=== PATIENT | male | born 1940 | race Caucasian/White ===

== ENCOUNTER 2016-09-07 23:21 | Emergency (ER) | payer BC ==
[~2016-09-07] VITALS: Ht 182.9 cm; Wt 90.9 kg
[~2016-09-07 23:21] MED LIST: AMAN100T2 PO; ASCO10003 PO; AZL/5 PO; CALC600T9 PO; CARB25TA7 PO; CLBCRM30 EXT; COEN1CAP40 PO; DOCU-94 PO; DUTA0.5C PO; FEXO1TAB46 PO; KETO2SHA5 TOP; LPT/40 PO; RIBO100T9 PO; SILO8CAP PO; TPRSR/50 PO; VARD20TA PO; VITA400C15 PO; ZOLP10TA PO; [UNRECOGNIZED DRUG - CODE] TOP
[2016-09-07 23:27] VITALS: TEMP 36.9; Ht 182.9 cm; Wt 90.9 kg
[2016-09-07 23:37] VITALS: O2SAT 99
--- NOTE | 2016-09-07 23:53 | EMERGENCY ROOM VISIT NOTE ---
History Report prepared by Brissa: Silvio Fuller Under the Supervision of: Dr. Perlita Wynn D.O. First contact with patient: 23:32 Chief Complaint: SHORTNESS OF BREATH Stated Complaint: SHAKING,SEVERE TREMBLING, SOB History of Present Illness The patient is a 75 year old male with a history of Parkinson's Disease who presents to the Emergency Room with complaints of worsening generalized tremors since approximately 2100 tonight. The patient is usually able to control his tremors but has been unable to tonight. The patient takes Ativan 2 mg every night. He had a dose at 2115 tonight, which did not relieve the tremors. The patient also complains of some shortness of breath tonight and urinary frequency. He notes that his tremors often make him feel anxious. The patient denies abdominal pain, problems with his bowel, leg cramping or swelling. He has not had any recent cough or cold symptoms. The patient had 5-8 small candies earlier tonight. He does not have a history of diabetes. The patient has been eating less than baseline for two months. His eyes are puffy at baseline as per his . The patient formerly took Metoprolol for hypertension. Source of History: patient, spouse/significant other Onset: 2100 tonight Position: other (generalized) Quality: other (tremors) Timing: worsening Associated Symptoms: + SOB, + urinary symptoms (frquency), No abdominal pain , No cough Review of Systems See HPI for pertinent positives & negatives. A total of 10 systems reviewed and were otherwise negative. Past Medical & Surgical Medical Problems: (1) Parkinson disease Surgical Problems: (1) S/P appendectomy (2) S/P tonsillectomy Family History Cancer FH: tuberculosis Heart disease Social History Smoking Status: Never Smoker Marital Status: Housing Status: lives with family Current/Historical Medications Scheduled Ascorbic Acid (Vitamin C), 1,000 MG PO DAILY Aspirin (Aspirin Ec), 81 MG PO DAILY Atorvastatin (Lipitor), 40 MG PO HS Calcium Carbonate-Vitamin D (Calcium + D), 1 TAB PO DAILY Carbidopa-Levodopa (Rytary 23.75-95 mg), 1 CAP PO QID Clobetasol Propionate (Clobetasol Propionate Cream 0.05%), 1 APPLN EXT UD Coenzyme Q10 (Ubidecarenone) (Co Q-10), 400 MG PO TID Donepezil Hydrochloride (Aricept), 5 MG PO DAILY Dutasteride (Avodart), 0.5 MG PO DAILY Ketoconazole (Topical) (Nizoral), 1 DOSE TOP 3XWK Lorazepam (Ativan), 1 MG PO DAILY Metoprolol Succinate (Metoprolol Succinate ER), 150 MG PO DAILY Polyethylene Glycol 3350 (Miralax), 17 GM PO Q2D Rasagiline (Azilect), 1 MG PO DAILY Riboflavin (Vitamin B-2), 100 MG PO TIDM Solifenacin (Vesicare), 10 MG PO HS Tocopheryl Acet,Dl-Alpha (Vitamin E), 400 INTER.UNIT PO TIDM Scheduled PRN Cetirizine (Zyrtec), 10 MG PO DAILY PRN for ALLERGIC REACTION Docusate Sodium (Colace), 1 TAB PO TID PRN for Constipation Naproxen Sodium (Naproxen Sodium), 220 MG PO BID PRN for Pain Allergies Coded Allergies: Iodine (Verified Allergy, Severe, ITCHING AND DISCOMFORT, 03/09/14) C/B INTERNAL USE OF IODINE PRODUCTS Physical Exam Vital Signs Date Time Temp Pulse Resp B/P Pulse Ox O2 Delivery O2 Flow Rate FiO2 09/08/16 03:20 71 18 161/93 99 09/08/16 02:08 77 18 167/84 98 Room Air 09/08/16 01:09 75 18 147/78 98 Room Air 09/07/16 23:40 73 09/07/16 23:37 99 Room Air 09/07/16 23:37 98 Room Air 09/07/16 23:27 36.9 81 18 123/82 90 Room Air Physical Exam General: Mild tremors. HEENT: Head - normocephalic and atraumatic. Pupils are equal, round, and reactive to light. Extraocular eye muscles are intact and sclera are anicteric. Ears - bilaterally patent canals with noninjected tympanic membranes and no evidence of hemotympanum. Nose - moist nasal mucosa without discharge. Mouth - moist buccal mucosa. Oropharynx is nonerythematous and there is no tonsillar exudate or edema noted. Neck: Supple; no JVD, nuchal rigidity, cervical lymphadenopathy. Heart: Regular rate and rhythm. There is a normal S1 and S2 with no murmurs, clicks, or gallops appreciated. Lungs: Clear to auscultation bilaterally with no wheezes, rales, or rhonchi. Abdomen: Soft, completely nontender, nondistended, with good bowel sounds. There are no palpable pulsatile masses or hepatosplenomegaly. There is no guarding, rigidity, or rebound noted. Extremities: No evidence of cyanosis, clubbing, or edema. There are easily palpable peripheral pulses. Neuro:The patient is awake and alert, oriented to day, time, and place. Muscle strength is 5/5 in all 4 extremities. The patient has equal minute clerk for basic traffic strength and equal pedal push and pull. There are no cerebellar signs. Medical Decision & Procedures ER Provider Diagnostic Interpretation: X-ray results as stated below per interpretation by me. TWO VIEW CHEST: No cardiomegaly, no pulmonary infiltrates. Laboratory Results 09/08/16 00:00 Red Blood Count 4.94, Mean Corpuscular Volume 90.1, Mean Corpuscular Hemoglobin 32.2, Mean Corpuscular Hemoglobin Concent 35.7, Mean Platelet Volume 9.7, Neutrophils (%) (Auto) 76.0, Lymphocytes (%) (Auto) 13.7, Monocytes (%) (Auto) 7.6, Eosinophils (%) (Auto) 2.0, Basophils (%) (Auto) 0.5, Neutrophils # (Auto) 6.59, Lymphocytes # (Auto) 1.19, Monocytes # (Auto) 0.66, Eosinophils # (Auto) 0.17, Basophils # (Auto) 0.04 09/08/16 00:00 Test 09/08/16 00:00 09/08/16 00:25 White Blood Count 8.67 K/uL (4.8-10.8) Red Blood Count 4.94 M/uL (4.7-6.1) Hemoglobin 15.9 g/dL (14.0-18.0) Hematocrit 44.5 % (42-52) Mean Corpuscular Volume 90.1 fL (80-100) Mean Corpuscular Hemoglobin 32.2 pg (25-34) Mean Corpuscular Hemoglobin Concent 35.7 g/dl (32-36) Platelet Count 174 K/uL (130-400) Mean Platelet Volume 9.7 fL (7.4-10.4) Neutrophils (%) (Auto) 76.0 % Lymphocytes (%) (Auto) 13.7 % Monocytes (%) (Auto) 7.6 % Eosinophils (%) (Auto) 2.0 % Basophils (%) (Auto) 0.5 % Neutrophils # (Auto) 6.59 K/uL (1.4-6.5) Lymphocytes # (Auto) 1.19 K/uL (1.2-3.4) Monocytes # (Auto) 0.66 K/uL (0.11-0.59) Eosinophils # (Auto) 0.17 K/uL (0-0.5) Basophils # (Auto) 0.04 K/uL (0-0.2) RDW Standard Deviation 45.6 fL (36.4-46.3) RDW Coefficient of Variation 13.9 % (11.5-14.5) Immature Granulocyte % (Auto) 0.2 % Immature Granulocyte # (Auto) 0.02 K/uL (0.00-0.02) Anion Gap 11.0 mmol/L (3-11) Est Creatinine Clear Calc Drug Dose 80.3 ml/min Estimated GFR () 97.9 Estimated GFR (Non- 84.4 BUN/Creatinine Ratio 30.2 (10-20) Calcium Level 9.5 mg/dl (8.5-10.1) Total Bilirubin 0.6 mg/dl (0.2-1) Aspartate Amino Transf (AST/SGOT) 17 U/L (15-37) Alanine Aminotransferase (ALT/SGPT) 14 U/L (12-78) Alkaline Phosphatase 87 U/L (45-117) Total Protein 6.9 gm/dl (6.4-8.2) Albumin 3.7 gm/dl (3.4-5.0) Globulin 3.2 gm/dl (2.5-4.0) Albumin/Globulin Ratio 1.2 (0.9-2) Urine Color DK YELLOW Urine Appearance CLEAR (CLEAR) Urine pH 5.0 (4.5-7.5) Urine Specific [place] 1.019 (1.000-1.030) Urine Protein NEG (NEG) Urine Glucose (UA) NEG (NEG) Urine Ketones NEG (NEG) Urine Occult Blood NEG (NEG) Urine Nitrite NEG (NEG) Urine Bilirubin NEG (NEG) Urine Urobilinogen NEG (NEG) Urine Leukocyte Esterase NEG (NEG) Laboratory results per my review. Medications Administered Medications (Trade) Dose Ordered Sig/Mira Route Start Time Stop Time Status Last Admin Dose Admin Sodium Chloride 1,000 ml @ 999 mls/hr Q1H1M STAT IV 09/08/16 00:43 09/08/16 01:43 DC 09/08/16 01:09 999 MLS/HR Sodium Chloride (Nss 1000ml) 1,000 ml @ 250 mls/hr Q4H STAT IV 09/08/16 00:43 09/08/16 04:42 DC 09/08/16 02:08 250 MLS/HR Lorazepam (Ativan Inj) 1 mg NOW STAT IV 09/08/16 01:21 09/08/16 01:22 DC 09/08/16 01:29 1 MG Diphenhydramine HCl (Benadryl Inj) 50 mg NOW STAT IV 09/08/16 02:32 09/08/16 02:34 DC 09/08/16 02:37 50 MG Procedure Medications administered include NSS, Ativan IV, Benadryl IV. ED Course 2335: Past medical records reviewed. The patient was evaluated in room B4b. A complete history and physical exam was performed. IV lock was established. 0040: The patient is very dehydrated. He will receive fluids. 0043: NSS 1000 ml @ 250 mls/hr, NSS 1000 ml @ 999 mls/hr. 0058: The patient is still having increased tremors. He is getting IV fluids now and will also receive 1 mg Ativan IV 0121: Ativan 1 mg IV. 0218: Ativan hasn't helped the patient. I will contact the traffic control officer Neurologist, Dr. Chin, for his recommended treatment plan. 0228: Discussed the case with Dr. Chin, Neurologist. He suggested Benadryl or Clonazepam. 0232: Benadryl 50 mg IV. 0233: Updated the patient. He will be discharged after he receives his Benadryl. 0240: The patient's asked for a [place] catheter for him for nighttime urination. 0316: The patient is feeling much better after Benadryl. He is experiencing minimal tremors. I explained everything to him and his . They verbalized understanding of the plan. He will be discharged. Medical Decision The patient is a 75 year old male who presents to the ED with worsening tremors. Differential diagnosis includes UTI, hyperglycemia, anxiety, medication side effects, worsening Parkinson's. Laboratory interpretation: No leukocytosis, stable H&H, BUN 27, creatinine 0.9, glucose 98, LFTs normal, urinalysis normal. The patient presents to the emergency department with worsening anxiety and tremors secondary to Parkinson's disease. He has been using Ativan at nighttime for sleep but felt that his dose of Ativan tonight did not help his tremors. Labs revealed moderate dehydration. He received IV fluids and was able to drink liquids. He did get significant relief of his symptoms with IV Benadryl. I did talk to him and his about his underlying anxiety. They will need to discuss this with the PCP and he may need to start taking preventative medications for this. Also, Ativan has a short half-life and may not be the best med to use for sleep. They may want to switch to clonazepam. I have also encouraged him to follow up with her neurologist at [place]. Consults Time Called: [phone] Consulting Physician: Dr. Chin, Neurologist Returned Call: [phone]: Discussed the case with Dr. Chin, Neurologist. He suggested Benadryl or Clonazepam. Impression Primary Impression: Parkinson disease Additional Impressions: Tremor, Anxiety Scribe Attestation The scribe's documentation has been prepared under my direction and personally reviewed by me in its entirety. I confirm that the note above accurately reflects all work, treatment, procedures, and medical decision making performed by me. Departure Information Dispostion Home / Self-Care Referrals Ney Rodriguez M.D. (PCP) Forms HOME CARE DOCUMENTATION FORM, IMPORTANT VISIT INFORMATION Patient Instructions A Signature Page, Anxiety Body Response, My [facility] Additional Instructions Rest Take care when going home as you may be sleepy. You may continue to use ativan or benadryl as a sleep aid. Talk to Dr. Rodriguez about switching to clonazepam and also about the increased anxiety as you may benefit from a preventative med. Take plenty of clear liquids to avoid dehydration.
[2016-09-08 00:13] LABS: BASO % 0.5 %; BASO ABS # 0.04 K/uL (0-0.2); COMPLETE YES; HEMATOCRIT 44.5 % (42-52); IG% 0.2 %; LYMPH % 13.7 %; LYMPH ABS # 1.19 K/uL (1.2-3.4); MEAN CELL VOLUME 90.1 fL (80-100); MEAN CORPUSCULAR HEMOGLOBIN 32.2 pg (25-34); MEAN CORPUSCULAR HGB CONC 35.7 g/dl (32-36); MEAN PLATELET VOLUME 9.7 fL (7.4-10.4); MONO % 7.6 %; PLATELET COUNT 174 K/uL (130-400); RED BLOOD COUNT 4.94 M/uL (4.7-6.1); WHITE BLOOD COUNT 8.67 K/uL (4.8-10.8)
[2016-09-08] MEDS ORDERED: CETI10TA84 PO (00:15)
[2016-09-08] MEDS ORDERED: SOLI10TA2 PO (00:16)
[2016-09-08] MEDS ORDERED: DONE5TAB14 PO (00:17)
[2016-09-08] MEDS ORDERED: ASPI81TA28 PO (00:18)
[2016-09-08] MEDS ORDERED: ATV/1 PO (00:19)
[2016-09-08] MEDS ORDERED: NAPR1CAP7 PO (00:21)
[2016-09-08] MEDS ORDERED: POLY335019 PO (00:22)
[2016-09-08 00:35] LABS: BUN/CREATININE RATIO 30.2 (10-20); CALCIUM 9.5 mg/dl (8.5-10.1); CREATININE 0.9 mg/dl (0.60-1.40); POTASSIUM 4.7 mmol/L (3.5-5.1)
[2016-09-08 00:38] LABS: ALB/GLOB RATIO 1.2 (0.9-2)
[2016-09-08 00:41] LABS: URINE APPEARANCE CLEAR (CLEAR); URINE BILIRUBIN NEG (NEG); URINE COLOR DK YELLOW; URINE NITRITE NEG (NEG); URINE SPECIFIC GRAVITY 1.019 (1.000-1.030); UROBILINOGEN NEG (NEG)
[2016-09-08] MEDS ORDERED: SODIUM CHLORIDE 0.9% 1000ML 1,000 ML IV STA ×2 (00:43)
[2016-09-08 00:48] LABS: MANUAL MICROSCOPIC REQUIRED? NO; REVIEW REQ? NO
[2016-09-08] MEDS ORDERED: CARB1CAP19 PO (01:09)
[2016-09-08] MEDS ORDERED: LORAZEPAM 2 MG/ML 1 ML VIAL IV STA (01:21)
[2016-09-08] MEDS ORDERED: DiphenhydrAMINE HCL 50 MG/ML VIAL IV STA (02:32)
[2016-09-08 03:20] VITALS: BP 161/93; PULSE 71; O2SAT 99
--- NOTE | 2016-09-08 07:54 | DIAGNOSTIC IMAGING REPORT ---
CHEST 2 VIEWS ROUTINE CLINICAL HISTORY: Shortness of breath. COMPARISON STUDY: Chest radiograph February 16, 2014. FINDINGS: Lung volumes are normal. No pneumothorax or pleural effusion is present. There is no evidence of pulmonary edema. No consolidation is identified. Cardiomediastinal silhouette is unremarkable. There is slight elevation/eventration of the right hemidiaphragm. IMPRESSION: No acute cardiopulmonary findings. Electronically signed by: Bartolo Lopez M.D. 09/08/2016 7:52 AM Dictated Date/Time: 09/08/2016 7:51 AM
== END 2016-09-08 03:40 | disposition home or self-care (01) ==
LOC: C.EDB 23:23
DX: G20 Parkinson's disease (principal); R25.1 Tremor, unspecified; F41.9 Anxiety disorder, unspecified; Z98.890 Other specified postprocedural states; Z79.82 Long term (current) use of aspirin; Z79.899 Other long term (current) drug therapy; Z91.09 Other allergy status, other than to drugs and biological substances; Z80.9 Family history of malignant neoplasm, unspecified; Z82.49 Family history of ischemic heart disease and other diseases of the circulatory system

== ENCOUNTER → 2017-02-19 | Outpatient (CLI) | payer BC ==
[~2017-02-19] MED LIST changes: -AMAN100T2 PO; +ASPI81TA28 PO; +ATV/1 PO; +CARB1CAP19 PO; -CARB25TA7 PO; +CETI10TA84 PO; +DONE5TAB14 PO; -FEXO1TAB46 PO; +NAPR1CAP7 PO; +POLY335019 PO; -SILO8CAP PO; +SOLI10TA2 PO; -VARD20TA PO; -ZOLP10TA PO; -[UNRECOGNIZED DRUG - CODE] TOP
[2017-02-19 12:44] LABS: CHOLESTEROL/HDL RATIO 3.8
== END | disposition home or self-care (01) ==
LOC: C.LAB1850 09:50
PROVIDERS: ATTEND Internal Medicine Cardiovascular Disease
DX: E78.00 Pure hypercholesterolemia, unspecified (principal)

== ENCOUNTER → 2017-08-22 | Outpatient (CLI) | payer BC ==
[~2017-08-22] MED LIST changes: +CEPH500C2 PO; +MELO7.5T5 PO; +TOLT2TAB9 PO; +VITACAP37 PO
== END | disposition home or self-care (01) ==
LOC: C.LAB1850 11:12
PROVIDERS: ATTEND Internal Medicine Cardiovascular Disease
DX: E78.00 Pure hypercholesterolemia, unspecified (principal)

== ENCOUNTER 2018-04-10 23:56 | Emergency (ER) | payer BC ==
[~2018-04-10] VITALS: Ht 182.9 cm; Wt 98.6 kg
[~2018-04-10 23:56] MED LIST changes: -CEPH500C2 PO; -MELO7.5T5 PO; -TOLT2TAB9 PO; -VITACAP37 PO
[2018-04-11 00:03] VITALS: TEMP 36.3; O2SAT 93; Ht 182.9 cm; Wt 98.6 kg
[2018-04-11] MEDS ORDERED: ASPIRIN 81 MG CHEW ONE (00:08)
[2018-04-11] MEDS ORDERED: NITROGLYCERIN 0.4 MG SL PER TAB CHARGE SL STA (00:08)
[2018-04-11] MEDS ORDERED: ASPIRIN 81 MG CHEW PO STA (00:08)
[2018-04-11] MEDS ORDERED: NITROGLYCERIN 0.4 MG SL PER TAB CHARGE ONE (00:08)
[2018-04-11 00:27] LABS: BASO % 0.5 %; BASO ABS # 0.05 K/uL (0-0.2); EOS % 2.7 %; EOS ABS # 0.28 K/uL (0-0.5); HEMATOCRIT 51.2 % (42-52); HEMOGLOBIN 17.7 g/dL (14.0-18.0); IG# 0.01 K/uL (0.00-0.02); LYMPH % 19.2 %; LYMPH ABS # 1.98 K/uL (1.2-3.4); MEAN CELL VOLUME 91.3 fL (80-100); MEAN CORPUSCULAR HEMOGLOBIN 31.6 pg (25-34); MEAN CORPUSCULAR HGB CONC 34.6 g/dl (32-36); MEAN PLATELET VOLUME 9.8 fL (7.4-10.4); MONO % 6.8 %; NEUT % 70.7 %; NEUT ABS # 7.31 K/uL (1.4-6.5); PLATELET COUNT 172 K/uL (130-400); RED CELL DISTRIBUTION WIDTH CV 14.4 % (11.5-14.5); RED CELL DISTRIBUTION WIDTH SD 48.4 fL (36.4-46.3); WHITE BLOOD COUNT 10.33 K/uL (4.8-10.8)
[2018-04-11] MEDS ORDERED: LORAZEPAM 1 MG TAB SL STA (00:53)
[2018-04-11 00:55] LABS: ALBUMIN 3.7 gm/dl (3.4-5.0); BLOOD UREA NITROGEN 24 mg/dl (7-18); CALCIUM 9.4 mg/dl (8.5-10.1); CARBON DIOXIDE 27 mmol/L (21-32); CREATININE 1.24 mg/dl (0.60-1.40); GLUCOSE 83 mg/dl (70-99); SODIUM 140 mmol/L (136-145); TOTAL PROTEIN 7.9 gm/dl (6.4-8.2)
[2018-04-11 00:56] LABS: ALKALINE PHOSPHATASE 85 U/L (45-117); ALT/SGPT 13 U/L (12-78); LIPASE 189 U/L (73-393)
[2018-04-11 01:33] LABS: AST/SGOT 21 U/L (15-37); POTASSIUM 3.9 mmol/L (3.5-5.1)
[2018-04-11] MEDS ORDERED: MELO7.5T5 PO (01:40)
[2018-04-11] MEDS ORDERED: TOLT2TAB9 PO (01:43)
--- NOTE | 2018-04-11 02:57 | EMERGENCY ROOM VISIT NOTE ---
ED Visit Note First contact with patient: 23:59 Patient seen and evaluated after discussion with the physician assistant analyst. Concerned given history and risk factors for ACS. Initial labs negative, however case discussed with hospitalist for additional evaluation and treatment. Patient with persistent pain here, repeat EKG does not show any dynamic changes. Patient does have some reproducible chest discomfort, he also has several risk factors for ACS.
--- NOTE | 2018-04-11 04:07 | Medical Consult ---
Consultation Date of Consultation: Apr 11, 2018. Attending Physician: Reason for Consultation: Chest pain History of Present Illness Kaleb is a 77 year old male with anxiety, Parkinsons, controlled hld, and well controlled htn that presented to [facility] with chest pain. His chest pain started at 1130 pm while he was sitting at home. The pain is located at the left side of his chest just inferior to his nipple. The pain is a dull pain that is made worse by taking in a deep breath. He also notes that the pain is worse with movement. He had associated diaphoresis and tingling in his left arm. He therefore came to the emergency department. He has never had similar pain in the past. He did have angina 20 years ago, which he has not had since. The patient notes that he had a very intensive workout on Saturday with physical therapy. In the ED his vitals were stable. He had a negative troponin at 1215. His EKG did not show any ST changes or T wave inversions. He was given 243mg of aspirin in the emergency department. He was offered nitroglycerin but declined as his chest pain had subsided substantially in the ED. Past Medical/Surgical History Medical Problems: (1) Anxiety Status: Acute (2) Tremor Status: Acute Family History Cancer FH: tuberculosis Heart disease Mom had IA at 67 Social History Smoking Status: Never Smoker Alcohol Use: occasionally Marital Status: Housing Status: lives with family Occupation Status: disabled Allergies Coded Allergies: Iodine (Verified Allergy, Severe, ITCHING AND DISCOMFORT, 03/09/14) C/B INTERNAL USE OF IODINE PRODUCTS Home Medications Statin, aspirin, zyrtec, aricept, avodart, ativan, mobic, rasagiline Current Inpatient Medications In the ED he received 243mg of aspirin Review of Systems Constitutional: + sweats, No fever, No chills Eyes: No worsening of vision Respiratory: No cough, No sputum, No shortness of breath Cardiovascular: No edema, No palpitations Abdomen: No pain, No nausea, No vomiting, No diarrhea, No constipation Musculoskeletal: No joint pain, No muscle pain, No swelling, No calf pain Genitourinary - Male: No hematuria, No dysuria Integumentary: No rash, No itch, No new/changing skin lesions Physical Exam Date Time Temp Pulse Resp B/P (MAP) Pulse Ox O2 Delivery O2 Flow Rate FiO2 04/11/18 03:01 82 23 146/93 96 04/11/18 02:31 87 17 149/92 98 04/11/18 02:10 81 23 160/106 93 04/11/18 02:01 86 21 151/110 92 04/11/18 01:31 89 24 151/110 97 04/11/18 01:00 92 26 156/90 93 04/11/18 00:33 88 04/11/18 00:31 86 24 126/69 96 04/11/18 00:29 Room Air 04/11/18 00:03 36.3 123 23 161/101 93 Room Air 04/11/18 00:03 93 Room Air General Appearance: WD/WN, no apparent distress ENT: hearing grossly normal, pharynx normal Neck: no adenopathy, no JVD, no carotid bruits, trachea midline Respiratory/Chest: chest non-tender, lungs clear, no respiratory distress, no accessory muscle use Cardiovascular: regular rate, rhythm, no murmur, normal peripheral pulses Abdomen/GI: normal bowel sounds, non tender, soft Back: normal inspection, no muscle spasm Extremities/Musculoskelatal: normal inspection, no calf tenderness, no pedal edema, non-tender Neurologic/Psych: no motor/sensory deficits, alert, normal mood/affect, oriented x 3, + pertinent finding (patient with a resting tremor) Skin: normal color, warm/dry, no rash Laboratory Results Last 24 Hours Test 04/11/18 00:17 04/11/18 00:25 04/11/18 01:01 04/11/18 03:17 White Blood Count 10.33 K/uL Red Blood Count 5.61 M/uL Hemoglobin 17.7 g/dL Hematocrit 51.2 % Mean Corpuscular Volume 91.3 fL Mean Corpuscular Hemoglobin 31.6 pg Mean Corpuscular Hemoglobin Concent 34.6 g/dl Platelet Count 172 K/uL Mean Platelet Volume 9.8 fL Neutrophils (%) (Auto) 70.7 % Lymphocytes (%) (Auto) 19.2 % Monocytes (%) (Auto) 6.8 % Eosinophils (%) (Auto) 2.7 % Basophils (%) (Auto) 0.5 % Neutrophils # (Auto) 7.31 K/uL Lymphocytes # (Auto) 1.98 K/uL Monocytes # (Auto) 0.70 K/uL Eosinophils # (Auto) 0.28 K/uL Basophils # (Auto) 0.05 K/uL RDW Standard Deviation 48.4 fL RDW Coefficient of Variation 14.4 % Immature Granulocyte % (Auto) 0.1 % Immature Granulocyte # (Auto) 0.01 K/uL Sodium Level 140 mmol/L Potassium Level mmol/L 3.9 mmol/L Chloride Level 105 mmol/L Carbon Dioxide Level 27 mmol/L Anion Gap 8.0 mmol/L Blood Urea Nitrogen 24 mg/dl Creatinine 1.24 mg/dl Est Creatinine Clear Calc Drug Dose 62.6 ml/min Estimated GFR () 65.5 Estimated GFR (Non- 56.5 BUN/Creatinine Ratio 19.2 Random Glucose 83 mg/dl Calcium Level 9.4 mg/dl Total Bilirubin 0.6 mg/dl Direct Bilirubin mg/dl < 0.1 mg/dl Aspartate Amino Transf (AST/SGOT) U/L 21 U/L Alanine Aminotransferase (ALT/SGPT) 13 U/L Alkaline Phosphatase 85 U/L Troponin I < 0.015 ng/ml Total Protein 7.9 gm/dl Albumin 3.7 gm/dl Lipase 189 U/L Bedside Troponin I 0.040 ng/ml Test 04/11/18 03:21 Assessment & Plan Kaleb is a 77 year old male with anxiety, Parkinsons, controlled hld, and well controlled htn that presented to [facility] with chest pain. Patient vitals remained unremarkable in the ED. He had 2 troponins drawn in the ED which were both negative. He had 3 EKG's in the ED which remained stable and unchanged without any evidence for acute IA. His pain was worse with deep inspiration, it was made worse by palpation between the ribs and it was made worse with movement. Patient has a heart score of 4. While resting in the ED the patient did not have any worsening chest pain and he noted it was only made worse when taking a deep breath in or when he moved, otherwise he did not have any pain. The patient and his state that they would rather be sent home then go under observation in the hospital. Therefore we obtained a 2nd troponin and an EKG after the first which were both negative. It is likely the patient is experiencing MSK pain vs intercostal muscle spasms secondary to his intensive workout on Saturday. Patient was advised to seek follow up with his b2b managed service sales exec for cardiac risk stratification which would likely include a dobutamine stress test. Patient was given instructions to return if his chest pain worsened, or if he started experiencing shortness of breath. Patient was advised to take tylenol for his chest pain.
[2018-04-11] MEDS ORDERED: LORAZEPAM 2 MG/ML 1 ML VIAL IV STA (05:00)
--- NOTE | 2018-04-11 05:46 | EMERGENCY ROOM VISIT NOTE ---
History First contact with patient: 23:59 Chief Complaint: CHEST PAIN Stated Complaint: CHEST PAIN,RACING PULSE,ARM TINGLE Nursing Triage Summary: Pt reports tonight around 2345 pt started having chest pain and anxiety attack. Pt took baby aspirin and ativan that helped his pain. Pt reports SOB. Pt follow Dr Lin and was told he dose have heart blockages. Pt hx parkinsons. History of Present Illness The patient is a 77 year old male who presents to the Emergency Room with complaints of left-sided chest pain that radiated down his arm for the past 45 minutes just prior to arrival with diaphoresis. Patient has a history of coronary artery disease for the past [address] Lin. He sees him twice a year. He saw him last month and everything is well. No recent catheter stress test or echo. Patient suffers from anxiety but states this feels different. He took a baby aspirin and then came here. He states his symptoms are not exertional. Nothing makes it better or worse. Patient states the pain has now subsided. Patient denies dyspnea, abdominal pain, back pain, jaw pain, neck pain, leg pain or swelling, nausea, vomiting. No injury to the area. Review of Systems An 10 system review of systems was completed with positives and pertinent negatives listed in the HPI. Past Medical/Surgical History Medical Problems: (1) Parkinson disease Surgical Problems: (1) S/P appendectomy (2) S/P tonsillectomy Hyperlipidemia Family History Cancer FH: tuberculosis Heart disease Social History Smoking Status: Never Smoker Drug Use: none Marital Status: Housing Status: lives with family Current/Historical Medications Scheduled Ascorbic Acid (Vitamin C), 1,000 MG PO DAILY Aspirin (Aspirin Ec), 81 MG PO DAILY Atorvastatin (Lipitor), 40 MG PO HS/Q2D Calcium Carbonate-Vitamin D (Calcium + D), 1 TAB PO DAILY Clobetasol Propionate (Clobetasol Propionate Cream 0.05%), 1 APPLN EXT UD Coenzyme Q10 (Ubidecarenone) (Co Q-10), 400 MG PO TID Donepezil Hydrochloride (Aricept), 5 MG PO DAILY Dutasteride (Avodart), 0.5 MG PO DAILY Ketoconazole (Topical) (Nizoral), 1 DOSE TOP 3XWK Meloxicam (Mobic), 7.5 MG PO DAILY Polyethylene Glycol 3350 (Miralax), 17 GM PO QAM Rasagiline (Azilect), 1 MG PO DAILY Riboflavin (Vitamin B-2), 100 MG PO TIDM Tocopheryl Acet,Dl-Alpha (Vitamin E), 400 INTER.UNIT PO TIDM Tolterodine Tartrate (Tolterodine Tartrate), 2 MG PO BID Scheduled PRN Cetirizine (Zyrtec), 10 MG PO DAILY PRN for ALLERGIC REACTION Lorazepam (Ativan), 2 MG PO TID PRN for Anxiety Physical Exam Vital Signs Date Time Temp Pulse Resp B/P (MAP) Pulse Ox O2 Delivery O2 Flow Rate FiO2 04/11/18 04:40 86 04/11/18 04:12 81 18 127/75 96 Room Air 04/11/18 03:01 82 23 146/93 96 04/11/18 02:31 87 17 149/92 98 04/11/18 02:10 81 23 160/106 93 04/11/18 02:01 86 21 151/110 92 04/11/18 01:31 89 24 151/110 97 04/11/18 01:00 92 26 156/90 93 04/11/18 00:33 88 04/11/18 00:31 86 24 126/69 96 04/11/18 00:29 Room Air 04/11/18 00:03 36.3 123 23 161/101 93 Room Air 04/11/18 00:03 93 Room Air Physical Exam VITALS: Vitals are noted on the nurse's note and reviewed by myself. Vital signs hypertensive. GENERAL: Pleasant male, in no acute distress, nondiaphoretic, well-developed well-nourished. SKIN: The skin was without rashes, erythema, edema, or bruising. There is no tenting of the skin. Capillary reflex less than 2 seconds. HEAD: Normocephalic atraumatic. EARS: External auditory canals clear, tympanic membranes pearly duncan without erythema or effusion bilaterally. EYES: Pupils equal round and reactive to light and accommodation. Conjunctivae without injection, sclerae without icterus. Extraocular movements intact. NOSE: Patent, turbinates without inflammation or discharge. MOUTH: Mucous membranes moist. Pharynx without erythema or exudate. Uvula midline. Airway patent. Tongue does not deviate. NECK: Supple without nuchal rigidity. No lymphadenopathy. No thyromegaly. Cervical spine is nontender. No JVD. HEART: Regular rate and rhythm LUNGS: Clear to auscultation bilaterally without wheezes, rales or rhonchi. No retractions or accessory muscle use. ABDOMEN: Positive bowel sounds x 4. Normal tympanic percussion. Soft, nontender, without masses or organomegaly. Doran sign negative. No guarding or rebound tenderness. No CVA tenderness MUSCULOSKELETAL: No muscle atrophy, erythema, or edema noted. NEURO: Patient was alert and oriented to person place and time. Normal sensation to light and sharp touch. No focal neurological deficits. Medical Decision & Procedures Laboratory Results 04/11/18 00:17 Red Blood Count 5.61, Mean Corpuscular Volume 91.3, Mean Corpuscular Hemoglobin 31.6, Mean Corpuscular Hemoglobin Concent 34.6, Mean Platelet Volume 9.8, Neutrophils (%) (Auto) 70.7, Lymphocytes (%) (Auto) 19.2, Monocytes (%) (Auto) 6.8, Eosinophils (%) (Auto) 2.7, Basophils (%) (Auto) 0.5, Neutrophils # (Auto) 7.31, Lymphocytes # (Auto) 1.98, Monocytes # (Auto) 0.70, Eosinophils # (Auto) 0.28, Basophils # (Auto) 0.05 04/11/18 00:17 04/11/18 01:01 Test 04/11/18 00:17 04/11/18 01:01 04/11/18 03:17 04/11/18 05:23 White Blood Count 10.33 K/uL (4.8-10.8) Red Blood Count 5.61 M/uL (4.7-6.1) Hemoglobin 17.7 g/dL (14.0-18.0) Hematocrit 51.2 % (42-52) Mean Corpuscular Volume 91.3 fL (80-100) Mean Corpuscular Hemoglobin 31.6 pg (25-34) Mean Corpuscular Hemoglobin Concent 34.6 g/dl (32-36) Platelet Count 172 K/uL (130-400) Mean Platelet Volume 9.8 fL (7.4-10.4) Neutrophils (%) (Auto) 70.7 % Lymphocytes (%) (Auto) 19.2 % Monocytes (%) (Auto) 6.8 % Eosinophils (%) (Auto) 2.7 % Basophils (%) (Auto) 0.5 % Neutrophils # (Auto) 7.31 K/uL (1.4-6.5) Lymphocytes # (Auto) 1.98 K/uL (1.2-3.4) Monocytes # (Auto) 0.70 K/uL (0.11-0.59) Eosinophils # (Auto) 0.28 K/uL (0-0.5) Basophils # (Auto) 0.05 K/uL (0-0.2) RDW Standard Deviation 48.4 fL (36.4-46.3) RDW Coefficient of Variation 14.4 % (11.5-14.5) Immature Granulocyte % (Auto) 0.1 % Immature Granulocyte # (Auto) 0.01 K/uL (0.00-0.02) Anion Gap 8.0 mmol/L (3-11) Est Creatinine Clear Calc Drug Dose 62.6 ml/min Estimated GFR () 65.5 Estimated GFR (Non- 56.5 BUN/Creatinine Ratio 19.2 (10-20) Calcium Level 9.4 mg/dl (8.5-10.1) Total Bilirubin 0.6 mg/dl (0.2-1) Alanine Aminotransferase (ALT/SGPT) 13 U/L (12-78) Alkaline Phosphatase 85 U/L (45-117) Total Protein 7.9 gm/dl (6.4-8.2) Albumin 3.7 gm/dl (3.4-5.0) Lipase 189 U/L (73-393) Direct Bilirubin < 0.1 mg/dl (0-0.2) Aspartate Amino Transf (AST/SGOT) 21 U/L (15-37) Troponin I < 0.015 ng/ml (0-0.045) Bedside Troponin I 0.040 ng/ml (0-0.045) Medications Administered Medications (Trade) Dose Ordered Sig/Mira Route Start Time Stop Time Status Last Admin Dose Admin Aspirin (Aspirin Chew) 243 mg STK-MED ONCE .ROUTE 04/11/18 00:08 04/11/18 00:09 DC 04/11/18 00:27 243 MG Lorazepam (Ativan Tab) 2 mg NOW STAT SL 04/11/18 00:53 04/11/18 00:55 DC 04/11/18 00:57 2 MG Lorazepam (Ativan Inj) 1 mg NOW STAT IV 04/11/18 05:00 04/11/18 05:01 DC 04/11/18 05:08 1 MG ED Course Prior records/ancillary studies reviewed. Triage Nursing notes reviewed. Additional history obtained from family. The patient's history was concerning for chest pain. Differential diagnosis: Etiologies such as cardiac ischemia, aortic dissection, pulmonary embolism, pneumonia, pneumothorax, musculoskeletal, infections, pericarditis, myocarditis , esophageal rupture, gastrointestinal, as well as others were entertained. Physical examination: As above. ER treatment provided: Aspirin, Ativan On reassessment the patient felt better. Diagnostic interpretation by me: The electrocardiogram was normal sinus, no acute ST-T wave changes, right bundle branch block, left axis deviation, rate of 90. Impression right bundle branch block interpreted by myself. Prior EKG shows a right bundle branch block per my interpretation. Repeat EKG is unchanged. The labs revealed negative troponin. Stable H&H Imaging studies: Chest x-ray with no acute consolidation, pneumothorax or free air per my interpretation Consultation: A consultation was placed with the hospitalist, Dr. Sena and resident. The case was discussed and diagnostics were reviewed. The patient was evaluated in the ER for further treatment. HEART SCORE: Hx: high/mod/low suspicion: 1 ECG: ST depression/nonspecific changes/normal: 0 Age: Greater than 65/45-64/less than 45: 2 Risk factors: (Hypertension, hyperlipidemia, diabetes, coronary disease, tobacco use, cocaine use): 2 Troponin: Greater than 2 times normal limits/1-2 times normal limits/normal: 0 Total: 5 Exam and history seem consistent with chest pain with concerns for possible cardiac in etiology. Heart score is 5. Patient has prior heart disease. He has dyslipidemia and is geriatric. Repeat EKG is unchanged. He will be evaluated by medicine. First troponin is negative but was only 1 hour after the onset of pain. Medicine states the patient is safe to be discharged home. They will make arrangements for outpatient follow-up today for further testing. Patient did have a repeat 6 hour troponin done by myself before letting the patient be discharged home and this was negative. Patient had 3 EKGs are unchanged. Patient and family felt comfortable going home and seeing the family doctor or the pocket machine operator later today. Case management will help facilitate follow-up. Family was advised to return to the ER meaty for chest pain, difficulty breathing, diaphoresis, worsening signs or symptoms or as needed. So using the shared decision-making process and consultation with the hospitalist the patient feels comfortable seeing the family doctor or pocket machine operator later today and not staying as a patient in the hospital. By the evaluation outlined above emergent etiologies such as aortic dissection, pulmonary embolism, pneumonia, pneumothorax, infections, pericarditis, myocarditis, gastrointestinal, as well as others were deemed relatively unlikely. The pt informed about the findings as listed above. All questions were answered and pleased with the treatment. Return instructions were outlined and the patient was discharged in stable condition. Referral: The patient was referred back to primary care physician/pocket machine operator for follow -up today for a recheck of the current condition. Case reviewed with my attending The chart was completed utilizing [employer] Speech voice recognition software. Grammatical errors, random word insertions, pronoun errors, and incomplete sentences are an occassional consequence of this system due to software limitations, ambient noise, and hardware issues. Any formal questions or concerns about the content, text, or information contained within the body of this dictation should be directly addressed to the physician teacher's assistant for clarification. Medical Decision As above Medication Reconcilliation Current Medication List: was personally reviewed by me Blood Pressure Screening Patient's blood pressure: Elevated blood pressure Blood pressure disposition: Referred to PCP Impression Primary Impression: Substernal precordial chest pain Departure Information Dispostion Home / Self-Care Condition GOOD Referrals Ney Rodriguez M.D. (PCP) Patient Instructions My [facility] Additional Instructions Ibuprofen(Motrin, Advil) may be used for fever or pain. Use 600mg every six hours as needed. Take with food. Avoid using more than 2400mg in a 24 hour period. Do not use 2400mg per day for more than three consecutive days without physician direction. Prolonged inappropriate use can lead to stomach upset or ulcers. (AND/OR) Acetaminophen(Tylenol) may be used for fever or pain. Use 1000mg every six hours as needed. Avoid using more than 3000mg in a 24 hour period. Rest and drink plenty of fluids as tolerated. Continue current medications. Avoid strenuous activities until cleared by the pocket machine operator.. Return to the ER immediately for worsening or persistent chest pain, abdominal pain, vomiting, fevers, chest pains, difficulty breathing, worsening of your condition, or as needed. Follow up with your primary physician or pocket machine operator today for a recheck of your current condition. Case management will help facilitate this follow-up appointment. If you do not hear by them by noon today then call back to the ER and ask to speak to case management.
[2018-04-11 05:51] VITALS: BP 160/91; PULSE 88; O2SAT 95
--- NOTE | 2018-04-11 07:07 | DIAGNOSTIC IMAGING REPORT ---
CHEST ONE VIEW PORTABLE CLINICAL HISTORY: CHEST PAIN dyspnea COMPARISON STUDY: 09/08/2016 FINDINGS: The bones soft tissues and hemidiaphragms are normal. The cardiomediastinal silhouette is normal. The lungs are clear. The pulmonary vasculature is normal. IMPRESSION: Negative chest. Minimal atelectasis left base The above report was generated using voice recognition software. It may contain grammatical, syntax or spelling errors. Electronically signed by: Jayesh Caballero M.D. 04/11/2018 7:05 AM Dictated Date/Time: 04/11/2018 7:05 AM
[2018-04-12] MEDS ORDERED: VITACAP37 PO (11:08)
[2018-04-12] MEDS ORDERED: CARB1CAP19 PO (13:11)
[2018-04-12] MEDS ORDERED: DUTA0.5C PO (21:14)
[2018-04-14] MEDS ORDERED: DONE5TAB14 PO (13:49)
[2018-04-14] MEDS ORDERED: CEPH500C2 PO (13:49)
[2018-04-14] MEDS ORDERED: MELO7.5T5 PO (13:49)
== END 2018-04-11 06:22 | disposition home or self-care (01) ==
LOC: C.EDB 23:57
DX: R07.2 Precordial pain (principal); I25.10 Atherosclerotic heart disease of native coronary artery without angina pectoris; F41.9 Anxiety disorder, unspecified; G20 Parkinson's disease; E78.5 Hyperlipidemia, unspecified; Z80.9 Family history of malignant neoplasm, unspecified; Z79.899 Other long term (current) drug therapy; Z79.82 Long term (current) use of aspirin; Z82.49 Family history of ischemic heart disease and other diseases of the circulatory system; Z88.8 Allergy status to other drugs, medicaments and biological substances

== ENCOUNTER 2018-04-12 08:50 | Inpatient (IN) | payer BC, OTHER ==
[~2018-04-12] VITALS: Ht 182.9 cm; Wt 97.0 kg
[~2018-04-12 08:50] MED LIST changes: -CARB1CAP19 PO; -DOCU-94 PO; +MELO7.5T5 PO; -NAPR1CAP7 PO; -SOLI10TA2 PO; +TOLT2TAB9 PO; -TPRSR/50 PO
[2018-04-12] MEDS ORDERED: FENTANYL CITRATE INJ 50 MCG/1 ML 2 ML VIAL IV STA (09:19)
--- NOTE | 2018-04-12 09:22 | EMERGENCY ROOM VISIT NOTE ---
History Report prepared by Brissa: Eliezer Oneil Under the Supervision of: Dr. Jammie Biggs M.D. First contact with patient: 08:56 Chief Complaint: BACK PAIN Stated Complaint: back pain History of Present Illness The patient is a 77 year old male who presents to the Emergency Room with complaints of worsening back pain beginning a few days ago. He currently rates his discomfort a 5/10 in severity. The patient states his discomfort started Saturday night while he was watching TV. He reports he was sweaty and had pain in the left arm. The patient notes he took his blood pressure, and it was elevated. He states he had pain down his entire back as well. The patient reports he came to the ED, had a six hour troponin obtained, and he was discharged home. He notes this morning he slipped off the toilet and was put softly onto the floor with the help of his . The patient states he came to the ED because his back pain was worsening, and he developed neck pain. He reports his discomfort was too severe making it difficult to sleep. The patient notes he also developed a headache around 11PM last night. He states he is typically able to lower himself to the toilet on his own with the bars around his toilet, but today he could not. He denies hitting his head, SOB, trouble urinating, abdominal pain, and a history of UTIs. Source of History: patient Onset: a few days ago Position: back Symptom Intensity: 5/10 Timing: worsening Associated Symptoms: + neck pain, No SOB, No abdominal pain, No urinary symptoms Note: Associated symptoms: sweaty, pain in the left arm Denies: hitting his head Review of Systems See HPI for pertinent positives & negatives. A total of 10 systems reviewed and were otherwise negative. Past Medical & Surgical Medical Problems: (1) Parkinson disease (2) UTI (urinary tract infection) Surgical Problems: (1) S/P appendectomy (2) S/P tonsillectomy Family History Cancer FH: tuberculosis Heart disease Social History Smoking Status: Never Smoker Drug Use: none Marital Status: Housing Status: lives with family Occupation Status: disabled Current/Historical Medications Scheduled Ascorbic Acid (Vitamin C), 1,000 MG PO DAILY Aspirin (Aspirin Ec), 81 MG PO DAILY Atorvastatin (Lipitor), 40 MG PO HS/Q2D Calcium Carbonate-Vitamin D (Calcium + D), 1 TAB PO DAILY Carbidopa-Levodopa (Rytary 23.75-95 mg), Unknown Dose PO QID Clobetasol Propionate (Clobetasol Propionate Cream 0.05%), 1 APPLN EXT UD Coenzyme Q10 (Ubidecarenone) (Co Q-10), 400 MG PO TID Donepezil Hydrochloride (Aricept), 5 MG PO DAILY Dutasteride (Avodart), 0.5 MG PO DAILY Ketoconazole (Topical) (Nizoral), 1 DOSE TOP 3XWK Meloxicam (Mobic), 7.5 MG PO DAILY Polyethylene Glycol 3350 (Miralax), 17 GM PO QAM Rasagiline (Azilect), 1 MG PO DAILY Riboflavin (Vitamin B-2), 100 MG PO TIDM Tolterodine Tartrate (Tolterodine Tartrate), 2 MG PO BID Vitamin E (E-400), 400 MG PO TID Scheduled PRN Cetirizine (Zyrtec), 10 MG PO DAILY PRN for ALLERGIC REACTION Lorazepam (Ativan), 2 MG PO TID PRN for Anxiety Allergies Coded Allergies: Iodine (Verified Allergy, Severe, ITCHING AND DISCOMFORT, 04/12/18) C/B INTERNAL USE OF IODINE PRODUCTS Physical Exam Vital Signs Date Time Temp Pulse Resp B/P (MAP) Pulse Ox O2 Delivery O2 Flow Rate FiO2 04/12/18 13:57 86 19 126/76 97 Room Air 04/12/18 13:34 97 Room Air 04/12/18 13:24 84 18 138/85 97 Room Air 04/12/18 13:13 86 04/12/18 12:49 86 18 100 Room Air 04/12/18 11:38 80 18 105/66 97 Room Air 04/12/18 11:08 77 16 111/64 94 Room Air 04/12/18 10:54 74 16 102/63 95 Room Air 04/12/18 09:58 85 16 117/68 92 Room Air 04/12/18 09:02 84 04/12/18 09:00 36.5 103 16 111/70 90 Room Air Physical Exam Vital signs reviewed. General: Chronically ill-appearing 77 year old male, in no significant distress. Limited mobility. Parkinsonian tremor. HEENT: No scleral icterus, PERRLA, neck supple. Atraumatic. Cardiovascular: Regular rate and rhythm, no extra sounds. Pulmonary: Clear to auscultation bilaterally, normal work of breathing. Abdomen: Soft, nontender, nondistended, positive bowel sounds. Musculoskeletal: Atraumatic, no peripheral edema. No tenderness to the thoracic and lumbar spine. Some tenderness over the cervical spine. Some paraspinous tenderness to the low lumbar spine. Neurologic: Patient awake alert and oriented x 3, flattened facial features, persistent distal tremor Skin: Warm, dry, no rash Medical Decision & Procedures ER Provider Diagnostic Interpretation: Radiology results as stated below per my review and radiologist interpretation: THORACIC SPINE 3 VIEWS CLINICAL HISTORY: Fall. Thoracic back pain. FINDINGS: AP, swimmer's, and lateral views of the thoracic spine are compared to study dated 08/02/2015. The skeletal structures are osteopenic. There is no radiographic evidence of acute fracture or malalignment involving the thoracic spine. Vertebral body height and alignment are maintained. Anterior osteophytes are seen throughout. The transverse processes and pedicles are grossly intact as seen on the frontal view. There is a mild degenerative disc space narrowing in the midthoracic region. The lung parenchyma is clear as imaged. The mitral annulus is densely calcified. IMPRESSION: No acute bony abnormality is seen involving the thoracic spine. Electronically signed by: Parviz Jaimes M.D. 04/12/2018 12:29 PM Dictated Date/Time: 04/12/2018 11:37 AM LUMBAR SPINE 5 VIEWS CLINICAL HISTORY: Fall. Low back pain. FINDINGS: 5 views of the lumbar spine are correlated with abdominal CT dated 03/08/2009. The skeletal structures are osteopenic. There is no radiographic evidence of fracture or malalignment. Vertebral body height and alignment are maintained throughout the lumbar spine. Anterior osteophytes are seen throughout. The transverse and spinous processes appear intact. There is no evidence of spondylolysis. Facet arthropathy is seen in the mid to lower lumbar region. The disc spaces are preserved. The bony pelvis is intact as visualized. Sclerotic change is noted in the sacroiliac joints. Atherosclerotic calcification is noted in the abdominal aorta. No bowel obstruction is seen. Surgical mesh projects over the pelvis bilaterally. IMPRESSION: 1. No acute bony abnormality is seen involving the lumbar spine. 2. Osteopenia and spondylotic change as above. Electronically signed by: Parviz Jaimes M.D. 04/12/2018 12:29 PM Dictated Date/Time: 04/12/2018 11:[address] SCAN OF THE BRAIN WITHOUT IV CONTRAST CLINICAL HISTORY: Fall. Headache. Weakness. COMPARISON STUDY: No priors. TECHNIQUE: Unenhanced axial CT scan of the brain is performed from the vertex to the skull base. A dose lowering technique was utilized adhering to the principles of ALARA. The skull base was scanned twice. The examination is mildly degraded by suboptimal patient positioning within the CT gantry. FINDINGS: Brain parenchyma: There are age-related involutional changes noting mild subcortical and periventricular microangiopathic change. There is no hemorrhage, mass effect, or evidence of acute territorial ischemia by CT criteria. Lockhart-white matter is preserved. No extra-axial fluid collection is seen. Ventricles, sulci, cisterns: Prominent secondary to involutional change. Intracranial vasculature: There is atherosclerotic calcification of the cavernous carotid arteries. Calvarium: The skeletal structures are osteopenic. No depressed calvarial fracture is identified. Sinuses and mastoids: The visualized paranasal sinuses are clear. The mastoid air cells are well pneumatized. Orbits: The bony orbits are grossly intact. IMPRESSION: There is no hemorrhage, mass effect, or evidence of acute territorial ischemia by CT criteria. Electronically signed by: Parviz Jaimes M.D. 04/12/2018 10:37 AM Dictated Date/Time: 04/12/2018 10:[address] SCAN OF THE CERVICAL SPINE CLINICAL HISTORY: Headache. Fall. Weakness. Back pain. COMPARISON STUDY: Radiographs of the cervical spine dated 08/02/2015. TECHNIQUE: CT scan of the cervical spine is performed from the skull base to the upper thoracic spine. Images are reviewed in the axial, sagittal, and coronal planes. IV contrast was not administered for this examination. A dose lowering technique was utilized adhering to the principles of ALARA. CT DOSE: 1538.41 mGy.cm FINDINGS: Skeletal structures: There is hyperflexion of the cervical spine, unchanged from the 2015 radiographs. The skeletal structures are osteopenic. There is no evidence of fracture or subluxation involving the cervical spine. Vertebral body height and alignment are maintained. Large anterior osteophytes are seen in the mid to lower cervical region. The odontoid process and lateral masses are intact. The atlantoaxial articulation is preserved noting productive degenerative change. The spinous processes appear intact. There is moderate multilevel cervical spondylosis. Uncovertebral and facet arthropathy contribute to neural foraminal stenosis at several levels. Intervertebral discs: Mild to moderate disc space narrowing is seen from C5-C6 through C7-T1. Central canal: A large posterior discussed by complex at C3-C4 may contribute to mild acquired compromise of the central canal. Soft tissues: The prevertebral and paraspinous soft tissues are within normal limits. Calvarium: The visualized calvarium at the skull base appears intact. Brain parenchyma: Partially visualized brain parenchyma the skull base is within normal limits. Sinuses and mastoids: The visualized paranasal sinuses are clear. The mastoid air cells are well pneumatized. Lung apices: Clear as visualized. IMPRESSION: 1. There is no evidence of fracture or subluxation involving the cervical spine. 2. Osteopenia and spondylotic change as above. 3. There is hyperflexion of the cervical spine, similar in appearance to the 2015 radiographic examination. Electronically signed by: Parviz Jaimes M.D. 04/12/2018 10:42 AM Dictated Date/Time: 04/12/2018 10:38 AM Laboratory Results 04/12/18 09:40 Test 04/12/18 09:40 04/12/18 12:07 04/12/18 12:28 Prothrombin Time 10.7 SECONDS (9.0-12.0) Prothromb Time International Ratio 1.0 (0.9-1.1) Activated Partial Thromboplast Time 34.3 SECONDS (21.0-31.0) Partial Thromboplastin Ratio 1.3 D-Dimer 440 ug/L FEU (0-500) Anion Gap 7.0 mmol/L (3-11) Est Creatinine Clear Calc Drug Dose 60.3 ml/min Estimated GFR () 63.0 Estimated GFR (Non- 54.4 BUN/Creatinine Ratio 15.7 (10-20) Calcium Level 9.4 mg/dl (8.5-10.1) Magnesium Level 2.2 mg/dl (1.8-2.4) Total Bilirubin 1.0 mg/dl (0.2-1) Direct Bilirubin 0.2 mg/dl (0-0.2) Aspartate Amino Transf (AST/SGOT) 15 U/L (15-37) Alanine Aminotransferase (ALT/SGPT) 11 U/L (12-78) Alkaline Phosphatase 81 U/L (45-117) Total Protein 7.3 gm/dl (6.4-8.2) Albumin 3.3 gm/dl (3.4-5.0) Troponin I 0.018 ng/ml (0-0.045) Urine Color DK YELLOW Urine Appearance CLEAR (CLEAR) Urine pH 5.0 (4.5-7.5) Urine Specific [place] 1.007 (1.000-1.030) Urine Protein NEG (NEG) Urine Glucose (UA) NEG (NEG) Urine Ketones NEG (NEG) Urine Occult Blood NEG (NEG) Urine Nitrite POS (NEG) Urine Bilirubin NEG (NEG) Urine Urobilinogen NEG (NEG) Urine Leukocyte Esterase LARGE (NEG) Urine WBC (Auto) >30 /hpf (0-5) Urine RBC (Auto) 0-4 /hpf (0-4) Urine Hyaline Casts (Auto) 1-5 /lpf (0-5) Urine Epithelial Cells (Auto) 0-5 /lpf (0-5) Urine Bacteria (Auto) 4+ (NEG) Laboratory results per my review. Medications Administered Medications (Trade) Dose Ordered Sig/Mira Route Start Time Stop Time Status Last Admin Dose Admin Fentanyl Citrate (Fentanyl Inj) 50 mcg NOW STAT IV 04/12/18 09:19 04/12/18 09:24 DC 04/12/18 09:54 50 MCG Bisacodyl (Dulcolax Supp) 10 mg NOW STAT VA 04/12/18 12:15 04/12/18 12:17 DC 04/12/18 12:41 10 MG Polyethylene (Miralax Powder Packet) 17 gm NOW STAT PO 04/12/18 12:15 04/12/18 12:17 DC 04/12/18 12:49 17 GM Sodium Chloride 250 ml @ 999 mls/hr Q16M STAT IV 04/12/18 12:16 04/12/18 12:31 DC 04/12/18 12:16 999 MLS/HR Sodium Chloride 1,000 ml @ 150 mls/hr Q6H40M STAT IV 04/12/18 12:16 04/12/18 16:26 DC 04/12/18 12:16 150 MLS/HR Ceftriaxone Sodium (Rocephin Inj) 1 gm NOW STAT IV 04/12/18 12:59 04/12/18 13:00 DC 04/12/18 13:13 1 GM Cetirizine HCl (zyrTEC TAB) 10 mg DAILY PRN PO 04/12/18 14:15 05/12/18 14:14 04/12/18 23:16 10 MG Lorazepam (Ativan Tab) 2 mg TID PRN PO 04/12/18 14:15 05/12/18 14:14 04/12/18 21:36 2 MG ECG Per My Interpretation Indication: back/shoulder pain Rate (beats per minute): 81 Rhythm: sinus rhythm Findings: nonspecific-ST abn (Anterolateral), PAC, RBBB, left axis deviation Comparison ECG Date: 04/11/18 Change: no significant change Change: Repeat EKG at 1106: Normal sinus at 77. RBBB pattern. Nonspecific ST abnormality in the anterolateral without significant change from earlier. QTc is 501. No ectopy. ED Course 0913: Past medical records reviewed. The patient was evaluated in room B04B. A complete history and physical examination was performed. 1215: Upon reevaluation, the patient is resting comfortably. I discussed laboratory and radiographic results with him and his . They verbalized agreement of the treatment plan. The patient has not had a BM in three days. The patient will be evaluated for further management and care. 1304: I discussed the patient's case with Dr. Angel, [facility] Hospitalist. The patient will be evaluated for further management and care. 1349: The patient is refusing a hospitalist evaluation. 1351: After further discussion, the patient agrees to a hospitalist evaluation. Medical Decision Differential diagnosis: Etiologies such as musculoskeletal, disc herniation, fracture, aortic disease, metastatic disease, cord compression, discitis, infection, renal colic, gastrointestinal, acute exacerbation of chronic back pain, sciatica, cauda equina, as well as others were entertained. This patient was evaluated and appeared to be an some discomfort. IV access was obtained and laboratory work was drawn. Patient was given 50 mcg of IV fentanyl and hydrated with normal saline solution. Patient's seems very anxious and is concerned about his lack of bowel movement over the last several days. He was given a Dulcolax suppository and MiraLAX. Patient's laboratory work is fairly unrevealing. X-rays of the thoracic and lumbar spine are negative for acute fracture or malalignment. Chronic changes are noted. CT scan of the head and cervical spine reveal no evidence of acute fracture, no evidence of acute traumatic finding. After several hours in the emergency department, the patient produced a urine sample that is indicative of infection. He was then given ceftriaxone 1 g IV. The patient remained weak. He has been on a steady decline however has rapidly worsened over the last several days. I suspect the UTI is responsible. I do not feel the patient is safe at home with his currently. He will require hospitalization for treatment of the infection and physical therapy evaluation. Patient and are aware of this plan and agree. Medication Reconcilliation Current Medication List: was personally reviewed by me Blood Pressure Screening Patient's blood pressure: Normal blood pressure Blood pressure disposition: Did not require urgent referral Consults Time Called: 1301 Consulting Physician: Dr. Angel, [facility] Hospitalist Returned Call: 1304 I discussed the patient's case with Dr. Angel, [facility] Hospitalist. The patient will be evaluated for further management and care. Impression Primary Impression: UTI (urinary tract infection) Additional Impressions: Generalized weakness Parkinson disease Fall Scribe Attestation The scribe's documentation has been prepared under my direction and personally reviewed by me in its entirety. I confirm that the note above accurately reflects all work, treatment, procedures, and medical decision making performed by me. Departure Information Dispostion Being Evaluated By Hospitalist Referrals Ney Rodriguez M.D. (PCP) Patient Instructions [facility] Problem Qualifiers Primary Impression: UTI (urinary tract infection) Additional Impressions: Fall Encounter type: initial encounter Qualified Codes: W19.XXXA - Unspecified fall, initial encounter
[2018-04-12 09:49] LABS: BASO % 0.2 %; BASO ABS # 0.03 K/uL (0-0.2); EOS % 0.7 %; EOS ABS # 0.09 K/uL (0-0.5); HEMATOCRIT 47.4 % (42-52); HEMOGLOBIN 16.9 g/dL (14.0-18.0); IG# 0.04 K/uL (0.00-0.02); LYMPH % 6.2 %; LYMPH ABS # 0.78 K/uL (1.2-3.4); MEAN CELL VOLUME 90.3 fL (80-100); MEAN CORPUSCULAR HEMOGLOBIN 32.2 pg (25-34); MEAN CORPUSCULAR HGB CONC 35.7 g/dl (32-36); MONO % 10.2 %; MONO ABS # 1.27 K/uL (0.11-0.59); NEUT % 82.4 %; NEUT ABS # 10.28 K/uL (1.4-6.5); PLATELET COUNT 148 K/uL (130-400); RED CELL DISTRIBUTION WIDTH CV 14.1 % (11.5-14.5); RED CELL DISTRIBUTION WIDTH SD 46.7 fL (36.4-46.3); WHITE BLOOD COUNT 12.49 K/uL (4.8-10.8)
[2018-04-12 10:11] LABS: ALBUMIN 3.3 gm/dl (3.4-5.0); CALCIUM 9.4 mg/dl (8.5-10.1); CREATININE 1.28 mg/dl (0.60-1.40); TOTAL PROTEIN 7.3 gm/dl (6.4-8.2)
--- NOTE | 2018-04-12 10:38 | DIAGNOSTIC IMAGING REPORT ---
CT SCAN OF THE BRAIN WITHOUT IV CONTRAST CLINICAL HISTORY: Fall. Headache. Weakness. COMPARISON STUDY: No priors. TECHNIQUE: Unenhanced axial CT scan of the brain is performed from the vertex to the skull base. A dose lowering technique was utilized adhering to the principles of ALARA. The skull base was scanned twice. The examination is mildly degraded by suboptimal patient positioning within the CT gantry. FINDINGS: Brain parenchyma: There are age-related involutional changes noting mild subcortical and periventricular microangiopathic change. There is no hemorrhage, mass effect, or evidence of acute territorial ischemia by CT criteria. Lockhart-white matter is preserved. No extra-axial fluid collection is seen. Ventricles, sulci, cisterns: Prominent secondary to involutional change. Intracranial vasculature: There is atherosclerotic calcification of the cavernous carotid arteries. Calvarium: The skeletal structures are osteopenic. No depressed calvarial fracture is identified. Sinuses and mastoids: The visualized paranasal sinuses are clear. The mastoid air cells are well pneumatized. Orbits: The bony orbits are grossly intact. IMPRESSION: There is no hemorrhage, mass effect, or evidence of acute territorial ischemia by CT criteria. Electronically signed by: Parviz Jaimes M.D. 04/12/2018 10:37 AM Dictated Date/Time: 04/12/2018 10:34 AM
--- NOTE | 2018-04-12 10:44 | DIAGNOSTIC IMAGING REPORT ---
CT SCAN OF THE CERVICAL SPINE CLINICAL HISTORY: Headache. Fall. Weakness. Back pain. COMPARISON STUDY: Radiographs of the cervical spine dated 08/02/2015. TECHNIQUE: CT scan of the cervical spine is performed from the skull base to the upper thoracic spine. Images are reviewed in the axial, sagittal, and coronal planes. IV contrast was not administered for this examination. A dose lowering technique was utilized adhering to the principles of ALARA. CT DOSE: 1538.41 mGy.cm FINDINGS: Skeletal structures: There is hyperflexion of the cervical spine, unchanged from the 2015 radiographs. The skeletal structures are osteopenic. There is no evidence of fracture or subluxation involving the cervical spine. Vertebral body height and alignment are maintained. Large anterior osteophytes are seen in the mid to lower cervical region. The odontoid process and lateral masses are intact. The atlantoaxial articulation is preserved noting productive degenerative change. The spinous processes appear intact. There is moderate multilevel cervical spondylosis. Uncovertebral and facet arthropathy contribute to neural foraminal stenosis at several levels. Intervertebral discs: Mild to moderate disc space narrowing is seen from C5-C6 through C7-T1. Central canal: A large posterior discussed by complex at C3-C4 may contribute to mild acquired compromise of the central canal. Soft tissues: The prevertebral and paraspinous soft tissues are within normal limits. Calvarium: The visualized calvarium at the skull base appears intact. Brain parenchyma: Partially visualized brain parenchyma the skull base is within normal limits. Sinuses and mastoids: The visualized paranasal sinuses are clear. The mastoid air cells are well pneumatized. Lung apices: Clear as visualized. IMPRESSION: 1. There is no evidence of fracture or subluxation involving the cervical spine. 2. Osteopenia and spondylotic change as above. 3. There is hyperflexion of the cervical spine, similar in appearance to the 2015 radiographic examination. Electronically signed by: Parviz Jaimes M.D. 04/12/2018 10:42 AM Dictated Date/Time: 04/12/2018 10:38 AM
[2018-04-12] MEDS ORDERED: VITACAP37 PO (11:08)
[2018-04-12] MEDS ORDERED: POLYETHYLENE (MIRALAX) 17 GM PACK PO STA (12:15)
[2018-04-12] MEDS ORDERED: BISACODYL 10 MG SUPP PR STA (12:15)
[2018-04-12] MEDS ORDERED: SODIUM CHLORIDE 0.9% 250ML 250 ML IV STA (12:16)
[2018-04-12] MEDS ORDERED: SODIUM CHLORIDE 0.9% 1000ML 1,000 ML IV STA (12:16)
--- NOTE | 2018-04-12 12:30 | DIAGNOSTIC IMAGING REPORT ---
THORACIC SPINE 3 VIEWS CLINICAL HISTORY: Fall. Thoracic back pain. FINDINGS: AP, swimmer's, and lateral views of the thoracic spine are compared to study dated 08/02/2015. The skeletal structures are osteopenic. There is no radiographic evidence of acute fracture or malalignment involving the thoracic spine. Vertebral body height and alignment are maintained. Anterior osteophytes are seen throughout. The transverse processes and pedicles are grossly intact as seen on the frontal view. There is a mild degenerative disc space narrowing in the midthoracic region. The lung parenchyma is clear as imaged. The mitral annulus is densely calcified. IMPRESSION: No acute bony abnormality is seen involving the thoracic spine. Electronically signed by: Parviz Jaimes M.D. 04/12/2018 12:29 PM Dictated Date/Time: 04/12/2018 11:37 AM
--- NOTE | 2018-04-12 12:31 | DIAGNOSTIC IMAGING REPORT ---
LUMBAR SPINE 5 VIEWS CLINICAL HISTORY: Fall. Low back pain. FINDINGS: 5 views of the lumbar spine are correlated with abdominal CT dated 03/08/2009. The skeletal structures are osteopenic. There is no radiographic evidence of fracture or malalignment. Vertebral body height and alignment are maintained throughout the lumbar spine. Anterior osteophytes are seen throughout. The transverse and spinous processes appear intact. There is no evidence of spondylolysis. Facet arthropathy is seen in the mid to lower lumbar region. The disc spaces are preserved. The bony pelvis is intact as visualized. Sclerotic change is noted in the sacroiliac joints. Atherosclerotic calcification is noted in the abdominal aorta. No bowel obstruction is seen. Surgical mesh projects over the pelvis bilaterally. IMPRESSION: 1. No acute bony abnormality is seen involving the lumbar spine. 2. Osteopenia and spondylotic change as above. Electronically signed by: Parviz Jaimes M.D. 04/12/2018 12:29 PM Dictated Date/Time: 04/12/2018 11:35 AM
[2018-04-12] MEDS ORDERED: CEFTRIAXONE SOD INJ 1 GM ADDVIAL IV STA (12:59)
[2018-04-12] MEDS ORDERED: CARB1CAP19 PO (13:11)
[2018-04-12 13:34] VITALS: O2SAT 97; Ht 182.9 cm; Wt 97.0 kg
[2018-04-12] MEDS ORDERED: ONDANSETRON INJ 2 MG/ML 2 ML VIAL IV PRN (14:15)
[2018-04-12] MEDS ORDERED: ACETAMINOPHEN 325 MG TAB PO PRN (14:15)
[2018-04-12] MEDS ORDERED: MAGNESIUM HYDROXIDE SUSP 30 ML UDC PO PRN (14:15)
[2018-04-12] MEDS ORDERED: LORAZEPAM 1 MG TAB PO PRN (14:15)
[2018-04-12] MEDS ORDERED: CETIRIZINE HCL 10 MG TAB PO PRN (14:15)
--- NOTE | 2018-04-12 14:27 | History and Physical ---
History & Physical Date & Time of Service: Apr 12, 2018 at 14:19 Chief Complaint: back pain Primary Care Physician: Ney Rodriguez M.D. History of Present Illness Source: patient, spouse, hospital records 77 y/o M who was brought to the ED due to increasing weakness. Pt has Parkinson 's and is wheelchair bound at baseline, however he can generally assist in transfers using his upper body strength. Over the last few days, this UE strength has been gradually declining and today he could not help his with his transfer at all. He was slowly lowered to the floor during an attempt to transfer from his wheelchair to the toilet. He did not fall or hit his head. Pt states he did not sleep well last night due to back pains. He does not have this presently. He denies any other issue at present. Pt denies fever, SOB, chest pain, abd pain, n/v/c/d, LE pain or swelling. He has been eating without issue. Pt was seen in the ED on 04/11 for chest pain and was dx with intercostal muscle strain with reproducible pain. He has not had further chest pain. Past Medical/Surgical History Medical Problems: (1) Anxiety (2) Parkinson disease (3) Substernal precordial chest pain (4) Tremor (5) UTI (urinary tract infection) Surgical Problems: (1) S/P appendectomy (2) S/P tonsillectomy Hyperlipidemia Family History Family history was reviewed; no changes noted. Mother and 2 of her brothers with hx of [place] Social History Smoking Status: Never Smoker Alcohol Use: occasionally (once a month or so) Drug Use: none Marital Status: Occupational Status: disabled Allergies Coded Allergies: Iodine (Verified Allergy, Severe, ITCHING AND DISCOMFORT, 04/12/18) C/B INTERNAL USE OF IODINE PRODUCTS Home Medications Scheduled Ascorbic Acid (Vitamin C), 1,000 MG PO DAILY Aspirin (Aspirin Ec), 81 MG PO DAILY Atorvastatin (Lipitor), 40 MG PO HS/Q2D Calcium Carbonate-Vitamin D (Calcium + D), 1 TAB PO DAILY Carbidopa-Levodopa (Rytary 23.75-95 mg), Unknown Dose PO QID Clobetasol Propionate (Clobetasol Propionate Cream 0.05%), 1 APPLN EXT UD Coenzyme Q10 (Ubidecarenone) (Co Q-10), 400 MG PO TID Donepezil Hydrochloride (Aricept), 5 MG PO DAILY Dutasteride (Avodart), 0.5 MG PO DAILY Ketoconazole (Topical) (Nizoral), 1 DOSE TOP 3XWK Meloxicam (Mobic), 7.5 MG PO DAILY Polyethylene Glycol 3350 (Miralax), 17 GM PO QAM Rasagiline (Azilect), 1 MG PO DAILY Riboflavin (Vitamin B-2), 100 MG PO TIDM Tolterodine Tartrate (Tolterodine Tartrate), 2 MG PO BID Vitamin E (E-400), 400 MG PO TID Scheduled PRN Cetirizine (Zyrtec), 10 MG PO DAILY PRN for ALLERGIC REACTION Lorazepam (Ativan), 2 MG PO TID PRN for Anxiety Review of Systems Pertinent positives and negatives reviewed in HPI--all others negative Physical Exam Vital Signs Date Time Temp Pulse Resp B/P (MAP) Pulse Ox O2 Delivery O2 Flow Rate FiO2 04/12/18 13:57 86 19 126/76 97 Room Air 04/12/18 13:34 97 Room Air 04/12/18 13:24 84 18 138/85 97 Room Air 04/12/18 13:13 86 04/12/18 12:49 86 18 100 Room Air 04/12/18 11:38 80 18 105/66 97 Room Air 04/12/18 11:08 77 16 111/64 94 Room Air 04/12/18 10:54 74 16 102/63 95 Room Air 04/12/18 09:58 85 16 117/68 92 Room Air 04/12/18 09:02 84 04/12/18 09:00 36.5 103 16 111/70 90 Room Air General Appearance: WD/WN, no apparent distress Head: normocephalic, atraumatic Eyes: normal inspection, sclerae normal Respiratory/Chest: normal breath sounds, no respiratory distress Cardiovascular: regular rate, rhythm, no edema Abdomen/GI: non tender, soft, + distended Extremities/Musculoskelatal: no calf tenderness, no pedal edema Neurologic/Psych: alert, oriented x 3, + pertinent finding (flat affect, speech is clear, answers questions appropriately) Skin: normal color, warm/dry Diagnostics Laboratory Results Results Past 24 Hours Test 8/11/18 09:40 04/12/18 12:07 04/12/18 12:28 Range/Units White Blood Count 12.49 4.8-10.8 K/uL Red Blood Count 5.25 4.7-6.1 M/uL Hemoglobin 16.9 14.0-18.0 g/dL Hematocrit 47.4 42-52 % Mean Corpuscular Volume 90.3 80-100 fL Mean Corpuscular Hemoglobin 32.2 25-34 pg Mean Corpuscular Hemoglobin Concent 35.7 32-36 g/dl Platelet Count 148 130-400 K/uL Mean Platelet Volume 10.0 7.4-10.4 fL Neutrophils (%) (Auto) 82.4 % Lymphocytes (%) (Auto) 6.2 % Monocytes (%) (Auto) 10.2 % Eosinophils (%) (Auto) 0.7 % Basophils (%) (Auto) 0.2 % Neutrophils # (Auto) 10.28 1.4-6.5 K/uL Lymphocytes # (Auto) 0.78 1.2-3.4 K/uL Monocytes # (Auto) 1.27 0.11-0.59 K/uL Eosinophils # (Auto) 0.09 0-0.5 K/uL Basophils # (Auto) 0.03 0-0.2 K/uL RDW Standard Deviation 46.7 36.4-46.3 fL RDW Coefficient of Variation 14.1 11.5-14.5 % Immature Granulocyte % (Auto) 0.3 % Immature Granulocyte # (Auto) 0.04 0.00-0.02 K/uL D-Dimer 440 0-500 ug/L FEU Sodium Level 136 136-145 mmol/L Potassium Level 4.0 3.5-5.1 mmol/L Chloride Level 103 98-107 mmol/L Carbon Dioxide Level 27 21-32 mmol/L Anion Gap 7.0 3-11 mmol/L Blood Urea Nitrogen 20 7-18 mg/dl Creatinine 1.28 0.60-1.40 mg/dl Est Creatinine Clear Calc Drug Dose 60.3 ml/min Estimated GFR () 63.0 Estimated GFR (Non- 54.4 BUN/Creatinine Ratio 15.7 10-20 Random Glucose 138 70-99 mg/dl Calcium Level 9.4 8.5-10.1 mg/dl Magnesium Level 2.2 1.8-2.4 mg/dl Total Bilirubin 1.0 0.2-1 mg/dl Direct Bilirubin 0.2 0-0.2 mg/dl Aspartate Amino Transf (AST/SGOT) 15 15-37 U/L Alanine Aminotransferase (ALT/SGPT) 11 12-78 U/L Alkaline Phosphatase 81 45-117 U/L Troponin I 0.022 0.018 0-0.045 ng/ml Total Protein 7.3 6.4-8.2 gm/dl Albumin 3.3 3.4-5.0 gm/dl Urine Color DK YELLOW Urine Appearance CLEAR CLEAR Urine pH 5.0 4.5-7.5 Urine Specific [place] 1.007 1.000-1.030 Urine Protein NEG NEG Urine Glucose (UA) NEG NEG Urine Ketones NEG NEG Urine Occult Blood NEG NEG Urine Nitrite POS NEG Urine Bilirubin NEG NEG Urine Urobilinogen NEG NEG Urine Leukocyte Esterase LARGE NEG Urine WBC (Auto) >30 0-5 /hpf Urine RBC (Auto) 0-4 0-4 /hpf Urine Hyaline Casts (Auto) 1-5 0-5 /lpf Urine Epithelial Cells (Auto) 0-5 0-5 /lpf Urine Bacteria (Auto) 4+ NEG Microbiology Results 04/12/18 Urine Culture, Received Pending Diagnostic Radiology CT head: neg for acute CT cspine: neg for acute CXR: neg for acute Tspine/Lspine XR: neg for acute EKG RBBB No change from prior EKG Impression Assessment and Plan 77 y/o M who was admitted on 04/12 with UTI and weakness UTI: likely the cause of progressed weakness in the setting of Parkinson's with generalized weakness at baseline Ceftriaxone WBC elevated, afebrile PRP WNL UA noted, cx pending Weakness: PT/OT B12 pending Abn EKG: seen prior Trops neg x2 in ED on 04/11 and x2 again today Monitor on tele, but will not pursue further work-up unless new findings Parkinson's: continue home meds and supplements Hyperlipidemia: QOD statin CAD prevention: cont 81mg aspirin Other: Full code Reg diet Heparin for DVT proph CM c/s for possible need for placement if weakness does not improve enough for to continue with ongoing home care. Advanced Directives Existing Living Will: Yes Existing Power of Outbound Sales Professional: Yes Resuscitation Status VTE Prophylaxis Will order VTE Prophylaxis: Yes Additional Copies To Ney Rodriguez M.D.
[2018-04-12 16:10] LABS: PTT PATIENT 34.3 SECONDS (21.0-31.0)
[2018-04-12 16:40] VITALS: BP 144/85; PULSE 84; TEMP 36.3; O2SAT 96
[2018-04-12 16:44] VITALS: BP 145/79; PULSE 85; TEMP 36.5; O2SAT 98
[2018-04-12] MEDS ORDERED: NURSING VERBAL MED ORDER ONE ×4 (16:45→22:45)
[2018-04-12 17:00] VITALS: O2SAT 67
[2018-04-12] MEDS ORDERED: NON-FORMULARY MEDICATION (Riboflavin (Vitamin B-2) 100 MG) PO SCH (17:00)
[2018-04-12] MEDS ORDERED: KETOCONAZOLE 2% EXT PRN (18:45)
[2018-04-12 19:52] VITALS: BP 133/80; PULSE 91; TEMP 36.5; O2SAT 94
[2018-04-12] MEDS ORDERED: COENZYME Q10 400 MG PO SCH (21:00)
[2018-04-12] MEDS ORDERED: DUTA0.5C PO (21:14)
[2018-04-12] MEDS: CARBIDOPA LEVODOPA PO SCH (21:26)
[2018-04-12] MEDS: TOLTERODINE TARTRATE 2 MG TAB PO SCH (21:29)
[2018-04-12] MEDS: TOCOPHERYL, DL-ALPHA 400 INTER.UNIT CAP PO SCH (21:29)
[2018-04-12] MEDS: ASPIRIN 81 MG ECTAB PO SCH (21:30)
[2018-04-12] MEDS: HEPARIN SOD 5000 UNIT/0.5 ML CARP SQ SCH (21:33)
[2018-04-12] MEDS: DUTASTERIDE 0.5MG PO SCH (23:17)
[2018-04-12 23:36] VITALS: BP 148/93; PULSE 110; TEMP 36.2; O2SAT 97
[2018-04-13 04:52] VITALS: BP 114/70; PULSE 95; TEMP 36.6; O2SAT 95
[2018-04-13] MEDS: HEPARIN SOD 5000 UNIT/0.5 ML CARP SQ SCH ×3 (06:33→20:54)
[2018-04-13 07:10] VITALS: BP 98/62; PULSE 77; TEMP 37.6; O2SAT 96
[2018-04-13] MEDS ORDERED: NURSING VERBAL MED ORDER ONE ×2 (08:15→17:15)
[2018-04-13 08:20] LABS: BASO % 0.2 %; BASO ABS # 0.03 K/uL (0-0.2); EOS % 1.5 %; EOS ABS # 0.23 K/uL (0-0.5); HEMOGLOBIN 14.5 g/dL (14.0-18.0); IG# 0.05 K/uL (0.00-0.02); LYMPH % 10.3 %; LYMPH ABS # 1.58 K/uL (1.2-3.4); MEAN CELL VOLUME 90.7 fL (80-100); MEAN CORPUSCULAR HEMOGLOBIN 31.3 pg (25-34); MEAN CORPUSCULAR HGB CONC 34.5 g/dl (32-36); MEAN PLATELET VOLUME 9.7 fL (7.4-10.4); MONO % 9.1 %; NEUT % 78.6 %; NEUT ABS # 12.12 K/uL (1.4-6.5); PLATELET COUNT 149 K/uL (130-400); RED CELL DISTRIBUTION WIDTH CV 14.4 % (11.5-14.5); RED CELL DISTRIBUTION WIDTH SD 47.4 fL (36.4-46.3); WHITE BLOOD COUNT 15.41 K/uL (4.8-10.8)
[2018-04-13] MEDS ORDERED: DONEPEZIL HCL 5 MG TAB PO SCH (09:00)
[2018-04-13] MEDS ORDERED: ASPIRIN 81 MG ECTAB PO SCH (09:00)
[2018-04-13] MEDS ORDERED: MELOXICAM 7.5 MG TAB PO SCH (09:00)
[2018-04-13 09:13] VITALS: TEMP 37.4
[2018-04-13] MEDS: CEFTRIAXONE SOD INJ 1 GM in DEXTROSE 5% ADD-VANTAGE 50ML 50 ML IV SCH (09:34)
[2018-04-13] MEDS: DONEPEZIL HCL 10 MG TAB PO SCH (09:43)
[2018-04-13] MEDS: MELOXICAM 7.5 MG TAB PO SCH (09:43)
[2018-04-13] MEDS: TOCOPHERYL, DL-ALPHA 400 INTER.UNIT CAP PO SCH ×3 (09:44→20:51)
[2018-04-13] MEDS: POLYETHYLENE (MIRALAX) 17 GM PACK PO SCH (09:44)
[2018-04-13] MEDS: CALCIUM 600MG + VIT D 400 IU TAB PO SCH (09:46)
[2018-04-13] MEDS: ASCORBIC ACID 500 MG TAB PO SCH (09:46)
[2018-04-13] MEDS: CARBIDOPA LEVODOPA PO SCH ×4 (09:47→20:51)
[2018-04-13] MEDS: RASAGILINE MESYLATE 1 MG TAB PO SCH (09:48)
[2018-04-13] MEDS: TOLTERODINE TARTRATE 2 MG TAB PO SCH ×2 (09:50→20:50)
[2018-04-13 11:23] VITALS: BP 106/70; PULSE 84; TEMP 36.9; O2SAT 94
[2018-04-13] MEDS: COENZYME Q10 PO SCH ×2 (13:01→17:30)
[2018-04-13] MEDS: RIBOFLAVIN 100 MG TAB PO SCH ×2 (13:03→17:32)
--- NOTE | 2018-04-13 14:15 | Progress Note ---
Subjective Date of Service: Apr 13, 2018. Subjective Pt evaluation today including: conversation w/ patient, conversation w/ family (), physical exam, lab review, review of inpatient medication list Pain: no pain PO Intake: adequate Voiding: no voiding problems patient sleeping this morning, per , he sleeps all morning at home, sleep wake schedule different with Parkinson's reviewed culture, growing E coli 100k colonies WBC up slightly at 15k from 12k, no fevers at the bedside, explained that UTI can occur in males, especially when less active, certainly condom catheter could set him up for infection Problem List Medical Problems: (1) Anxiety Status: Acute (2) Fall Status: Acute (3) Generalized weakness Status: Acute (4) Parkinson disease Status: Chronic (5) Substernal precordial chest pain Status: Acute (6) Tremor Status: Acute Review of Systems Constitutional: + weakness, + fatigue Neurologic: + weakness All Other Systems: Reviewed and Negative Medications Current Inpatient Medications Medications (Trade) Dose Ordered Sig/Mira Route Start Time Stop Time Status Last Admin Dose Admin Heparin Sodium (Porcine) (Heparin Sq 5000 Unit/0.5ml) 5,000 unit Q8 SQ 04/12/18 22:00 05/12/18 21:59 04/13/18 13:05 5,000 UNIT Acetaminophen (Tylenol Tab) 650 mg Q4H PRN PO 04/12/18 14:15 05/12/18 14:14 Magnesium Hydroxide (Milk Of Magnesia Susp) 30 ml Q12H PRN PO 04/12/18 14:15 05/12/18 14:14 Ondansetron HCl (Zofran Inj) 4 mg Q6H PRN IV 04/12/18 14:15 05/12/18 14:14 Atorvastatin Calcium (Lipitor Tab) 40 mg Q2D@2100 PO 04/13/18 21:00 05/13/18 20:59 Cetirizine HCl (zyrTEC TAB) 10 mg DAILY PRN PO 04/12/18 14:15 05/12/18 14:14 04/12/18 23:16 10 MG Lorazepam (Ativan Tab) 2 mg TID PRN PO 04/12/18 14:15 05/12/18 14:14 04/12/18 21:36 2 MG Tolterodine Tartrate (Detrol Tab) 2 mg BID PO 04/12/18 21:00 05/12/18 20:59 04/13/18 09:50 2 MG px-Ssirb-Uryyfamgax Acetate (Vitamin E Cap) 400 interunit TID PO 04/12/18 21:00 05/12/18 20:59 04/13/18 13:04 400 INTERUNIT Ascorbic Acid (Vitamin C Tab) 1,000 mg DAILY PO 04/13/18 09:00 05/13/18 08:59 04/13/18 09:46 1,000 MG Calcium/Vitamin D (Caltrate Plus Tab) 1 tab DAILY PO 04/13/18 09:00 05/13/18 08:59 04/13/18 09:46 1 TAB Polyethylene (Miralax Powder Packet) 17 gm QAM PO 04/13/18 09:00 05/13/18 08:59 04/13/18 09:44 17 GM Ceftriaxone Sodium 1 gm/ Dextrose 50 ml @ 100 mls/hr Q24H IV 04/13/18 08:00 04/23/18 07:59 04/13/18 09:34 100 MLS/HR Carbidopa/Levodopa (Rytary 23.75/95 Mg) 2 cap QID PO 04/12/18 21:00 05/12/18 20:59 04/13/18 13:01 2 CAP Ketoconazole (Nizoral 2 % Shampoo) 1 appln MoWeFr PRN EXT 04/12/18 18:45 05/12/18 18:44 Aspirin (Ecotrin Tab) 81 mg HS PO 04/12/18 21:00 05/12/18 20:59 04/12/18 21:30 81 MG Dutasteride (Avodart) 0.5 mg HS PO 04/13/18 09:00 05/13/18 08:59 Future hold 04/12/18 23:17 0.5 MG Donepezil HCl (Aricept Tab) 10 mg DAILY PO 04/13/18 09:00 05/13/18 08:59 04/13/18 09:43 10 MG Meloxicam (Mobic Tab) 15 mg DAILY PO 04/13/18 09:00 05/13/18 08:59 04/13/18 09:43 15 MG Riboflavin (Vitamin B-2) 100 mg TID PO 04/13/18 14:00 05/13/18 13:59 04/13/18 13:03 100 MG Non-Formulary Medication (Non-Formulary Patient'S Own Med) 1 ea TID PO 04/13/18 14:00 05/13/18 13:59 04/13/18 13:01 1 EA Objective Vital Signs Date Time Temp Pulse Resp B/P (MAP) Pulse Ox O2 Delivery O2 Flow Rate FiO2 04/13/18 11:23 36.9 84 20 106/70 (82) 94 Room Air 04/13/18 09:30 Room Air 04/13/18 09:13 37.4 04/13/18 07:10 37.6 77 20 98/62 (74) 96 Room Air 04/13/18 04:52 36.6 95 20 114/70 (85) 95 Room Air 04/13/18 04:00 Room Air 04/13/18 00:00 Room Air 04/12/18 23:36 36.2 110 20 148/93 (111) 97 Room Air 04/12/18 20:00 Room Air 04/12/18 19:52 36.5 91 19 133/80 (97) 94 Room Air 04/12/18 17:00 67 Room Air 04/12/18 16:40 36.3 84 20 144/85 (104) 96 Room Air 04/12/18 15:53 83 18 118/74 97 Room Air Physical Exam General Appearance: no apparent distress, + obese Eyes: normal inspection, EOMI, sclerae normal ENT: normal ENT inspection, hearing grossly normal, pharynx normal Neck: supple, no adenopathy, no JVD, trachea midline Respiratory/Chest: chest non-tender, lungs clear, normal breath sounds, no respiratory distress, no accessory muscle use Cardiovascular: regular rate, rhythm, no edema, no gallop, no JVD, no murmur Abdomen: normal bowel sounds, non tender, soft, no organomegaly Extremities: non-tender, normal inspection, no pedal edema, no calf tenderness , pelvis stable Neurologic/Psychiatric: wet 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, + abnormal gait (non- ambulatory due to Parkinson's), + motor weakness Skin: normal color, warm/dry, no rash Laboratory Results Last 24 Hours Test 04/13/18 08:12 White Blood Count 15.41 K/uL Red Blood Count 4.63 M/uL Hemoglobin 14.5 g/dL Hematocrit 42.0 % Mean Corpuscular Volume 90.7 fL Mean Corpuscular Hemoglobin 31.3 pg Mean Corpuscular Hemoglobin Concent 34.5 g/dl Platelet Count 149 K/uL Mean Platelet Volume 9.7 fL Neutrophils (%) (Auto) 78.6 % Lymphocytes (%) (Auto) 10.3 % Monocytes (%) (Auto) 9.1 % Eosinophils (%) (Auto) 1.5 % Basophils (%) (Auto) 0.2 % Neutrophils # (Auto) 12.12 K/uL Lymphocytes # (Auto) 1.58 K/uL Monocytes # (Auto) 1.40 K/uL Eosinophils # (Auto) 0.23 K/uL Basophils # (Auto) 0.03 K/uL RDW Standard Deviation 47.4 fL RDW Coefficient of Variation 14.4 % Immature Granulocyte % (Auto) 0.3 % Immature Granulocyte # (Auto) 0.05 K/uL Vitamin B12 Level 461 pg/mL Assessment and Plan 77 y/o M who was admitted on 04/12 with UTI and weakness UTI: culture growing E coli 100k, await sensitivities continue Ceftriaxone, WBC up slightly to 15k, no fever Weakness: PT/OT B12 normal will see if strength improves with treatment of UTI Abn EKG: seen prior Troponin negative x 3 sets can transfer off tele Parkinson's: continue home meds and supplements Hyperlipidemia: QOD statin CAD prevention: cont 81mg aspirin Other: Full code Reg diet Heparin for DVT proph CM c/s for possible need for placement if weakness does not improve enough for to continue with ongoing home care.
[2018-04-13 15:05] VITALS: BP 116/77; PULSE 80; TEMP 36.5; O2SAT 92
[2018-04-13] MEDS: ASPIRIN 81 MG ECTAB PO SCH (20:49)
[2018-04-13] MEDS: DUTASTERIDE 0.5MG PO SCH (20:51)
[2018-04-13] MEDS ORDERED: ATORVASTATIN 40 MG TAB PO SCH (21:00)
[2018-04-13 22:29] VITALS: BP 115/77; PULSE 86; TEMP 36.9; O2SAT 93
[2018-04-14] MEDS: HEPARIN SOD 5000 UNIT/0.5 ML CARP SQ SCH ×2 (06:13→13:38)
[2018-04-14 07:17] VITALS: BP 113/78; PULSE 88; TEMP 37; O2SAT 96
[2018-04-14] MEDS: CEFTRIAXONE SOD INJ 1 GM in DEXTROSE 5% ADD-VANTAGE 50ML 50 ML IV SCH (07:53)
[2018-04-14] MEDS: TOCOPHERYL, DL-ALPHA 400 INTER.UNIT CAP PO SCH ×2 (07:53→13:34)
[2018-04-14] MEDS: CALCIUM 600MG + VIT D 400 IU TAB PO SCH (07:53)
[2018-04-14] MEDS: DONEPEZIL HCL 10 MG TAB PO SCH (07:53)
[2018-04-14] MEDS: ASCORBIC ACID 500 MG TAB PO SCH (07:54)
[2018-04-14] MEDS: MELOXICAM 7.5 MG TAB PO SCH (07:54)
[2018-04-14] MEDS: POLYETHYLENE (MIRALAX) 17 GM PACK PO SCH (07:55)
[2018-04-14] MEDS: TOLTERODINE TARTRATE 2 MG TAB PO SCH (07:55)
[2018-04-14] MEDS: CARBIDOPA LEVODOPA PO SCH ×2 (07:56→13:32)
[2018-04-14] MEDS: RIBOFLAVIN 100 MG TAB PO SCH ×2 (07:57→13:34)
[2018-04-14] MEDS: RASAGILINE MESYLATE 1 MG TAB PO SCH (07:57)
[2018-04-14] MEDS: COENZYME Q10 PO SCH ×2 (07:58→13:32)
[2018-04-14 13:15] LABS: BASO % 0.7 %; BASO ABS # 0.06 K/uL (0-0.2); EOS % 4.7 %; EOS ABS # 0.42 K/uL (0-0.5); HEMOGLOBIN 16.3 g/dL (14.0-18.0); IG# 0.02 K/uL (0.00-0.02); LYMPH % 12.9 %; LYMPH ABS # 1.15 K/uL (1.2-3.4); MEAN CELL VOLUME 91.3 fL (80-100); MEAN CORPUSCULAR HEMOGLOBIN 31.7 pg (25-34); MEAN CORPUSCULAR HGB CONC 34.7 g/dl (32-36); MEAN PLATELET VOLUME 9.8 fL (7.4-10.4); MONO % 9.7 %; MONO ABS # 0.87 K/uL (0.11-0.59); NEUT % 71.8 %; NEUT ABS # 6.41 K/uL (1.4-6.5); PLATELET COUNT 179 K/uL (130-400); RED CELL DISTRIBUTION WIDTH CV 14.3 % (11.5-14.5); RED CELL DISTRIBUTION WIDTH SD 48.3 fL (36.4-46.3); WHITE BLOOD COUNT 8.93 K/uL (4.8-10.8)
[2018-04-14 13:46] LABS: CALCIUM 9.8 mg/dl (8.5-10.1); CREATININE 1.43 mg/dl (0.60-1.40); POTASSIUM 4.1 mmol/L (3.5-5.1)
[2018-04-14] MEDS ORDERED: MELO7.5T5 PO (13:49)
[2018-04-14] MEDS ORDERED: DONE5TAB14 PO (13:49)
[2018-04-14] MEDS ORDERED: CEPH500C2 PO (13:49)
--- NOTE | 2018-04-14 13:54 | Discharge Instructions ---
Discharge Instructions Date of Service Apr 14, 2018. Admission Reason for Admission: UTI Discharge Discharge Diagnosis / Problem: E coli UTI, weakness due to infection Discharge Goals Goal(s): Improve function, Improve disease control Activity Recommendations Activity Limitations: resume your previous activity . Instructions / Follow-Up Instructions / Follow-Up Medications: - KEFLEX: 500mg twice a day for 10 more days, next dose is due tomorrow morning Aricept and Mobic listed as changed prescriptions only because they were originally in med rec incorrectly E coli UTI: uncomplicated, sensitive to penicillins and cephalosporins treated with Rocephin while inpatient, will change to Keflex on discharge no fever, more alert, WBC down to 9k which is normal level continue to only use condom catheter at night, continue to practice thorough cleaning of penis and catheter Advanced Parkinson's disease continue current regimen patient needs to have bedside commode, walk in handicap shower would benefit from electronic wheelchair with reclined neck support [facility] in process of making adjustments to home FOLLOW UP - primary care physician in 7-10 days Current Hospital Diet Patient's current hospital diet: Regular Diet Discharge Diet Recommended Diet: Regular Diet Pending Studies Studies pending at discharge: no Laboratory Results Lipid Panel Test 02/18/18 08:08 Range/Units Triglycerides Level 213 H 0-150 mg/dl Cholesterol Level 186 0-200 mg/dl HDL Cholesterol 40 mg/dl Cholesterol/HDL Ratio 4.7 LDL Cholesterol, Calculated 103 mg/dl Medical Emergencies . Who to Call and When: Medical Emergencies: If at any time you feel your situation is an emergency, please call 911 immediately. . Non-Emergent Contact Non-Emergency issues call your: Primary Care Provider Call Non-Emergent contact if: you have any medication questions . . "Provider Documentation" section prepared by Mohsen Reynoso. . [place] Drug Monitoring Program Search Results: no issues identified
[2018-04-14 14:13] VITALS: BP 113/78; PULSE 88; TEMP 37; O2SAT 96
--- NOTE | 2018-04-14 23:03 | Discharge Summary ---
Discharge Summary Date of Service Apr 14, 2018. Discharge Summary Admission Date: Apr 12, 2018 at 14:16 Discharge Date: Apr 14, 2018 Discharge Disposition: Home with services Principal Diagnosis: UTI, E coli Problems/Secondary Diagnoses: Increased weakness due to UTI Parkinson's disease, wheelchair bound Urinary incontinence Procedures: none Consultations: none Medication Reconciliation New Medications: Cephalexin Monohydrate (Keflex) 500 Mg Cap 500 MG PO BID for 10 Days, #20 CAP Changed Medications: Donepezil Hydrochloride (Aricept) 5 Mg Tab 10 MG PO DAILY for 30 Days, #60 TAB (Changed from: 5 MG) Meloxicam (Mobic) 7.5 Mg Tab 15 MG PO DAILY for 30 Days, #60 TAB (Changed from: 7.5 MG) Continued Medications: Ascorbic Acid (Vitamin C) 1,000 Mg Tab 1000 MG PO DAILY Aspirin (Aspirin Ec) 81 Mg Tab 81 MG PO DAILY Atorvastatin (Lipitor) 40 Mg Tab 40 MG PO HS/Q2D, TAB Calcium Carbonate-Vitamin D (Calcium + D) 1 Tab Tab 1 TAB PO DAILY Carbidopa-Levodopa (Rytary 23.75-95 mg) 1 Cap Cap Unknown Dose PO QID Cetirizine (Zyrtec) 10 Mg Tab 10 MG PO DAILY PRN for ALLERGIC REACTION, TAB Clobetasol Propionate (Clobetasol Propionate Cream 0.05%) 90 Appln/30 Gm Cr 1 APPLN EXT UD, TUBE Coenzyme Q10 (Ubidecarenone) (Co Q-10) 400 Mg Cap 400 MG PO TID Dutasteride (Avodart) 0.5 Mg Cap 0.5 MG PO DAILY, CAP Ketoconazole (Topical) (Nizoral) 2 % Sha 1 DOSE TOP 3XWK Lorazepam (Ativan) 1 Mg Tab 2 MG PO TID PRN for Anxiety, TAB Polyethylene Glycol 3350 (Miralax) 1 Pow Pow 17 GM PO QAM, GM Rasagiline (Azilect) 0.5 Mg Tab 1 MG PO DAILY, TAB Riboflavin (Vitamin B-2) 100 Mg Tab 100 MG PO TIDM Tolterodine Tartrate (Tolterodine Tartrate) 2 Mg Tab 2 MG PO BID Vitamin E (E-400) 400 Unit Cap 400 MG PO TID Discharge Exam Patient more alert today, feeling closer to baseline in terms of strength. Evaluated by PT/OT, felt he could return home with home support, home therapy. Patient and his working on having their [facility] to accommodate his needs. However, in the meantime he would greatly benefit from a bedside commode, electronic wheelchair with inclined neck rest, and handicapped accessible shower stall. Patient and his updated at the bedside. Urine culture grew E coli that was only resistant to quinolones. Will d/c on Keflex. Review of Systems: Constitutional: + weakness, No fever, No chills, No sweats, No weight loss, No fatigue, No problem reported Eyes: No worsening of vision, No eye pain, No redness, No discharge, No diplopia, No problem reported ENT: No hearing loss, No unusual epistaxis, No nasal symptoms, No sore throat, No tinnitus, No dental problems, No trouble swallowing, No problem reported Respiratory: No cough, No sputum, No wheezing, No shortness of breath, No dyspnea on exertion, No dyspnea at rest, No hemoptysis, No problem reported Cardiovascular: No chest pain, No orthopnea, No PND, No edema, No claudication, No palpitations, No problem reported Abdomen: No pain, No nausea, No vomiting, No diarrhea, No constipation, No GI bleeding, No problem reported Musculoskeletal: No joint pain, No muscle pain, No swelling, No calf pain, No problem reported Genitourinary - Male: + urinary incontinence, No hematuria, No dysuria, No urinary frequency, No urinary urgency, No urinary hesitancy, No urinary retention Neurologic: + weakness (profound in the legs, non-ambulatory), + balance problems, No memory loss, No paralysis, No numbness/tingling, No vertigo, No problem reported Psychiatric: No depression symptoms, No anhedonism, No anxiety, No insomnia , No substance abuse, No problem reported Endocrine: No fatigue, No excessive thirst, No excessive urination, No problem reported Hematologic / Lymphatic: No abnormal bleeding/bruising, No clotting problems , No swollen lymph nodes, No night sweats, No problem reported Integumentary: No rash, No itch, No new/changing skin lesions, No color change, No bleeding, No problem reported Physical Exam: General Appearance: no apparent distress, + obese Eyes: normal inspection, EOMI, sclerae normal ENT: normal ENT inspection, hearing grossly normal, pharynx normal Neck: supple, no adenopathy, no JVD, trachea midline Respiratory/Chest: chest non-tender, lungs clear, normal breath sounds, no respiratory distress, no accessory muscle use Cardiovascular: regular rate, rhythm, no edema, no gallop, no JVD, no murmur , normal peripheral pulses Abdomen / GI: normal bowel sounds, non tender, soft, no organomegaly Extremities: normal inspection, no calf tenderness, normal capillary refill , no pedal edema, normal range of motion, pelvis stable Neurologic/Psychiatric: 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, alert, normal mood/affect , oriented x 3, + motor weakness (bilateral leg weakness, cannot stand or ambulate, upper extremities weak but can function, mild resting tremor) Skin: normal color, warm/dry, no rash Hospital Course 77 y/o M who was admitted on 04/12 with UTI and weakness UTI: culture growing E coli 100k, sensitive to Rocephin and all cephalosporins, resistant to quinolones d/c on Keflex 500mg BID x 10 days, first dose tomorrow WBC down to 8k from 15k, afebrile, more alert, stronger today d/c to home discussed use of condom catheter, have been using for two years, this is first UTI patient's cleans catheter and patient's penis in the morning and at night prior to use he only uses the catheter at night, otherwise he is up every 30 minutes if he continues to have UTI's then he should follow up with urology for alternative options Weakness: PT/OT B12 normal strength improved with treatment of UTI can go home with support services and [facility] Abn EKG: seen prior Troponin negative x 3 sets can transfer off tele Parkinson's: continue home meds and supplements Hyperlipidemia: QOD statin CAD prevention: cont 81mg aspirin Other: Full code Reg diet Heparin for DVT proph d/c to home PATIENT WOULD BENEFIT FROM BEDSIDE COMMODE, ELECTRONIC WHEELCHAIR WITH INCLINED NECK REST, HANDICAPPED ACCESSIBLE SHOWER STALL Total Time Spent: Greater than 30 minutes This includes examination of the patient, discharge planning, medication reconciliation, and communication with other providers. Discharge Instructions Please refer to the electronic Patient Visit Report (Discharge Instructions) for additional information. Follow-Up Dr. Cason in one week Additional Copies To Ney Rodriguez M.D.
--- NOTE | 2018-04-18 09:49 | EDITING REQUIRED CODING QUERY ---
CODING QUERY To promote full compliance with coding requirements relating to patient care, provider participation is requested in all cases of casing cleaner uncertainty. Please assist us with the question(s) below: In the record, it states that the patient has an UTI. Please clarify below the cause of the UTI if applicable. Thank you. ( ) The condom catheter was the cause of the UTI. ( x ) UTI, unspecified cause. ( ) Self-catheterization was the cause of the UTI. ( ) Other (Specify): Principal Diagnosis: "_that condition established after study, to be chiefly responsible for occasioning the admission of the patient to the hospital for care." Co-Existing Principal Diagnosis: "_when two or more diagnoses equally meet the criteria for principal diagnosis as determined by the circumstances of admission, diagnostic work up, and/or therapy provided, and the Alphabetic Index, Tabular List, or another coding guideline does not provide sequencing direction, any one of the diagnoses may be sequenced first." "When the physician has documented what appears to be a current diagnosis in the body of the record, but has not included the diagnosis in the final diagnostic statement, the physician should be asked whether the diagnosis should be added." (Source [facility]oding [facility] 2 QTR90. p3-4)
== END 2018-04-14 15:16 | disposition home health service (06) | DRG 690 ==
LOC: EDBD 08:50 → C.EDB 08:51 → C.MED 14:16 → EDBEDREQ 14:42 → ENRESERV 14:49
PROVIDERS: ADMIT Family Medicine; ATTEND Internal Medicine
DX: N39.0 Urinary tract infection, site not specified (principal); B96.20 Unspecified Escherichia coli [E. coli] as the cause of diseases classified elsewhere; Z16.23 Resistance to quinolones and fluoroquinolones; G20 Parkinson's disease; E78.5 Hyperlipidemia, unspecified; F41.9 Anxiety disorder, unspecified; Z79.899 Other long term (current) drug therapy; Z79.82 Long term (current) use of aspirin; Z79.1 Long term (current) use of non-steroidal anti-inflammatories (NSAID); Z91.81 History of falling; Z99.3 Dependence on wheelchair; Z87.440 Personal history of urinary (tract) infections; Z88.8 Allergy status to other drugs, medicaments and biological substances; Z83.1 Family history of other infectious and parasitic diseases; Z82.49 Family history of ischemic heart disease and other diseases of the circulatory system

== ENCOUNTER 2020-07-01 12:19 | Inpatient (IN) ==
--- NOTE | 2020-07-01 13:11 | Emergency Department Note ---
History of Present Illness General Chief complaint: Leg Weakness, Bilateral Time Seen by Provider: 07/01/20 12:24 Source: patient Mode of arrival: EMS Limitations: no limitations History of Present Illness Provider complaint: Lower extremity weakness Onset (ago): hour(s) Location: lower extremity Radiation: non-radiation Severity: similar to prior episodes Current Pain Intensity: 0 Quality: + constant Relieved By: + none Exacerbated By: + movement Associated symptoms: + weakness; no nausea/vomiting Treatments prior to arrival: none This is a 79-year-old male with a history of Parkinson's disease who presents via EMS due to concern for increased lower extremity weakness. Patient states he has had Parkinson's disease for 10 years, and knows that he will intermittently have weakness, and this typically resolves spontaneously. Patient states he had a milder episode on Saturday which resolved spontaneously. Patient states this morning the weakness was bilateral which is the usual pattern however seemed more profound. Patient denied any upper extremity weakness, dizziness, or headaches. Patient denied any new neck or back pain. Patient denied any change in bowel or bladder function recently. Patient denied fevers or chills, cough or cold symptoms. Patient denied any known sick contacts. Patient states he does have blood clots in his legs for which he takes a blood thinner. Upon arrival of the patient's , she states that this morning she had noticed he woke up in a sweat which is unusual. She states he did check his temperature and he was afebrile at home, another vital signs of they checked every morning were within his normal parameters. She states he complained of not feeling well. She states his voice sounded slightly weaker compared normal, and he seemed to be weak everywhere. She states that he was able to hold up his arms, and was able to raise his left leg about 2 inches off the bed, but she states he had no movement of the right lower extremity. She states she has not noticed any increased swelling compared to normal, states he frequently will have some mild swelling of his feet and ankles, which worsens when they are hanging down. She states he has been taking all of his medications as prescribed and has not missed any doses. She states they have not noticed any change in his urine, and he did have a normal bowel movement this morning. She denies noticing any change in his breathing or any increased cough. She states he was not confused this morning did not complain of a headache or dizziness, and seemed to be mentating normally. Pt seen during a time of high acuity and national emergency pandemic while wearing PPE. Home Medications Home Medications Medication Instructions Recorded Confirmed Type ascorbic acid (vitamin C) 1 g PO DAILY@1700 05/26/18 07/01/20 History calcium carb and citrate-vitD3 1 tab PO DAILY@1000 05/26/18 07/01/20 History coenzyme Q10 See Rx Instructions .ROUTE .COMPLEX 05/26/18 07/01/20 History lorazepam [Ativan] 2 mg PO TID 05/26/18 07/01/20 History rasagiline 1 mg PO DAILY@1000 05/26/18 07/01/20 History riboflavin (vitamin B2) 100 mg PO DAILY 05/26/18 07/01/20 History Lactobacillus acidophilus 10 mg PO DAILY@202907/03/19 07/01/20 History cranberry 500 mg capsule 500 mg PO DAILY@1330 cap 07/03/19 07/01/20 History solifenacin 10 mg tablet 10 mg PO DAILY@2300 tab 07/03/19 07/01/20 History vitamin E 400 unit capsule 400 unit PO TID cap 07/03/19 07/01/20 History atorvastatin 40 mg tablet 20 mg PO DAILY@2200 tab 04/04/20 07/01/20 History apixaban [Eliquis] See Rx Instructions .ROUTE 05/04/20 07/01/20 Rx .COMPLEX #74 tab carbidopa-levodopa [Rytary] 1 cap PO DAILY@202905/04/20 07/01/20 History carbidopa-levodopa [Rytary] See Rx Instructions .ROUTE .COMPLEX 05/04/20 07/01/20 History donepezil 10 mg PO BID 05/04/20 07/01/20 History memantine 5 mg PO BID 05/04/20 07/01/20 History dutasteride 0.5 mg PO DAILY@2300 07/01/20 07/01/20 History multivitamin 1 tab PO DAILY@1000 07/01/20 07/01/20 History nitrofurantoin macrocrystal 0 mg PO DAILY@202907/01/20 07/01/20 History Allergies Allergy/AdvReac Type Severity Reaction Status Date / Time iodine Allergy Severe ITCHING Verified 07/01/20 14:02 AND DISCOMFORT Past Med/Surg History Medical History (Updated 07/02/20 @ 19:17 by Aura Go DO) Parkinson disease UTI (urinary tract infection) Surgical History S/P appendectomy S/P tonsillectomy Family History Other No significant family history Social History Smoking Status: Never smoker Hx Alcohol Use: No Hx Substance Use: No Preferred Language: Slovenian Communication Ability: Effective Ict Sales Assistant Required: No Beliefs That Will Affect Care: None Current Living Situation: Spouse Other Information That Helps Us Care for You: No Feels Safe at Home: Yes Safety Concerns: Feels Safe At This Time Assistive Devices: Glasses and Wheelchair Review of Systems See HPI for pertinent positives & negatives. and A total of 10 systems reviewed and were otherwise negative Physical Exam Vital Signs Vital Signs - 24 hr 07/01/20 12:33 07/01/20 13:34 07/01/20 14:30 Temperature 36.6 C Temperature Source Oral Pulse Rate 73 71 Pulse Rate [Left] 71 Pulse Rate from SpO2 Sensor Respiratory Rate 18 18 22 Respiratory Effort / Characteristics Non-Labored Spontaneous Non-Labored Spontaneous Respiratory Depth Normal Normal Blood Pressure 122/70 Blood Pressure [Right Arm] 115/74 Blood Pressure Mean 87 Blood Pressure Mean [Right Arm] 87 Blood Pressure Position Lying Blood Pressure Position [Right Arm] Lying Pulse Oximetry 98 99 Oxygen Delivery Method Room Air Room Air Sepsis Recent Fever Within 48 Hours No Sepsis New/Unexplained Change in Mental Status No Sepsis Action Taken by Nursing No Action Required 07/01/20 15:12 07/01/20 15:30 07/01/20 16:00 Temperature Temperature Source Pulse Rate 73 69 72 Pulse Rate [Left] Pulse Rate from SpO2 Sensor 79 69 72 Respiratory Rate 20 20 19 Respiratory Effort / Characteristics Respiratory Depth Blood Pressure 129/81 127/80 Blood Pressure [Right Arm] Blood Pressure Mean 94 92 Blood Pressure Mean [Right Arm] Blood Pressure Position Blood Pressure Position [Right Arm] Pulse Oximetry 99 99 98 Oxygen Delivery Method Room Air Room Air Sepsis Recent Fever Within 48 Hours Sepsis New/Unexplained Change in Mental Status Sepsis Action Taken by Nursing GENERAL: alert, chronically ill appearing, well nourished, no distress, non- toxic EYE EXAM: normal conjunctiva, PERRL and EOM's grossly intact OROPHARYNX: no exudate, no erythema, lips, buccal mucosa, and tongue normal and mucous membranes are moist NECK: supple, no nuchal rigidity, no adenopathy, non-tender LUNGS: Clear to auscultation. Normal chest wall mechanics, no w/r/r HEART: no murmurs, S1 normal and S2 normal ABDOMEN: abdomen soft, non-tender, normo-active bowel sounds, no masses, no rebound or guarding. BACK: Back is symmetrical on inspection and there is no deformity, no midline tenderness, no CVA tenderness. SKIN: no rashes and no bruising UPPER EXTREMITIES: upper extremities are grossly normal. FROM, nml pulses b/l. LOWER EXTREMITIES: 1+ pitting edema. Decreased ROM, some effort against gravity, worse on right, nml pulses b/l. NEURO EXAM: Normal sensorium, cranial nerves II-XII grossly intact, normal speech, no gross weakness of arms, no gross weakness of legs. Gross sensation intact. Course Course 1602: Discussed with Dr. Pimentel. Would consider this a failure of Eliquis and recommends initiation of Lovenox therapy in its place. Patient could be converted to Coumadin. 1632: Updated patient and on results as well as my discussion with Dr. Pimentel. 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 While is comfortable with the idea of an injectable medication as she is a diabetic, she is concerned due to his weakness and the urinary tract infection. I am concerned given the limitations of treatment options for his UTI given the prior cultures and sensitivities. The only oral medication available would be Levaquin given the patient already has a prolonged QT I feel this would be unsafe. This was discussed with the patient and at bedside. Will discuss with the hospitalist for additional inpatient management. Administered Medications Ascorbic Acid (Ascorbic Acid 500 Mg Tab) 1,000 mg PO DAILY@1700 ISELA Stop: 08/01/20 16:59 Last Admin: 07/02/20 17:38 Dose: 1,000 mg Documented by: [id number] Atorvastatin Calcium (Atorvastatin 20 Mg Tab) 20 mg PO DAILY@2200 ISELA Stop: 07/31/20 21:59 Last Admin: 07/01/20 23:04 Dose: 20 mg Documented by: [id number] Carbidopa/Levodopa (Carbidopa/Levodopa 50/200mg Ext Rel Tab) 1 tab PO 0900,1230,1600,1930 ISELA Stop: 08/01/20 08:59 Last Admin: 07/02/20 19:15 Dose: 1 tab Documented by: [id number] Admin: 07/02/20 15:52 Dose: 1 tab Documented by: [id number] Admin: 07/02/20 13:53 Dose: 1 tab Documented by: [id number] Admin: 07/02/20 10:14 Dose: 1 tab Documented by: [id number] Donepezil HCl (Donepezil Hcl 10 Mg Tab) 10 mg PO BID ISELA Stop: 07/31/20 21:29 Last Admin: 07/02/20 10:15 Dose: 10 mg Documented by: [id number] Admin: 07/01/20 23:04 Dose: 10 mg Documented by: [id number] Enoxaparin Sodium (Enoxaparin 100 Mg/1ml Syr) 100 mg SQ Q12 ISELA Stop: 08/01/20 09:59 Last Admin: 07/02/20 10:47 Dose: 100 mg Documented by: [id number] Finasteride (Finasteride 5 Mg Tab) 5 mg PO QAM ISELA Stop: 08/01/20 10:59 Last Admin: 07/02/20 13:53 Dose: 5 mg Documented by: [id number] Cefepime HCl 2,000 mg/ Syringe 20 mls @ 5 mls/min IV Q12H ISELA; Protocol Stop: 07/12/20 03:59 Last Admin: 07/02/20 15:52 Dose: 5 mls/min Documented by: [id number] Admin: 07/02/20 04:30 Dose: 5 mls/min Documented by: [id number] Lorazepam (Lorazepam 1 Mg Tab) 2 mg PO TID ISELA Stop: 07/31/20 20:59 Last Admin: 07/02/20 14:03 Dose: 2 mg Documented by: [id number] Admin: 07/02/20 10:23 Dose: 2 mg Documented by: [id number] Admin: 07/01/20 23:15 Dose: 2 mg Documented by: [id number] Memantine (Memantine Hcl 5 Mg Tab) 5 mg PO BID ISELA Stop: 07/31/20 21:29 Last Admin: 07/02/20 10:15 Dose: 5 mg Documented by: [id number] Admin: 07/01/20 23:04 Dose: 5 mg Documented by: [id number] Multivitamins (Multivitamin Tab) 1 tab PO DAILY@1000 ON LICENSE OF [facility] Stop: 08/01/20 09:59 Last Admin: 07/02/20 10:14 Dose: 1 tab Documented by: [id number] Multivitamins/Minerals (Calcium 600mg + Vit D 400 Iu Tab) 1 tab PO DAILY@1000 ON LICENSE OF [facility] Stop: 08/01/20 09:59 Last Admin: 07/02/20 10:14 Dose: 1 tab Documented by: [id number] Vitamin E (Tocopheryl, Dl-Alpha 400 Units Cap) 400 units PO TID ON LICENSE OF [facility] Stop: 07/31/20 21:29 Last Admin: 07/02/20 15:52 Dose: 400 units Documented by: [id number] Admin: 07/02/20 10:14 Dose: 400 units Documented by: [id number] Admin: 07/01/20 23:05 Dose: 400 units Documented by: [id number] Discontinued Medications Bisacodyl (Bisacodyl 10 Mg Supp) 10 mg FL NOW STA Stop: 07/02/20 10:35 Last Admin: 07/02/20 13:54 Dose: 10 mg Documented by: [id number] Carbidopa/Levodopa (Carbidopa/Levodopa 50/200mg Ext Rel Tab) 1 tab PO QID ON LICENSE OF [facility] Stop: 07/31/20 20:59 Last Admin: 07/01/20 23:01 Dose: Not Given Documented by: [id number] Enoxaparin Sodium (Enoxaparin 100 Mg/1ml Syr) 100 mg SQ ONE ONE Stop: 07/01/20 22:16 Last Admin: 07/01/20 23:43 Dose: 100 mg Documented by: [id number] Cefepime HCl (Maxipime) 2,000 mg in 20 mls @ 5 mls/min IV NOW STA Stop: 07/01/20 16:44 Last Admin: 07/01/20 17:08 Dose: 5 mls/min Documented by: [id number] Miscellaneous (Avodart~Order Awaiting Action) 1 ea N/A QS ON LICENSE OF [facility] Stop: 08/01/20 00:00 Last Admin: 07/02/20 10:23 Dose: Not Given Documented by: [id number] Admin: 07/02/20 00:11 Dose: Not Given Documented by: [id number] Miscellaneous (Rasagiline~Order Awaiting Action) 1 ea N/A QS ISELA Stop: 08/01/20 00:00 Last Admin: 07/02/20 10:23 Dose: Not Given Documented by: [id number] Admin: 07/02/20 00:11 Dose: Not Given Documented by: [id number] Miscellaneous (Vesicare~Order Awaiting Action) 1 ea N/A QS ISELA Stop: 08/01/20 00:00 Last Admin: 07/02/20 10:23 Dose: Not Given Documented by: [id number] Admin: 07/02/20 00:11 Dose: Not Given Documented by: [id number] Medical Decision Making Differential Diagnosis Differential Diagnosis includes but is not limited to dehydration, stroke, anemia, hypoglycemia, hyponatremia, hypernatremia, urinary tract infection, pneumonia, bronchitis, sepsis, gastroenteritis, additional abdominal pathology, metabolic abnormalities and infections. Medical Records Attestation: I reviewed the patient's medical records. Home Medications Current Medication List: was personally reviewed by me Laboratory Data Attestation: I reviewed the patient's lab results. Result diagrams: 07/02/20 09:22 07/02/20 09:22 Lab Results 07/01/20 07/01/20 07/01/20 Range/Units 14:00 14:00 15:20 WBC 7.46 (4.8-10.8) K/uL RBC 5.45 (4.7-6.1) M/uL Hgb 17.3 (14.0-18.0) g/dL Hct 50.8 (42-52) % MCV 93.2 (80-100) fL MCH 31.7 (25-34) pg MCHC 34.1 (32-36) g/dL RDW Std Deviation 48.6 H (36.4-46.3) fL RDW Coeff of Patience 14.4 (11.5-14.5) % Plt Count 169 (130-400) K/uL MPV 10.6 H (7.4-10.4) fL Immature Gran % (Auto) 0.3 % Neut % (Auto) 69.1 % Lymph % (Auto) 18.0 % Calvert % (Auto) 8.7 % Eos % (Auto) 3.5 % Baso % (Auto) 0.4 % Neut # (Auto) 5.16 (1.4-6.5) K/uL Lymph # (Auto) 1.34 (1.2-3.4) K/uL Calvert # (Auto) 0.65 H (0.11-0.59) K/uL Eos # (Auto) 0.26 (0-0.5) K/uL Baso # (Auto) 0.03 (0-0.2) K/uL Immature Gran # (Auto) 0.02 (0.00-0.02) K/uL Sodium 142 (136-145) mmol/L Potassium 3.9 (3.5-5.1) mmol/L Chloride 108 H (98-107) mmol/L Carbon Dioxide 30 (21-32) mmol/L Anion Gap 4.0 (3-11) BUN 16 (7-18) mg/dl Creatinine 1.23 (0.6-1.4) mg/dl Est Cr Clr Drug Dosing 62.1 ml/min Est GFR ( Amer) 65.2 Est GFR (Non-Af Amer) 56.3 BUN/Creatinine Ratio 13.2 (10-20) Glucose 113 H (70-99) mg/dl Calcium 9.9 (8.5-10.1) mg/dl Magnesium 2.5 H (1.8-2.4) mg/dl Total Bilirubin 0.7 (0.2-1) mg/dl AST 51 H (15-37) U/L ALT 39 (12-78) U/L Alkaline Phosphatase 112 (45-117) U/L Troponin I < 0.015 (0-0.045) ng/ml NT-Pro-B Natriuret Pep 376 (0-1800) pg/ml Total Protein 7.7 (6.4-8.2) gm/dl Albumin 3.5 (3.4-5.0) gm/dl Globulin 4.2 H (2.5-4.0) gm/dl Albumin/Globulin Ratio 0.8 L (0.9-2) Lipase 267 (73-393) U/L TSH 1.490 (0.300-4.500) uIu/ml Urine Color Dark Yellow Urine Appearance Clear (Clear) Urine pH 5.0 (4.5-7.5) Ur Specific Zullinger 1.023 (1.000-1.030) Urine Protein Negative (Negative) Urine Glucose (UA) Negative (Negative) Urine Ketones Trace H (Negative) Urine Blood Negative (Negative) Urine Nitrite Positive A (Negative) Urine Bilirubin Negative (Negative) Urine Urobilinogen Negative (Negative) Ur Leukocyte Esterase 1+ H (Negative) Urine WBC (Auto) >30 H (0-5) /hpf Urine RBC (Auto) 0-4 (0-4) /hpf U Hyaline Cast (Auto) 10-30 H (0-5) /lpf U Epithel Cells (Auto) 5-10 H (0-5) /lpf Urine Bacteria (Auto) 2+ H (Negative) Imaging Data Radiologist's Impression: XR chest 1V portable CLINICAL HISTORY: weakness COMPARISON STUDY: May 04, 2020 FINDINGS: The cardiac and mediastinal contours are normal. There is no evidence of focal pulmonary consolidation. There is no evidence of failure. No pleural effusions are visualized.[There is minor left basilar atelectasis IMPRESSION: Minor left basilar atelectasis. Otherwise negative chest. ACT 112: Negative or not required by law. Electronically signed by: Kana Luna M.D. 07/01/2020 1:26 PM [place], [place] [phone] Ultrasound Report Patient: YANELY BESS Date: 07/01/20 MR#: [id number]: [address] [place] [address] Acct ID:[id number]: [facility] Zip[facility] [place] [address] Age: 79Location: ED Sex: MRoom/Bed: Att Phy:Diagnosis: BILATERAL LEG WEAKNESS Riya Phy: Ney Rodriguez MDService Date: 07/01/20 [facility] Phy:Interpreting Phy: Tim Romero Admit Phy: Ordering Phy: Aura Go DO cc: ~ BILATERAL LOWER EXTREMITY VENOUS DOPPLER HISTORY: Acute pain and swelling of the bilateral lower extremities. Follow-up study in a patient with recent superficial femoral and popliteal vein thrombi hx b/l dvt, increased weakness COMPARISON STUDY: Duplex venous Doppler 05/04/2020 FINDINGS: Right lower extremity: Common femoral and profunda femoris veins are patent. Partially occlusive thrombi within the superficial femoral and popliteal veins redemonstrated. Thrombus is also noted involving one of the duplicated peroneal veins which was not appreciated on comparison. Left lower extremity: The common femoral and profunda femoris veins are patent. Partially occlusive thrombus of the superficial femoral vein is again noted extending proximal to distal. Partially occlusive thrombus is also noted within the popliteal vein which is also present on comparison. Occlusive thrombus within the posterior tibial and peroneal veins is new from comparison. IMPRESSION: 1. Likely acute deep venous thrombosis in the bilateral peroneal and left posterior tibial veins. 2. 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 ACT 112: Negative or not required by law. Electronically signed by: Maikel Romero M.D. 07/01/2020 3:23 PM ECG Data Attestation: I personally reviewed and interpreted this ECG as follows: Indication: + weakness Rate (beats per minute): 70 Rhythm: + normal sinus ECG Intervals/blocks: + Left anterior fascicular block and + Right Bundle branch block ECG Cary: + Left axis deviation ECG ST segments: + Normal ST segments Blood Pressure Blood Pressure Findings: Elevated blood pressure MDM Narrative Ill-appearing elderly male who presents the emergency department with his due to increased weakness today. While patient does have a history of intermittent weakness that they have thought is due to his Parkinson's disease, patient was evaluated here. Labs are drawn and sent and were reassuring, repeat ultrasound lower extremities performed after additional discussion with the due to a recent finding of DVT 2 months ago. Unfortunately the repeat ultrasound revealed acute DVT in addition to the chronic. After discussion with Dr. Pimentel, this would be considered a failure of his current Eliquis. We discussed options for treatment, and patient and verbalized understanding. Patient also found to have a urinary tract infection that based on prior cultures and sensitivities would only be amenable safely to IV antibiotics. In light of this, we did discuss additional inpatient evaluation and management. Patient remained hemodynamically stable throughout, and I do not suspect bacteremia/sepsis, pyelonephritis, or obstructive uropathy. I do not suspect other more proximal thromboembolic disease. Patient with no complaints of chest pain or trouble breathing. No new dysrhythmia noted on telemetry. Patient with no increasing pain to the lower extremities or increased edema. An order was placed for continuous cardiac monitoring. The monitor shows a rate of _78_ with _normal sinus_ rhythm. Impression & Plan UTI (urinary tract infection), Leg weakness, bilateral, Parkinson disease, Acute DVT (deep venous thrombosis), Hypertension Discharge Plan Visit Data Chief Complaint: Leg Weakness, Bilateral ED Provider: Aura Go Discharge Problem: UTI (urinary tract infection), Leg weakness, bilateral, Parkinson disease, Acute DVT (deep venous thrombosis), Hypertension Patient Disposition: Admitted As Inpatient Discharge Instructions Interventions: ED Discharge Assessment Last Done: 07/01/20 21:02 Discharge Problem: UTI (urinary tract infection) Qualifiers: Urinary tract infection type: acute cystitis Hematuria presence: without hematuria Qualified Code(s): N30.00 - Acute cystitis without hematuria Acute DVT (deep venous thrombosis) Qualifiers: DVT location: lower extremity Affected thrombotic vein of extremity: unspecified vein of extremity Laterality: bilateral Qualified Code(s): I82.403 - Acute embolism and thrombosis of unspecified deep veins of lower extremity, bilateral Hypertension Qualifiers: Hypertension type: essential hypertension Qualified Code(s): I10 - Essential (primary) hypertension
--- NOTE | 2020-07-01 13:27 | XRay Report ---
XR chest 1V portable CLINICAL HISTORY: weakness COMPARISON STUDY: May 04, 2020 FINDINGS: The cardiac and mediastinal contours are normal. There is no evidence of focal pulmonary co nsolidation. There is no evidence of failure. No pleural effusions are visualized.[There is minor lef t basilar atelectasis IMPRESSION: Minor left basilar atelectasis. Otherwise negative chest. ACT 112: Negative or not required by law. Electronically signed by: Kana Luna M.D. 07/01/2020 1:26 PM
[2020-07-01 14:39] LABS: Basophils # (auto) 0.03 K/uL (0-0.2); Basophils % (auto) 0.4 %; Eosinophils # (auto) 0.26 K/uL (0-0.5); Eosinophils % (auto) 3.5 %; Hematocrit (blood only) 50.8 % (42-52); Hemoglobin 17.3 g/dL (14.0-18.0); Immature Granulocytes # (auto) 0.02 K/uL (0.00-0.02); Immature Granulocytes % (auto) 0.3 %; Lymphocytes # (auto) 1.34 K/uL (1.2-3.4); Mean Corpuscular Hemoglobin 31.7 pg (25-34); Mean Corpuscular Hgb Conc 34.1 g/dL (32-36); Mean Corpuscular Volume 93.2 fL (80-100); Mean Platelet Volume 10.6 fL (7.4-10.4); Monocytes # (auto) 0.65 K/uL (0.11-0.59); Monocytes % (auto) 8.7 %; Neutrophils # (auto) 5.16 K/uL (1.4-6.5); Neutrophils % (auto) 69.1 %; Platelet Count 169 K/uL (130-400); RDW Coefficient of Variation 14.4 % (11.5-14.5); RDW Standard Deviation 48.6 fL (36.4-46.3); Red Blood Count 5.45 M/uL (4.7-6.1); White Blood Count 7.46 K/uL (4.8-10.8)
[2020-07-01 14:52] LABS: Alanine Aminotransferase 39 U/L (12-78); Albumin Level 3.5 gm/dl (3.4-5.0); Aspartate Aminotransferase 51 U/L (15-37); BUN Creatinine Ratio 13.2 (10-20); Blood Urea Nitrogen 16 mg/dl (7-18); Calcium 9.9 mg/dl (8.5-10.1); Carbon Dioxide 30 mmol/L (21-32); Chloride 108 mmol/L (98-107); Creatinine Clr Calc Pharmacy 62.1 ml/min; Est GFR (African American) 65.2; Est GFR (Non-African American) 56.3; Glucose 113 mg/dl (70-99); Lipase 267 U/L (73-393); Magnesium 2.5 mg/dl (1.8-2.4); Potassium 3.9 mmol/L (3.5-5.1); Sodium 142 mmol/L (136-145)
[2020-07-01 15:03] LABS: Albumin Globulin Ratio 0.8 (0.9-2); Alkaline Phosphatase 112 U/L (45-117); Bilirubin,Total 0.7 mg/dl (0.2-1); Globulin 4.2 gm/dl (2.5-4.0); NT Pro B Type Natriuretic Pept 376 pg/ml (0-1800); Total Protein 7.7 gm/dl (6.4-8.2); Troponin I < 0.015 ng/ml (0-0.045)
--- NOTE | 2020-07-01 15:24 | Ultrasound Report ---
BILATERAL LOWER EXTREMITY VENOUS DOPPLER HISTORY: Acute pain and swelling of the bilateral lower extremities. Follow-up study in a patient wit h recent superficial femoral and popliteal vein thrombi hx b/l dvt, increased weakness COMPARISON STUDY: Duplex venous Doppler 05/04/2020 FINDINGS: Right lower extremity: Common femoral and profunda femoris veins are patent. Partially occlusive thrombi within the superfic ial femoral and popliteal veins redemonstrated. Thrombus is also noted involving one of the duplicate d peroneal veins which was not appreciated on comparison. Left lower extremity: The common femoral and profunda femoris veins are patent. Partially occlusive thrombus of the superfi cial femoral vein is again noted extending proximal to distal. Partially occlusive thrombus is also n oted within the popliteal vein which is also present on comparison. Occlusive thrombus within the pos terior tibial and peroneal veins is new from comparison. IMPRESSION: 1. Likely acute deep venous thrombosis in the bilateral peroneal and left posterior tibial veins. 2. 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 ACT 112: Negative or not required by law. Electronically signed by: Maikel Romero M.D. 07/01/2020 3:23 PM
[2020-07-01 15:39] LABS: Appearance Urine Clear (Clear); Bacteria Urine Automated 2+ (Negative); Bilirubin Urine Negative (Negative); Blood Urine Negative (Negative); Color Urine Dark Yellow; Glucose Urine UA Negative (Negative); Ketones Urine Trace (Negative); Leukocyte Esterase Urine 1+ (Negative); Nitrite Urine Positive (Negative); Protein Urine Negative (Negative); RBC Urine Automated 0-4 /hpf (0-4); Specific Gravity Urine 1.023 (1.000-1.030); Urobilinogen Urine Negative (Negative); WBC Urine Automated >30 /hpf (0-5)
[2020-07-01] MEDS ORDERED: CEFEPIME 2,000 MG/20 ML VIAL IV STA (16:41)
[2020-07-01] MEDS ORDERED: ENOXAPARIN 1 MG/KG SQ SCH (19:15)
[2020-07-01] MEDS ORDERED: CARBIDOPA/LEVODOPA 50/200MG EXT REL TAB PO SCH (21:00)
[2020-07-01] MEDS ORDERED: ENOXAPARIN 100 MG/1ML SYR SQ ONE (22:15)
--- NOTE | 2020-07-01 22:43 | History & Physical Report ---
Date of Service July 01, 2020 Assessment & Plan (1) Parkinson disease: Patient was diagnosed with Parkinson's disease 10 years ago. Patient currently has an acute falir with lower extremity weakness likely due to UTI. Will treat with cefepime as this covered the previous bacterias that were colonized in the urine. will monitor (2) Acute DVT (deep venous thrombosis): Patient was on eliquis. However, it appears he failed this as he has a new DVT. Will treat with lovenox. (3) Hypercholesterolemia: resume home meds (4) Hypertension: BP is stable. will resume home meds (5) CAD (coronary artery disease): no current complaints as of now. (6) UTI (urinary tract infection): Will treat cefepime. (7) Leg weakness, bilateral: 79 yo male admitted with bilateral leg weakness Will resume home meds. will continue on UTI treatment Admission and Anticipated Discharge Date Admission Date: July 01, 2020 History of Present Illness Chief Complaint: weakness Primary Care Provider: Ney Rodriguez MD This is a pleasant 79 yo male who has history of Parkinson Disease. Patient states he has had Parkinson's disease for 10 years, and this typically resolves spontaneously. Patient states he had a milder episode on Saturday which resolved spontaneously. He denies any upper extremity weakness, dizziness, or headaches. Patient denies any new neck or back pain, any change in bowel or bladder function recently, fevers or chills, cough or cold symptoms. Patient denied any known sick contacts. His provides more history, saying that he woke up in a sweat which was new, however he was afebrile. She states his voice sounded slightly weaker compared normal, and he seemed to be weak everywhere. She states that he was able to hold up his arms, and was able to raise his left leg about 2 inches off the bed, but she states he had no movement of the right lower extremity. His is at bedside and helps provide history. He reports this morning having bilateral weakness in his lower extremities. He states he gets acute exacerbation of weakness but these are short lived. Today though it was severe. He arrived to the ER and was found to have a urinary tract infection and incidental finding of a DVT in his leg which is new. ER discussed with Dr. Pimentel and it appears this is considered a failure of his Eliquis and would need a new anticoagulant. Allergies Allergy/AdvReac Type Severity Reaction Status Date / Time iodine Allergy Severe ITCHING Verified 07/01/20 14:02 AND DISCOMFORT Home Medications Home Medications Medication Instructions Recorded Confirmed Type ascorbic acid (vitamin C) 1 g PO DAILY@1700 05/26/18 07/01/20 History calcium carb and citrate-vitD3 1 tab PO DAILY@1000 05/26/18 07/01/20 History coenzyme Q10 See Rx Instructions .ROUTE .COMPLEX 05/26/18 07/01/20 History lorazepam [Ativan] 2 mg PO TID 05/26/18 07/01/20 History rasagiline 1 mg PO DAILY@1000 05/26/18 07/01/20 History riboflavin (vitamin B2) 100 mg PO DAILY 05/26/18 07/01/20 History Lactobacillus acidophilus 10 mg PO DAILY@202907/03/19 07/01/20 History cranberry 500 mg capsule 500 mg PO DAILY@1330 cap 07/03/19 07/01/20 History solifenacin 10 mg tablet 10 mg PO DAILY@2300 tab 07/03/19 07/01/20 History vitamin E 400 unit capsule 400 unit PO TID cap 07/03/19 07/01/20 History atorvastatin 40 mg tablet 20 mg PO DAILY@2200 tab 04/04/20 07/01/20 History apixaban [Eliquis] See Rx Instructions .ROUTE 05/04/20 07/01/20 Rx .COMPLEX #74 tab carbidopa-levodopa [Rytary] 1 cap PO DAILY@202905/04/20 07/01/20 History carbidopa-levodopa [Rytary] See Rx Instructions .ROUTE .COMPLEX 05/04/20 07/01/20 History donepezil 10 mg PO BID 05/04/20 07/01/20 History memantine 5 mg PO BID 05/04/20 07/01/20 History dutasteride 0.5 mg PO DAILY@2300 07/01/20 07/01/20 History multivitamin 1 tab PO DAILY@99907/01/20 07/01/20 History nitrofurantoin macrocrystal 0 mg PO DAILY@202907/01/20 07/01/20 History Past Med/Surg History Medical History Parkinson disease UTI (urinary tract infection) Surgical History S/P appendectomy S/P tonsillectomy Family History Other No significant family history Social History Smoking Status: Never smoker Hx Alcohol Use: No Hx Substance Use: No Preferred Language: Telugu Communication Ability: Effective [employer] Required: No Beliefs That Will Affect Care: None Current Living Situation: Spouse Other Information That Helps Us Care for You: No Feels Safe at Home: Yes Safety Concerns: Feels Safe At This Time Assistive Devices: Wheelchair Review of Systems Review of Systems: All systems reviewed & are unremarkable except as noted in HPI & below Physical Exam Constitutional: WD/WN, vitals as above well developed and well nourished Eyes: PERRL, conjunctivae normal, anicteric sclerae ENMT: external ear and nose normal, oropharynx normal Neck: normal visual inspection Respiratory: normal respiratory effort, lungs clear to auscultation Cardiovascular: RRR, no murmur, no edema Gastrointestinal (Abdomen): normal bowel sounds, soft, nontender, no hepatosplenomegaly Musculoskeletal: weakness in lower extremity: unable to lift bilateral leg off bed. Psychiatric: A+Ox3, euthymic affect (knew place, perosn, knew year and month, but not date.) Lymphatic: no cervical or axillary lymphadenopathy Results & Data Results & Data ([facility]) Vital Signs (Past 12 Hours) Vital Signs Temp Pulse Pulse Resp BP BP Pulse Ox 07/01/20 21:00 82 20 167/117 H 99 07/01/20 20:30 20 163/104 H 98 07/01/20 20:00 76 22 165/104 H 97 07/01/20 19:30 79 24 150/89 H 98 07/01/20 19:00 70 20 143/94 H 98 07/01/20 18:30 78 16 136/86 99 07/01/20 18:01 72 19 99 07/01/20 18:00 67 16 136/85 95 07/01/20 17:30 71 19 131/86 99 07/01/20 17:01 69 20 100 07/01/20 17:00 72 21 148/89 H 98 07/01/20 16:30 77 21 121/80 98 07/01/20 16:00 72 19 127/80 98 07/01/20 15:30 69 20 129/81 99 07/01/20 15:12 73 20 99 07/01/20 14:30 71 22 07/01/20 13:34 71 18 115/74 99 07/01/20 12:33 36.6 C 73 18 122/70 98 Code Status & VTE Plan VTE Prophylaxis Plan VTE Prophylaxis will be ordered: Yes PG Care Time/CCT Total # of Minutes Spent Total Time Spent with Patient: Total time spent is greater than 50% in coordination of care (as documented) at patient's floor/unit and/or counseling patient: Coding Level of Care Code 86114 Initial Inpt Care Lvl 3 Diagnoses Parkinson disease G20 Acute DVT (deep venous thrombosis) I82.409 Hypercholesterolemia E78.00 Hypertension I10 CAD (coronary artery disease) I25.10 UTI (urinary tract infection) N30.00 Hematuria presence: without hematuria Urinary tract infection type: acute cystitis Leg weakness, bilateral R29.898 Time Spent (min) 60 (1) UTI (urinary tract infection) Hematuria presence: without hematuria Urinary tract infection type: acute cystitis Qualified Code(s): N30.00 - Acute cystitis without hematuria
--- NOTE | 2020-07-01 22:45 | Electrocardiogram Report ---
Test Reason : Blood Pressure : / mmHG Vent. Rate : 070 BPM Atrial Rate : 070 BPM P-R Int : 184 ms QRS Dur : 148 ms QT Int : 450 ms P-R-T Axes : 082 -54 012 degrees QTc Int : 486 ms Normal sinus rhythm Right bundle branch block Left anterior fascicular block Bifascicular block Abnormal ECG When compared with ECG of 04-MAY-2020 18:06, Premature ventricular complexes are no longer Present Confirmed by John Neumann ([id number]) on 07/01/2020 10:45:00 PM Referred By: REFERRED SELF Confirmed By:John Neumann
[2020-07-01] MEDS: ATORVASTATIN 20 MG TAB PO SCH (23:04)
[2020-07-01] MEDS: DONEPEZIL HCL 10 MG TAB PO SCH (23:04)
[2020-07-01] MEDS: MEMANTINE HCL 5 MG TAB PO SCH (23:04)
[2020-07-01] MEDS: TOCOPHERYL, DL-ALPHA 400 UNITS CAP PO SCH (23:05)
[2020-07-01] MEDS: LORazepam 1 MG TAB PO SCH (23:15)
[2020-07-02] MEDS: AVODART~ORDER AWAITING ACTION SCH ×2 (00:11→10:23)
[2020-07-02] MEDS: VESICARE~ORDER AWAITING ACTION SCH ×2 (00:11→10:23)
[2020-07-02] MEDS: CEFEPIME 2,000 MG in SYRINGE 0 ML IV SCH ×2 (04:30→15:52)
[2020-07-02] MEDS ORDERED: NON-FORMULARY MEDICATION (Riboflavin (Vitamin B2) 100 mg Tablet) PO SCH (09:00)
[2020-07-02 09:54] LABS: INR 1.1 (0.9-1.1); Prothrombin Time 11.7 Seconds (9.0-12.0)
[2020-07-02] MEDS: TOCOPHERYL, DL-ALPHA 400 UNITS CAP PO SCH ×3 (10:14→21:33)
[2020-07-02] MEDS: MULTIVITAMIN TAB PO SCH (10:14)
[2020-07-02] MEDS: CARBIDOPA/LEVODOPA 50/200MG EXT REL TAB PO SCH ×4 (10:14→19:15)
[2020-07-02] MEDS: CALCIUM 600MG + VIT D 400 IU TAB PO SCH (10:14)
[2020-07-02] MEDS: DONEPEZIL HCL 10 MG TAB PO SCH ×2 (10:15→21:33)
[2020-07-02] MEDS: MEMANTINE HCL 5 MG TAB PO SCH ×2 (10:15→21:33)
[2020-07-02] MEDS: LORazepam 1 MG TAB PO SCH ×3 (10:23→21:32)
[2020-07-02] MEDS ORDERED: bisacodyL 10 MG SUPP PR STA (10:34)
[2020-07-02 10:41] LABS: Basophils # (auto) 0.04 K/uL (0-0.2); Basophils % (auto) 0.4 %; Eosinophils # (auto) 0.31 K/uL (0-0.5); Eosinophils % (auto) 3.3 %; Hematocrit (blood only) 48.3 % (42-52); Hemoglobin 16.7 g/dL (14.0-18.0); Immature Granulocytes # (auto) 0.02 K/uL (0.00-0.02); Immature Granulocytes % (auto) 0.2 %; Lymphocytes # (auto) 1.63 K/uL (1.2-3.4); Lymphocytes % (auto) 17.5 %; Mean Corpuscular Hemoglobin 31.7 pg (25-34); Mean Corpuscular Hgb Conc 34.6 g/dL (32-36); Mean Corpuscular Volume 91.7 fL (80-100); Mean Platelet Volume 10.2 fL (7.4-10.4); Monocytes # (auto) 0.85 K/uL (0.11-0.59); Monocytes % (auto) 9.1 %; Neutrophils # (auto) 6.47 K/uL (1.4-6.5); Neutrophils % (auto) 69.5 %; Platelet Count 153 K/uL (130-400); RDW Coefficient of Variation 14.2 % (11.5-14.5); RDW Standard Deviation 47.8 fL (36.4-46.3); Red Blood Count 5.27 M/uL (4.7-6.1); White Blood Count 9.32 K/uL (4.8-10.8)
[2020-07-02] MEDS: ENOXAPARIN 100 MG/1ML SYR SQ SCH ×2 (10:47→21:34)
[2020-07-02 11:28] LABS: BUN Creatinine Ratio 13.9 (10-20); Calcium 9.5 mg/dl (8.5-10.1); Creatinine Clr Calc Pharmacy 68.5 ml/min; Est GFR (African American) 73.8; Est GFR (Non-African American) 63.7
[2020-07-02] MEDS: FINASTERIDE 5 MG TAB PO SCH (13:53)
[2020-07-02] MEDS ORDERED: ASCORBIC ACID 500 MG TAB PO SCH (17:00)
[2020-07-02] MEDS ORDERED: ADVANCED PROBIOTIC 1250 MG CAPSULE PO SCH (20:30)
[2020-07-02] MEDS: ATORVASTATIN 20 MG TAB PO SCH (21:33)
--- NOTE | 2020-07-02 22:27 | Hospitalist Progress Note ---
Date of Service July 02, 2020 Assessment & Plan (1) Parkinson disease: Patient was diagnosed with Parkinson's disease 10 years ago. Patient currently has an acute falir with lower extremity weakness likely due to UTI. Will treat with cefepime as this covered the previous bacterias that were colonized in the urine. Appears to be improving today in regards of his strength. will monitor (2) Acute DVT (deep venous thrombosis): Patient was on eliquis. However, it appears he failed this as he has a new DVT. Will treat with lovenox. will continue BID dosing. (3) Hypercholesterolemia: resume home meds (4) Hypertension: BP is stable. will resume home meds (5) CAD (coronary artery disease): no current complaints as of now. (6) UTI (urinary tract infection): Will treat cefepime. (7) Leg weakness, bilateral: 79 yo male admitted with bilateral leg weakness Will resume home meds. will continue on UTI treatment Admission and Anticipated Discharge Date Admission Date: July 01, 2020 Subjective Patient reports feeling better. He is able to lift both legs off the bed. Updated who was at bedside. Review of Systems Review of Systems: All systems reviewed & are unremarkable except as noted in HPI & below Physical Exam Constitutional: WD/WN, vitals as above well developed ENMT: external ears and nose normal inspection Neck: normal visual inspection Musculoskeletal: able to lift both lower extremities against gravity. Skin: no rashes, warm and dry Psychiatric: Orientation: alert, oriented to person, oriented to place and cooperative Results & Data Results & Data ([facility]) Vital Signs (Past 12 Hours) Vital Signs Temp Pulse Resp BP Pulse Ox 07/02/20 15:36 36.5 C 74 16 143/90 H 98 PG Care Time/CCT Total # of Minutes Spent Total Time Spent with Patient: Total time spent is greater than 50% in coordination of care (as documented) at patient's floor/unit and/or counseling patient: Coding Level of Care Code 82366 Subseq Hosp Care Lvl 2 Diagnoses Parkinson disease G20 Acute DVT (deep venous thrombosis) I82.403 Affected thrombotic vein of extremity: unspecified vein of extremity DVT location: lower extremity Laterality: bilateral Hypercholesterolemia E78.00 Hypertension I10 Hypertension type: essential hypertension CAD (coronary artery disease) I25.10 UTI (urinary tract infection) N30.00 Hematuria presence: without hematuria Urinary tract infection type: acute cystitis Leg weakness, bilateral R29.898 Time Spent (min) 25 (1) Acute DVT (deep venous thrombosis) Affected thrombotic vein of extremity: unspecified vein of extremity DVT location: lower extremity Laterality: bilateral Qualified Code(s): I82.403 - Acute embolism and thrombosis of unspecified deep veins of lower extremity, bilateral (2) Hypertension Hypertension type: essential hypertension Qualified Code(s): I10 - Essential (primary) hypertension (3) UTI (urinary tract infection) Hematuria presence: without hematuria Urinary tract infection type: acute cystitis Qualified Code(s): N30.00 - Acute cystitis without hematuria
[2020-07-03] MEDS: CEFEPIME 2,000 MG in SYRINGE 0 ML IV SCH (03:50)
[2020-07-03] MEDS: LORazepam 1 MG TAB PO SCH ×2 (08:11→12:52)
[2020-07-03] MEDS: FINASTERIDE 5 MG TAB PO SCH (08:12)
[2020-07-03] MEDS: MEMANTINE HCL 5 MG TAB PO SCH (08:12)
[2020-07-03] MEDS: TOCOPHERYL, DL-ALPHA 400 UNITS CAP PO SCH ×2 (08:12→12:50)
[2020-07-03] MEDS: MULTIVITAMIN TAB PO SCH (08:12)
[2020-07-03] MEDS: DONEPEZIL HCL 10 MG TAB PO SCH (08:12)
[2020-07-03] MEDS: CARBIDOPA/LEVODOPA 50/200MG EXT REL TAB PO SCH ×2 (08:13→12:50)
[2020-07-03] MEDS: CALCIUM 600MG + VIT D 400 IU TAB PO SCH (08:13)
[2020-07-03] MEDS: ENOXAPARIN 100 MG/1ML SYR SQ SCH (08:13)
[2020-07-03] MEDS ORDERED: PT'S OWN MED: DUTASTERIDE 0.5MG PO SCH (09:00)
[2020-07-03] MEDS ORDERED: SOLIFENACIN SUCCINATE 10 MG PO SCH (09:00)
[2020-07-03] MEDS ORDERED: RASAGILINE 1 MG PO SCH (10:00)
[2020-07-03] MEDS ORDERED: CEFDINIR 300 MG CAP PO STA (12:47)
[2020-07-03] MEDS ORDERED: LOVENOX TEACHING KIT ONE (12:49)
--- NOTE | 2020-07-11 09:17 | Discharge Summary ---
Date of Service July 03, 2020 Admission HPI Per Admitting Provider This is a pleasant 79 yo male who has history of Parkinson Disease. Patient states he has had Parkinson's disease for 10 years, and this typically resolves spontaneously. Patient states he had a milder episode on Saturday which resolved spontaneously. He denies any upper extremity weakness, dizziness, or headaches. Patient denies any new neck or back pain, any change in bowel or bladder function recently, fevers or chills, cough or cold symptoms. Patient denied any known sick contacts. His provides more history, saying that he woke up in a sweat which was new, however he was afebrile. She states his voice sounded slightly weaker compared normal, and he seemed to be weak everywhere. She states that he was able to hold up his arms, and was able to raise his left leg about 2 inches off the bed, but she states he had no movement of the right lower extremity. His is at bedside and helps provide history. He reports this morning having bilateral weakness in his lower extremities. He states he gets acute exacerbation of weakness but these are short lived. Today though it was severe. He arrived to the ER and was found to have a urinary tract infection and incidental finding of a DVT in his leg which is new. ER discussed with Dr. Pimentel and it appears this is considered a failure of his Eliquis and would need a new anticoagulant. Principal Diagnosis Parkinson's Disease/ UTI Discharge Exam Constitutional: WD/WN, vitals as above well developed ENMT: external ears and nose normal inspection Neck: normal visual inspection Musculoskeletal: able to lift both lower extremities against gravity. Psychiatric: Orientation: alert, oriented to person, oriented to place and cooperative Discharge Data Allergies Allergy/AdvReac Type Severity Reaction Status Date / Time iodine Allergy Severe ITCHING Verified 07/01/20 14:02 AND DISCOMFORT Consultations 07/01/20 17:27 ED Decision to Admit Stat Ordered Studies 07/01/20 13:04 US venous doppler LE Stat Hospital Course (1) Parkinson disease: Patient was diagnosed with Parkinson's disease 10 years ago. Patient currently has an acute flair with lower extremity weakness likely due to UTI. Urine culture showed Klebsiella sensitive to cephalosporins. Ok to discharge on oral antibiotics. Recommend followup with neurologist as outpatient. (2) Acute DVT (deep venous thrombosis): Patient was on eliquis. However, it appears he failed this as he has a new DVT. Will treat with lovenox. will continue BID dosing. will defer to PCP. (3) Hypercholesterolemia: resume home meds (4) Hypertension: BP is stable. will resume home meds (5) CAD (coronary artery disease): no current complaints as of now. (6) UTI (urinary tract infection): Will treat as above. (7) Leg weakness, bilateral: 79 yo male admitted with bilateral leg weakness Will resume home meds. will continue on UTI treatment Total Time Total Time Spent Total Time Spent (In Minutes): 32 Discharge Plan Discharge Items Patient Disposition: Home - Home Health Services Reason For Visit: UTI / DVT Discharge Diagnosis: UTI/ DVT Activity: Resume your previous activity Non-emergency contact: Primary Care Provider Call non-emergency contact if: you have any medication questions Follow-up/Referrals: Ney Rodriguez MD [Primary Care Provider] - 07/08/20 1:50 pm Diet: Regular Addtl Attending Provider Instructions: You have been hospitalized for an acute medical problem. During your stay at [facility], we have made an effort to correct the problem that brought you to the hospital while keeping you as comfortable as possible. Medications were used to bring your condition under control and your discharge instructions will include directions for any medications you should take after leaving the hospital. Please make sure you see your Primary Care Provider as part of your follow up plan. WILL CONTINUE ANTIBIOTICS FOR UTI FOR 10 MORE DAYS. Will continue lovenox 150 mg once a day indefinitely. Pending Studies at Discharge: No Stand-Alone Forms: My [facility], Smoking Cessation Medications and DC Order Prescriptions: New cefdinir 300 mg capsule 300 mg PO BID 10 Days Qty: 20 RF: 0 enoxaparin [Lovenox] 150 mg/mL syringe 150 mg subcut DAILY Qty: 30 RF: 0 Continued solifenacin 10 mg tablet 10 mg PO DAILY@2300 RF: 0 cranberry 500 mg capsule 500 mg PO DAILY@1330 RF: 0 Lactobacillus acidophilus [Acidophilus] capsule 10 mg PO DAILY@2030 RF: 0 ascorbic acid (vitamin C) 1,000 mg Tablet 1 g PO DAILY@1700 RF: 0 riboflavin (vitamin B2) 100 mg Tablet 100 mg PO DAILY RF: 0 lorazepam [Ativan] 2 mg Tablet 2 mg PO TID RF: 0 rasagiline 1 mg Tablet 1 mg PO DAILY@1000 RF: 0 coenzyme Q10 400 mg Capsule See Rx Instructions .ROUTE .COMPLEX RF: 0 calcium carb and citrate-vitD3 600 mg calcium- 500 unit Tablet Extended Release 1 tab PO DAILY@1000 RF: 0 vitamin E 400 unit capsule 400 unit PO TID RF: 0 atorvastatin 40 mg tablet 20 mg PO DAILY@2200 RF: 0 memantine 5 mg tablet 5 mg PO BID RF: 0 Rytary 23.75-95 mg capsule, extended release 1 cap PO DAILY@2030 RF: 0 Rytary 23.75-95 mg capsule, extended release See Rx Instructions .ROUTE .COMPLEX RF: 0 donepezil 10 mg tablet 10 mg PO BID RF: 0 dutasteride 0.5 mg capsule 0.5 mg PO DAILY@2300 RF: 0 multivitamin Tablet 1 tab PO DAILY@1000 RF: 0 Discontinued Eliquis 5 mg tablet See Rx Instructions .ROUTE .COMPLEX Qty: 74 RF: 0 nitrofurantoin macrocrystal 100 mg Capsule 0 mg PO DAILY@2029 RF: 0 Discharge Orders: Discharge Order (Routine); Ordered 07/03/20 Ordered By: Ashwin Murillo Admission Data Admit Date/Time: 07/01/20 18:53 Attending Provider: Ashwin Murillo Admit Provider: Ashwin Murillo Primary Care Provider: Ney Rodriguez Other Providers: Dudley Thomas ; [facility],Home [facility] Other Interventions: Discharge Summary Assessment (RN) Last Done: 07/03/20 07:00 Coding Level of Care Code D/C Day Management >30 mins Diagnoses Parkinson disease G20 Acute DVT (deep venous thrombosis) I82.403 Affected thrombotic vein of extremity: unspecified vein of extremity DVT location: lower extremity Laterality: bilateral Hypercholesterolemia E78.00 Hypertension I10 Hypertension type: essential hypertension CAD (coronary artery disease) I25.10 UTI (urinary tract infection) N30.00 Hematuria presence: without hematuria Urinary tract infection type: acute cystitis Leg weakness, bilateral R29.898 Time Spent (min) 32
== END 2020-07-03 16:47 | disposition home health service (06) | DRG 57 ==
LOC: ED 12:19 → 3W 18:53

== ENCOUNTER 2021-07-22 09:12 | Inpatient (IN) ==
[2021-07-22 10:34] LABS: Mean Corpuscular Hgb Conc 34.3 g/dL (32-36); Mean Platelet Volume 9.9 fL (7.4-10.4); Platelet Count 191 K/uL (130-400)
[2021-07-22 10:50] LABS: Albumin Level 3.1 gm/dl (3.4-5.0); BUN Creatinine Ratio 13.6 (10-20); Calcium 9.7 mg/dl (8.5-10.1); Creatinine Clr Calc Pharmacy 54.3 ml/min; Est GFR (African American) 64.8 ml/min; Est GFR (Non-African American) 55.9 ml/min
[2021-07-22 10:52] LABS: INR 2.4 (0.9-1.1); Partial Thromboplastin Ratio 1.7; Partial Thromboplastin Time 43.9 Seconds (21.0-31.0); Prothrombin Time 22.3 Seconds (9.0-12.0)
[2021-07-22 10:53] LABS: Albumin Globulin Ratio 0.7 (0.9-2); Bilirubin,Total 2.3 mg/dl (0.2-1); Globulin 4.2 gm/dl (2.5-4.0); Total Protein 7.3 gm/dl (6.4-8.2)
[2021-07-22 11:01] LABS: Basophils % (auto) 0.3 %; Hemoglobin 16.8 g/dL (14.0-18.0); Immature Granulocytes % (auto) 0.2 %; Lymphocytes % (auto) 6.2 %; Mean Corpuscular Hemoglobin 31.1 pg (25-34); Mean Corpuscular Volume 90.6 fL (80-100); Monocytes % (auto) 6.8 %; Neutrophils # (auto) 9.63 K/uL (1.4-6.5); Neutrophils % (auto) 85.5 %; RDW Coefficient of Variation 14.9 % (11.5-14.5); RDW Standard Deviation 49.9 fL (36.4-46.3); Red Blood Count 5.41 M/uL (4.7-6.1); White Blood Count 11.25 K/uL (4.8-10.8)
[2021-07-22 11:02] LABS: Basophils # (auto) 0.03 K/uL (0-0.2); Eosinophils # (auto) 0.11 K/uL (0-0.5); Immature Granulocytes # (auto) 0.02 K/uL (0.00-0.02); Monocytes # (auto) 0.76 K/uL (0.11-0.59)
--- NOTE | 2021-07-22 12:00 | Ultrasound Report ---
US gallbladder CLINICAL HISTORY: abd pain, elevated LFT TECHNIQUE: Multiple real-time sonographic images of the right upper quadrant were obtained. Comparison: Comparison is made to gallbladder ultrasound 03/14/2009 FINDINGS: The liver is diffusely homogenous with normal contour and echogenicity. The left lobe was not well-s een due to overlying bowel gas. No intrahepatic ductal dilatation is seen. Gallbladder is distended with wall thickening, measuring up to 7 mm in diameter. A large stone is seen in the fundus measurin g 5.8 cm. Additional smaller stones are seen throughout and there is likely sludge as well. Patient i s tender throughout the exam. The common duct measures 0.4 cm in diameter at the level of the hepatic artery. The distal pancreas is not visualized due to overlying bowel gas. The visualized portions of the pancreas are unremarkable. The right kidney shows normal echogenicity, cortical thickness and renal contour. The right kidney sh ows no evidence of hydronephrosis or mass. Incidental note is made of a right pleural effusion. No ascites or free fluid is seen in Mirza's pouch. IMPRESSION: Findings are compatible with acute cholecystitis. ACT 112: Negative or not required by law. Electronically signed by: Mohsen Hutchins M.D. 07/22/2021 11:58 AM
[2021-07-22] MEDS ORDERED: cefOXitin 2,000 MG/60 ML BAG IV STA (12:03)
--- NOTE | 2021-07-22 12:22 | History & Physical Report ---
Date of Service July 22, 2021 Assessment & Plan (1) Acute cholecystitis: Plan: Patient with acute cholecystitis thickening of gallbladder wall large stone patient be on Zosyn therapy he will be kept n.p.o. except for ice chips and sips he is anticoagulated with warfarin and unless he is going to be taken emergently to the operating room we will let his INR trend downward and treat his cystitis with antibiotics with surgical consultation for possible cholecystectomy in the upcoming week (2) Current use of long term care social worker anticoagulation: Plan: Poorly on warfarin for previous history of VTE we will stop warfarin Surgery plans on possibly going to surgery this weekend will have intravenous vitamin K administered on the and follow INR. 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 (3) CAD (coronary artery disease): Plan: Typically on aspirin this will be held in lieu of his surgery (4) Hypertension: (5) Parkinson disease: Plan: Continue Sinemet in the perioperative period to avoid decrease in functional mobility continue rasagiline rivastigmine patch, will ask pharmacy to review his medications as he is on some long-acting Sinemet in case we will have informing the patient may take his other medicines (6) Dementia: Plan: Continue to Namenda (7) DVT prophylaxis: Plan: SCDs for DVT prevention along with teds as were holding his Coumadin History of Present Illness Primary Care Provider: Ney Rodriguez MD Called by emergency room physician to medically admit 72-year-old male with acute cholecystitis who is chronically anticoagulated with warfarin therapy for history of VTE. His other problems include Parkinson's disease dementia. General surgery been consulted Patient had a 4-week history of intermittent loose bowel movements. Has had about 2-week history of right-sided lower thoracic back pain and a 2-day history of colicky right upper quadrant abdominal pain. Has had no vomiting has had no chalky colored stools fact he did have a normal bowel movement. The patient's at the bedside she is very concerned about his Parkinson meds will have pharmacy check those and he can continue his home medications as needed I did personally speak with Dr. Antunez surgical on-call he plans on possibly going to the operating room on the therefore we will reverse his anticoagulation with vitamin K repeat an INR in the morning Allergies Allergy/AdvReac Type Severity Reaction Status Date / Time iodine Allergy Severe ITCHING Verified 07/22/21 11:20 AND DISCOMFORT Intravascular Contrast Media Allergy Intermediate Rash Uncoded 07/22/21 11:20 Home Medications Medication Instructions Recorded Confirmed Type ascorbic acid (vitamin C) 1,000 mg 1 g PO QDL 05/26/18 07/22/21 History tablet coenzyme Q10 400 mg capsule 400 mg PO TID 05/26/18 07/22/21 History lorazepam 2 mg tablet (Ativan) 2 mg PO TID PRN 05/26/18 07/22/21 History rasagiline 1 mg tablet 1 mg PO DAILY 05/26/18 07/22/21 History vitamin E 400 unit capsule 400 unit PO TID cap 07/03/19 07/22/21 History memantine 5 mg tablet 5 mg PO BID 05/04/20 07/22/21 History aspirin 81 mg tablet,delayed 81 mg PO PM 02/25/21 07/22/21 History release cetirizine 10 mg tablet (Zyrtec) 10 mg PO DAILY PRN 02/25/21 07/22/21 History clobetasol 0.05 % topical cream 1 applic TOPICAL DAILY PRN 02/25/21 07/22/21 History hydrocortisone 0.5 % topical 1 applic TOPICAL BID PRN 02/25/21 07/22/21 History ointment ketoconazole 2 % shampoo 1 ea TOPICAL 3XWK 02/25/21 07/22/21 History lidocaine 5 % topical ointment 1 applic TOPICAL BID PRN 02/25/21 07/22/21 History meloxicam 15 mg tablet 15 mg PO DAILY PRN 02/25/21 07/22/21 History multivitamin with minerals 1 tab PO QAM 02/25/21 07/22/21 History mupirocin 2 % topical ointment 1 applic TOPICAL BID PRN 02/25/21 07/22/21 History omeprazole 20 mg capsule,delayed 20 mg PO DAILY PRN 02/25/21 07/22/21 History release peg [id number] 1 2 drp OPHTHALMIC (EYE) BID PRN 02/25/21 07/22/21 History %-0.2 %-0.2 % eye drops (Dry Eye Relief) riboflavin (vitamin B2) 100 mg 100 mg PO TID 02/25/21 07/22/21 History tablet sodium phosphates 19 gram-7 118 ml OR PM 02/25/21 07/22/21 History gram/118 mL enema white petrolatum 43 % topical 1 applic TOPICAL BID 02/25/21 07/22/21 History ointment (Aloe [place] Protectant Ointment) rivastigmine 1 patch TRANSDERMAL DAILY@1200 05/01/21 07/22/21 History calcium carbonate 600 mg (1,500 1 cap PO QDL 05/10/21 07/22/21 History mg)-vitamin D3 500 unit capsule (Calcium 600 with Vitamin D3) carbidopa ER 23.75 mg-levodopa 95 1 - 2 cap PO DIRECTED 05/10/21 07/22/21 History mg capsule,extended release (Rytary) Bifidobacterium infantis 4 mg 4 mg PO Q2D cap 05/23/21 07/22/21 History capsule (Align) polyethylene glycol 3350 17 17 g PO Q2D g 05/23/21 07/22/21 History gram/dose oral powder (Miralax) warfarin 5 mg tablet 2.5 - 5 mg PO DAILY@1630 tab 06/28/21 07/22/21 History acetaminophen 500 mg tablet 1,000 mg PO Q6H PRN 07/22/21 07/22/21 History (Tylenol Extra Strength) dutasteride 0.5 mg capsule 0.5 mg PO PM 07/22/21 07/22/21 History (Avodart) Past Med/Surg History Medical History Acute DVT (deep venous thrombosis) CAD (coronary artery disease) Hypercholesterolemia Hypertension Leg weakness, bilateral Parkinson disease Urinary symptom or sign UTI (urinary tract infection) Surgical History S/P appendectomy S/P tonsillectomy Family History Other No significant family history Social History Smoking Status: Never smoker Hx Alcohol Use: No Hx Substance Use: No Preferred Language: Malaysian Communication Ability: Effective Celery Packer Required: No Beliefs That Will Affect Care: None marital status: Current Living Situation: Spouse Feels Safe at Home: Yes Assistive Devices: Wheelchair Review of Systems Review of Systems: moderate distress and fatigue no headache, no visual changes no speech or swallowing issues no chest pain, pressure or palpitations no shortness of breath, cough or wheezes ruq abdominal pain, no nausea or vomiting,resolved diarrhea no dysuria, hematuria or frequency, chronically wears a condom cath no focal joint pain or swelling no back pain, CVA tenderness or radicular pain no bruising, bleeding or rashes no focal signs of weakness or numbness or altered sensation Does exhibit bradykinesia and mask like expressionless facies consistent with his diagnosis of Parkinson's disease no complaints of anxiety or depression.. Physical Exam Physical Exam: The patient appeared well nourished and normally developed. Vital signs as documented. Head exam is normocephalic atraumatic Neck is without JVD, thyromegaly, or carotid bruits. Lungs are clear to auscultation, no focal loss of breath sounds Cardiac exam, Rhythm is regular.. No murmurs, rubs or gallops. Abdominal exam reveals normal bowel sounds, soft reducible tenderness in the right upper quadrant without rebound or guarding Extremities are trace bilateral edematous and both pedal pulses are present Neurologic exam is alert and oriented, no focal loss of strength or sensation however does have slow movement and lacks significant facial expressions Skin is without bruises or rashes Psychologically is without concerns for anxiety or depression.. Results & Data Results & Data ([facility]) Vital Signs (Past 12 Hours) Vital Signs Temp Pulse Resp BP Pulse Ox 07/22/21 09:15 98.8 F 92 H 20 160/95 H 99 Diagnostic Findings Ultrasound gallbladder performed 07/22/2021 shows acute cholecystitis. Gallbladder is distended. Wall thickening up to 7 mm. Large stone in the fundus measuring 5.8 cm. Common bile duct is not enlarged at 0.4 cm PG Care Time/CCT Total # of Minutes Spent Total Time Spent with Patient: Total time spent is greater than 50% in coordination of care (as documented) at patient's floor/unit and/or counseling patient: Coding Level of Care Code 16448 Initial Inpt Care Lvl 3 Diagnoses Current use of usp anticoagulation Z79.01 CAD (coronary artery disease) I25.10 Hypertension I10 Hypertension type: essential hypertension Acute cholecystitis K81.0 Parkinson disease G20 Dementia F03.90 DVT prophylaxis Z29.9 (1) Hypertension Hypertension type: essential hypertension Qualified Code(s): I10 - Essential (primary) hypertension
[2021-07-22] MEDS ORDERED: PHYTONADIONE 5 MG in SODIUM CHLORIDE 0.9% 50 ML IV ONE (12:55)
--- NOTE | 2021-07-22 13:59 | Surgery Consultation ---
Date of Consultation July 22, 2021 Assessment & Plan (1) Acute cholecystitis: Elderly patient with acute cholecystitis My concern would be to progress to necrotizing cholecystitis I believe it is best to remove his gallbladder laparoscopically if possible We will try to avoid open operation-he may require drain placement He may require endoscopy postoperatively Continue on IV antibiotics for now and hold his anticoagulation Plan will be to try to proceed with surgery tomorrow History of Present Illness History of Present Illness Patient seen in the emergency room with his at the bedside 80-year-old male presenting with abdominal pain and work-up consistent with acute cholecystitis With a very large gallstone of 5 cm plus in the gallbladder with gallbladder wall thickening His bilirubin is mildly elevated but his transaminases are normal White blood cell count is 11.2 His INR is elevated as he is on Coumadin for history of DVT Also history of Parkinson's disease and apparent mild dementia hypertension and DVT Allergies Allergy/AdvReac Type Severity Reaction Status Date / Time iodine Allergy Severe ITCHING Verified 07/22/21 11:20 AND DISCOMFORT Intravascular Contrast Media Allergy Intermediate Rash Uncoded 07/22/21 11:20 Home Medications Medication Instructions Recorded Confirmed Type ascorbic acid (vitamin C) 1,000 mg 1 g PO QDL 05/26/18 07/22/21 History tablet coenzyme Q10 400 mg capsule 400 mg PO TID 05/26/18 07/22/21 History lorazepam 2 mg tablet (Ativan) 2 mg PO TID PRN 05/26/18 07/22/21 History rasagiline 1 mg tablet 1 mg PO DAILY 05/26/18 07/22/21 History vitamin E 400 unit capsule 400 unit PO TID cap 07/03/19 07/22/21 History memantine 5 mg tablet 5 mg PO BID 05/04/20 07/22/21 History aspirin 81 mg tablet,delayed 81 mg PO PM 02/25/21 07/22/21 History release cetirizine 10 mg tablet (Zyrtec) 10 mg PO DAILY PRN 02/25/21 07/22/21 History clobetasol 0.05 % topical cream 1 applic TOPICAL DAILY PRN 02/25/21 07/22/21 History hydrocortisone 0.5 % topical 1 applic TOPICAL BID PRN 02/25/21 07/22/21 History ointment ketoconazole 2 % shampoo 1 ea TOPICAL 3XWK 02/25/21 07/22/21 History lidocaine 5 % topical ointment 1 applic TOPICAL BID PRN 02/25/21 07/22/21 History meloxicam 15 mg tablet 15 mg PO DAILY PRN 02/25/21 07/22/21 History multivitamin with minerals 1 tab PO QAM 02/25/21 07/22/21 History mupirocin 2 % topical ointment 1 applic TOPICAL BID PRN 02/25/21 07/22/21 Histo ry omeprazole 20 mg capsule,delayed 20 mg PO DAILY PRN 02/25/21 07/22/21 History release peg [id number] 1 2 drp OPHTHALMIC (EYE) BID PRN 02/25/21 07/22/21 History %-0.2 %-0.2 % eye drops (Dry Eye Relief) riboflavin (vitamin B2) 100 mg 100 mg PO TID 02/25/21 07/22/21 History tablet sodium phosphates 19 gram-7 118 ml SC PM 02/25/21 07/22/21 History gram/118 mL enema white petrolatum 43 % topical 1 applic TOPICAL BID 02/25/21 07/22/21 History ointment (Aloe [place] Switch Protectant Ointment) rivastigmine 1 patch TRANSDERMAL DAILY@1200 05/01/21 07/22/21 History calcium carbonate 600 mg (1,500 1 cap PO QDL 05/10/21 07/22/21 History mg)-vitamin D3 500 unit capsule (Calcium 600 with Vitamin D3) carbidopa ER 23.75 mg-levodopa 95 1 - 2 cap PO DIRECTED 05/10/21 07/22/21 History mg capsule,extended release (Rytary) Bifidobacterium infantis 4 mg 4 mg PO Q2D cap 05/23/21 07/22/21 History capsule (Align) polyethylene glycol 3350 17 17 g PO Q2D g 05/23/21 07/22/21 History gram/dose oral powder (Miralax) warfarin 5 mg tablet 2.5 - 5 mg PO DAILY@1630 tab 06/28/21 07/22/21 History acetaminophen 500 mg tablet 1,000 mg PO Q6H PRN 07/22/21 07/22/21 History (Tylenol Extra Strength) dutasteride 0.5 mg capsule 0.5 mg PO PM 07/22/21 07/22/21 History (Avodart) Patient History Medical History Acute DVT (deep venous thrombosis) CAD (coronary artery disease) Hypercholesterolemia Hypertension Leg weakness, bilateral Parkinson disease Urinary symptom or sign UTI (urinary tract infection) Surgical History S/P appendectomy S/P tonsillectomy Family History Other No significant family history Social History Smoking Status: Never smoker Hx Alcohol Use: No Hx Substance Use: No Preferred Language: Macedonian Communication Ability: Effective Rv Service Technician Required: No Beliefs That Will Affect Care: None marital status: Current Living Situation: Spouse Feels Safe at Home: Yes Assistive Devices: Wheelchair Review of Systems Review of Systems: All systems reviewed & are unremarkable except as noted in HPI & below Physical Exam Physical Exam: Patient is awake in his hospital bed I do believe he is mildly confused his answers most questions He is in no distress Constitutional: well nourished; no acute distress Eyes: + anicteric sclerae Respiratory: normal respiratory effort; no respiratory distress Cardiovascular: Rate/Rhythm: regular rate Gastrointestinal (Abdomen): Inspection/Auscultation: abdomen not distended Percussion/Palpation: abdomen soft Some right upper quadrant pain Musculoskeletal: Head/Neck/Chest: head atraumatic Skin: no rashes, warm and dry Neurologic: awake and + confused Psychiatric: Orientation: cooperative Results & Data ([facility]) Vital Signs (Past 12 Hours) Vital Signs Temp Pulse Resp BP Pulse Ox 07/22/21 09:15 37.1 C 92 H 20 160/95 H 99 Diagnostic Findings I did review his ultrasound PG Care Time/CCT Total # of Minutes Spent Total Time Spent with Patient: Total time spent is greater than 50% in coordination of care (as documented) at patient's floor/unit and/or counseling patient: Coding Level of Care Code 74869 Initial Inpt Care Lvl 3 Diagnoses Acute cholecystitis K81.0
[2021-07-22 14:48] LABS: Appearance Urine Cloudy (Clear); Bacteria Urine Automated 4+ (Negative); Bilirubin Urine Negative (Negative); Blood Urine Negative (Negative); Color Urine Dark Yellow; Glucose Urine UA Negative (Negative); Ketones Urine Trace (Negative); Leukocyte Esterase Urine 1+ (Negative); Nitrite Urine Positive (Negative); Protein Urine Trace (Negative); RBC Urine Automated 0-4 /hpf (0-4); Specific Gravity Urine 1.018 (1.000-1.030); Urobilinogen Urine Negative (Negative); pH Urine 6.5 (4.5-7.5)
--- NOTE | 2021-07-22 16:06 | Emergency Department Note ---
Impression & Plan Acute cholecystitis, Current use of prison anticoagulation, Parkinson disease ED Provider Note CHIEF COMPLAINT: Abdominal pain HISTORY OF PRESENT ILLNESS: This 80-year-old male patient presents to the emergency department with complaints of mid abdominal pain and cramping. Patient had some nausea. Patient has a history of Parkinson's disease and wears a condom catheter. states the urine has been foul-smelling and dark. She has not noticed any vomiting, blood in the urine or diarrhea. There has been no blood in the stools. Patient is on Coumadin long-term for history of DVTs. states the patient is status post appendectomy. REVIEW OF SYSTEMS: A review of systems was performed with positives and pertinent negatives listed in the history of present illness. 10 systems were reviewed and are otherwise negative. ALLERGIES: see below MEDICATIONS: see below PMH: see below SOCIAL HISTORY: see below DDx: diverticulitis, UTI, obstruction, mesenteric ischemia, aortic pathology, inflammatory bowel disease, renal colic, PUD, pancreatitis, biliary pathology, hernia, volvulus, constipation, as well as other pathologies. PHYSICAL EXAM: Vital signs reviewed. General: Chronically ill-appearing 80-year-old male, in no significant distress. HEENT: No scleral icterus, PERRLA, neck supple. Atraumatic. Cardiovascular: Regular rate and rhythm, no extra sounds. Pulmonary: Clear to auscultation bilaterally, normal work of breathing. Abdomen: Soft, mild diffuse tenderness to the periumbilical region and right mid to upper abdomen, no rebound, no guarding, nondistended, positive bowel sounds. Musculoskeletal: Atraumatic, no peripheral edema. Neurologic: Patient awake alert and answers most questions appropriately. Somewhat confused to recent events per . Speech is mildly slurred. Flat affect. Skin: Warm, dry, no rash EMERGENCY DEPARTMENT COURSE/MDM: This patient was evaluated and appeared to be in no significant distress. IV access was obtained and laboratory work was drawn. Patient was placed on a court recording monitor noted to be in a normal sinus rhythm. Patient was hydrated with normal saline solution. Laboratory work reveals elevated LFTs and WBC. Ultrasound the right upper quadrant reveals evidence of an acute cholecystitis with gallstone. Patient was given 2 g of IV Mefoxin, general surgery Dr. Antunez was contacted. Given the patient's multiple m edical problems including Parkinson's disease and chronic anticoagulation, patient will be evaluated by the medicine service for admission with general surgery consultation for cholecystectomy. Patient and were made aware of plan and agreed. MONITORING: An order for cardiac monitoring was placed and the patient is noted to be in a NSR at 96 beats per minute. RADIOLOGY: See below DISPOSITION:Admit Past Med/Surg History Medical History Acute DVT (deep venous thrombosis) CAD (coronary artery disease) Hypercholesterolemia Hypertension Leg weakness, bilateral Parkinson disease Urinary symptom or sign UTI (urinary tract infection) Surgical History S/P appendectomy S/P tonsillectomy Family History Other No significant family history Social History Smoking Status: Never smoker Hx Alcohol Use: Yes Hx Substance Use: No Preferred Language: Yi Communication Ability: Effective Life Claims Examiner Required: No Beliefs That Will Affect Care: None marital status: Current Living Situation: Spouse Feels Safe at Home: Yes Assistive Devices: Glasses Allergies Allergies Allergy/AdvReac Type Severity Reaction Status Date / Time iodine Allergy Severe ITCHING Verified 07/22/21 11:20 AND DISCOMFORT Intravascular Contrast Media Allergy Intermediate Rash Uncoded 07/22/21 11:20 Home Meds Home Medications Medication Instructions Recorded Confirmed ascorbic acid (vitamin C) 1,000 mg 1 g PO QDL 05/26/18 07/22/21 tablet coenzyme Q10 400 mg capsule 400 mg PO TID 05/26/18 07/22/21 lorazepam 2 mg tablet (Ativan) 2 mg PO TID PRN 05/26/18 07/22/21 rasagiline 1 mg tablet 1 mg PO DAILY 05/26/18 07/22/21 vitamin E 400 unit capsule 400 unit PO TID cap 07/03/19 07/22/21 memantine 5 mg tablet 5 mg PO BID 05/04/20 07/22/21 aspirin 81 mg tablet,delayed 81 mg PO PM 02/25/21 07/22/21 release cetirizine 10 mg tablet (Zyrtec) 10 mg PO DAILY PRN 02/25/21 07/22/21 clobetasol 0.05 % topical cream 1 applic TOPICAL DAILY PRN 02/25/21 07/22/21 hydrocortisone 0.5 % topical 1 applic TOPICAL BID PRN 02/25/21 07/22/21 ointment ketoconazole 2 % shampoo 1 ea TOPICAL [id number] 02/25/21 07/22/21 lidocaine 5 % topical ointment 1 applic TOPICAL BID PRN 02/25/21 07/22/21 meloxicam 15 mg tablet 15 mg PO DAILY PRN 02/25/21 07/22/21 multivitamin with minerals 1 tab PO QAM 02/25/21 07/22/21 mupirocin 2 % topical ointment 1 applic TOPICAL BID PRN 02/25/21 07/22/21 omeprazole 20 mg capsule,delayed 20 mg PO DAILY PRN 02/25/21 07/22/21 release peg [id number] 1 2 drp OPHTHALMIC (EYE) BID PRN 02/25/21 07/22/21 %-0.2 %-0.2 % eye drops (Dry Eye Relief) riboflavin (vitamin B2) 100 mg 100 mg PO TID 02/25/21 07/22/21 tablet sodium phosphates 19 gram-7 118 ml [place] PM 02/25/21 07/22/21 gram/118 mL enema white petrolatum 43 % topical 1 applic TOPICAL BID 02/25/21 07/22/21 ointment (Aloe [place] Protectant Ointment) rivastigmine 1 patch TRANSDERMAL DAILY@1200 05/01/21 07/22/21 calcium carbonate 600 mg (1,500 1 cap PO QDL 05/10/21 07/22/21 mg)-vitamin D3 500 unit capsule (Calcium 600 with Vitamin D3) carbidopa ER 23.75 mg-levodopa 95 1 - 2 cap PO DIRECTED 05/10/21 07/22/21 mg capsule,extended release (Rytary) Bifidobacterium infantis 4 mg 4 mg PO Q2D cap 05/23/21 07/22/21 capsule (Align) polyethylene glycol 3350 17 17 g PO Q2D g 05/23/21 07/22/21 gram/dose oral powder (Miralax) warfarin 5 mg tablet 2.5 - 5 mg PO DAILY@1630 tab 06/28/21 07/22/21 acetaminophen 500 mg tablet 1,000 mg PO Q6H PRN 07/22/21 07/22/21 (Tylenol Extra Strength) dutasteride 0.5 mg capsule 0.5 mg PO PM 07/22/21 07/22/21 (Avodart) Results & Data (ED) Vital Signs Vital Signs - 24 hr 07/22/21 09:15 07/22/21 10:10 07/22/21 10:20 Temperature 37.1 C Temperature Source Oral Pulse Rate 92 H 72 96 H Pulse Rate from SpO2 Sensor 85 Respiratory Rate 20 20 26 H Blood Pressure 160/95 H Blood Pressure Mean 116 Pulse Oximetry 99 96 Oxygen Delivery Method Room Air Sepsis Recent Fever Within 48 Hours No Sepsis New/Unexplained Change in Mental Status N/A Sepsis Action Taken by Nursing No Action Required 07/22/21 10:40 07/22/21 11:00 07/22/21 11:20 Temperature Temperature Source Pulse Rate 83 93 H 93 H Pulse Rate from SpO2 Sensor Respiratory Rate 22 24 23 Blood Pressure Blood Pressure Mean Pulse Oximetry Oxygen Delivery Method Sepsis Recent Fever Within 48 Hours Sepsis New/Unexplained Change in Mental Status Sepsis Action Taken by Shelter Medications Current Medication List: was personally reviewed by me Laboratory Data Attestation: I reviewed the patient's lab results. Result diagrams: 07/22/21 10:27 07/22/21 10:27 Lab Results 07/22/21 07/22/21 07/22/21 Range/Units 10:27 10:27 10:27 WBC 11.25 H (4.8-10.8) K/uL RBC 5.41 (4.7-6.1) M/uL Hgb 16.8 (14.0-18.0) g/dL Hct 49.0 (42-52) % MCV 90.6 (80-100) fL MCH 31.1 (25-34) pg MCHC 34.3 (32-36) g/dL RDW Std Deviation 49.9 H (36.4-46.3) fL RDW Coeff of Patience 14.9 H (11.5-14.5) % Plt Count 191 (130-400) K/uL MPV 9.9 (7.4-10.4) fL Immature Gran % (Auto) 0.2 % Neut % (Auto) 85.5 % Lymph % (Auto) 6.2 % [place] % (Auto) 6.8 % Eos % (Auto) 1.0 % Baso % (Auto) 0.3 % Neut # (Auto) 9.63 H (1.4-6.5) K/uL Lymph # (Auto) 0.70 L (1.2-3.4) K/uL [place] # (Auto) 0.76 H (0.11-0.59) K/uL Eos # (Auto) 0.11 (0-0.5) K/uL Baso # (Auto) 0.03 (0-0.2) K/uL Immature Gran # (Auto) 0.02 (0.00-0.02) K/uL PT 22.3 H (9.0-12.0) Seconds INR 2.4 H (0.9-1.1) APTT 43.9 H (21.0-31.0) Seconds PTT Ratio 1.7 Sodium 140 (136-145) mmol/L Potassium 4.0 (3.5-5.1) mmol/L Chloride 109 H (98-107) mmol/L Carbon Dioxide 26 (21-32) mmol/L Anion Gap 5.0 (3-11) BUN 17 (7-18) mg/dl Creatinine 1.23 (0.6-1.4) mg/dl Est Cr Clr Drug Dosing 54.3 ml/min Est GFR ( Amer) 64.8 ml/min Est GFR (Non-Af Amer) 55.9 ml/min BUN/Creatinine Ratio 13.6 (10-20) Glucose 133 H (70-99) mg/dl Calcium 9.7 (8.5-10.1) mg/dl Total Bilirubin 2.3 H (0.2-1) mg/dl AST 239 H (15-37) U/L ALT 97 H (12-78) U/L Alkaline Phosphatase 181 H (45-117) U/L Total Protein 7.3 (6.4-8.2) gm/dl Albumin 3.1 L (3.4-5.0) gm/dl Globulin 4.2 H (2.5-4.0) gm/dl Albumin/Globulin Ratio 0.7 L (0.9-2) Lipase 161 (73-393) U/L Administered Medications Acetaminophen (Acetaminophen 500 Mg Tab) 1,000 mg PO TID ISELA Stop: 08/21/21 17:59 Last Admin: 07/22/21 21:01 Dose: 1,000 mg Documented by: [id number] Admin: 07/22/21 20:32 Dose: Not Given Documented by: [id number] Lactated Ringer's (Lr) 1,000 mls @ 100 mls/hr IV .Q10H ISELA Stop: 08/21/21 17:52 Last Admin: 07/23/21 05:11 Dose: 100 mls/hr Documented by: [id number] Infusion: 07/23/21 04:29 Dose: 100 mls/hr Documented by: [id number] Infusion: 07/22/21 18:30 Dose: 100 mls/hr Documented by: [id number] Infusion: 07/22/21 18:00 Dose: 0 mls/hr Documented by: [id number] Admin: 07/22/21 17:58 Dose: 100 mls/hr Documented by: [id number] Memantine (Memantine Hcl 5 Mg Tab) 5 mg PO BID [facility] Stop: 08/21/21 20:59 Last Admin: 07/22/21 21:01 Dose: 5 mg Documented by: [id number] Miscellaneous (Avodart- Order Awaiting Action) 1 ea N/A QS [facility] Stop: 08/22/21 00:00 Last Admin: 07/23/21 07:56 Dose: Not Given Documented by: [id number] Admin: 07/23/21 00:00 Dose: Not Given Documented by: [id number] Rytary Er*Non- Formulary Patient's Own Med 1 ea PO DAILY@1999 [facility] Stop: 08/21/21 19:59 Last Admin: 07/22/21 21:00 Dose: 1 cap Documented by: [id number] Discontinued Medications Phytonadione 5 mg/ Sodium (Chloride) 50.5 mls @ 101 mls/hr IV ONE ONE Stop: 07/22/21 13:24 Last Infusion: 07/22/21 17:00 Dose: 0 mls/hr Documented by: [id number] Admin: 07/22/21 14:33 Dose: 101 mls/hr Documented by: [id number] Cefoxitin Sodium 2,000 mg/ (Dextrose) 60 mls @ 120 mls/hr IV NOW STA Stop: 07/22/21 16:50 Last Infusion: 07/22/21 18:30 Dose: 0 mls/hr Documented by: [id number] Admin: 07/22/21 18:00 Dose: 120 mls/hr Documented by: [id number] Imaging Data Radiologist's Impression: Gallbladder Ultrasound 07/22/21 11:01 US gallbladder CLINICAL HISTORY: abd pain, elevated LFT TECHNIQUE: Multiple real-time sonographic images of the right upper quadrant were obtained. Comparison: Comparison is made to gallbladder ultrasound 03/14/2009 FINDINGS: The liver is diffusely homogenous with normal contour and echogenicity. The left lobe was not well-seen due to overlying bowel gas. No intrahepatic ductal dilatation is seen. Gallbladder is distended with wall thickening, measuring up to 7 mm in diameter. A large stone is seen in the fundus measuring 5.8 cm. Additional smaller stones are seen throughout and there is likely sludge as well. Patient is tender throughout the exam. The common duct measures 0.4 cm in diameter at the level of the hepatic artery. The distal pancreas is not visualized due to overlying bowel gas. The visualized portions of the pancreas are unremarkable. The right kidney shows normal echogenicity, cortical thickness and renal contour. The right kidney shows no evidence of hydronephrosis or mass. Incidental note is made of a right pleural effusion. No ascites or free fluid is seen in Mirza's pouch. IMPRESSION: Findings are compatible with acute cholecystitis. ACT 112: Negative or not required by law. Electronically signed by: Mohsen Hutchins M.D. 07/22/2021 11:58 AM Blood Pressure Blood Pressure Findings: Elevated blood pressure Blood Pressure Disposition: further management by hospitalist Discharge Plan Visit Data Chief Complaint: Abdominal Pain ED Provider: Jammie Biggs Discharge Problem: Acute cholecystitis, Current use of termite treater helper anticoagulation, Parkinson disease Patient Disposition: Admitted As Inpatient Discharge Instructions Interventions: ED Discharge Assessment Last Done: 07/22/21 17:06
[2021-07-22] MEDS ORDERED: cefOXitin 2,000 MG in DEXTROSE 5% 50 ML IV STA (16:21)
[2021-07-22] MEDS ORDERED: MoRPHine SULFATE 4 MG/ML 1 ML CARP\\VIAL IV PRN (17:53)
[2021-07-22] MEDS ORDERED: ONDANSETRON INJ 2 MG/ML 2 ML VIAL IV PRN (17:53)
[2021-07-22] MEDS ORDERED: MoRPHine SULFATE 2 MG/ML CARP IV PRN (17:53)
--- NOTE | 2021-07-22 17:57 | Anesthesiology Consultation ---
Date of Service July 22, 2021 Assessment & Plan (1) Encounter for pre-operative examination: Chart Review Chart Review: Acceptable Risk for Surgery and Patient NOT seen in Pre Admission Testing Consults Requested none History Surgery Operation Date: 07/23/21 11:00 Proposed Procedures p Laparoscopic Cholecystectomy - Dhaval Antunez MD, FACS Height/Weight Height: 6 ft Weight: 92 kg Allergies Allergy/AdvReac Type Severity Reaction Status Date / Time iodine Allergy Severe ITCHING Verified 07/22/21 11:20 AND DISCOMFORT Intravascular Contrast Media Allergy Intermediate Rash Uncoded 07/22/21 11:20 Medications Home Medications Medication Instructions Recorded Confirmed Last Taken ascorbic acid (vitamin C) 1,000 mg 1 g PO QDL 05/26/18 07/22/21 07/21/21 tablet coenzyme Q10 400 mg capsule 400 mg PO TID 05/26/18 07/22/21 07/22/21 lorazepam 2 mg tablet (Ativan) 2 mg PO TID PRN 05/26/18 07/22/21 07/22/21 rasagiline 1 mg tablet 1 mg PO DAILY 05/26/18 07/22/21 07/21/21 vitamin E 400 unit capsule 400 unit PO TID cap 07/03/19 07/22/21 07/22/21 memantine 5 mg tablet 5 mg PO BID 05/04/20 07/22/21 07/21/21 aspirin 81 mg tablet,delayed 81 mg PO PM 02/25/21 07/22/21 07/21/21 release cetirizine 10 mg tablet (Zyrtec) 10 mg PO DAILY PRN 02/25/21 07/22/21 05/09/21 clobetasol 0.05 % topical cream 1 applic TOPICAL DAILY PRN 02/25/21 07/22/21 05/09/21 hydrocortisone 0.5 % topical 1 applic TOPICAL BID PRN 02/25/21 07/22/21 05/09/21 ointment ketoconazole 2 % shampoo 1 ea TOPICAL [id number] 02/25/21 07/22/21 07/21/21 lidocaine 5 % topical ointment 1 applic TOPICAL BID PRN 02/25/21 07/22/2107/21 meloxicam 15 mg tablet 15 mg PO DAILY PRN 02/25/21 07/22/21 07/20/21 multivitamin with minerals 1 tab PO QAM 02/25/21 07/22/21 07/22/21 mupirocin 2 % topical ointment 1 applic TOPICAL BID PRN 02/25/21 07/22/21 07/22/21 omeprazole 20 mg capsule,delayed 20 mg PO DAILY PRN 02/25/21 07/22/21 07/20/21 release peg [id number] 1 2 drp OPHTHALMIC (EYE) BID PRN 02/25/21 07/22/21 05/09/21 %-0.2 %-0.2 % eye drops (Dry Eye Relief) riboflavin (vitamin B2) 100 mg 100 mg PO TID 02/25/21 07/22/21 07/22/21 tablet sodium phosphates 19 gram-7 118 ml [place] PM 02/25/21 07/22/21 07/22/21 gram/118 mL enema white petrolatum 43 % topical 1 applic TOPICAL BID 02/25/21 07/22/21 07/22/21 ointment (Aloe [place] Protectant Ointment) rivastigmine 1 patch TRANSDERMAL DAILY@1200 05/01/21 07/22/21 07/21/21 calcium carbonate 600 mg (1,500 1 cap PO QDL 05/10/21 07/22/21 07/21/21 mg)-vitamin D3 500 unit capsule (Calcium 600 with Vitamin D3) carbidopa ER 23.75 mg-levodopa 95 1 - 2 cap PO DIRECTED 05/10/21 07/22/21 07/22/21 mg capsule,extended release (Rytary) Bifidobacterium infantis 4 mg 4 mg PO Q2D cap 05/23/21 07/22/21 07/21/21 capsule (Align) polyethylene glycol 3350 17 17 g PO Q2D g 05/23/21 07/22/21 Unknown gram/dose oral powder (Miralax) warfarin 5 mg tablet 2.5 - 5 mg PO DAILY@1630 tab 06/28/21 07/22/21 07/21/21 acetaminophen 500 mg tablet 1,000 mg PO Q6H PRN 07/22/21 07/22/21 07/21/21 (Tylenol Extra Strength) 1000 mg dutasteride 0.5 mg capsule 0.5 mg PO PM 07/22/21 07/22/2121 (Avodart) Past Medical History Medical History Acute DVT (deep venous thrombosis) CAD (coronary artery disease) Hypercholesterolemia Hypertension Leg weakness, bilateral Parkinson disease Urinary symptom or sign UTI (urinary tract infection) Past Family History Family History Other No significant family history Past Surgical History Surgical History S/P appendectomy S/P tonsillectomy Social History Smoking Status: Never smoker Hx Alcohol Use: No Hx Substance Use: No Physical Exam Vital Signs Last Vital Signs Temp 98.8 F 07/22/21 09:15 Pulse 96 H 07/22/21 16:00 Resp 20 07/22/21 16:00 BP 147/49 H 07/22/21 16:00 Pulse Ox 97 07/22/21 14:36 Testing Laboratory Results 07/22/21 10:27 07/22/21 10:27 PT 22.3 Seconds (9.0-12.0) H 07/22/21 10:27 INR 2.4 (0.9-1.1) H 07/22/21 10:27 APTT 43.9 Seconds (21.0-31.0) H 07/22/21 10:27 Urine Color Dark Yellow 07/22/21 14:37 Urine Appearance Cloudy (Clear) A 07/22/21 14:37 Urine pH 6.5 (4.5-7.5) 07/22/21 14:37 Ur Specific [place] 1.018 (1.000-1.030) 07/22/21 14:37 Urine Protein Trace (Negative) H 07/22/21 14:37 Urine Glucose (UA) Negative (Negative) 07/22/21 14:37 Urine Ketones Trace (Negative) H 07/22/21 14:37 Urine Nitrite Positive (Negative) A 07/22/21 14:37 Ur Leukocyte Esterase 1+ (Negative) H 07/22/21 14:37 Urine WBC (Auto) 10-30 /hpf (0-5) H 07/22/21 14:37 Urine RBC (Auto) 0-4 /hpf (0-4) 07/22/21 14:37 U Hyaline Cast (Auto) 1-5 /lpf (0-5) 07/22/21 14:37 U Epithel Cells (Auto) 5-10 /lpf (0-5) H 07/22/21 14:37 Urine Bacteria (Auto) 4+ (Negative) H 07/22/21 14:37 Electrocardiogram Date: 05/09/21 Findings: + RBBB +Left anterior fascicular block
[2021-07-22] MEDS: LACTATED RINGER'S 1,000 ML IV SCH (17:58)
--- NOTE | 2021-07-22 18:37 | XRay Report ---
XR chest 1V portable CLINICAL HISTORY: pre op acute cholecystitis. TECHNIQUE: Single frontal radiograph of the chest was obtained. Comparison: None available at the time of this dictation. FINDINGS: No lines and tubes are seen. Calcified aortic knob is seen. Lungs are underinflated. There are mild b ilateral airspace opacities. No evidence of pleural effusion or pneumothorax. IMPRESSION: Mild bilateral airspace opacities are favored to represent atelectasis, although superimposed aspirat ion/pneumonia cannot be entirely excluded. If there is clinical concern, AP and lateral radiograph wi th improved inspiratory effort is recommended. ACT 112: Negative or not required by law. Electronically signed by: Mohsen Hutchins M.D. 07/22/2021 6:36 PM
[2021-07-22] MEDS: ACETAMINOPHEN 500 MG TAB PO SCH ×2 (20:32→21:01)
[2021-07-22] MEDS: RYTARY PO SCH (21:00)
[2021-07-22] MEDS: MEMANTINE HCL 5 MG TAB PO SCH (21:01)
--- NOTE | 2021-07-23 04:51 | Surgery Progress Note ---
Date of Service July 23, 2021 Assessment & Plan (1) Acute cholecystitis: Plan: Patient has been admitted by the hospital service. We recommend proceeding as follows: Continue analgesics Continue antiemetics Maintain n.p.o. status for the present time Patient takes Coumadin as an outpatient which has been held. He did receive vitamin K, 5 mg yesterday. INR this morning is pending. Patient is tentatively scheduled for cholecystectomy by Dr. Antunez this morning. Additional recommendations will be forthcoming based on operative findings and his postoperative recovery as it unfolds. Admission and Anticipated Discharge Date Admission Date: July 22, 2021 Subjective Patient is resting comfortably in bed. Patient notes that abdominal pain that was present at time of mission has improved. Overnight he did not have any nausea vomiting. Physical Exam Gastrointestinal (Abdomen): Abdomen is soft and nondistended. There is some slight pain noted with palpation in the right upper quadrant. Results & Data ([facility]) Vital Signs (Past 12 Hours) Vital Signs Temp Pulse Resp BP BP Pulse Ox 07/22/21 23:37 36.4 C L 94 H 20 147/97 H 97 07/22/21 17:00 37.2 C 93 H 14 129/82 97 PG Care Time/CCT Total # of Minutes Spent Total Time Spent with Patient: Total time spent is greater than 50% in coordination of care (as documented) at patient's floor/unit and/or counseling patient: Coding Level of Care Code None Diagnoses Acute cholecystitis K81.0
[2021-07-23] MEDS: LACTATED RINGER'S 1,000 ML IV SCH ×2 (05:11→14:31)
[2021-07-23 09:24] LABS: Albumin Level 2.7 gm/dl (3.4-5.0); BUN Creatinine Ratio 12.8 (10-20); Bilirubin,Total 6.4 mg/dl (0.2-1); Calcium 9.2 mg/dl (8.5-10.1); Creatinine Clr Calc Pharmacy 75.1 ml/min; Est GFR (African American) 94.9 ml/min; Est GFR (Non-African American) 81.9 ml/min; Total Protein 6.5 gm/dl (6.4-8.2)
[2021-07-23 10:14] LABS: INR 1.3 (0.9-1.1); Prothrombin Time 13.2 Seconds (9.0-12.0)
[2021-07-23] MEDS: ACETAMINOPHEN 500 MG TAB PO SCH ×3 (10:16→20:24)
[2021-07-23] MEDS: MEMANTINE HCL 5 MG TAB PO SCH ×2 (10:17→20:25)
[2021-07-23] MEDS: RASAGILINE PO SCH (10:17)
[2021-07-23] MEDS: RYTARY PO SCH ×4 (10:19→20:25)
[2021-07-23] MEDS: RIVASTIGMINE PATCH TD SCH (10:21)
--- NOTE | 2021-07-23 10:34 | Electrocardiogram Report ---
Test Reason : Blood Pressure : / mmHG Vent. Rate : 089 BPM Atrial Rate : 089 BPM P-R Int : 156 ms QRS Dur : 138 ms QT Int : 404 ms P-R-T Axes : 067 -53 031 degrees QTc Int : 491 ms Normal sinus rhythm Right bundle branch block Left anterior fascicular block Bifascicular block Abnormal ECG When compared with ECG of 09-MAY-2021 22:18, No significant change was found Confirmed by Ifeanyi Garcia ([id number]) on 07/23/2021 10:34:23 AM Referred By: REFERRED SELF Confirmed By:Ifeanyi Garcia
--- NOTE | 2021-07-23 10:50 | Gastrointestinal Consultation ---
Date of Consultation July 23, 2021 Assessment & Plan (1) Choledocholithiasis with acute cholecystitis: concern for CBD stone given the bilirubin>4 in the setting of cholecystitis Recs: NPO abx IV fluids, supportive care ERCP tomorrow with Dr. 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 GI consulted for possible CBD stone. initially normal CBD on US 07/22 with tbili 2.3, then eliel to 6.4 this morning. CCY was cancelled today as a result. He has been having right upper quadrant abdominal pains. afebrile currently, mild leukocytosis is noted. labs reviewed. Allergies Allergy/AdvReac Type Severity Reaction Status Date / Time iodine Allergy Severe ITCHING Verified 07/22/21 11:20 AND DISCOMFORT Intravascular Contrast Media Allergy Intermediate Rash Uncoded 07/22/21 11:20 Home Medications Medication Instructions Recorded Confirmed Type ascorbic acid (vitamin C) 1,000 mg 1 g PO QDL 05/26/18 07/22/21 History tablet coenzyme Q10 400 mg capsule 400 mg PO TID 05/26/18 07/22/21 History lorazepam 2 mg tablet (Ativan) 2 mg PO TID PRN 05/26/18 07/22/21 History rasagiline 1 mg tablet 1 mg PO DAILY 05/26/18 07/22/21 History vitamin E 400 unit capsule 400 unit PO TID cap 07/03/19 07/22/21 History memantine 5 mg tablet 5 mg PO BID 05/04/20 07/22/21 History aspirin 81 mg tablet,delayed 81 mg PO PM 02/25/21 07/22/21 History release cetirizine 10 mg tablet (Zyrtec) 10 mg PO DAILY PRN 02/25/21 07/22/21 History clobetasol 0.05 % topical cream 1 applic TOPICAL DAILY PRN 02/25/21 07/22/21 History hydrocortisone 0.5 % topical 1 applic TOPICAL BID PRN 02/25/21 07/22/21 History ointment ketoconazole 2 % shampoo 1 ea TOPICAL 3XWK 02/25/21 07/22/21 History lidocaine 5 % topical ointment 1 applic TOPICAL BID PRN 02/25/21 07/22/21 Histor y meloxicam 15 mg tablet 15 mg PO DAILY PRN 02/25/21 07/22/21 History multivitamin with minerals 1 tab PO QAM 02/25/21 07/22/21 History mupirocin 2 % topical ointment 1 applic TOPICAL BID PRN 02/25/21 07/22/21 History omeprazole 20 mg capsule,delayed 20 mg PO DAILY PRN 02/25/21 07/22/21 History release peg [id number] 1 2 drp OPHTHALMIC (EYE) BID PRN 02/25/21 07/22/21 History %-0.2 %-0.2 % eye drops (Dry Eye Relief) riboflavin (vitamin B2) 100 mg 100 mg PO TID 02/25/21 07/22/21 History tablet sodium phosphates 19 gram-7 118 ml ME PM 02/25/21 07/22/21 History gram/118 mL enema white petrolatum 43 % topical 1 applic TOPICAL BID 02/25/21 07/22/21 History ointment (Aloe [place] Protectant Ointment) rivastigmine 1 patch TRANSDERMAL DAILY@1200 05/01/21 07/22/21 History calcium carbonate 600 mg (1,500 1 cap PO QDL 05/10/21 07/22/21 History mg)-vitamin D3 500 unit capsule (Calcium 600 with Vitamin D3) carbidopa ER 23.75 mg-levodopa 95 1 - 2 cap PO DIRECTED 05/10/21 07/22/21 History mg capsule,extended release (Rytary) Bifidobacterium infantis 4 mg 4 mg PO Q2D cap 05/23/21 07/22/21 History capsule (Align) polyethylene glycol 3350 17 17 g PO Q2D g 05/23/21 07/22/21 History gram/dose oral powder (Miralax) warfarin 5 mg tablet 2.5 - 5 mg PO DAILY@1630 tab 06/28/21 07/22/21 History acetaminophen 500 mg tablet 1,000 mg PO Q6H PRN 07/22/21 07/22/21 History (Tylenol Extra Strength) dutasteride 0.5 mg capsule 0.5 mg PO PM 07/22/21 07/22/21 History (Avodart) Patient History Medical History Acute DVT (deep venous thrombosis) CAD (coronary artery disease) Hypercholesterolemia Hypertension Leg weakness, bilateral Parkinson disease Urinary symptom or sign UTI (urinary tract infection) Surgical History S/P appendectomy S/P tonsillectomy Family History Other No significant family history Social History Smoking Status: Never smoker Hx Alcohol Use: Yes Hx Substance Use: No Preferred Language: Tamazight Communication Ability: Effective Oxyhydrogen Welder Required: No Beliefs That Will Affect Care: None marital status: Current Living Situation: Spouse Feels Safe at Home: Yes Assistive Devices: Glasses Review of Systems Constitutional: no fever, no chills and no weight loss Eyes: as per Subjective / HPI Ear, Nose, Mouth, Throat: as per Subjective / HPI Respiratory: no dyspnea and no dyspnea on exertion Cardiovascular: no chest pain and no palpitations Gastrointestinal: as per Subjective / HPI Musculoskeletal: no joint pain and no swelling Integumentary: no rash and no lesions Neurologic: no numbness and no paresthesia Psychiatric: no depression and no anxiety Endocrine: no fatigue Hematologic / Lymphatic: no easy bleeding and no easy bruising Physical Exam Constitutional: WD/WN, vitals as above Eyes: EOM intact bilaterally Neck: normal visual inspection Respiratory: normal respiratory effort, lungs clear to auscultation Cardiovascular: RRR, no murmur, no edema Gastrointestinal (Abdomen): Inspection/Auscultation: abdomen normal to inspection; abdomen not distended Percussion/Palpation: abdomen soft; abdomen nontender and no hepatosplenomegaly Musculoskeletal: Extremities: no cyanosis Gait: normal gait Skin: no rashes, warm and dry Neurologic: moves all extremities Psychiatric: A+Ox3, euthymic affect Results & Data ([facility]) Vital Signs (Past 12 Hours) Vital Signs Temp Pulse Resp BP BP Pulse Ox 07/23/21 07:24 36.5 C 83 16 146/75 H 100 07/22/21 23:37 36.4 C L 94 H 20 147/97 H 97 PG Care Time/CCT Total # of Minutes Spent Total Time Spent with Patient: Total time spent is greater than 50% in coordination of care (as documented) at patient's floor/unit and/or counseling patient: Coding Level of Care Code 08446 Initial Inpt Care Lvl 3 Diagnoses Choledocholithiasis with acute cholecystitis K80.42
[2021-07-23] MEDS: LORazepam 0.5 MG/1 ML VIAL IV PRN ×2 (16:13→22:05)
--- NOTE | 2021-07-23 21:38 | Hospitalist Progress Note ---
Date of Service July 23, 2021 Assessment & Plan (1) Acute cholecystitis: Plan: Patient with acute cholecystitis thickening of gallbladder wall large stone patient be on Zosyn therapy he will be kept n.p.o. except for ice chips and sips he is anticoagulated with warfarin and unless he is going to be taken emergently to the operating room we will let his INR trend downward and treat his cystitis with antibiotics with surgical consultation for possible cholecystectomy in the upcoming week. Patient will be NPO after midnight. Patient will have an ERCP for Tuesday 07/24. Consulted GI and Gen surgery. Gen surgery will then do a cholescytectomy. (2) Current use of terminal computer operator anticoagulation: Plan: Poorly on warfarin for previous history of VTE we will stop warfarin Surgery plans on possibly going to surgery this weekend will have intravenous vitamin K administered on the and follow INR. 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 (3) CAD (coronary artery disease): Plan: Typically on aspirin this will be held in lieu of his surgery (4) Hypertension: (5) Parkinson disease: Plan: Continue Sinemet in the perioperative period to avoid decrease in functional mobility continue rasagiline rivastigmine patch, will ask pharmacy to review his medications as he is on some long-acting Sinemet in case we will have informing the patient may take his other medicines (6) Dementia: Plan: Continue to Namenda (7) DVT prophylaxis: Plan: SCDs for DVT prevention along with teds as were holding his Coumadin Admission and Anticipated Discharge Date Admission Date: July 22, 2021 Subjective No new complaints. Review of Systems Review of Systems: All systems reviewed & are unremarkable except as noted in HPI & below Physical Exam Physical Exam: The patient appeared well nourished and normally developed. Vital signs as documented. Head exam is normocephalic atraumatic Neck is without JVD, thyromegaly, or carotid bruits. Lungs are clear to auscultation, no focal loss of breath sounds Cardiac exam, Rhythm is regular.. No murmurs, rubs or gallops. Abdominal exam reveals normal bowel sounds, soft reducible tenderness in the ri ght upper quadrant without rebound or guarding Extremities are trace bilateral edematous and both pedal pulses are present Neurologic exam is alert and oriented, no focal loss of strength or sensation however does have slow movement and lacks significant facial expressions Skin is without bruises or rashes Psychologically is without concerns for anxiety or depression. Results & Data Results & Data ([facility]) Vital Signs (Past 12 Hours) Vital Signs Temp Pulse Resp BP Pulse Ox 07/23/21 14:43 36.7 C 87 18 130/85 95 PG Care Time/CCT Total # of Minutes Spent Total Time Spent with Patient: Total time spent is greater than 50% in coordination of care (as documented) at patient's floor/unit and/or counseling patient: Coding Level of Care Code 48064 Subseq Hosp Care Lvl 2 Diagnoses Acute cholecystitis K81.0 Current use of terminal computer operator anticoagulation Z79.01 CAD (coronary artery disease) I25.10 Hypertension I10 Hypertension type: essential hypertension Parkinson disease G20 Dementia F03.90 DVT prophylaxis Z29.9 (1) Hypertension Hypertension type: essential hypertension Qualified Code(s): I10 - Essential (primary) hypertension
[2021-07-24] MEDS: LACTATED RINGER'S 1,000 ML IV SCH ×2 (00:13→10:20)
[2021-07-24 05:59] LABS: Hematocrit (blood only) 45.1 % (42-52); Hemoglobin 15.8 g/dL (14.0-18.0); Mean Corpuscular Hemoglobin 31.6 pg (25-34); Mean Corpuscular Volume 90.2 fL (80-100); Platelet Count 202 K/uL (130-400); RDW Coefficient of Variation 14.9 % (11.5-14.5); RDW Standard Deviation 49.1 fL (36.4-46.3); White Blood Count 7.09 K/uL (4.8-10.8)
[2021-07-24 06:10] LABS: INR 1.1 (0.9-1.1); Prothrombin Time 11.5 Seconds (9.0-12.0)
[2021-07-24 06:31] LABS: Albumin Level 2.7 gm/dl (3.4-5.0); Bilirubin Direct 2.2 mg/dl (0-0.2); Bilirubin,Total 3.4 mg/dl (0.2-1); Calcium 9.2 mg/dl (8.5-10.1); Creatinine Clr Calc Pharmacy 82.5 ml/min; Est GFR (African American) 98.7 ml/min; Est GFR (Non-African American) 85.1 ml/min; Potassium 3.7 mmol/L (3.5-5.1); Total Protein 6.6 gm/dl (6.4-8.2)
[2021-07-24] MEDS ORDERED: INDOMETHACIN 50 MG SUPP PR ONE ×3 (08:51→14:29)
[2021-07-24] MEDS: ACETAMINOPHEN 500 MG TAB PO SCH ×3 (08:58→20:04)
[2021-07-24] MEDS: RASAGILINE PO SCH (08:59)
[2021-07-24] MEDS: MEMANTINE HCL 5 MG TAB PO SCH ×2 (08:59→20:04)
[2021-07-24] MEDS: RIVASTIGMINE PATCH TD SCH (09:00)
[2021-07-24] MEDS: RYTARY PO SCH ×4 (09:00→23:24)
[2021-07-24] MEDS ORDERED: PIPERACILL/TAZOBAC CONSULT ACTIVE PRN ×2 (09:26→18:17)
--- NOTE | 2021-07-24 09:26 | Gastroenterology Progress Note ---
Date of Service July 24, 2021 Assessment & Plan (1) Choledocholithiasis with acute cholecystitis: Plan: Pt is a 80 y/o male w RUQ abd pain, elevated LFTs. U/S showed gallstones, sludge, gallbladder wall thickening consistent w cholecystitis, suspected choledocholithiasis (CBD is 4mm). - Zosyn IV - NPO - Plan for ERCP today by Dr. Mcghee, followed by cholecystectomy by Surgery - Keep LR IVF - Symptomatic management - Trend LFTs Admission and Anticipated Discharge Date Admission Date: July 22, 2021 Supervising Physician Co-Signing Physician Notes I saw and evaluate the patient. He had a significant rise of his bilirubin to greater than 6 yesterday suggestive of choledocholithiasis. We are planning to do ERCP today for sphincterotomy and perhaps a biliary stent placement. I discussed the risks and benefits of the procedure with his and the patient, the risks include bleeding, infection, perforation, pain, pancreatitis and failed biliary cannulation. I have taken the liberty of consenting the patient for endoscopic ultrasound should we have difficulty with his ERCP. Subjective Pt w mild dementia. at bedside. No acute events overnight. Pt denies abd pain ,n/v. Review of Systems Review of Systems: All systems reviewed & are unremarkable except as noted in HPI & below Physical Exam Constitutional: WD/WN, vitals as above well groomed, cooperative and comfortable Eyes: PERRL, conjunctivae normal, anicteric sclerae ENMT: external ear and nose normal, oropharynx normal Respiratory: normal respiratory effort, lungs clear to auscultation Cardiovascular: RRR, no murmur, no edema Gastrointestinal (Abdomen): normal bowel sounds, soft, nontender, no hepatosplenomegaly Skin: no rashes, warm and dry no jaundice Psychiatric: Oriented to self only. Alert, pleasant, cooperative. Lymphatic: no lymphedema Results & Data ([facility]) Vital Signs (Past 12 Hours) Vital Signs Temp Pulse Resp BP BP Pulse Ox 07/24/21 08:55 36.7 C 108 H 18 155/96 H 99 07/23/21 23:36 36.8 C 87 16 142/97 H 97
[2021-07-24] MEDS ORDERED: PIPERACILLIN/TAZOBACTAM 3.375 GM in DEXTROSE 5% 100 ML IV ONE (10:00)
[2021-07-24] MEDS ORDERED: hydrALAZINE HCL 20 MG/ML VIAL IV PRN (12:02)
--- NOTE | 2021-07-24 12:17 | History & Physical Bridge Note ---
Date of Service July 24, 2021 History & Physical Bridge Note I have examined the patient, reviewed the History & Physical and in the interval since the performance of the History & Physical I have noted the following changes of clinical significance: no changes noted
[2021-07-24] MEDS ORDERED: ONDANSETRON INJ 2 MG/ML 2 ML VIAL IV PRN ×2 (14:26→18:17)
[2021-07-24] MEDS ORDERED: fentaNYL citrate 100 MCG/2 ML VIAL IV PRN (14:26)
[2021-07-24] MEDS ORDERED: ATROPINE SULFATE 0.1 MG/ML 10ML SYR IV PRN (14:26)
[2021-07-24] MEDS ORDERED: ePHEDrine sulfate 50 MG/ML AMP IV PRN (14:26)
[2021-07-24] MEDS ORDERED: LIDOCAINE 2% 2 ML VIAL/AMP(20MG/ML) INFIL ONE (14:29)
[2021-07-24] MEDS ORDERED: ONDANSETRON INJ 2 MG/ML 2 ML VIAL ONE (14:29)
[2021-07-24] MEDS ORDERED: BUPIVACAINE 0.5 % 5 MG/1 ML MPF 30ML VIAL ONE (14:29)
[2021-07-24] MEDS ORDERED: PROPOFOL IV EMULSION 10 MG/ML 20 ML VIAL IV ONE (14:29)
[2021-07-24] MEDS ORDERED: DEXAMETHASONE SOD INJ 4 MG/ML VIAL ONE (14:29)
[2021-07-24] MEDS ORDERED: ROCURONIUM BROMIDE 10 MG/ML 5 ML VIAL IV ONE (14:29)
[2021-07-24] MEDS ORDERED: fentaNYL citrate 100 MCG/2 ML VIAL ONE ×3 (14:30→16:47)
--- NOTE | 2021-07-24 14:36 | History & Physical Bridge Note ---
Date of Service July 24, 2021 History & Physical Bridge Note I have examined the patient, reviewed the History & Physical and in the interval since the performance of the History & Physical I have noted the following changes of clinical significance: no changes noted. ERCP today for suspected choledocholithiasis as the patient's bilirubin was greater than 6 yesterday. I discussed the risks of the procedure with the patient and his these include bleeding, infection, perforation, pain, pancreatitis and failed biliary cannultion.
--- NOTE | 2021-07-24 15:22 | Post Operative Brief Note ---
Immediate Post Op Note v1 Date of Surgery July 24, 2021 Pre & Post Diagnosis Operation Date: 07/23/21 11:00 ERCP with gallstone extraction and biliary stent placement. I identified the patient and participated in the time-out.: Yes Procedure Operation Date: 07/23/21 11:00 <No data on this case meets the specified criteria> Operation Date: 07/24/21 07:00 <No data on this case meets the specified criteria> Surgeon Rafael Mcghee DO Song Plugger none Estimated Blood Loss 0 Findings Consistent with Post-Op Diagnosis
--- NOTE | 2021-07-24 15:22 | GI REPORT ---
Patient Name: Kaleb Bucio Procedure Date: 07/24/2021 2:51 PM Date of : 1940 Admit Type: Inpatient Age: 80 Gender: Male Attending MD: Rafael Mcghee DO Procedure: ERCP Providers: Rafael Mcghee DO Referring MD: Huber Hayes Md, Dhaval Antunez Indications: Abdominal pain of suspected biliary origin, Suspected bile duct stone(s), Jaundice Medicines: General Anesthesia Complications: No immediate complications. Estimated blood loss: Minimal. Estimated Blood Loss: Estimated blood loss was minimal. Procedure: Pre-Anesthesia Assessment: - Pre-procedure physical examination revealed no contraindications to sedation. - ASA Grade Assessment: III - A patient with severe systemic disease. - The alternatives, risks and benefits of the procedure were discussed at length with the patient's spouse. The patient's proxy verbalized understanding of the risks as well as the alternatives and wished to proceed with the procedure. - Patient identification and proposed procedure were verified prior to the procedure by the physician, the nurse and the milling machine operator. The procedure was verified in the procedure room. - Pre-procedure physical examination revealed no contraindications to sedation. - ASA Grade Assessment: III - A patient with severe systemic disease. - After reviewing the risks and benefits, the patient was deemed in satisfactory condition to undergo the procedure. - The anesthesia plan was to use general anesthesia. - Immediately prior to administration of medications, the patient was re-assessed for adequacy to receive sedatives. - The heart rate, respiratory rate, oxygen saturations, blood pressure, adequacy of pulmonary ventilation, and response to care were monitored throughout the procedure. - The physical status of the patient was re-assessed after the procedure. After obtaining informed consent, the scope was passed under direct vision. Throughout the procedure, the patient's blood pressure, pulse, and oxygen saturations were monitored continuously. The Scope was introduced through the mouth, and advanced to the duodenum and used to inject contrast into the bile duct. The ERCP was accomplished without difficulty. The patient tolerated the procedure well. The Scope was introduced through the mouth, and advanced to the duodenum and used to inject contrast into the bile duct. Findings: The flatwork presser film was normal. The esophagus was successfully intubated under direct vision without detailed examination of the pharynx, larynx, and associated structures, and upper GI tract. The upper GI tract was grossly normal. The major papilla was congested. The bile duct was deeply cannulated with the short-nosed traction sphincterotome and 0.035 in Angled Acrobat 2 guidewire (PD not cannulate or injected today). Contrast was injected. I personally interpreted the bile duct images. Contrast extended to the entire biliary tree. The main bile duct was moderately dilated and diffusely dilated, with a stone causing an obstruction. The largest diameter was 10 mm. the cystic duct filled and numerous stones were noted within the gallbladder. Biliary sphincterotomy was made with a monofilament Fusion OMNI sphincterotome using ERBE electrocautery. The sphincterotomy oozed blood (stopped prior to end of procedure). To discover objects, the biliary tree was swept with a 15 mm balloon starting at the bifurcation several times. Three green stones were removed. No stones remained. One 10 Fr by 8 cm biliary stent with a single external flap and a single internal flap was placed 8 cm into the common bile duct. Bile flowed through the stent. The stent was in good position. The endoscope was withdrawn from the patient. Indomethacin 100 mg was given via suppository to decrease the risk of post-ERCP pancreatitis (PEP). Impression: - The major papilla appeared congested. - The entire main bile duct was moderately dilated, with a stone causing an obstruction. - Choledocholithiasis was found. Complete removal was accomplished by biliary sphincterotomy and balloon extraction. - One biliary stent was placed into the common bile duct. - Indomethacin given to decrease risk of post-ERCP pancreatitis. Recommendation: - Avoid aspirin and nonsteroidal anti-inflammatory medicines for 1 week. - Repeat ERCP in 6 weeks to remove stent. - Cholecystectomy as planned by Dr. Antunez. Flores Martinez DO 07/24/2021 3:21:26 PM This report has been signed electronically. Note Initiated On: 07/24/2021 2:51 PM Number of Addenda: 0 I attest to the content of the Intraoperative Record and orders documented therein, exceptions below {[id number]}
--- NOTE | 2021-07-24 15:24 | Communication Note ---
Date of Service: July 24, 2021 The patient underwent ERCP this afternoon. It was notable for several green stones that were removed from the distal common bile duct. I did place a pr ophylactic biliary stent, the patient is to undergo cholecystectomy this afternoon. Recommendations Continue with broad-spectrum antibiotic coverage for total of 10 days Hold nonsteroidals for 1 week if possible Repeat ERCP in 6 weeks for biliary stent removal May have clear liquids from our standpoint this evening Please call with any questions or concerns
[2021-07-24] MEDS ORDERED: PHENYLEPHRINE HCL 10 MG/ML VIAL ONE (15:32)
[2021-07-24] MEDS ORDERED: GLYCOPYRROLATE 0.2 MG/ML VIAL ONE (15:35)
[2021-07-24] MEDS ORDERED: NEOSTIGMINE METHYLSULFATE 1 MG/ML 10ML VIAL ONE (15:35)
--- NOTE | 2021-07-24 15:44 | Fluoroscopy Report ---
[place] ERCP biliary ductal CLINICAL HISTORY: ERCP. Acute cholecystitis. Right upper quadrant pain. COMPARISON STUDY: Abdominal ultrasound 07/22/2021. FLUOROSCOPY TIME: 49 seconds. FINDINGS: 5 fluoroscopic spot images of the right upper quadrant were submitted for review. The ampul la was cannulated and contrast was injected into the common bile duct. A balloon sweep was performed. This is followed by placement of a common bile duct stent which appears in good position. Contrast i s seen within the gallbladder. IMPRESSION: Fluoroscopic assistance provided for ERCP as described above. ACT 112: Negative or not required by law. Electronically signed by: Arpan Collado M.D. 07/24/2021 3:42 PM
[2021-07-24] MEDS ORDERED: FLOSEAL HEMOSTATIC MATRIX 10ML TOP ONE (15:55)
--- NOTE | 2021-07-24 16:47 | Hospitalist Progress Note ---
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) on Coumadin therapy. Presented with abdominal pain White blood cell count normal Presenting T. bilirubin 2.3. AST 239. ALT 97. Lipase normal at 161 Right upper quadrant ultrasound showed a distended gallbladder with thickened wall consistent with cholecystitis and a large stone in the fundus. No common bile duct dilatation noted Subsequently, bilirubin elevated to 6.4 with an AST of 150/ALT 35. Initially was going to have a cholecystectomy but with uptrending bilirubin, plan is for ERCP today followed by cholecystectomy Takes chronic Coumadin for which he was given vitamin K in preparation of surgery On empiric antibiotic therapy (Zosyn) GI/general surgery on boardappreciate recommendations (2) Current use of alf anticoagulation: Plan: History of recurrent DVT (most recent June 2020--chronic thrombi seen in the popliteal and femoral veins) Received vitamin K in preparation of surgery INR today is 1.1 Plan will be to initiate Lovenox (8 hours postoperatively) to bridge with resumption of Coumadin to start tomorrow (3) CAD (coronary artery disease): Plan: Typically on aspirin but currently on hold in lieu of his surgery (4) Hypertension: Plan: Does not seem to take any medication for this BP currently 142/97. IV hydralazine ordered as needed with parameters We will continue to monitor. May be driven by pain (5) Parkinson disease: Plan: Continue Sinemet and rasagiline rivastigmine patch (6) Dementia: Plan: Continue to Namenda (7) DVT prophylaxis: Plan: SCDs for DVT prevention along with teds as were holding his Coumadin As stated above, plan is to initiate Lovenox 8 hours postoperatively and resume Coumadin tomorrow. Patient will need bridge therapy Admission and Anticipated Discharge Date Admission Date: July 22, 2021 Subjective Patient seen on daily rounds today. He is pleasantly confused. His is at bedside. He denies fevers, chills, chest pain, shortness of breath, abdominal pain, nausea or vomiting. Plan is for ERCP followed by cholecystectomy later today. Has been having mild accelerated hypertension (148/92). Was asked to address this prior to him going to the operating room. IV hydralazine ordered as needed with parameters. Review of Systems Review of Systems: Unreliable historian Physical Exam Physical Exam: General: Resting comfortably in his hospital bed. Comfortable. Does not appear ill or toxic. NAD. HEENT: Head is AT/NC buccal mucosa is moist and pink Neck: No JVD. Negative hepatojugular reflex Cardiac: RRR but distant. 2/6 LESA Lungs: CTA without W/R/R Abdomen: Normoactive X4. Soft and nontender in all quadrants. Extremities: No peripheral clubbing cyanosis or edema Neuro: Awake. Pleasantly confused. Cranial nerves II through XII are grossly intact no focal neuro deficits Skin: No obvious skin lesions or rashes Results & Data Results & Data ([facility]) Vital Signs (Past 12 Hours) Vital Signs Temp Pulse Resp BP BP Pulse Ox 07/24/21 14:05 36.4 C L 94 H 20 148/92 H 100 07/24/21 12:27 36.3 C L 88 16 125/73 97 07/24/21 08:55 36.7 C 108 H 18 155/96 H 99 PG Care Time/CCT Total # of Minutes Spent Total Time Spent with Patient: Total time spent is greater than 50% in coordination of care (as documented) at patient's floor/unit and/or counseling patient: Coding Level of Care Code 53879 Subseq Hosp Care Lvl 2 Diagnoses Acute cholecystitis K81.0 Current use of terminal system operator anticoagulation Z79.01 CAD (coronary artery disease) I25.10 Hypertension I10 Hypertension type: essential hypertension Parkinson disease G20 Dementia F03.90 DVT prophylaxis Z29.9 (1) Hypertension Hypertension type: essential hypertension Qualified Code(s): I10 - Essential (primary) hypertension
[2021-07-24] MEDS ORDERED: ACETAMINOPHEN 1,000 MG/100 ML VIAL IV ONE (16:51)
--- NOTE | 2021-07-24 16:51 | Post Operative Brief Note ---
[facility] Immediate Post Op with CF Date of Surgery July 24, 2021 Pre & Post Diagnosis Operation Date: 07/23/21 11:00 <No data on this case meets the specified criteria> Operation Date: 07/24/21 07:00 Pre-Op Diagnosis: ACUTE CHOLESYCTITIS Post-Op Diagnosis: ACUTE CHOLESYCTITIS, severe chronic cholecystitis I identified the patient and participated in the time-out.: Yes Procedure Operation Date: 07/23/21 11:00 <No data on this case meets the specified criteria> Operation Date: 07/24/21 07:00 Actual Procedures p Laparoscopic Cholecystectomy(Not Applicable) - Dhaval Antunez MD, FACS s Endoscopic Retrograde Cholangiopancreato(Not Applicable) - Rafael Mcghee DO Surgeon Dhaval Antunez MD, FACS Electrical Appliance Mechanic none, B Gianfranco Estimated Blood Loss 0 Findings Consistent with Post-Op Diagnosis Patient had an enormous gallbladder full of sludge and stones in a very very large gallstone oh at least 6 cm Specimens Specimen Description: permanent specimen: A) Gallbladder Drains Sam-Batuista Drain and Tan Drain
[2021-07-24] MEDS ORDERED: METOPROLOL TARTRATE 1 MG/ML VIAL IV STA (17:43)
[2021-07-24] MEDS ORDERED: METOPROLOL TARTRATE 1 MG/ML VIAL IV ONE (17:43)
--- NOTE | 2021-07-24 17:54 | Anesthesiology Progress Note ---
Date of Service July 24, 2021 Anesthesia Post Procedure Vital Signs Vital Signs: Temp Pulse Pulse Pulse Resp BP BP 07/24/21 17:45 36.8 C 87 22 07/24/21 17:44 103 H 143/114 H 07/24/21 17:35 102 H 22 07/24/21 17:25 102 H 24 07/24/21 17:15 102 H 24 07/24/21 17:05 97 H 22 07/24/21 16:58 36.8 C 99 H 20 07/24/21 14:05 36.4 C L 94 H 20 07/24/21 12:27 36.3 C L 88 16 07/24/21 08:55 36.7 C 108 H 18 155/96 H 07/23/21 23:36 36.8 C 87 16 BP Pulse Ox 07/24/21 17:45 154/92 H 95 07/24/21 17:44 07/24/21 17:35 162/104 H 92 07/24/21 17:25 162/91 H 97 07/24/21 17:15 177/100 H 100 07/24/21 17:05 167/101 H 99 07/24/21 16:58 165/102 H 98 07/24/21 14:05 148/92 H 100 07/24/21 12:27 125/73 97 07/24/21 08:55 99 07/23/21 23:36 142/97 H 97 Pain Intensity Upper Abdomen: Pain Intensity: 3 Transfer of Care Handoff Completed per policy Notes Mental Status: alert / awake / arousable Patient Amnestic to Procedure: Yes Nausea / Vomiting: adequately controlled Pain: adequately controlled Airway Patency, RR, SpO2: stable & adequate BP & HR: stable & adequate Hydration State: stable & adequate Anesthetic Complications: no major complications apparent and Pt Satisfied with anesthetic care Notes: The patient is awake and stable. He has some shoulder pain but otherwise is comfortable. His vital signs are stable at his baseline.
[2021-07-24] MEDS ORDERED: HYDROmorphone INJ 0.5 MG/0.5 ML SYR IV PRN ×2 (18:17)
[2021-07-24] MEDS ORDERED: ACETAMINOPHEN 325 MG TAB PO PRN (18:17)
[2021-07-24] MEDS ORDERED: PROMETHAZINE HCL 12.5 MG in SODIUM CHLORIDE 0.9% 50 ML IV PRN (18:17)
[2021-07-24] MEDS ORDERED: PIPERACILLIN/TAZOBACTAM 3.375 GM in DEXTROSE 5% 100 ML IV SCH (18:17)
[2021-07-24] MEDS: SODIUM CHLORIDE 0.9% 500 ML IV SCH (18:37)
[2021-07-24] MEDS: PIPERACILLIN/TAZOBACTAM 3.375 GM in DEXTROSE 5% 100 ML IV SCH (18:46)
[2021-07-24] MEDS: SENNOSIDES 8.8 MG/5 ML UDC PO SCH (20:38)
[2021-07-24] MEDS: LORazepam 0.5 MG/1 ML VIAL IV PRN (20:38)
--- NOTE | 2021-07-24 23:21 | Operative Report (OR) ---
DATE OF OPERATION: 07/24/2021. NAME OF OPERATION: Laparoscopic cholecystectomy. PREOPERATIVE DIAGNOSIS: Acute cholecystitis with choledocholithiasis. STAFF SURGEON: Dhaval Antunez MD REGULATORY COMPLIANCE MANAGER: Kaleb Medel PA-C ANESTHESIA: General. DESCRIPTION OF PROCEDURE: The patient was brought in the operating room, placed on the operating tab le in the supine position. He had undergone ERCP with stone removal by Dr. Mcghee and a stent placed . At this point, we proceeded with laparoscopic cholecystectomy. My addictions counselor assistant helped with prepping, draping, removal of the gallbladder, and closure of the wounds. Incision was made above the umbilic us, carrying dissection down to the fascia, placing a Veress needle producing pneumoperitoneum. Unde r visualization, three 5 mm ports were placed, one cephalad and two laterally. The gallbladder was e xamined. It was very large. It had an enormous stone in the tip of the fundus. With some difficult y, this was flipped up over the liver and then the gallbladder retracted. The patient had severe acu te and chronic cholecystitis, very thin walled gallbladder. We did have some bile spillage, which wa s sludge-like which we did aspirate and irrigate. Dissection was carried out to the morteza hepatis id entifying the cystic duct and cystic artery. These were clipped and transected. Then with some diff iculty because of the size of the gallbladder, it was dissected away from the liver. We then attempt ed to place it into our normal Endobag, it would not fit. We placed a parachute bag inside the abdom en and we were able to place the gallbladder into the parachute bag trying to remove it through the u mbilical incision site. We had to enlarge it very wide because of the size of the stone and gallblad ena. Then this incision was partially closed using 0 and #1 PDS suture. A balloon cannula placed. We went back and did significant irrigation aspiration, then placed a 15 round MICHELL drain into the subh epatic space through the lateral 5 mm port site and secured using 3-0 nylon suture. All ports were t hen removed. The fascia at the umbilical site again closed with #1 PDS. [place] drain placed in this wound. Skin loosely reapproximated using 4-0 nylon suture. The patient was transferred to recovery room in stable condition. Job ID: [id number]
[2021-07-25] MEDS: PIPERACILLIN/TAZOBACTAM 3.375 GM in DEXTROSE 5% 100 ML IV SCH ×3 (00:16→17:20)
[2021-07-25 08:25] LABS: Basophils # (auto) 0.01 K/uL (0-0.2); Basophils % (auto) 0.1 %; Hematocrit (blood only) 46.9 % (42-52); Immature Granulocytes # (auto) 0.04 K/uL (0.00-0.02); Immature Granulocytes % (auto) 0.3 %; Lymphocytes # (auto) 0.96 K/uL (1.2-3.4); Lymphocytes % (auto) 7.7 %; Mean Corpuscular Hemoglobin 31.2 pg (25-34); Mean Corpuscular Hgb Conc 34.1 g/dL (32-36); Mean Corpuscular Volume 91.4 fL (80-100); Mean Platelet Volume 9.9 fL (7.4-10.4); Monocytes # (auto) 0.97 K/uL (0.11-0.59); Monocytes % (auto) 7.8 %; Neutrophils # (auto) 10.45 K/uL (1.4-6.5); Neutrophils % (auto) 84.1 %; Platelet Count 239 K/uL (130-400); RDW Coefficient of Variation 15.4 % (11.5-14.5); RDW Standard Deviation 51.6 fL (36.4-46.3); Red Blood Count 5.13 M/uL (4.7-6.1); White Blood Count 12.43 K/uL (4.8-10.8)
[2021-07-25 08:32] LABS: INR 1.1 (0.9-1.1); Prothrombin Time 11.4 Seconds (9.0-12.0)
--- NOTE | 2021-07-25 09:32 | Communication Note ---
Date of Service: July 25, 2021 F/U s/p ERCP on 07/24/21 w choledocholithiasis removal, biliary sphincterectomy & biliary stent placement. Pt c/o abd pain, but didn't want to request pain meds overnight. Didn't sleep well. No n/v, tolerated CL diet. LFTs pending. However noted urine clearing up in color and pt not c/o itching anymore. - Trend LFTs - Antibx coverage 10 days after ERCP - Avoid NSAIDs and ASA 10 days post sphincterectomy - Advance diet as tolerated - Symptomatic management for nausea and pain as needed - FU ERCP in 6-8 week's time to remove biliary stent - Pls recall GI prn
[2021-07-25] MEDS: MEMANTINE HCL 5 MG TAB PO SCH ×2 (09:52→20:03)
[2021-07-25] MEDS: SENNOSIDES 8.8 MG/5 ML UDC PO SCH ×2 (09:52→20:03)
[2021-07-25] MEDS: ACETAMINOPHEN 500 MG TAB PO SCH ×3 (09:52→20:03)
[2021-07-25] MEDS: RASAGILINE PO SCH (09:53)
[2021-07-25 10:12] LABS: Bilirubin,Total 1.9 mg/dl (0.2-1)
[2021-07-25 10:38] LABS: Albumin Globulin Ratio 0.7 (0.9-2); Albumin Level 2.9 gm/dl (3.4-5.0); BUN Creatinine Ratio 9.1 (10-20); Bilirubin Direct 0.9 mg/dl (0-0.2); Calcium 9.2 mg/dl (8.5-10.1); Est GFR (African American) 71.8 ml/min; Est GFR (Non-African American) 61.9 ml/min; Magnesium 2.2 mg/dl (1.8-2.4); Phosphorus 2.2 mg/dl (2.5-4.9); Potassium 4.8 mmol/L (3.5-5.1); Total Protein 6.9 gm/dl (6.4-8.2)
[2021-07-25] MEDS: ENOXAPARIN 100 MG/1ML SYR SQ SCH ×2 (10:49→21:53)
[2021-07-25] MEDS: RYTARY PO SCH ×4 (12:45→20:02)
[2021-07-25] MEDS: RIVASTIGMINE PATCH TD SCH (12:46)
--- NOTE | 2021-07-25 13:51 | Surgery Progress Note ---
Date of Service July 25, 2021 Assessment & Plan (1) S/P laparoscopic cholecystectomy: Plan: Patient with choledocholithiasis and acute cholecystitis Seems to be doing very well We will leave his drain Advance his diet to regular Continue IV antibiotics Admission and Anticipated Discharge Date Admission Date: July 22, 2021 Results & Data ([facility]) Vital Signs (Past 12 Hours) Vital Signs Temp Pulse Resp BP Pulse Ox 07/25/21 07:42 36.9 C 107 H 18 137/81 98 07/25/21 03:47 36.9 C 108 H 20 134/76 97 PG Care Time/CCT Total # of Minutes Spent Total Time Spent with Patient: Total time spent is greater than 50% in coordination of care (as documented) at patient's floor/unit and/or counseling patient: Coding Level of Care Code None Diagnoses S/P laparoscopic cholecystectomy Z90.49
[2021-07-25] MEDS ORDERED: WARFARIN SOD 5 MG TAB PO SCH (16:00)
[2021-07-25] MEDS ORDERED: traMADol HCL 50 MG TABLET PO PRN ×2 (16:16)
--- NOTE | 2021-07-25 16:48 | CT Scan Report ---
CT head/brain wo con CLINICAL HISTORY: 80 years-old Male with r/o cva. Acute strokelike symptoms TECHNIQUE: Multiple axial CT images of the head were obtained without contrast. A dose lowering tech nique was utilized adhering to the principles of ALARA. CT DOSE: 1277.11 mGycm COMPARISON: Head CT 05/10/2021. FINDINGS: Motion degraded exam. No acute intracranial hemorrhage, midline shift, intracranial mass, hydrocephal us, territorial ischemia or abnormal extra-axial collection. Mild involutional changes. White matter hypodensities suggest chronic microvascular ischemic disease. Cerebral vascular calcifications. Chron ic lacunar infarcts within the posterior limb left internal capsule redemonstrated. The calvarium is intact. The paranasal sinuses, mastoid air cells, and middle ear cavities are clear . IMPRESSION: No acute intracranial abnormality. ACT 112: Negative or not required by law. The above report was generated using voice recognition software. It may contain grammatical, syntax o r spelling errors. Electronically signed by: Tim Romero M.D. 07/25/2021 4:47 PM
[2021-07-25] MEDS: SODIUM CHLORIDE 0.9% 500 ML IV SCH ×2 (17:20→19:55)
--- NOTE | 2021-07-25 17:52 | Hospitalist Progress Note ---
Date of Service July 25, 2021 Assessment & Plan (1) Choledocholithiasis with acute cholecystitis: Plan: 80-year-old white male with a past medical history of Parkinson's, dementia, CAD, HTN, and recurrent DVT (most recent 06/2020[facility]) on Coumadin therapy. Presented with abdominal pain White blood cell count normal upfront. Slightly elevated today at 12.43 which is likely reactive from surgery Presenting T. bilirubin 2.3. AST 239. ALT 97. Lipase normal at 161 Right upper quadrant ultrasound showed a distended gallbladder with thickened wall consistent with cholecystitis and a large stone in the fundus. No common bile duct dilatation noted Subsequently, bilirubin elevated to 6.4 with an AST of 150/ALT 35. Initially was going to have a cholecystectomy but with uptrending bilirubin, pt underwent ERCP pt s/p ERCP with removal of stone from CBD and stent placement and then cholecystectomy (07/24/21) Takes chronic Coumadin for which he was given vitamin K in preparation of surgery On empiric antibiotic therapy (Zosyn) GI/general surgery on boardappreciate recommendations Bilirubin/LFTs--> currently downtrending (1.9/171/70). 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 This is likely due to his Parkinson's and only intensified with recent anesthetic and pain medication given We will obtain a head CT for confirmation but I see no evidence of neurological deficits or aphasia. at bedside and confirms that he seems at baseline (4) CAD (coronary artery disease): Plan: Typically on aspirin but currently on hold in lieu of his surgery Would hold for an additional 48 hours (5) Hypertension: Plan: Does not seem to take any medication for this BP elevated prior to surgery which I suspect was pain related Currently 112/62 (6) Dementia: Plan: Continue to Namenda (7) DVT prophylaxis: Plan: Resume Coumadin with bridge therapy (Lovenox) until INR therapeutic (>/=2.0) Plan: Consult PT/OT; however, declines inpatient rehab if deemed necessary Suspect patient will likely be ready for discharge within the next 18-24 hours. Admission and Anticipated Discharge Date Admission Date: July 22, 2021 Subjective Patient seen on daily rounds today. Initially when seen this morning no complaints or concerns. His LFTs are downtrending and with this, his generalized pruritus has resolved. He underwent ERCP yesterday with removal of stone from the common bile duct and stent placement and then laparoscopic cholecystectomy. Pain is adequately controlled. Was called to the bedside by the nurse later in the afternoon as the was concerned he was having expressive aphasia. When I got to the bedside, patient is having no trouble with conversation. He is slow to respond but does have ongoing Parkinson's. He recently received a dose of Dilaudid for pain but is awake, alert. Answers all questions appropriately. Review of Systems Review of Systems: All systems reviewed and are unremarkable except as noted in HPI and below Denies fevers, chills, headache, nasal congestion, sore throat, cough, chest pain, shortness of breath, palpitations, orthopnea, PND, abdominal pain, nausea, vomiting, diarrhea, constipation, dysuria, hematuria, frequency, back pain, joint pain or swelling, easy bruising or bleeding, skin lesions or rashes. Physical Exam Physical Exam: General: Resting comfortably in his hospital bed. Flat affect. Slow to respond but when he does, answers all questions appropriately NAD. HEENT: Head is AT/NC buccal mucosa is moist and pink Neck: No JVD. Negative hepatojugular reflex Cardiac: RRR with 2/6 LESA Lungs: CTA without W/R/R Abdomen: Normoactive X4. Surgical dressing in place to abdomen. It is dry. He does appear to have an indwelling MICHELL drain with minimal drainage. Abdomen is soft. Extremities: No peripheral clubbing cyanosis or edema Neuro: A&O X4 cranial nerves II through XII are grossly intact no focal neuro deficits Skin: No obvious skin lesions or rashes Psych: Appropriate affect pleasant and cooperative Results & Data Results & Data ([facility]) Vital Signs (Past 12 Hours) Vital Signs Temp Pulse Resp BP Pulse Ox 07/25/21 15:47 36.6 C 100 H 16 112/62 95 07/25/21 07:42 36.9 C 107 H 18 137/81 98 Laboratory Results 07/25/21 07:58 07/25/21 07:58 PG Care Time/CCT Total # of Minutes Spent Total Time Spent with Patient: Total time spent is greater than 50% in coordination of care (as documented) at patient's floor/unit and/or counseling patient: Coding Level of Care Code 12890 Subseq Hosp Care Lvl 3 Diagnoses Current use of petroleum terminal plant operator anticoagulation Z79.01 CAD (coronary artery disease) I25.10 Hypertension I10 Hypertension type: essential hypertension Parkinson disease G20 Dementia F03.90 DVT prophylaxis Z29.9 Choledocholithiasis with acute cholecystitis K80.42 (1) Hypertension Hypertension type: essential hypertension Qualified Code(s): I10 - Essential (primary) hypertension
[2021-07-26] MEDS: PIPERACILLIN/TAZOBACTAM 3.375 GM in DEXTROSE 5% 100 ML IV SCH ×2 (00:17→08:50)
[2021-07-26 05:56] LABS: Basophils # (auto) 0.04 K/uL (0-0.2); Basophils % (auto) 0.4 %; Eosinophils # (auto) 0.19 K/uL (0-0.5); Hematocrit (blood only) 41.7 % (42-52); Hemoglobin 14.3 g/dL (14.0-18.0); Immature Granulocytes # (auto) 0.01 K/uL (0.00-0.02); Immature Granulocytes % (auto) 0.1 %; Mean Corpuscular Hemoglobin 31.3 pg (25-34); Mean Corpuscular Hgb Conc 34.3 g/dL (32-36); Mean Corpuscular Volume 91.2 fL (80-100); Monocytes # (auto) 0.94 K/uL (0.11-0.59); Monocytes % (auto) 10.1 %; Neutrophils # (auto) 6.81 K/uL (1.4-6.5); Neutrophils % (auto) 73.4 %; Platelet Count 216 K/uL (130-400); RDW Coefficient of Variation 15.8 % (11.5-14.5); RDW Standard Deviation 52.5 fL (36.4-46.3); Red Blood Count 4.57 M/uL (4.7-6.1); White Blood Count 9.29 K/uL (4.8-10.8)
[2021-07-26 06:34] LABS: Albumin Globulin Ratio 0.6 (0.9-2); Albumin Level 2.3 gm/dl (3.4-5.0); BUN Creatinine Ratio 10.2 (10-20); Bilirubin,Total 1.4 mg/dl (0.2-1); Creatinine Clr Calc Pharmacy 69.6 ml/min; Est GFR (African American) 87.4 ml/min; Est GFR (Non-African American) 75.4 ml/min; Globulin 3.7 gm/dl (2.5-4.0); Potassium 3.7 mmol/L (3.5-5.1)
[2021-07-26] MEDS: ACETAMINOPHEN 500 MG TAB PO SCH (08:48)
[2021-07-26] MEDS: RASAGILINE PO SCH (08:52)
[2021-07-26] MEDS: MEMANTINE HCL 5 MG TAB PO SCH (08:52)
[2021-07-26] MEDS: SENNOSIDES 8.8 MG/5 ML UDC PO SCH (08:52)
--- NOTE | 2021-07-26 09:21 | Surgery Progress Note ---
Date of Service July 26, 2021 Assessment & Plan (1) Choledocholithiasis with acute cholecystitis: Plan: POD 2 lap chanel/ERCP WBC, bili normalizing keep drains until next week cont abx-Augmentin for 5 days Admission and Anticipated Discharge Date Admission Date: July 22, 2021 Subjective less responsive yesterday after given dilaudid, appetite "not good" Physical Exam Gastrointestinal (Abdomen): Inspection/Auscultation: + abdominal surgical incision (some drainage from umbilical wound/drain) and + abdominal surgical drain present (MICHELL output minimal, nonbilious); abdomen not distended Percussion/Palpation: abdomen soft Results & Data ([facility]) Vital Signs (Past 12 Hours) Vital Signs Temp Pulse Resp BP Pulse Ox 07/25/21 22:50 36.8 C 100 H 24 120/79 97 PG Care Time/CCT Total # of Minutes Spent Total Time Spent with Patient: Total time spent is greater than 50% in coordination of care (as documented) at patient's floor/unit and/or counseling patient: Coding Level of Care Code None Diagnoses Choledocholithiasis with acute cholecystitis K80.42
[2021-07-26 09:28] LABS: INR 1.4 (0.9-1.1); Prothrombin Time 13.5 Seconds (9.0-12.0)
--- NOTE | 2021-07-26 10:17 | Communication Note ---
Date of Service: July 26, 2021 Patient previously had home PT/OT and ST. He is being discharged following an ERCP/Cholecystectomy for choledocholithiasis. He would benefit from continuation of these services.
[2021-07-26] MEDS: RIVASTIGMINE PATCH TD SCH (11:52)
[2021-07-26] MEDS: RYTARY PO SCH (11:52)
--- NOTE | 2021-07-26 14:36 | Discharge Summary ---
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 His other problems include Parkinson's disease dementia. General surgery been consulted Patient had a 4-week history of intermittent loose bowel movements. Has had about 2-week history of right-sided lower thoracic back pain and a 2-day hi story of colicky right upper quadrant abdominal pain. Has had no vomiting has had no chalky colored stools fact he did have a normal bowel movement. The patient's at the bedside she is very concerned about his Parkinson meds will have pharmacy check those and he can continue his home medications as needed I did personally speak with Dr. Antunez surgical on-call he plans on possibly going to the operating room on the therefore we will reverse his anticoagulation with vitamin K repeat an INR in the morning Principal Diagnosis 1. Choledocholithiasis with acute cholecystitis--s/p ERCP with biliary stent and cholecystectomy 2. Hyperbilirubinemiasecondary to #1 and downtrending 3. Leukocytosisreactive (postsurgical) Discharge Exam General: Resting comfortably in his hospital bed. Flat affect. Slow to respond but when he does, answers all questions appropriately NAD. HEENT: Head is AT/NC buccal mucosa is moist and pink Neck: No JVD. Negative hepatojugular reflex Cardiac: RRR with 2/6 LESA Lungs: CTA without W/R/R Abdomen: Normoactive X4. Surgical dressing in place to abdomen. It is dry. He does appear to have an indwelling MICHELL drain with minimal drainage. Abdomen is soft. Extremities: No peripheral clubbing cyanosis or edema Neuro: A&O X4 cranial nerves II through XII are grossly intact no focal neuro deficits Skin: No obvious skin lesions or rashes Psych: Appropriate affect pleasant and cooperative Discharge Data Allergies Allergy/AdvReac Type Severity Reaction Status Date / Time iodine Allergy Severe ITCHING Verified 07/24/21 14:12 AND DISCOMFORT Iodinated Contrast Media Allergy Intermediate Rash Verified 07/24/21 14:12 Consultations 07/22/21 17:53 Consult General Surgery Routine 07/23/21 10:26 Consult Gastroenterology Routine Procedures Performed Operation Date: 07/23/21 11:00 <No data on this case meets the specified criteria> Operation Date: 07/24/21 07:00 Actual Procedures p Laparoscopic Cholecystectomy(Not Applicable) - Dhaval Antunez MD, FACS s Endoscopic Retrograde Cholangiopancreato(Not Applicable) - Rafael Mcghee DO Ordered Studies CXR: IMPRESSION: Mild bilateral airspace opacities are favored to represent atelectasis, although superimposed aspiration/pneumonia cannot be entirely excluded. If there is clinical concern, AP and lateral radiograph with improved inspiratory effort is recommended. 07/22/21 11:01 US gallbladder Stat IMPRESSION: Findings are compatible with acute cholecystitis. 07/24/21 14:00 FL ERCP biliary ductal Routine Impression: - The major papilla appeared congested. - The entire main bile duct was moderately dilated, with a stone causing an obstruction. - Choledocholithiasis was found. Complete removal was accomplished by biliary sphincterotomy and balloon extraction. - One biliary stent was placed into the common bile duct. - Indomethacin given to decrease risk of post-ERCP pancreatitis. Recommendation: - Avoid aspirin and nonsteroidal anti-inflammatory medicines for 1 week. - Repeat ERCP in 6 weeks to remove stent. - Cholecystectomy as planned by Dr. Antunez. IMPRESSION: Fluoroscopic assistance provided for ERCP as described above. 07/25/21 16:04 CT head/brain wo con Stat IMPRESSION: No acute intracranial abnormality. Hospital Course (1) Choledocholithiasis with acute cholecystitis: 80-year-old white male with a past medical history of Parkinson's, dementia, CAD, HTN, and recurrent DVT (most recent 06/2020[facility]) on Coumadin therapy. Presented with abdominal pain White blood cell count normal upfront. Slightly elevated POD#1--at 12.43 which is likely reactive from surgery. Improved Presenting T. bilirubin 2.3. AST 239. ALT 97. Lipase normal at 161 Right upper quadrant ultrasound showed a distended gallbladder with thickened wall consistent with cholecystitis and a large stone in the fundus. No common bile duct dilatation noted Subsequently, bilirubin elevated to 6.4 with an AST of 150/ALT 35. Initially was going to have a cholecystectomy but with uptrending bilirubin, pt underwent ERCP pt s/p ERCP with removal of stone from CBD and stent placement and then cholecystectomy (07/24/21) Takes chronic Coumadin for which he was given vitamin K in preparation of surgery On empiric antibiotic therapy (Zosyn)--> GS recommending completiong of abx x10 days (transitioned to Augmentin) GI/general surgery on boardappreciate recommendations Bilirubin/LFTs--> currently downtrending (1.4/152/46). Lipase has remained normal Pain overall improved, generalized pruritus resolved with downtrending bilirubin Patient tolerating oral intake. 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 Pimentel (who manages patient's Coumadin) who is recommending holding off on Coumadin postoperatively and continuing prophylactic Lovenox (40 mg once a day). I did discuss with general surgery who is agreeable Per Dr. Pimentel, patient to remain on Lovenox and hold Coumadin until she sees him in the office next week. Prudence (patient's ) is to call early next week to make a follow-up appointment (3) Parkinson disease: Continue Sinemet and rasagiline rivastigmine patch on POD #1-- initially concerned that patient was having expressive aphasia; however, I did a thorough evaluation at the bedside and he was very slow to respond. This is likely due to his Parkinson's and only intensified with recent anesthetic and pain medication given head CT done and negative for ischemia/acute pathology. During my exam-- confirmed that he seems at baseline (just slightly more delay in his answers) (4) CAD (coronary artery disease): Typically on aspirin but currently on hold in lieu of his surgery okay to resume this upon D/C (5) Hypertension: Does not seem to take any medication for this BP elevated prior to surgery which I suspect was pain related Currently 112/62 (6) Dementia: Continue to Namenda (7) DVT prophylaxis: prophylactic lovenox as outlined above declines inpatient rehab as patient bedbound at baseline. She is familiar with doing lovenox injections and feels comfortable with this will D/C with PT/OT, visiting nurses, and ST (this is at the request of the as he has had these in the past and responded well) Home Health Attestation I certify that this patient is under my care and that I, or a physicians events administrative assistant working with me, had a face to-face encounter that meets the home health [id number]-sqru encounter requirements with this patient. The encounter with the patient was in whole, or in part, for the following medical condition, which is the primary reason for home health care (list medical condition): I certify that, based on my findings, the following services are medically necessary home health services: My clinical findings support the need for the above services because: Caregiver Instruct Med Mgmt, Safety, Disease Process, Signs to Report Home Safety Assessment Medication Fireworks Assembler Incision for Infection Skilled Nsg Assessment Skilled Nsg Assessment Surgical Incision / Wound Vital Signs Further, I certify that my clinical findings support that this patient is homebound (i.e. absences from home require considerable and taxing effort and are for medical reasons or scientology services or infrequently or of short duration when for other reasons) because: Transportation Assistance/Unable to Leave Home Unassisted Certification for Home Health Services: Based on the above findings, I certify that this patient is confined to the home and needs intermittent mcfp care, physical therapy and/or speech therapy or continues to need occupational therapy. The patient is under my care, and I have initiated the establishment of the plan of care. This patient will be followed by a physician who will periodically review the plan of care. Total Time Total Time Spent Total Time Spent (In Minutes): 45 Discharge Plan Discharge Items Patient Disposition: Home - Home Health Services Reason For Visit: ACUTE CHOLESYCTITIS Discharge Diagnosis: laparoscopic cholecystectomy Activity: Per Instructions section Activity Comment: light activity for 4 weeks Lifting: No more than 10 pounds Bathing Comment: may shower; no soaking in tubs/pools Sexual Activity: When tolerated Exercise/Sports: Wait until after follow-up appointment Exercise Comment: wait 4 weeks Driving/Machine Use: no driving while taking narcotics for pain Non-emergency contact: Primary Care Provider, Surgeon and Washer Repairman Call non-emergency contact if: you have any medication questions, your symptoms worsen, your pain is not controlled, your pain is worsening, you have a fever, your temperature is above 101.5, your wound has increased redness, your wound has increased drainage and your wound pain has increased Follow-up/Referrals: Dhaval Antunez MD, FACS [Physician] - 07/31/21 11:00 am PCP,NO [Physician] - Diet: Low Fat Addtl Attending Provider Instructions: SPECIAL CARE INSTRUCTIONS: * Cover incisions and change daily for comfort/drainage. * May use ibuprofen for pain as tolerated. * Expect some swelling and bruising. Call your doctor if: * Temperature above 101 degrees * Pain not relieved by pain medicine ordered * There is increased drainage or redness from any incision * You have any unanswered questions or concerns [phone]. FOLLOW UP VISIT: If not already scheduled, please call the office for a follow-up visit. OFFICE PHONE NUMBER: Dr. Antunez Office - HOLD COUMADIN as advised by Dr. Pimentel - you are to use Lovenox injections once a day (start this evening) until today otherwise by Dr. Pimentel. She would like you to call into the clinic early next week - Hold your Mobic for now (x2 weeks) given recent ERCP performed - complete full course of antibiotic therapy - follow up with Both GI and General surgery - return to the ED for new or worsening symptoms Pending Studies at Discharge: Yes Studies:: surgical pathology Stand-Alone Forms: My [facility] [employer] Medications and DC Order Prescriptions: New tramadol 50 mg Tablet 50 mg PO Q4H PRN (Reason: pain) Qty: 36 RF: 0 enoxaparin [Lovenox] 40 mg/0.4 mL syringe 40 mg subcut DAILY Qty: 4 RF: 0 amoxicillin-pot clavulanate [Augmentin] 875-125 mg tablet 1 tab PO BID Qty: 10 RF: 0 Continued rivastigmine 4.6 mg/24 hour patch 24 hour 1 patch transdermal DAILY@1200 RF: 0 ascorbic acid (vitamin C) 1,000 mg Tablet 1 g PO QDL RF: 0 lorazepam [Ativan] 2 mg Tablet 2 mg PO TID PRN (Reason: Anxiety) RF: 0 rasagiline 1 mg Tablet 1 mg PO DAILY RF: 0 coenzyme Q10 400 mg Capsule 400 mg PO TID RF: 0 vitamin E 400 unit capsule 400 unit PO TID RF: 0 memantine 5 mg tablet 5 mg PO BID RF: 0 acetaminophen [Tylenol Extra Strength] 500 mg Tablet 1,000 mg PO Q6H PRN (Reason: Pain) RF: 0 dutasteride [Avodart] 0.5 mg capsule 0.5 mg PO PM RF: 0 ketoconazole 2 % Shampoo 1 ea TOPICAL 3XWK RF: 0 cetirizine [Zyrtec] 10 mg Tablet 10 mg PO DAILY PRN (Reason: Congestion) RF: 0 riboflavin (vitamin B2) 100 mg Tablet 100 mg PO TID RF: 0 clobetasol 0.05 % Cream 1 applic TOPICAL DAILY PRN (Reason: Rash) RF: 0 aspirin 81 mg Tablet,Delayed Release (Dr/Ec) 81 mg PO PM RF: 0 sodium phosphates 19-7 gram/118 mL Enema 118 ml CO PM RF: 0 omeprazole 20 mg Capsule,Delayed Release(Dr/Ec) 20 mg PO DAILY PRN (Reason: Stomach Upset) RF: 0 mupirocin 2 % Ointment 1 applic TOPICAL BID PRN (Reason: OPEN AREAS ON THIGHS) RF: 0 hydrocortisone 0.5 % Ointment 1 applic TOPICAL BID PRN (Reason: ITCHINESS) RF: 0 multivitamin with minerals Tablet 1 tab PO QAM RF: 0 Dry Eye Relief 1-0.2-0.2 % Drops 2 drp OPHTHALMIC (EYE) BID PRN (Reason: Dry Eyes) RF: 0 Aloe Gervais Protectant Ointment 43 % Ointment 1 applic TOPICAL BID RF: 0 lidocaine 5 % Ointment 1 applic TOPICAL BID PRN (Reason: Pain) RF: 0 Align 4 mg capsule 4 mg PO Q2D RF: 0 polyethylene glycol 3350 [Miralax] 17 gram/dose powder 17 g PO Q2D RF: 0 Rytary 23.75-95 mg capsule, extended release 1 - 2 cap PO DIRECTED RF: 0 calcium carbonate-vitamin D3 [Calcium 600 with Vitamin D3] 600 mg(1,500mg) - 500 unit Capsule 1 cap PO QDL RF: 0 Discontinued warfarin 5 mg tablet 2.5 - 5 mg PO DAILY@1630 RF: 0 meloxicam 15 mg Tablet 15 mg PO DAILY PRN (Reason: Pain/inflammation) RF: 0 Discharge Orders: Discharge Order (Routine); Ordered 07/26/21 Ordered By: Lise Higginbotham/Other Patient Handouts: After Gallbladder Surgery, ERCP Dc Admission Data Admit Date/Time: 07/22/21 12:25 Attending Provider: Huber Hayes Admit Provider: Edgardo Bonilla Primary Care Provider: Ney Rodriguez Other Providers: Dhaval Antunez ; Thor Minaya ; [facility] Other Interventions: Discharge Summary Assessment (RN) Last Done: 07/26/21 10:05 Supervising Physician Co-Signing Physician Notes I supervised Lise Roberts PA-C on the care of this patient. I interviewed and examined the patient independently of her. The plan is as written in her note except for any following changes/exceptions: None Doing well today. Not passed gas yet or had a BM, but will defer to surgery on that. Tolerating food well and no abdominal pain. If surgery approves, will discharge. Coding Level of Care Code D/C DAY MANAGEMENT >30 MINS Diagnoses Choledocholithiasis with acute cholecystitis K80.42 Current use of ad terminal makeup operator anticoagulation Z79.01 Parkinson disease G20 CAD (coronary artery disease) I25.10 Hypertension I10 Hypertension type: essential hypertension Dementia F03.90 DVT prophylaxis Z29.9
== END 2021-07-26 14:56 | disposition home health service (06) | DRG 418 ==
LOC: ED 09:12 → SUATTDRO 12:25 → 3E 12:25
DX: Z79.01 Long term (current) use of anticoagulants; I10 Essential (primary) hypertension; I82.533 Chronic embolism and thrombosis of popliteal vein, bilateral; K80.43 Calculus of bile duct with acute cholecystitis with obstruction; F02.80 Dementia in other diseases classified elsewhere, unspecified severity, without behavioral disturbance, psychotic disturbance, mood disturbance, and anxiety; I82.513 Chronic embolism and thrombosis of femoral vein, bilateral; Z87.440 Personal history of urinary (tract) infections; G20 Parkinson's disease; Z79.82 Long term (current) use of aspirin; Z91.041 Radiographic dye allergy status; I25.10 Atherosclerotic heart disease of native coronary artery without angina pectoris

== ENCOUNTER 2021-08-01 15:28 | Inpatient (IN) ==
[2021-08-01] MEDS ORDERED: SODIUM CHLORIDE 0.9% 1000ML 1,000 ML IV SCH (15:45)
[2021-08-01] MEDS ORDERED: methylPREDNISolone 125 MG/2 ML VIAL IV STA (15:52)
[2021-08-01] MEDS ORDERED: diphenhydrAMINE 50 MG/ML VIAL IV STA (15:52)
--- NOTE | 2021-08-01 15:52 | Emergency Department Note ---
Impression & Plan Atrial fibrillation with rapid ventricular response ADMIT ED Provider Note HPI: The patient is a 80-year-old male with history of Parkinson's disease, dementia, on Coumadin for history of DVT, postoperative day #8 status post laparoscopic cholecystectomy and also an ERCP with stone removal and biliary stent placement during that admission, presents the emergency department with decreased mentation for about the past week. 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 Patient's later arrived at the bedside and provided further history, she states that the patient has been more diminished from the standpoint of his to mentation recently, he is only been answering questions with nodding his head or mumbling yes or no, this is not typical for him as he usually is able to speak and respond to questions with full sentences. He has not had any nausea or vomiting, he has not had any diarrhea. He does arrive with [address] to the mid abdomen where he had his previous surgery without any surrounding erythema, his abdomen is nondistended, nontender to palpation, soft. Patient is tachycardic on arrival and it does appear to be irregular in the 130s, he does not have any documented history of atrial fibrillation. He is saturating well on room air on arrival, he is afebrile. ROS: -Cardio: Tachycardia/atrial fibrillation that is new onset with RVR -Neuro: Diminished mentation at home over the past several days *10 point review systems was conducted and is otherwise negative unless stated above *Outpatient medications and allergy history reviewed PE: General: Listless appearing, alert to verbal stimuli HEENT: Normocephalic, atraumatic, trachea midline Eyes: Extraocular eye movement is intact, no scleral erythema Pulmonary: Clear to auscultation bilaterally, no wheezing Cardio: Tachycardic rate with a regular rhythm GI: Abdomen is soft, nontender, nondistended, surgical drains in place with bulbs removed, no surrounding erythema or drainage from the surgical wounds status post cholecystectomy : No suprapubic tenderness MSK: No evidence of trauma or malformation of the extremities, no edema Skin: No evidence of rash Neuro: Alert to verbal stimuli, no focal deficits Psychiatric: Baseline Parkinson disease, 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 Septic work-up was initiated, blood cultures were drawn in the ED, patient does have a leukocytosis of 13, he has had this on and off over the past several weeks and post surgery. He does not have a fever here in the ED, COVID-19 testing was performed and is negative. CT imaging of the head does not show any evidence of an acute intracranial process, CT angiography of the chest does not show any evidence of pulmonary embolism, CT imaging of the abdomen and pelvis shows what appears to be postsurgical fluid collections near the gallbladder fossa, cannot rule out possible bile leak however the patient does not have any abdominal tenderness, he has not had any nausea or vomiting, his lab work from the standpoint of LFTs and bilirubin are reassuring at this point compared to previous. Patient was given a dose of diltiazem here in the ED via bolus, his heart rate did eventually downtrend after dose also of IV metoprolol, he developed a rash to the right upper extremity after a dose of diltiazem and therefore drip was canceled. With a bolus of diltiazem and an IV dose of metoprolol the patient's heart rate did downtrend into the low 100s. His blood pressure remained stable throughout. I suspect this may be new onset atrial fibrillation in the absence of infection although we will follow-up on blood cultures, urinalysis does not show evidence of infection, CT imaging of the chest does not show any evidence of pneumonia, CT imaging of the abdomen and pelvis shows postsurgical changes but no abscess or obvious infection. I discussed the above findings with the patient and his at the bedside. He will be admitted for new onset atrial fibrillation. Case was discussed with the on-call hospitalist, Dr. Danielle, patient was admitted in [facility]. * Diagnosis: New onset atrial fibrillation with RVR * Disposition: Admission * CRITICAL CARE TIME: 45 min -Stabilization of tachyarrhythmia requiring IV medications for rate control, time spent at the bedside in discussion with family, interpretation of d iagnostic studies, discussion with other healthcare providers and arrangement of admission Jayesh Nolasco DO Emergency Medicine Past Med/Surg History Medical History (Updated 08/01/21 @ 23:28 by Jayesh Nolasco DO) Acute DVT (deep venous thrombosis) CAD (coronary artery disease) Hypercholesterolemia Hypertension Leg weakness, bilateral Parkinson disease Urinary symptom or sign UTI (urinary tract infection) Surgical History (Updated 07/25/21 @ 13:50 by Dhaval Antunez MD, FACS) S/P appendectomy S/P ERCP (07/24/21) ERCP with gallstone extraction and biliary stent placement. Dr. Mcghee 07/24/2021 S/P laparoscopic cholecystectomy (07/24/21) Laparoscopic cholecystectomy. Dr. Antunez 07/24/2021 S/P tonsillectomy Family History Other No significant family history Social History Smoking Status: Unknown if ever smoked Hx Alcohol Use: Yes Hx Substance Use: No Preferred Language: Palestinian Communication Ability: Effective Color Finisher Required: No Beliefs That Will Affect Care: None marital status: Current Living Situation: Spouse Feels Safe at Home: No Is there a partner from a previous relationship who is making you feel unsafe now?: No Assistive Devices: Glasses Allergies Allergies Allergy/AdvReac Type Severity Reaction Status Date / Time iodine Allergy Severe ITCHING Verified 08/01/21 20:17 AND DISCOMFORT Iodinated Contrast Media Allergy Intermediate Rash Verified 08/01/21 20:17 Home Meds Home Medications Medication Instructions Recorded Confirmed ascorbic acid (vitamin C) 1,000 mg 1 g PO QDL 05/26/18 08/01/21 tablet coenzyme Q10 400 mg capsule 400 mg PO TID 05/26/18 08/01/21 lorazepam 2 mg tablet (Ativan) 2 mg PO TID PRN 05/26/18 08/01/21 rasagiline 1 mg tablet 1 mg PO DAILY 05/26/18 08/01/21 vitamin E 400 unit capsule 400 unit PO TID cap 07/03/19 08/01/21 memantine 5 mg tablet 5 mg PO BID 05/04/20 08/01/21 aspirin 81 mg tablet,delayed 81 mg PO PM 02/25/21 08/01/21 release cetirizine 10 mg tablet (Zyrtec) 10 mg PO DAILY PRN 02/25/21 08/01/21 clobetasol 0.05 % topical cream 1 applic TOPICAL DAILY PRN 02/25/21 08/01/21 hydrocortisone 0.5 % topical 1 applic TOPICAL BID PRN 02/25/21 08/01/21 ointment ketoconazole 2 % shampoo 1 ea TOPICAL 3XWK 02/25/21 08/01/21 lidocaine 5 % topical ointment 1 applic TOPICAL BID PRN 02/25/21 08/01/21 multivitamin with minerals 1 tab PO QAM 02/25/21 08/01/21 mupirocin 2 % topical ointment 1 applic TOPICAL BID PRN 02/25/21 08/01/21 omeprazole 20 mg capsule,delayed 20 mg PO DAILY PRN 02/25/21 08/01/21 release peg [id number] 1 2 drp OPHTHALMIC (EYE) BID PRN 02/25/21 08/01/21 %-0.2 %-0.2 % eye drops (Dry Eye Relief) riboflavin (vitamin B2) 100 mg 100 mg PO TID 02/25/21 08/01/21 tablet sodium phosphates 19 gram-7 118 ml ID PM 02/25/21 08/01/21 gram/118 mL enema white petrolatum 43 % topical 1 applic TOPICAL BID 02/25/21 08/01/21 ointment (Aloe [place] Protectant Ointment) rivastigmine 1 patch TRANSDERMAL DAILY@1200 05/01/21 08/01/21 calcium carbonate 600 mg (1,500 1 cap PO QDL 05/10/21 08/01/21 mg)-vitamin D3 500 unit capsule (Calcium 600 with Vitamin D3) Bifidobacterium infantis 4 mg 4 mg PO Q2D cap 05/23/21 08/01/21 capsule (Align) polyethylene glycol 3350 17 17 g PO Q2D g 05/23/21 08/01/21 gram/dose oral powder (Miralax) acetaminophen 500 mg tablet 1,000 mg PO Q6H PRN 07/22/21 08/01/21 (Tylenol Extra Strength) dutasteride 0.5 mg capsule 0.5 mg PO PM 07/22/21 08/01/21 (Avodart) carbidopa ER 23.75 mg-levodopa 95 1 cap PO HS 08/01/21 08/01/21 mg capsule,extended release (Rytary) carbidopa ER 23.75 mg-levodopa 95 2 cap PO TID 08/01/21 08/01/21 mg capsule,extended release (Rytary) Previous Rx's Medication Instructions Recorded tramadol 50 mg tablet 50 mg PO Q4H PRN #36 tab 07/26/21 enoxaparin 40 mg/0.4 mL 40 mg SUBCUT DAILY #10 syr 08/01/21 subcutaneous syringe (Lovenox) Results & Data (ED) Vital Signs Vital Signs - 24 hr 08/01/21 15:47 08/01/21 16:00 08/01/21 16:15 Temperature 37 C Temperature Source Oral Pulse Rate 143 H Pulse Rate [Apical] Pulse Rhythm Regular Pulse Rhythm [Apical] Pulse Strength [Apical] Respiratory Rate 22 Respiratory Effort / Characteristics Non-Labored Spontaneous Respiratory Depth Normal Blood Pressure 102/84 Blood Pressure [Right Arm] Blood Pressure Mean 90 Blood Pressure Mean [Right Arm] Blood Pressure Position Lying Blood Pressure Position [Right Arm] Pulse Oximetry 96 Oxygen Delivery Method Room Air Room Air Room Air Sepsis Recent Fever Within 48 Hours Yes Sepsis New/Unexplained Change in Mental Status No Sepsis Action Taken by Nursing No Action Required 08/01/21 18:45 08/01/21 18:54 08/01/21 21:45 Temperature Temperature Source Pulse Rate 136 H Pulse Rate [Apical] 130 H Pulse Rhythm Pulse Rhythm [Apical] Pulse Strength [Apical] Respiratory Rate 18 Respiratory Effort / Characteristics Non-Labored Respiratory Depth Normal Blood Pressure 112/89 Blood Pressure [Right Arm] 102/84 Blood Pressure Mean Blood Pressure Mean [Right Arm] 90 Blood Pressure Position Blood Pressure Position [Right Arm] Pulse Oximetry 98 Oxygen Delivery Method Room Air Room Air Sepsis Recent Fever Within 48 Hours Sepsis New/Unexplained Change in Mental Status Sepsis Action Taken by Nursing 08/01/21 22:46 Temperature Temperature Source Pulse Rate Pulse Rate [Apical] 112 H Pulse Rhythm Pulse Rhythm [Apical] Irregular Pulse Strength [Apical] Normal Respiratory Rate 16 Respiratory Effort / Characteristics Non-Labored Respiratory Depth Normal Blood Pressure Blood Pressure [Right Arm] 119/88 Blood Pressure Mean Blood Pressure Mean [Right Arm] 98 Blood Pressure Position Blood Pressure Position [Right Arm] Semi-fowlers Pulse Oximetry 96 Oxygen Delivery Method Room Air Sepsis Recent Fever Within 48 Hours Sepsis New/Unexplained Change in Mental Status Sepsis Action Taken by Nursing Laboratory Data Result diagrams: 08/01/21 16:19 08/01/21 16:19 Lab Results 08/01/21 08/01/21 08/01/21 Range/Units 16:19 16:19 16:19 WBC 13.08 H (4.8-10.8) K/uL RBC 4.52 L (4.7-6.1) M/uL Hgb 14.2 (14.0-18.0) g/dL Hct 42.5 (42-52) % MCV 94.0 (80-100) fL MCH 31.4 (25-34) pg MCHC 33.4 (32-36) g/dL RDW Std Deviation 54.2 H (36.4-46.3) fL RDW Coeff of Patience 15.8 H (11.5-14.5) % Plt Count 308 (130-400) K/uL MPV 10.6 H (7.4-10.4) fL Immature Gran % (Auto) 0.4 % Neut % (Auto) 75.5 % Lymph % (Auto) 11.9 % [place] % (Auto) 7.3 % Eos % (Auto) 4.4 % Baso % (Auto) 0.5 % Neut # (Auto) 9.88 H (1.4-6.5) K/uL Lymph # (Auto) 1.55 (1.2-3.4) K/uL [place] # (Auto) 0.96 H (0.11-0.59) K/uL Eos # (Auto) 0.58 H (0-0.5) K/uL Baso # (Auto) 0.06 (0-0.2) K/uL Immature Gran # (Auto) 0.05 H (0.00-0.02) K/uL PT (9.0-12.0) Seconds INR (0.9-1.1) APTT (21.0-31.0) Seconds PTT Ratio Sodium 142 (136-145) mmol/L Potassium 4.2 (3.5-5.1) mmol/L Chloride 111 H (98-107) mmol/L Carbon Dioxide 24 (21-32) mmol/L Anion Gap 7.0 (3-11) BUN 18 (7-18) mg/dl Creatinine 1.09 (0.6-1.4) mg/dl Est Cr Clr Drug Dosing 61.3 ml/min Est GFR ( Amer) 75.0 ml/min Est GFR (Non-Af Amer) 64.7 ml/min BUN/Creatinine Ratio 16.5 (10-20) Glucose 110 H (70-99) mg/dl Lactate (0.4-2.0) mmol/L Calcium 9.4 (8.5-10.1) mg/dl Magnesium 2.4 (1.8-2.4) mg/dl Total Bilirubin 0.8 (0.2-1) mg/dl AST 28 (15-37) U/L ALT 42 (12-78) U/L Alkaline Phosphatase 229 H (45-117) U/L Troponin I < 0.015 (0-0.045) ng/ml NT-Pro-B Natriuret Pep 2031 H (0-1800) pg/ml Total Protein 7.5 (6.4-8.2) gm/dl Albumin 2.6 L (3.4-5.0) gm/dl Globulin 4.9 H (2.5-4.0) gm/dl Albumin/Globulin Ratio 0.5 L (0.9-2) Procalcitonin 0.06 (0-0.5) ng/ml Urine Color Urine Appearance (Clear) Urine pH (4.5-7.5) Ur Specific [place] (1.000-1.030) Urine Protein (Negative) Urine Glucose (UA) (Negative) Urine Ketones (Negative) Urine Blood (Negative) Urine Nitrite (Negative) Urine Bilirubin (Negative) Urine Urobilinogen (Negative) Ur Leukocyte Esterase (Negative) SARS-CoV-2 (PCR) (Negative) 08/01/21 08/01/21 08/01/21 Range/Units 16:19 16:19 20:45 WBC (4.8-10.8) K/uL RBC (4.7-6.1) M/uL Hgb (14.0-18.0) g/dL Hct (42-52) % MCV (80-100) fL MCH (25-34) pg MCHC (32-36) g/dL RDW Std Deviation (36.4-46.3) fL RDW Coeff of Patience (11.5-14.5) % Plt Count (130-400) K/uL MPV (7.4-10.4) fL Immature Gran % (Auto) % Neut % (Auto) % Lymph % (Auto) % [place] % (Auto) % Eos % (Auto) % Baso % (Auto) % Neut # (Auto) (1.4-6.5) K/uL Lymph # (Auto) (1.2-3.4) K/uL [place] # (Auto) (0.11-0.59) K/uL Eos # (Auto) (0-0.5) K/uL Baso # (Auto) (0-0.2) K/uL Immature Gran # (Auto) (0.00-0.02) K/uL PT 11.6 (9.0-12.0) Seconds INR 1.2 H (0.9-1.1) APTT 34.5 H (21.0-31.0) Seconds PTT Ratio 1.3 Sodium (136-145) mmol/L Potassium (3.5-5.1) mmol/L Chloride (98-107) mmol/L Carbon Dioxide (21-32) mmol/L Anion Gap (3-11) BUN (7-18) mg/dl Creatinine (0.6-1.4) mg/dl Est Cr Clr Drug Dosing ml/min Est GFR ( Amer) ml/min Est GFR (Non-Af Amer) ml/min BUN/Creatinine Ratio (10-20) Glucose (70-99) mg/dl Lactate 1.1 (0.4-2.0) mmol/L Calcium (8.5-10.1) mg/dl Magnesium (1.8-2.4) mg/dl Total Bilirubin (0.2-1) mg/dl AST (15-37) U/L ALT (12-78) U/L Alkaline Phosphatase (45-117) U/L Troponin I (0-0.045) ng/ml NT-Pro-B Natriuret Pep (0-1800) pg/ml Total Protein (6.4-8.2) gm/dl Albumin (3.4-5.0) gm/dl Globulin (2.5-4.0) gm/dl Albumin/Globulin Ratio (0.9-2) Procalcitonin (0-0.5) ng/ml Urine Color Urine Appearance (Clear) Urine pH (4.5-7.5) Ur Specific [place] (1.000-1.030) Urine Protein (Negative) Urine Glucose (UA) (Negative) Urine Ketones (Negative) Urine Blood (Negative) Urine Nitrite (Negative) Urine Bilirubin (Negative) Urine Urobilinogen (Negative) Ur Leukocyte Esterase (Negative) SARS-CoV-2 (PCR) NEGATIVE (Negative) 08/01/21 Range/Units Unknown WBC (4.8-10.8) K/uL RBC (4.7-6.1) M/uL Hgb (14.0-18.0) g/dL Hct (42-52) % MCV (80-100) fL MCH (25-34) pg MCHC (32-36) g/dL RDW Std Deviation (36.4-46.3) fL RDW Coeff of Patience (11.5-14.5) % Plt Count (130-400) K/uL MPV (7.4-10.4) fL Immature Gran % (Auto) % Neut % (Auto) % Lymph % (Auto) % [place] % (Auto) % Eos % (Auto) % Baso % (Auto) % Neut # (Auto) (1.4-6.5) K/uL Lymph # (Auto) (1.2-3.4) K/uL [place] # (Auto) (0.11-0.59) K/uL Eos # (Auto) (0-0.5) K/uL Baso # (Auto) (0-0.2) K/uL Immature Gran # (Auto) (0.00-0.02) K/uL PT (9.0-12.0) Seconds INR (0.9-1.1) APTT (21.0-31.0) Seconds PTT Ratio Sodium (136-145) mmol/L Potassium (3.5-5.1) mmol/L Chloride (98-107) mmol/L Carbon Dioxide (21-32) mmol/L Anion Gap (3-11) BUN (7-18) mg/dl Creatinine (0.6-1.4) mg/dl Est Cr Clr Drug Dosing ml/min Est GFR ( Amer) ml/min Est GFR (Non-Af Amer) ml/min BUN/Creatinine Ratio (10-20) Glucose (70-99) mg/dl Lactate (0.4-2.0) mmol/L Calcium (8.5-10.1) mg/dl Magnesium (1.8-2.4) mg/dl Total Bilirubin (0.2-1) mg/dl AST (15-37) U/L ALT (12-78) U/L Alkaline Phosphatase (45-117) U/L Troponin I (0-0.045) ng/ml NT-Pro-B Natriuret Pep (0-1800) pg/ml Total Protein (6.4-8.2) gm/dl Albumin (3.4-5.0) gm/dl Globulin (2.5-4.0) gm/dl Albumin/Globulin Ratio (0.9-2) Procalcitonin (0-0.5) ng/ml Urine Color Dark Yellow Urine Appearance Clear (Clear) Urine pH 5.5 (4.5-7.5) Ur Specific [place] 1.024 (1.000-1.030) Urine Protein Negative (Negative) Urine Glucose (UA) Negative (Negative) Urine Ketones 1+ H (Negative) Urine Blood Negative (Negative) Urine Nitrite Negative (Negative) Urine Bilirubin Negative (Negative) Urine Urobilinogen Negative (Negative) Ur Leukocyte Esterase Negative (Negative) SARS-CoV-2 (PCR) (Negative) Administered Medications Discontinued Medications Diltiazem HCl (Diltiazem Hcl 5 Mg/Ml 5 Ml Vial) 15 mg IV NOW STA Stop: 08/01/21 21:13 Last Admin: 08/01/21 21:28 Dose: 15 mg Documented by: [id number] Cosigned by: [id number] Diphenhydramine HCl (Diphenhydramine 50 Mg/Ml Vial) 25 mg IV NOW STA Stop: 08/01/21 15:53 Last Admin: 08/01/21 16:19 Dose: 25 mg Documented by: [id number] Diphenhydramine HCl (Diphenhydramine 50 Mg/Ml Vial) Confirm Administered Dose 50 mg .ROUTE .STK-MED ONE Stop: 08/01/21 21:37 Last Admin: 08/01/21 21:45 Dose: 25 mg Documented by: [id number] Sodium Chloride (Nss 1000ml) 1,000 mls @ 999 mls/hr IV .Q1H1M ISELA Stop: 08/01/21 16:45 Last Infusion: 08/01/21 18:20 Dose: 0 mls/hr Documented by: [id number] Admin: 08/01/21 16:21 Dose: 999 mls/hr Documented by: [id number] Ioversol (Optiray 320 125ml) 120 ml IV ONCE ONE Stop: 08/01/21 19:29 Last Admin: 08/01/21 19:28 Dose: 120 ml Documented by: [id number] Methylprednisolone (Methylprednisolone 125 Mg/2 Ml Vial) 125 mg IV NOW STA Stop: 08/01/21 15:53 Last Admin: 08/01/21 16:19 Dose: 125 mg Documented by: [id number] Metoprolol Tartrate (Metoprolol Tartrate 1 Mg/Ml Vial) 5 mg IV NOW STA Stop: 08/01/21 21:41 Last Admin: 08/01/21 21:45 Dose: 5 mg Documented by: [id number] Imaging Data Radiologist's Impression: Chest X-Ray 08/01/21 15:45 SINGLE VIEW CHEST CLINICAL HISTORY: Sepsis. FINDINGS: An AP, portable, upright chest radiograph is compared to study dated 07/22/2021. The examination is degraded by portable technique and patient rotation. The patient's head obscuring the apices. The heart is enlarged noting atherosclerotic calcification of the thoracic aorta. There is prominence of the pulmonary vasculature. The mitral annulus is densely calcified. There are small pleural effusions with bibasilar atelectasis. No pneumothorax is seen. The skeletal structures are osteopenic. The bony thorax is grossly intact. IMPRESSION: 1. Cardiomegaly with prominence of the pulmonary vasculature. Correlate clinically for evidence of mild congestive failure. 2. Small pleural effusions with bibasilar atelectasis. ACT 112: Negative or not required by law. Electronically signed by: Parviz Jaimes M.D. 08/01/2021 4:45 PM Chest CTA 08/01/21 15:46 CHEST CTA for PULMONARY ARTERIES CT DOSE: HISTORY: Shortness of breath. Sepsis. TECHNIQUE: Multiaxial CT images of the chest were performed following the intravenous administration of contrast to evaluate the pulmonary arteries. Maximal intensity projection images were also obtained. A dose lowering technique was utilized adhering to the principles of ALARA. COMPARISON STUDY: None. FINDINGS: Please refer to the same day abdomen and pelvis CT for further evaluation of the abdominal structures. There are small bilateral pleural effusions. The heart is mildly enlarged. No pericardial effusion. Normal esophagus. No mediastinal or hilar lymphadenopathy. Dense mitral annulus calcifications are noted. Normal caliber thoracic aorta. No definite dissection. However, there is suboptimal opacification of the aorta resulting in near nondiagnostic evaluation for an aortic dissection. Nondiagnostic evaluation of the bilateral subsegmental pulmonary arteries and right lung subsegmental pulmonary arteries due to the motion artifact. Otherwise, no filling defects within the remaining pulmonary arteries to suggest a pulmonary embolus. No fractures within the visualized osseous structures. No pneumothorax. The central airways appear patent. There is interlobular septal thickening consistent with mild pulmonary edema. Suboptimal assessment of the lungs due to the respiratory motion. Consolidative opacities within the bilateral lower lobes posteriorly are nonspecific but favor compressive atelectasis from the pleural effusions. IMPRESSION: 1. No evidence for pulmonary embolus with limitations as described above. 2. Mild interstitial pulmonary edema with small bilateral pleural effusions and mild cardiomegaly. 3. Consolidative opacities within the bilateral lower lobes posteriorly are nonspecific but favor compressive atelectasis from the pleural effusions. ACT 112: Negative or not required by law. Electronically signed by: Arpan Collado M.D. 08/01/2021 7:[address] 08/01/21 15:[address] DOSE: HISTORY: Altered mental status. TECHNIQUE: Multiaxial CT images of the head were performed without the use of intravenous contrast. Automated exposure control was utilized for this study. A dose lowering technique was utilized adhering to the principles of ALARA. Comparison: Head CT 07/25/2021. Findings: The paranasal sinuses and mastoid air cells are clear. The calvarium and skull base are intact. There is no mass, hematoma, midline shift, acute infarct. White matter hypodensity is nonspecific but suggestive of microvascular ischemic change. The ventricles and sulci demonstrate mild age-related involutional changes. Motion artifact. Impression: Motion artifact. No definite acute intracranial abnormality. ACT 112: Negative or not required by law. Electronically signed by: Arpan Collado M.D. 08/01/2021 8:06 PM Abdomen/Pelvis CT 08/01/21 15:[address] WITH IV CONTRAST CT DOSE: 3083.07 mGy.cm HISTORY: AMS, recent cholecystectomy, eval for fluid collection. Generalized abdominal pain. TECHNIQUE: Multiaxial CT images of the abdomen and pelvis were performed following the use of intravenous contrast. A dose lowering technique was utilized adhering to the principles of ALARA. COMPARISON STUDY: Abdomen and pelvis CT 10/23/2018. FINDINGS: Small bilateral pleural effusions are again noted. These are better appreciated on the same day chest CTA. No pneumoperitoneum. No pneumatosis. No suspicious lytic or blastic osseous lesions. There is a surgical drain within the supraumbilical subcutaneous fat. There is mild body wall edema. Evidence for prior bilateral inguinal hernia repairs. There is a high riding right testis within the distal right inguinal canal. Mild presacral edema. Interval cholecystectomy. There is trace fluid at the gallbladder fossa and anterior to the liver. A common bile duct stent appears in good position. This likely accounts for the small amount of pneumobilia. The main portal vein is patent. The pancreas, spleen, and adrenal glands are unremarkable. No hepatic masses identified. No retroperitoneal lymphadenopathy. Normal caliber abdominal aorta. No hydronephrosis. Mild bladder wall thickening with a small right-sided bladder diverticulum. This remains unchanged and is likely chronic. Moderate to large amount well-formed stool within the colon and rectum. No bowel wall thickening or obstruction. IMPRESSION: 1. Interval cholecystectomy. There is trace fluid at the gallbladder fossa and anterior to the liver. This is nonspecific but likely related to recent postoperative change. A bile leak is considered less likely but cannot be excluded by imaging alone. 2. A common bile duct stent appears in good position and likely accounts for the small amount of pneumobilia. 3. Small bilateral pleural effusions and mild body wall edema. 4. High riding right testis. This may be positional. 5. Moderate to large amount well-formed stool seen throughout the colon. 6. No bowel wall thickening or obstruction. 7. Additional findings as described above. ACT 112: Negative or not required by law. Electronically signed by: Arpan Collado M.D. 08/01/2021 7:56 PM Discharge Plan Visit Data Chief Complaint: Altered Mental Status Stated Complaint: AMS ED Provider: Jayesh Nolasco Discharge Problem: Atrial fibrillation with rapid ventricular response Forms Stand Alone Forms: [facility] Prescriptions Prescriptions: No Action rivastigmine 4.6 mg/24 hour patch 24 hour 1 patch transdermal DAILY@1200 RF: 0 enoxaparin [Lovenox] 40 mg/0.4 mL syringe 40 mg subcut DAILY Qty: 10 RF: 1 ascorbic acid (vitamin C) 1,000 mg Tablet 1 g PO QDL RF: 0 lorazepam [Ativan] 2 mg Tablet 2 mg PO TID PRN (Reason: Anxiety) RF: 0 rasagiline 1 mg Tablet 1 mg PO DAILY RF: 0 coenzyme Q10 400 mg Capsule 400 mg PO TID RF: 0 vitamin E 400 unit capsule 400 unit PO TID RF: 0 memantine 5 mg tablet 5 mg PO BID RF: 0 acetaminophen [Tylenol Extra Strength] 500 mg Tablet 1,000 mg PO Q6H PRN (Reason: Pain) RF: 0 dutasteride [Avodart] 0.5 mg capsule 0.5 mg PO PM RF: 0 tramadol 50 mg Tablet 50 mg PO Q4H PRN (Reason: pain) Qty: 36 RF: 0 ketoconazole 2 % Shampoo 1 ea TOPICAL 3XWK RF: 0 cetirizine [Zyrtec] 10 mg Tablet 10 mg PO DAILY PRN (Reason: Congestion) RF: 0 riboflavin (vitamin B2) 100 mg Tablet 100 mg PO TID RF: 0 clobetasol 0.05 % Cream 1 applic TOPICAL DAILY PRN (Reason: Rash) RF: 0 aspirin 81 mg Tablet,Delayed Release (Dr/Ec) 81 mg PO PM RF: 0 sodium phosphates 19-7 gram/118 mL Enema 118 ml ID PM RF: 0 omeprazole 20 mg Capsule,Delayed Release(Dr/Ec) 20 mg PO DAILY PRN (Reason: Stomach Upset) RF: 0 mupirocin 2 % Ointment 1 applic TOPICAL BID PRN (Reason: OPEN AREAS ON THIGHS) RF: 0 hydrocortisone 0.5 % Ointment 1 applic TOPICAL BID PRN (Reason: ITCHINESS) RF: 0 multivitamin with minerals Tablet 1 tab PO QAM RF: 0 Dry Eye Relief 1-0.2-0.2 % Drops 2 drp OPHTHALMIC (EYE) BID PRN (Reason: Dry Eyes) RF: 0 Aloe [place] Protectant Ointment 43 % Ointment 1 applic TOPICAL BID RF: 0 lidocaine 5 % Ointment 1 applic TOPICAL BID PRN (Reason: Pain) RF: 0 Align 4 mg capsule 4 mg PO Q2D RF: 0 polyethylene glycol 3350 [Miralax] 17 gram/dose powder 17 g PO Q2D RF: 0 calcium carbonate-vitamin D3 [Calcium 600 with Vitamin D3] 600 mg(1,500mg) - 500 unit Capsule 1 cap PO QDL RF: 0 Rytary 23.75-95 mg capsule, extended release 2 cap PO TID RF: 0 Rytary 23.75-95 mg capsule, extended release 1 cap PO HS RF: 0 Referrals Referrals: Ney Rodriguez MD [Primary Care Provider] -
[2021-08-01 16:41] LABS: Basophils # (auto) 0.06 K/uL (0-0.2); Basophils % (auto) 0.5 %; Eosinophils # (auto) 0.58 K/uL (0-0.5); Eosinophils % (auto) 4.4 %; Hematocrit (blood only) 42.5 % (42-52); Hemoglobin 14.2 g/dL (14.0-18.0); Immature Granulocytes # (auto) 0.05 K/uL (0.00-0.02); Immature Granulocytes % (auto) 0.4 %; Lymphocytes # (auto) 1.55 K/uL (1.2-3.4); Lymphocytes % (auto) 11.9 %; Mean Corpuscular Hemoglobin 31.4 pg (25-34); Mean Corpuscular Hgb Conc 33.4 g/dL (32-36); Mean Platelet Volume 10.6 fL (7.4-10.4); Monocytes # (auto) 0.96 K/uL (0.11-0.59); Monocytes % (auto) 7.3 %; Neutrophils # (auto) 9.88 K/uL (1.4-6.5); Neutrophils % (auto) 75.5 %; Platelet Count 308 K/uL (130-400); RDW Coefficient of Variation 15.8 % (11.5-14.5); RDW Standard Deviation 54.2 fL (36.4-46.3); Red Blood Count 4.52 M/uL (4.7-6.1); White Blood Count 13.08 K/uL (4.8-10.8)
--- NOTE | 2021-08-01 16:46 | XRay Report ---
SINGLE VIEW CHEST CLINICAL HISTORY: Sepsis. FINDINGS: An AP, portable, upright chest radiograph is compared to study dated 07/22/2021. The examin ation is degraded by portable technique and patient rotation. The patient's head obscuring the apices . The heart is enlarged noting atherosclerotic calcification of the thoracic aorta. There is prominen ce of the pulmonary vasculature. The mitral annulus is densely calcified. There are small pleural eff usions with bibasilar atelectasis. No pneumothorax is seen. The skeletal structures are osteopenic. T he bony thorax is grossly intact. IMPRESSION: 1. Cardiomegaly with prominence of the pulmonary vasculature. Correlate clinically for evidence of mi ld congestive failure. 2. Small pleural effusions with bibasilar atelectasis. ACT 112: Negative or not required by law. Electronically signed by: Parviz Jaimes M.D. 08/01/2021 4:45 PM
[2021-08-01 16:56] LABS: INR 1.2 (0.9-1.1); Partial Thromboplastin Ratio 1.3; Partial Thromboplastin Time 34.5 Seconds (21.0-31.0); Prothrombin Time 11.6 Seconds (9.0-12.0)
[2021-08-01 17:04] LABS: Albumin Level 2.6 gm/dl (3.4-5.0); BUN Creatinine Ratio 16.5 (10-20); Blood Urea Nitrogen 18 mg/dl (7-18); Calcium 9.4 mg/dl (8.5-10.1); Carbon Dioxide 24 mmol/L (21-32); Chloride 111 mmol/L (98-107); Creatinine Clr Calc Pharmacy 61.3 ml/min; Est GFR (Non-African American) 64.7 ml/min; Glucose 110 mg/dl (70-99); Magnesium 2.4 mg/dl (1.8-2.4); Potassium 4.2 mmol/L (3.5-5.1); Sodium 142 mmol/L (136-145)
[2021-08-01 17:05] LABS: Alanine Aminotransferase 42 U/L (12-78); Aspartate Aminotransferase 28 U/L (15-37)
[2021-08-01 17:15] LABS: Albumin Globulin Ratio 0.5 (0.9-2); Alkaline Phosphatase 229 U/L (45-117); Bilirubin,Total 0.8 mg/dl (0.2-1); Globulin 4.9 gm/dl (2.5-4.0); NT Pro B Type Natriuretic Pept 2031 pg/ml (0-1800); Total Protein 7.5 gm/dl (6.4-8.2); Troponin I < 0.015 ng/ml (0-0.045)
[2021-08-01] MEDS ORDERED: OPTIRAY 320 125ml IV ONE (19:28)
--- NOTE | 2021-08-01 19:50 | CT Scan Report ---
CHEST CTA for PULMONARY ARTERIES CT DOSE: HISTORY: Shortness of breath. Sepsis. TECHNIQUE: Multiaxial CT images of the chest were performed following the intravenous administration of contrast to evaluate the pulmonary arteries. Maximal intensity projection images were also obtaine d. A dose lowering technique was utilized adhering to the principles of ALARA. COMPARISON STUDY: None. FINDINGS: Please refer to the same day abdomen and pelvis CT for further evaluation of the abdominal structures. There are small bilateral pleural effusions. The heart is mildly enlarged. No pericardial effusion. Normal esophagus. No mediastinal or hilar lymphadenopathy. Dense mitral annulus calcificat ions are noted. Normal caliber thoracic aorta. No definite dissection. However, there is suboptimal o pacification of the aorta resulting in near nondiagnostic evaluation for an aortic dissection. Nondia gnostic evaluation of the bilateral subsegmental pulmonary arteries and right lung subsegmental pulmo nary arteries due to the motion artifact. Otherwise, no filling defects within the remaining pulmonar y arteries to suggest a pulmonary embolus. No fractures within the visualized osseous structures. No pneumothorax. The central airways appear patent. There is interlobular septal thickening consistent w ith mild pulmonary edema. Suboptimal assessment of the lungs due to the respiratory motion. Consolida tive opacities within the bilateral lower lobes posteriorly are nonspecific but favor compressive ate lectasis from the pleural effusions. IMPRESSION: 1. No evidence for pulmonary embolus with limitations as described above. 2. Mild interstitial pulmonary edema with small bilateral pleural effusions and mild cardiomegaly. 3. Consolidative opacities within the bilateral lower lobes posteriorly are nonspecific but favor com pressive atelectasis from the pleural effusions. ACT 112: Negative or not required by law. Electronically signed by: Arpan Collado M.D. 08/01/2021 7:49 PM
--- NOTE | 2021-08-01 19:58 | CT Scan Report ---
ABDOMEN AND PELVIS CT WITH IV CONTRAST CT DOSE: 3083.07 mGy.cm HISTORY: AMS, recent cholecystectomy, eval for fluid collection. Generalized abdominal pain. TECHNIQUE: Multiaxial CT images of the abdomen and pelvis were performed following the use of intrave nous contrast. A dose lowering technique was utilized adhering to the principles of ALARA. COMPARISON STUDY: Abdomen and pelvis CT 10/23/2018. FINDINGS: Small bilateral pleural effusions are again noted. These are better appreciated on the same day chest CTA. No pneumoperitoneum. No pneumatosis. No suspicious lytic or blastic osseous lesions. There is a surgical drain within the supraumbilical subcutaneous fat. There is mild body wall edema. Evidence for prior bilateral inguinal hernia repairs. There is a high riding right testis within the distal right inguinal canal. Mild presacral edema. Interval cholecystectomy. There is trace fluid at the gallbladder fossa and anterior to the liver. A common bile duct stent appears in good position. T his likely accounts for the small amount of pneumobilia. The main portal vein is patent. The pancreas , spleen, and adrenal glands are unremarkable. No hepatic masses identified. No retroperitoneal lymph adenopathy. Normal caliber abdominal aorta. No hydronephrosis. Mild bladder wall thickening with a sm all right-sided bladder diverticulum. This remains unchanged and is likely chronic. Moderate to large amount well-formed stool within the colon and rectum. No bowel wall thickening or obstruction. IMPRESSION: 1. Interval cholecystectomy. There is trace fluid at the gallbladder fossa and anterior to the liver. This is nonspecific but likely related to recent postoperative change. A bile leak is considered les s likely but cannot be excluded by imaging alone. 2. A common bile duct stent appears in good position and likely accounts for the small amount of pneu mobilia. 3. Small bilateral pleural effusions and mild body wall edema. 4. High riding right testis. This may be positional. 5. Moderate to large amount well-formed stool seen throughout the colon. 6. No bowel wall thickening or obstruction. 7. Additional findings as described above. ACT 112: Negative or not required by law. Electronically signed by: Arpan Collado M.D. 08/01/2021 7:56 PM
[2021-08-01 20:03] LABS: Appearance Urine Clear (Clear); Bilirubin Urine Negative (Negative); Blood Urine Negative (Negative); Color Urine Dark Yellow; Glucose Urine UA Negative (Negative); Ketones Urine 1+ (Negative); Leukocyte Esterase Urine Negative (Negative); Nitrite Urine Negative (Negative); Protein Urine Negative (Negative); Specific Gravity Urine 1.024 (1.000-1.030); Urobilinogen Urine Negative (Negative); pH Urine 5.5 (4.5-7.5)
--- NOTE | 2021-08-01 20:07 | CT Scan Report ---
HEAD CT NONCONTRAST CT DOSE: HISTORY: Altered mental status. TECHNIQUE: Multiaxial CT images of the head were performed without the use of intravenous contrast. A utomated exposure control was utilized for this study. A dose lowering technique was utilized adheri ng to the principles of ALARA. Comparison: Head CT 07/25/2021. Findings: The paranasal sinuses and mastoid air cells are clear. The calvarium and skull base are int act. There is no mass, hematoma, midline shift, acute infarct. White matter hypodensity is nonspecifi c but suggestive of microvascular ischemic change. The ventricles and sulci demonstrate mild age-rela aric involutional changes. Motion artifact. Impression: Motion artifact. No definite acute intracranial abnormality. ACT 112: Negative or not required by law. Electronically signed by: Arpan Collado M.D. 08/01/2021 8:06 PM
[2021-08-01] MEDS ORDERED: dilTIAZem HCl 5 MG/ML 5 ML VIAL IV STA (21:12)
[2021-08-01] MEDS ORDERED: STAT IV Infusion **Titration per Protocol STA (21:34)
[2021-08-01] MEDS ORDERED: diphenhydrAMINE 50 MG/ML VIAL ONE (21:36)
[2021-08-01] MEDS ORDERED: METOPROLOL TARTRATE 1 MG/ML VIAL IV STA (21:40)
[2021-08-01] MEDS ORDERED: dilTIAZem HCL 125 MG in DEXTROSE 5% 100 ML IV SCH (21:45)
--- NOTE | 2021-08-01 23:39 | History & Physical Report ---
Date of Service August 01, 2021 Assessment & Plan (1) Atrial fibrillation with rapid ventricular response: Plan: Atrial fibrillation with RVR/CAD/hypertension- The patient will be admitted to telemetry for serial cardiac enzymes, serial EKG's, cardiac rhythm monitoring and a 2-D echocardiogram with Dopplers. Continue aspirin. Start metoprolol tartrate 25 mg p.o. twice daily with first dose now Lopressor 5 mg IV every 4 hours as needed heart rate greater than 110 Consult cardiology Was on enoxaparin 40 mg subcu daily for prophylaxis. Will place on therapeutic dose for now, until cause of altered mental status is determined (2) Altered mental status: Plan: Altered mental status/Parkinson's/dementia- With development of new onset atrial fibrillation with RVR, there was concern regarding possible CVA, however, MRI brain was negative Treat empirically for possible gastrointestinal process status post cholecystectomy with CBD stent placement last week With history of BPH and LUTS, follow urine culture and sensitivity (3) Choledocholithiasis with acute cholecystitis: Plan: Choledocholithiasis with acute cholecystitis/status post laparoscopic cholecystectomy/status post CBD stent placement- Patient with increasing leukocytosis with left shift Place empirically on Zosyn 4.5 g IV every 8 hours (4) S/P laparoscopic cholecystectomy: Plan: See above (5) CAD (coronary artery disease): Plan: See above (6) Hypertension: Plan: See above (7) Parkinson disease: Plan: Continue carbidopa levodopa, rasagiline and rivastigmine (8) Dementia: Plan: See above History of Present Illness Chief Complaint: The patient presents to the emergency department with patient's family report that he has been significantly less responsive to them over the past 36 hours. Primary Care Provider: Ney Rodriguez MD The patient is a 80-year-old male with a past medical history including dementia, long-term anticoagulation use, CAD, hypertension, hypercholesterolemia, DVT, Parkinson's disease, UTI and recently admitted to [facility] from 07/22-07/26/2021, for cholecystectomy and CBD stent placement. Family reports that when the patient went home he had been slowly improving, until about 36 hours ago when he became less communicative with him. Abnormal laboratories: WBC 13.08, BNP 2030, albumin 2.6 COVID-19 testing negative in the ED Chest x-ray/CT angio PE shows pleural effusions EKG shows atrial fibrillation with RVR at rate 138, with bifascicular block. From the ED patient received the following: Normal saline 1 L, Solu-Medrol 25 mg IV, Benadryl 25 mg IV, diltiazem 15 mg IV followed by diltiazem drip which was then discontinued, Lopressor 5 mg IV. Heart rate did decrease to the upper 90s low 100s. Allergies Allergy/AdvReac Type Severity Reaction Status Date / Time iodine Allergy Severe ITCHING Verified 08/01/21 20:17 AND DISCOMFORT Iodinated Contrast Media Allergy Intermediate Rash Verified 08/01/21 20:17 Home Medications Medication Instructions Recorded Confirmed Type ascorbic acid (vitamin C) 1,000 mg 1 g PO QDL 05/26/18 08/01/21 History tablet coenzyme Q10 400 mg capsule 400 mg PO TID 05/26/18 08/01/21 History lorazepam 2 mg tablet (Ativan) 2 mg PO TID PRN 05/26/18 08/01/21 History rasagiline 1 mg tablet 1 mg PO DAILY 05/26/18 08/01/21 History vitamin E 400 unit capsule 400 unit PO TID cap 07/03/19 08/01/21 History memantine 5 mg tablet 5 mg PO BID 05/04/20 08/01/21 History aspirin 81 mg tablet,delayed 81 mg PO PM 02/25/21 08/01/21 History release cetirizine 10 mg tablet (Zyrtec) 10 mg PO DAILY PRN 02/25/21 08/01/21 History clobetasol 0.05 % topical cream 1 applic TOPICAL DAILY PRN 02/25/21 08/01/21 History hydrocortisone 0.5 % topical 1 applic TOPICAL BID PRN 02/25/21 08/01/21 History ointment ketoconazole 2 % shampoo 1 ea TOPICAL 3XWK 02/25/21 08/01/21 History lidocaine 5 % topical ointment 1 applic TOPICAL BID PRN 02/25/21 08/01/21 History multivitamin with minerals 1 tab PO QAM 02/25/21 08/01/21 History mupirocin 2 % topical ointment 1 applic TOPICAL BID PRN 02/25/21 08/01/21 History omeprazole 20 mg capsule,delayed 20 mg PO DAILY PRN 02/25/21 08/01/21 History release peg [id number] 1 2 drp OPHTHALMIC (EYE) BID PRN 02/25/21 08/01/21 History %-0.2 %-0.2 % eye drops (Dry Eye Relief) riboflavin (vitamin B2) 100 mg 100 mg PO TID 02/25/21 08/01/21 History tablet sodium phosphates 19 gram-[address] PM 02/25/21 08/01/21 History gram/118 mL enema white petrolatum 43 % topical 1 applic TOPICAL BID 02/25/21 08/01/21 History ointment (Aloe [place] Protectant Ointment) rivastigmine 1 patch TRANSDERMAL DAILY@1200 05/01/21 08/01/21 History calcium carbonate 600 mg (1,500 1 cap PO QDL 05/10/21 08/01/21 History mg)-vitamin D3 500 unit capsule (Calcium 600 with Vitamin D3) Bifidobacterium infantis 4 mg 4 mg PO Q2D cap 05/23/21 08/01/21 History capsule (Align) polyethylene glycol 3350 17 17 g PO Q2D g 05/23/21 08/01/21 History gram/dose oral powder (Miralax) acetaminophen 500 mg tablet 1,000 mg PO Q6H PRN 07/22/21 08/01/21 History (Tylenol Extra Strength) dutasteride 0.5 mg capsule 0.5 mg PO PM 07/22/21 08/01/21 History (Avodart) tramadol 50 mg tablet 50 mg PO Q4H PRN #36 tab 07/26/21 08/01/21 Rx carbidopa ER 23.75 mg-levodopa 95 1 cap PO HS 08/01/21 08/01/21 History mg capsule,extended release (Rytary) carbidopa ER 23.75 mg-levodopa 95 2 cap PO TID 08/01/21 08/01/21 History mg capsule,extended release (Rytary) enoxaparin 40 mg/0.4 mL 40 mg SUBCUT DAILY #10 syr 08/01/21 08/01/21 Rx subcutaneous syringe (Lovenox) Past Med/Surg History Medical History (Updated 08/02/21 @ 03:22 by Wyatt Huynh MD) Acute DVT (deep venous thrombosis) CAD (coronary artery disease) Hypercholesterolemia Hypertension Leg weakness, bilateral Parkinson disease Urinary symptom or sign UTI (urinary tract infection) Surgical History (Updated 07/25/21 @ 13:50 by Dhaval Antunez MD, FACS) S/P appendectomy S/P ERCP (07/24/21) ERCP with gallstone extraction and biliary stent placement. Dr. Mcghee 07/24/2021 S/P laparoscopic cholecystectomy (07/24/21) Laparoscopic cholecystectomy. Dr. Antunez 07/24/2021 S/P tonsillectomy Family History Other No significant family history Social History Smoking Status: Unknown if ever smoked Hx Alcohol Use: Yes Hx Substance Use: No Preferred Language: Arabic Communication Ability: Effective [employer] Required: No Beliefs That Will Affect Care: None marital status: Current Living Situation: Spouse Feels Safe at Home: No Is there a partner from a previous relationship who is making you feel unsafe now?: No Assistive Devices: Glasses Review of Systems Review of Systems: The patient does not respond to questioning, primarily stares without answering, and thus is unable to contribute significantly to review of systems or HPI Physical Exam Physical Exam: The patient is awake, but nonresponsive, well developed and well nourished, normocephalic and atraumatic, lying in bed and in no acute distress. HEENT--PERRL, EOMI, mucous membranes and oropharynx dry. Neck--supple. No JVD. No bruits. Thyroid normal, trachea midline, no adenopathy. Heart--irregularly irregular and tachycardic. No murmurs, rubs or gallops. Lungs--clear bilaterally, no respiratory distress, no accessory muscle use. Abdomen--normal bowel sounds and soft. Nontender. Nondistended, no hernias or masses, no organomegaly. Extremities--no cyanosis or clubbing. No edema. Dermatologic--normal skin turgor, normal color, no abnormal lymph nodes, no rash. Neurologic--cranial nerves II through XII grossly intact. Rheumatologic--limited exam due to mentation Psychiatric--flat affect. Results & Data Results & Data ([facility]) Vital Signs (Past 12 Hours) Vital Signs Temp Pulse Pulse Resp BP BP Pulse Ox 08/01/21 22:46 112 H 16 119/88 96 08/01/21 21:45 136 H 112/89 08/01/21 18:45 130 H 18 102/84 98 08/01/21 15:47 37 C 143 H 22 102/84 96 Laboratory Results Laboratory Results WBC 13.08 K/uL (4.8-10.8) H 08/01/21 16:19 RBC 4.52 M/uL (4.7-6.1) L 08/01/21 16:19 Hgb 14.2 g/dL (14.0-18.0) 08/01/21 16:19 Hct 42.5 % (42-52) 08/01/21 16:19 MCV 94.0 fL (80-100) 08/01/21 16:19 MCH 31.4 pg (25-34) 08/01/21 16:19 MCHC 33.4 g/dL (32-36) 08/01/21 16:19 RDW Std Deviation 54.2 fL (36.4-46.3) H 08/01/21 16:19 RDW Coeff of Patience 15.8 % (11.5-14.5) H 08/01/21 16:19 Plt Count 308 K/uL (130-400) 08/01/21 16:19 MPV 10.6 fL (7.4-10.4) H 08/01/21 16:19 Immature Gran % (Auto) 0.4 % 08/01/21 16:19 Neut % (Auto) 75.5 % 08/01/21 16:19 Lymph % (Auto) 11.9 % 08/01/21 16:19 Nance % (Auto) 7.3 % 08/01/21 16:19 Eos % (Auto) 4.4 % 08/01/21 16:19 Baso % (Auto) 0.5 % 08/01/21 16:19 Neut # (Auto) 9.88 K/uL (1.4-6.5) H 08/01/21 16:19 Lymph # (Auto) 1.55 K/uL (1.2-3.4) 08/01/21 16:19 Nance # (Auto) 0.96 K/uL (0.11-0.59) H 08/01/21 16:19 Eos # (Auto) 0.58 K/uL (0-0.5) H 08/01/21 16:19 Baso # (Auto) 0.06 K/uL (0-0.2) 08/01/21 16:19 Immature Gran # (Auto) 0.05 K/uL (0.00-0.02) H 08/01/21 16:19 PT 11.6 Seconds (9.0-12.0) 08/01/21 16:19 INR 1.2 (0.9-1.1) H 08/01/21 16:19 APTT 34.5 Seconds (21.0-31.0) H 08/01/21 16:19 PTT Ratio 1.3 08/01/21 16:19 Sodium 142 mmol/L (136-145) 08/01/21 16:19 Potassium 4.2 mmol/L (3.5-5.1) 08/01/21 16:19 Chloride 111 mmol/L (98-107) H 08/01/21 16:19 Carbon Dioxide 24 mmol/L (21-32) 08/01/21 16:19 Anion Gap 7.0 (3-11) 08/01/21 16:19 BUN 18 mg/dl (7-18) 08/01/21 16:19 Creatinine 1.09 mg/dl (0.6-1.4) 08/01/21 16:19 Est Cr Clr Drug Dosing 61.3 ml/min 08/01/21 16:19 Est GFR ( Amer) 75.0 ml/min 08/01/21 16:19 Est GFR (Non-Af Amer) 64.7 ml/min 08/01/21 16:19 BUN/Creatinine Ratio 16.5 (10-20) 08/01/21 16:19 Glucose 110 mg/dl (70-99) H 08/01/21 16:19 Lactate 1.1 mmol/L (0.4-2.0) 08/01/21 16:19 Calcium 9.4 mg/dl (8.5-10.1) 08/01/21 16:19 Magnesium 2.4 mg/dl (1.8-2.4) 08/01/21 16:19 Total Bilirubin 0.8 mg/dl (0.2-1) 08/01/21 16:19 AST 28 U/L (15-37) 08/01/21 16:19 ALT 42 U/L (12-78) 08/01/21 16:19 Alkaline Phosphatase 229 U/L (45-117) H 08/01/21 16:19 Troponin I < 0.015 ng/ml (0-0.045) 08/01/21 16:19 NT-Pro-B Natriuret Pep 2031 pg/ml (0-1800) H 08/01/21 16:19 Total Protein 7.5 gm/dl (6.4-8.2) 08/01/21 16:19 Albumin 2.6 gm/dl (3.4-5.0) L 08/01/21 16:19 Globulin 4.9 gm/dl (2.5-4.0) H 08/01/21 16:19 Albumin/Globulin Ratio 0.5 (0.9-2) L 08/01/21 16:19 Procalcitonin 0.06 ng/ml (0-0.5) 08/01/21 16:19 Urine Color Dark Yellow 08/01/21 Unknown Urine Appearance Clear (Clear) 08/01/21 Unknown Urine pH 5.5 (4.5-7.5) 08/01/21 Unknown Ur Specific [place] 1.024 (1.000-1.030) 08/01/21 Unknown Urine Protein Negative (Negative) 08/01/21 Unknown Urine Glucose (UA) Negative (Negative) 08/01/21 Unknown Urine Ketones 1+ (Negative) H 08/01/21 Unknown Urine Blood Negative (Negative) 08/01/21 Unknown Urine Nitrite Negative (Negative) 08/01/21 Unknown Urine Bilirubin Negative (Negative) 08/01/21 Unknown Urine Urobilinogen Negative (Negative) 08/01/21 Unknown Ur Leukocyte Esterase Negative (Negative) 08/01/21 Unknown SARS-CoV-2 (PCR) NEGATIVE (Negative) 08/01/21 20:45 Impressions Chest X-Ray 08/01/21 15:45 SINGLE VIEW CHEST CLINICAL HISTORY: Sepsis. FINDINGS: An AP, portable, upright chest radiograph is compared to study dated 07/22/2021. The examination is degraded by portable technique and patient rotation. The patient's head obscuring the apices. The heart is enlarged noting atherosclerotic calcification of the thoracic aorta. There is prominence of the pulmonary vasculature. The mitral annulus is densely calcified. There are small pleural effusions with bibasilar atelectasis. No pneumothorax is seen. The skeletal structures are osteopenic. The bony thorax is grossly intact. IMPRESSION: 1. Cardiomegaly with prominence of the pulmonary vasculature. Correlate clinically for evidence of mild congestive failure. 2. Small pleural effusions with bibasilar atelectasis. ACT 112: Negative or not required by law. Electronically signed by: Parviz Jaimes M.D. 08/01/2021 4:45 PM Chest CTA 08/01/21 15:46 CHEST CTA for PULMONARY ARTERIES CT DOSE: HISTORY: Shortness of breath. Sepsis. TECHNIQUE: Multiaxial CT images of the chest were performed following the intravenous administration of contrast to evaluate the pulmonary arteries. Maximal intensity projection images were also obtained. A dose lowering technique was utilized adhering to the principles of ALARA. COMPARISON STUDY: None. FINDINGS: Please refer to the same day abdomen and pelvis CT for further evaluation of the abdominal structures. There are small bilateral pleural eff usions. The heart is mildly enlarged. No pericardial effusion. Normal esophagus. No mediastinal or hilar lymphadenopathy. Dense mitral annulus calcifications are noted. Normal caliber thoracic aorta. No definite dissection. However, there is suboptimal opacification of the aorta resulting in near nondiagnostic evaluation for an aortic dissection. Nondiagnostic evaluation of the bilateral subsegmental pulmonary arteries and right lung subsegmental pulmonary arteries due to the motion artifact. Otherwise, no filling defects within the remaining pulmonary arteries to suggest a pulmonary embolus. No fractures within the visualized osseous structures. No pneumothorax. The central airways appear patent. There is interlobular septal thickening consistent with mild pulmonary edema. Suboptimal assessment of the lungs due to the respiratory motion. Consolidative opacities within the bilateral lower lobes posteriorly are nonspecific but favor compressive atelectasis from the pleural effusions. IMPRESSION: 1. No evidence for pulmonary embolus with limitations as described above. 2. Mild interstitial pulmonary edema with small bilateral pleural effusions and mild cardiomegaly. 3. Consolidative opacities within the bilateral lower lobes posteriorly are nonspecific but favor compressive atelectasis from the pleural effusions. ACT 112: Negative or not required by law. Electronically signed by: Arpan Collado M.D. 08/01/2021 7:[address] 08/01/21 15:[address] DOSE: HISTORY: Altered mental status. TECHNIQUE: Multiaxial CT images of the head were performed without the use of intravenous contrast. Automated exposure control was utilized for this study. A dose lowering technique was utilized adhering to the principles of ALARA. Comparison: Head CT 07/25/2021. Findings: The paranasal sinuses and mastoid air cells are clear. The calvarium and skull base are intact. There is no mass, hematoma, midline shift, acute infarct. White matter hypodensity is nonspecific but suggestive of microvascular ischemic change. The ventricles and sulci demonstrate mild age-related involutional changes. Motion artifact. Impression: Motion artifact. No definite acute intracranial abnormality. ACT 112: Negative or not required by law. Electronically signed by: Arpan Collado M.D. 08/01/2021 8:06 PM Abdomen/Pelvis CT 08/01/21 15:[address] WITH IV CONTRAST CT DOSE: 3083.07 mGy.cm HISTORY: AMS, recent cholecystectomy, eval for fluid collection. Generalized abdominal pain. TECHNIQUE: Multiaxial CT images of the abdomen and pelvis were performed following the use of intravenous contrast. A dose lowering technique was utilized adhering to the principles of ALARA. COMPARISON STUDY: Abdomen and pelvis CT 10/23/2018. FINDINGS: Small bilateral pleural effusions are again noted. These are better appreciated on the same day chest CTA. No pneumoperitoneum. No pneumatosis. No suspicious lytic or blastic osseous lesions. There is a surgical drain within the supraumbilical subcutaneous fat. There is mild body wall edema. Evidence for prior bilateral inguinal hernia repairs. There is a high riding right testis within the distal right inguinal canal. Mild presacral edema. Interval cholecystectomy. There is trace fluid at the gallbladder fossa and anterior to the liver. A common bile duct stent appears in good position. This likely accounts for the small amount of pneumobilia. The main portal vein is patent. The pancreas, spleen, and adrenal glands are unremarkable. No hepatic masses identified. No retroperitoneal lymphadenopathy. Normal caliber abdominal aorta. No hydronephrosis. Mild bladder wall thickening with a small right-sided bladder diverticulum. This remains unchanged and is likely chronic. Moderate to large amount well-formed stool within the colon and rectum. No bowel wall thickening or obstruction. IMPRESSION: 1. Interval cholecystectomy. There is trace fluid at the gallbladder fossa and anterior to the liver. This is nonspecific but likely related to recent postoperative change. A bile leak is considered less likely but cannot be excluded by imaging alone. 2. A common bile duct stent appears in good position and likely accounts for the small amount of pneumobilia. 3. Small bilateral pleural effusions and mild body wall edema. 4. High riding right testis. This may be positional. 5. Moderate to large amount well-formed stool seen throughout the colon. 6. No bowel wall thickening or obstruction. 7. Additional findings as described above. ACT 112: Negative or not required by law. Electronically signed by: Arpan Collado M.D. 08/01/2021 7:56 PM Diagnostic Findings [facility] Patient: YANELY BESS (Male) : 44 Status: ER Date: 08/02/21 01:49 Room #: c12b History: chest pain today. hx dementia. moved throughout exam. used fast propeller scans. Slices: 231 Priors: CT HEAD Tech: Eitan Morris @ [phone] Exams: MRI HEAD Contrast: Accession Numbers: [id number] Referring Physician: REFERRED SELF Preliminary Findings Only See Final Report For Complete Findings MRI HEAD : No acute infarct, bleed, or acute intracranial abnormality. Moderate motion artifact. Mild age-related findings. Radiologist: Marnie Pierce M.D. Study ready at 01:50 and initial results transmitted at 02:30 *This report constitutes a preliminary interpretation only. Non-acute findings felt to be unrelated to the clinical presentation may not be discussed in this report. The study will be interpreted and a final report will be generated by the local Radiologist the following shift. To reach the [facility] radiology department call [phone]. If a discrepancy is found between the preliminary and final interpre tations of this study, please notify us via our Client Portal at [email or web address] under QA [email or web address]. You can also fax this report with a description of the discrepancy, or include the final report, to our daytime fax number [phone]. If faxing, please indicate the severity of discrepancy using one of the following categories: [ ] 1 - Agree/Informational [ ] 2 - Unlikely to Affect Management [ ] 3 - Possible Eventual Change of Management [ ] 4 - Probable Immediate Change of Management For all other patient related information, please fax us at [phone]. [id number] Code Status & VTE Plan Code Status Full code VTE Prophylaxis Plan VTE Prophylaxis will be ordered: Yes PG Care Time/CCT Total # of Minutes Spent Total Time Spent with Patient: Total time spent is greater than 50% in coordination of care (as documented) at patient's floor/unit and/or counseling patient: Coding Level of Care Code 18972 Initial Inpt Care Lvl 3 Diagnoses Atrial fibrillation with rapid ventricular response I48.91 Choledocholithiasis with acute cholecystitis K80.42 S/P laparoscopic cholecystectomy Z90.49 CAD (coronary artery disease) I25.10 Hypertension I10 Hypertension type: essential hypertension Parkinson disease G20 Altered mental status R41.82 Dementia F03.90 (1) Hypertension Hypertension type: essential hypertension Qualified Code(s): I10 - Essential (primary) hypertension
[2021-08-02] MEDS ORDERED: PIPERACILL/TAZOBAC CONSULT ACTIVE PRN (03:19)
[2021-08-02] MEDS ORDERED: PIPERACILLIN/TAZOBACTAM 4.5 GM in DEXTROSE 5% 100 ML IV ONE (03:30)
[2021-08-02] MEDS ORDERED: ENOXAPARIN 1 MG/KG SQ SCH (03:30)
[2021-08-02] MEDS ORDERED: ACETAMINOPHEN 325 MG TAB PO PRN (05:03)
[2021-08-02] MEDS ORDERED: METOPROLOL TARTRATE 1 MG/ML VIAL IV PRN (05:03)
[2021-08-02] MEDS ORDERED: ONDANSETRON INJ 2 MG/ML 2 ML VIAL IV PRN (05:03)
[2021-08-02] MEDS ORDERED: ARTIFICIAL TEARS OP PRN (05:28)
[2021-08-02] MEDS ORDERED: NSS + 20MEQ KCL 20 MEQ/1,000 ML BAG IV SCH (05:45)
[2021-08-02] MEDS: ENOXAPARIN 100 MG/1ML SYR SQ SCH ×2 (06:21→19:37)
[2021-08-02] MEDS: METOPROLOL TARTRATE 25 MG TAB PO SCH (06:24)
--- NOTE | 2021-08-02 08:05 | Magnetic Resonance Report ---
MRI OF THE BRAIN WITHOUT IV CONTRAST CLINICAL HISTORY: Change in mental status. COMPARISON STUDY: CT of the brain dated 08/01/2021. TECHNIQUE: MRI of the brain was performed utilizing various T1 and T2-weighted sequences in the axial , sagittal, and coronal planes. IV contrast was not administered for this examination. The examinatio n is compromised by motion artifact. FINDINGS: Brain parenchyma: There is age-related involutional change noting mild subcortical and periventricula r microangiopathic disease. There is no hemorrhage or mass effect. There is no restricted diffusion t o suggest acute ischemia. Lockhart-white matter differentiation is preserved. No extra-axial fluid collec tion is seen. The cerebellar tonsils are normal in configuration. Ventricles, sulci, and cisterns: Prominent secondary to involutional change. Pituitary and sella: Grossly unremarkable. Intracranial vasculature: Normal flow voids are maintained at the skull base. Orbits: The bony orbits are grossly intact. Orbital contents are normal in appearance. Sinuses and mastoids: Clear. Calvarium: Unremarkable. Cervical cord: Partially visualized cervical spinal cord is normal in morphology and signal intensity . IMPRESSION: No acute intracranial abnormality is identified noting a motion compromised examination. ACT 112: Negative or not required by law. Electronically signed by: Parviz Jaimes M.D. 08/02/2021 8:04 AM
[2021-08-02] MEDS: TOCOPHERYL, DL-ALPHA 400 UNITS 180 MG CAP PO SCH ×2 (08:36→14:36)
[2021-08-02] MEDS: MEMANTINE HCL 5 MG TAB PO SCH (08:36)
[2021-08-02] MEDS ORDERED: COENZYME Q10 400 MG PO SCH (09:00)
[2021-08-02] MEDS ORDERED: RASAGILINE 1 MG PO SCH (09:00)
[2021-08-02] MEDS ORDERED: NON-FORMULARY MEDICATION (Riboflavin (Vitamin B2) 100 mg Tablet) PO SCH (09:00)
[2021-08-02] MEDS: PIPERACILLIN/TAZOBACTAM 3.375 GM in DEXTROSE 5% 100 ML IV SCH ×2 (09:20→19:36)
[2021-08-02] MEDS ORDERED: RIVASTIGMINE TD SCH (12:00)
[2021-08-02] MEDS: CALCIUM 600MG + VIT D 400 IU TAB PO SCH (12:26)
[2021-08-02] MEDS: [UNRECOGNIZED DRUG - REMARK] PO SCH (12:30)
--- NOTE | 2021-08-02 13:02 | XCELERA ---
[id number]
--- NOTE | 2021-08-02 13:06 | Electrocardiogram Report ---
Test Reason : Blood Pressure : / mmHG Vent. Rate : 138 BPM Atrial Rate : 115 BPM P-R Int : 000 ms QRS Dur : 130 ms QT Int : 346 ms P-R-T Axes : 000 -50 064 degrees QTc Int : 524 ms Poor data quality, interpretation may be adversely affected Atrial fibrillation with rapid ventricular response Right bundle branch block Left anterior fascicular block Bifascicular block Abnormal ECG When compared with ECG of 22-JUL-2021 21:18, Atrial fibrillation has replaced Sinus rhythm Vent. rate has increased BY 49 BPM Confirmed by Mitch Meyers ([id number]) on 08/02/2021 1:06:30 PM Referred By: REFERRED SELF Confirmed By:Adi Meyers
[2021-08-02] MEDS ORDERED: [UNRECOGNIZED DRUG - REMARK] PO SCH ×2 (14:00→20:00)
[2021-08-02] MEDS: [UNRECOGNIZED DRUG - REMARK] PO SCH ×2 (14:37→22:03)
[2021-08-02] MEDS: DUTASTERIDE: ORDER AWAITING ACTION SCH (19:30)
--- NOTE | 2021-08-02 21:34 | Hospitalist Progress Note ---
Date of Service August 02, 2021 Assessment & Plan (1) Atrial fibrillation with rapid ventricular response: Plan: NEW. Previous EKG on 07/22/21 during prior admission showed NSR. No h/o a.fib. He has an associated cardiomyopathy - doubt the a.fib is the cause since the a.fib is so new. Metoprolol 25mg BID started this am. Will increase to 37.5mg BID for improved rate control and better fill time. Ultimately metoprolol succinate would be more ideal than metoprolol tartrate. Echo with EF 15-20% - see below. Prior to his lap chanel he was taking coumadin chronically for recurrent DVT. Moving forward we should resume his coumadin. Patient was on enoxaparin 40 mg subcu daily for prophylaxis upon discharge from recent hospitalization. Placed on lovenox 90mg BID at time of admission last pm for bridging purposes. Will leave for now. Consult Dr Lin from [facility]. (2) Acute systolic CHF (congestive heart failure): Plan: He has never had a.fib. A.fib is new in the last 10 days. That would likely be too short of a time period to lead to tachy-arrhythmia induced cardiomyopathy. He has known CAD - 60% LAD lesion seen on cath in the mid . That lesion could easily be obstructive leading to severe CAD and resulting cardiomyopathy. Consult cardiology in am. Defer on diuretics this evening. Although he has some effusions, LE edema, etc - sats are wnl. (3) Cardiomyopathy: Plan: etiology - ischemic? tachy-arrhythmia induced? due to bifascicular block? other? EF 15-20% on echo today. No valvular disease. (4) Altered mental status: Plan: In the setting of advanced parkinson's dementia. Etiology? MRI brain neg acute stroke. No obvious infectious cause at this time (ua wnl, no pneumonia, etc). TSH 05/2021 wnl. B12 level 461 several years ago. Recheck am. Check ammonia in am. (5) CAD (coronary artery disease): Plan: 1994 heart catheterization - [facility] - 60% LAD lesion. Full report could not be found in his record. Could he have ischemic cardiomyopathy? (6) Choledocholithiasis with acute cholecystitis: Plan: Choledocholithiasis with acute cholecystitis. status post laparoscopic cholecystectomy/status post ERCP with CBD stent placement. Place empirically on Zosyn IV every 8 hours while awaiting blood cultures. CT a/p does not show any discrete source of infection. (7) S/P laparoscopic cholecystectomy: Plan: POD #[address] Antunez also s/p ERCP for choledocholithiasis with stent deployment LFTs stable tolerating diet CT abd/pelvis reviewed - nothing acute at this time (8) Hypertension: Plan: metoprolol (9) Parkinson disease: Plan: Advanced. with PD dementia. Continue carbidopa-levodopa, rasagiline and rivastigmine as previous. Will need PT/OT while here. (10) Dementia: Plan: 2nd PD. supportive care. (11) Constipation: Plan: add senna add miralax (12) UTI (urinary tract infection): Plan: Urine cx 07/22/21 with e.coli - pansensitive. had been on IV abx during his recent stay for his cholecystitis. was d/c home on augmentin x 5 days on 07/26 which should have been adequate coverage based on culture results. 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 she is not aware of any past h/o a.fib or CHF. no fevers. she reports Dr Antunez paid him a visit today. she mentions that there was a "blood bubble" near the left knee recently - now resolved his left leg has been a bit more swollen as well he has chronic venous insufficiency and "circulation problems" per Review of Systems Review of Systems: Unobtainable due to cognitive status Physical Exam Physical Exam: gen - NAD, masked facies, answers basic questions neck - mild JVD, with hepatojugular reflex mouth - MMM heart - tachy, irregularly irregular, s1 s2, no murmur lungs - mild decrease in BS b/l bases, minimal crackles b/l bases abd - soft NT ND BS+; dressings intact; 1 suture present - clean ext - <1+ edema on L; trace on R; pulses 1+ b/l; cap refill 2-3 seconds b/l; mottling of both feet, cool to touch neuro - hyper-rigidity of all 4 limbs, masked facies musculo - no pain with passive ROM of left hip Results & Data Results & Data ([facility]) Vital Signs (Past 12 Hours) Vital Signs Temp Pulse Pulse Resp BP BP Pulse Ox 08/02/21 20:02 36.4 C L 08/02/21 19:41 128 H 100/75 08/02/21 16:00 118 H 20 107/73 99 08/02/21 14:00 120 H 21 122/85 97 08/02/21 13:00 118 H 20 109/89 100 08/02/21 12:00 111 H 21 119/77 96 08/02/21 10:28 110 H 18 109/86 96 Laboratory Results trop neg BNP elevated Cr wnl Diagnostic Findings Chest X-Ray 08/01/21 15:45 SINGLE VIEW CHEST CLINICAL HISTORY: Sepsis. FINDINGS: An AP, portable, upright chest radiograph is compared to study dated 07/22/2021. The examination is degraded by portable technique and patient rotation. The patient's head obscuring the apices. The heart is enlarged noting atherosclerotic calcification of the thoracic aorta. There is prominence of the pulmonary vasculature. The mitral annulus is densely calcified. There are small pleural effusions with bibasilar atelectasis. No pneumothorax is seen. The skeletal structures are osteopenic. The bony thorax is grossly intact. IMPRESSION: 1. Cardiomegaly with prominence of the pulmonary vasculature. Correlate clinically for evidence of mild congestive failure. 2. Small pleural effusions with bibasilar atelectasis. ACT 112: Negative or not required by law. Electronically signed by: Parviz Jaimes M.D. 08/01/2021 4:45 PM Chest CTA 08/01/21 15:46 CHEST CTA for PULMONARY ARTERIES CT DOSE: HISTORY: Shortness of breath. Sepsis. TECHNIQUE: Multiaxial CT images of the chest were performed following the intravenous administration of contrast to evaluate the pulmonary arteries. Maximal intensity projection images were also obtained. A dose lowering technique was utilized adhering to the principles of ALARA. COMPARISON STUDY: None. FINDINGS: Please refer to the same day abdomen and pelvis CT for further evaluation of the abdominal structures. There are small bilateral pleural effusions. The heart is mildly enlarged. No pericardial effusion. Normal esophagus. No mediastinal or hilar lymphadenopathy. Dense mitral annulus calcifications are noted. Normal caliber thoracic aorta. No definite dissection. However, there is suboptimal opacification of the aorta resulting in near nondiagnostic evaluation for an aortic dissection. Nondiagnostic evaluation of the bilateral subsegmental pulmonary arteries and right lung subsegmental pulmonary arteries due to the motion artifact. Otherwise, no filling defects within the remaining pulmonary arteries to suggest a pulmonary embolus. No fractures within the visualized osseous structures. No pneumothorax. The central airways appear patent. There is interlobular septal thickening consistent with mild pulmonary edema. Suboptimal assessment of the lungs due to the respiratory motion. Consolidative opacities within the bilateral lower lobes posteriorly are nonspecific but favor compressive atelectasis from the pleural effusions. IMPRESSION: 1. No evidence for pulmonary embolus with limitations as described above. 2. Mild interstitial pulmonary edema with small bilateral pleural effusions and mild cardiomegaly. 3. Consolidative opacities within the bilateral lower lobes posteriorly are nonspecific but favor compressive atelectasis from the pleural effusions. ACT 112: Negative or not required by law. Electronically signed by: Arpan Collado M.D. 08/01/2021 7:[address] 08/01/21 15:[address] DOSE: HISTORY: Altered mental status. TECHNIQUE: Multiaxial CT images of the head were performed without the use of intravenous contrast. Automated exposure control was utilized for this study. A dose lowering technique was utilized adhering to the principles of ALARA. Comparison: Head CT 07/25/2021. Findings: The paranasal sinuses and mastoid air cells are clear. The calvarium and skull base are intact. There is no mass, hematoma, midline shift, acute infarct. White matter hypodensity is nonspecific but suggestive of microvascular ischemic change. The ventricles and sulci demonstrate mild age-related involutional changes. Motion artifact. Impression: Motion artifact. No definite acute intracranial abnormality. ACT 112: Negative or not required by law. Electronically signed by: Arpan Collado M.D. 08/01/2021 8:06 PM Abdomen/Pelvis CT 08/01/21 15:[address] WITH IV CONTRAST CT DOSE: 3083.07 mGy.cm HISTORY: AMS, recent cholecystectomy, eval for fluid collection. Generalized abdominal pain. TECHNIQUE: Multiaxial CT images of the abdomen and pelvis were performed following the use of intravenous contrast. A dose lowering technique was utilized adhering to the principles of ALARA. COMPARISON STUDY: Abdomen and pelvis CT 10/23/2018. FINDINGS: Small bilateral pleural effusions are again noted. These are better appreciated on the same day chest CTA. No pneumoperitoneum. No pneumatosis. No suspicious lytic or blastic osseous lesions. There is a surgical drain within the supraumbilical subcutaneous fat. There is mild body wall edema. Evidence for prior bilateral inguinal hernia repairs. There is a high riding right testis within the distal right inguinal canal. Mild presacral edema. Interval cholecystectomy. There is trace fluid at the gallbladder fossa and anterior to the liver. A common bile duct stent appears in good position. This likely accounts for the small amount of pneumobilia. The main portal vein is patent. The pancreas, spleen, and adrenal glands are unremarkable. No hepatic masses identified. No retroperitoneal lymphadenopathy. Normal caliber abdominal aorta. No hydronephrosis. Mild bladder wall thickening with a small right-sided bladder diverticulum. This remains unchanged and is likely chronic. Moderate to large amount well-formed stool within the colon and rectum. No bowel wall thickening or obstruction. IMPRESSION: 1. Interval cholecystectomy. There is trace fluid at the gallbladder fossa and anterior to the liver. This is nonspecific but likely related to recent postoperative change. A bile leak is considered less likely but cannot be excluded by imaging alone. 2. A common bile duct stent appears in good position and likely accounts for the small amount of pneumobilia. 3. Small bilateral pleural effusions and mild body wall edema. 4. High riding right testis. This may be positional. 5. Moderate to large amount well-formed stool seen throughout the colon. 6. No bowel wall thickening or obstruction. 7. Additional findings as described above. ACT 112: Negative or not required by law. Electronically signed by: Arpan Collado M.D. 08/01/2021 7:56 PM Brain MRI 08/02/21 23:11 MRI OF THE BRAIN WITHOUT IV CONTRAST CLINICAL HISTORY: Change in mental status. COMPARISON STUDY: CT of the brain dated 08/01/2021. TECHNIQUE: MRI of the brain was performed utilizing various T1 and T2-weighted sequences in the axial, sagittal, and coronal planes. IV contrast was not administered for this examination. The examination is compromised by motion artifact. FINDINGS: Brain parenchyma: There is age-related involutional change noting mild subcortical and periventricular microangiopathic disease. There is no hemorrhage or mass effect. There is no restricted diffusion to suggest acute ischemia. Lockhart-white matter differentiation is preserved. No extra-axial fluid collection is seen. The cerebellar tonsils are normal in configuration. Ventricles, sulci, and cisterns: Prominent secondary to involutional change. Pituitary and sella: Grossly unremarkable. Intracranial vasculature: Normal flow voids are maintained at the skull base. Orbits: The bony orbits are grossly intact. Orbital contents are normal in appearance. Sinuses and mastoids: Clear. Calvarium: Unremarkable. Cervical cord: Partially visualized cervical spinal cord is normal in morphology and signal intensity. IMPRESSION: No acute intracranial abnormality is identified noting a motion compromised examination. ACT 112: Negative or not required by law. Electronically signed by: Parviz Jaimes M.D. 08/02/2021 8:04 AM echocardiogram - EF 15-20% - NEW PG Care Time/CCT Total # of Minutes Spent Total Time Spent with Patient: Total time spent is greater than 50% in coordination of care (as documented) at patient's floor/unit and/or counseling patient: Coding Level of Care Code 71366 Subseq Hosp Care Lvl 3 Diagnoses Atrial fibrillation with rapid ventricular response I48.91 Altered mental status R41.82 Choledocholithiasis with acute cholecystitis K80.42 S/P laparoscopic cholecystectomy Z90.49 CAD (coronary artery disease) I25.10 Hypertension I10 Hypertension type: essential hypertension Parkinson disease G20 Dementia F03.90 Acute systolic CHF (congestive heart failure) I50.21 Cardiomyopathy I42.9 Constipation K59.00 UTI (urinary tract infection) N30.00 Hematuria presence: without hematuria Urinary tract infection type: acute cystitis (1) Hypertension Hypertension type: essential hypertension Qualified Code(s): I10 - Essential (primary) hypertension (2) UTI (urinary tract infection) Hematuria presence: without hematuria Urinary tract infection type: acute cystitis Qualified Code(s): N30.00 - Acute cystitis without hematuria
[2021-08-03] MEDS: TOCOPHERYL, DL-ALPHA 400 UNITS 180 MG CAP PO SCH ×4 (00:50→22:30)
[2021-08-03] MEDS: MEMANTINE HCL 5 MG TAB PO SCH ×3 (00:50→22:30)
[2021-08-03] MEDS: METOPROLOL TARTRATE 25 MG TAB PO SCH ×4 (00:51→22:29)
[2021-08-03] MEDS: ASPIRIN 81 MG ECTAB PO SCH ×2 (00:53→22:30)
[2021-08-03] MEDS: PIPERACILLIN/TAZOBACTAM 3.375 GM in DEXTROSE 5% 100 ML IV SCH ×3 (02:19→16:47)
[2021-08-03 05:21] LABS: Basophils # (auto) 0.04 K/uL (0-0.2); Basophils % (auto) 0.3 %; Eosinophils # (auto) 0.42 K/uL (0-0.5); Eosinophils % (auto) 3.4 %; Hematocrit (blood only) 40.2 % (42-52); Hemoglobin 13.8 g/dL (14.0-18.0); Immature Granulocytes # (auto) 0.04 K/uL (0.00-0.02); Immature Granulocytes % (auto) 0.3 %; Lymphocytes # (auto) 1.74 K/uL (1.2-3.4); Lymphocytes % (auto) 14.1 %; Mean Corpuscular Hgb Conc 34.3 g/dL (32-36); Mean Corpuscular Volume 93.3 fL (80-100); Mean Platelet Volume 10.7 fL (7.4-10.4); Monocytes # (auto) 1.15 K/uL (0.11-0.59); Monocytes % (auto) 9.3 %; Neutrophils # (auto) 8.95 K/uL (1.4-6.5); Neutrophils % (auto) 72.6 %; Platelet Count 277 K/uL (130-400); RDW Coefficient of Variation 15.4 % (11.5-14.5); Red Blood Count 4.31 M/uL (4.7-6.1); White Blood Count 12.34 K/uL (4.8-10.8)
[2021-08-03 05:43] LABS: BUN Creatinine Ratio 22.1 (10-20); Calcium 9.3 mg/dl (8.5-10.1); Creatinine Clr Calc Pharmacy 69.6 ml/min; Est GFR (African American) 87.4 ml/min; Est GFR (Non-African American) 75.4 ml/min; Potassium 4.1 mmol/L (3.5-5.1)
[2021-08-03] MEDS: ENOXAPARIN 100 MG/1ML SYR SQ SCH ×2 (06:33→16:50)
[2021-08-03] MEDS: DUTASTERIDE: ORDER AWAITING ACTION SCH ×3 (09:11→23:03)
[2021-08-03] MEDS: RIVASTIGMINE TD SCH (09:12)
[2021-08-03] MEDS: SENNA 8.6 MG TAB PO SCH (09:17)
[2021-08-03] MEDS: ADVANCED PROBIOTIC 1250 MG CAPSULE PO SCH (09:18)
[2021-08-03] MEDS: [UNRECOGNIZED DRUG - REMARK] PO SCH ×6 (09:19→16:49)
[2021-08-03] MEDS: [UNRECOGNIZED DRUG - REMARK] PO SCH (09:20)
[2021-08-03] MEDS: POLYETHYLENE (MIRALAX) 17 GM PACK PO SCH ×2 (09:20→22:46)
--- NOTE | 2021-08-03 10:01 | Cardiology Consultation ---
Date of Consultation August 03, 2021 Assessment & Plan (1) Atrial fibrillation with rapid ventricular response: -new diagnosis for the patient. -uncertain duration, but was in sinus rhythm during hospitalization July 22 through the . -agree with metoprolol tartrate and therapeutic Lovenox. -would add digoxin 0.25 mg IV x2 today followed by 0.25 mg p.o. daily. -consider restarting Coumadin. (2) Left ventricular dysfunction: -severe left ventricular dysfunction noted on current echocardiogram. -etiology uncertain. CAD vs rapid atrial fibrillation vs recent acute illness. -would treat medically for now. -would favor conservative treatment realizing his severe comorbidities. -can convert from metoprolol tartrate to metoprolol succinate once is stable doses identified. -hopefully blood pressure will allow addition of an ACEI or an ARB. (3) CAD (coronary artery disease): -60% LAD stenosis at time of cardiac catheterization in 1994. -would continue conservative medical management. (4) Parkinson disease: -patient is severely debilitated. -wheelchair bound at home. -has associated dementia. 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 This con sultation was ordered to assistance cardiac management. Of note, patient is well known to me from the outpatient setting. The patient's recent history began with a hospitalization from July 22 through the with acute cholecystitis. The patient underwent a laparoscopic cholecystectomy along with an ERCP biliary stent on July 24. He was discharged home on July 26 in stable fashion. His long-term anticoagulation was placed on hold and he was given Lovenox 40 mg subQ daily. The patient was demonstrating improvement while at home following his hospitalization. However, approximately 36 hours prior to presentation, the patient was lethargic and not as communicative. He was brought to the emergency room for further evaluation and noted to be in atrial fibrillation with a rapid ventricular response. This is a new diagnosis for the patient. Of note, the patient was in sinus rhythm during his hospitalization for acute cholecystitis. The patient has a longstanding history of quiescent coronary artery disease. He underwent a cardiac catheterization 1994 which noted a 60% LAD stenosis. An echocardiogram performed yesterday noted severe left ventricular dysfunction with ejection fraction approximately 20%. We have discussed this new finding with the patient and his . Currently, patient is resting comfortably in bed without complaints. Past medical and surgical history 1. Nonobstructive coronary artery disease-see above 2. Hypertension 3. Hypercholesterolemia 4. Parkinson's disease 5. Dementia 6. History of recurrent DVTs 7. Laparoscopic cholecystectomy-July 2021 8. Appendectomy 9. 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 No tobacco Rare alcohol Family history Noncontributory Review of systems A 10 point review systems was negative except that described above. Allergies Allergy/AdvReac Type Severity Reaction Status Date / Time iodine Allergy Severe ITCHING Verified 08/01/21 20:17 AND DISCOMFORT Iodinated Contrast Media Allergy Intermediate Rash Verified 08/01/21 20:17 Home Medications Medication Instructions Recorded Confirmed Type ascorbic acid (vitamin C) 1,000 mg 1 g PO QDL 05/26/18 08/01/21 History tablet coenzyme Q10 400 mg capsule 400 mg PO TID 05/26/18 08/01/21 History lorazepam 2 mg tablet (Ativan) 2 mg PO TID PRN 05/26/18 08/01/21 History rasagiline 1 mg tablet 1 mg PO DAILY 05/26/18 08/01/21 History vitamin E 400 unit capsule 400 unit PO TID cap 07/03/19 08/01/21 History memantine 5 mg tablet 5 mg PO BID 05/04/20 08/01/21 History aspirin 81 mg tablet,delayed 81 mg PO PM 02/25/21 08/01/21 History release cetirizine 10 mg tablet (Zyrtec) 10 mg PO DAILY PRN 02/25/21 08/01/21 History clobetasol 0.05 % topical cream 1 applic TOPICAL DAILY PRN 02/25/21 08/01/21 History hydrocortisone 0.5 % topical 1 applic TOPICAL BID PRN 02/25/21 08/01/21 History ointment ketoconazole 2 % shampoo 1 ea TOPICAL [id number] 02/25/21 08/01/21 History lidocaine 5 % topical ointment 1 applic TOPICAL BID PRN 02/25/21 08/01/21 History multivitamin with minerals 1 tab PO QAM 02/25/21 08/01/21 History mupirocin 2 % topical ointment 1 applic TOPICAL BID PRN 02/25/21 08/01/21 History omeprazole 20 mg capsule,delayed 20 mg PO DAILY PRN 02/25/21 08/01/21 History release peg [id number] 1 2 drp OPHTHALMIC (EYE) BID PRN 02/25/21 08/01/21 History %-0.2 %-0.2 % eye drops (Dry Eye Relief) riboflavin (vitamin B2) 100 mg 100 mg PO TID 02/25/21 08/01/21 History tablet sodium phosphates 19 gram-7 118 ml [place] PM 02/25/21 08/01/21 History gram/118 mL enema white petrolatum 43 % topical 1 applic TOPICAL BID 02/25/21 08/01/21 History ointment (Aloe [place] Protectant Ointment) rivastigmine 1 patch TRANSDERMAL DAILY@1200 05/01/21 08/01/21 History calcium carbonate 600 mg-vitamin 1 cap PO QDL 05/10/21 08/01/21 History D3 12.5 mcg (500 unit) capsule (Calcium 600 with Vitamin D3) Bifidobacterium infantis 4 mg 4 mg PO Q2D cap 05/23/21 08/01/21 History capsule (Align) polyethylene glycol 3350 17 17 g PO Q2D g 05/23/21 08/01/21 History gram/dose oral powder (Miralax) acetaminophen 500 mg tablet 1,000 mg PO Q6H PRN 07/22/21 08/01/21 History (Tylenol Extra Strength) dutasteride 0.5 mg capsule 0.5 mg PO PM 07/22/21 08/01/21 History (Avodart) tramadol 50 mg tablet 50 mg PO Q4H PRN #36 tab 07/26/21 08/01/21 Rx carbidopa ER 23.75 mg-levodopa 95 1 cap PO HS 08/01/21 08/01/21 History mg capsule,extended release (Rytary) carbidopa ER 23.75 mg-levodopa 95 2 cap PO TID 08/01/21 08/01/21 History mg capsule,extended release (Rytary) enoxaparin 40 mg/0.4 mL 40 mg SUBCUT DAILY #10 syr 08/01/21 08/01/21 Rx subcutaneous syringe (Lovenox) Patient History Medical History (Updated 08/03/21 @ 09:54 by Medardo Lin MD) Acute DVT (deep venous thrombosis) CAD (coronary artery disease) Hypercholesterolemia Hypertension Leg weakness, bilateral Parkinson disease Urinary symptom or sign UTI (urinary tract infection) Surgical History (Updated 07/25/21 @ 13:50 by Dhaval Antunez MD, FACS) S/P appendectomy S/P ERCP (07/24/21) ERCP with gallstone extraction and biliary stent placement. Dr. Mcghee 07/24/2021 S/P laparoscopic cholecystectomy (07/24/21) Laparoscopic cholecystectomy. Dr. Antunez 07/24/2021 S/P tonsillectomy Family History Other No significant family history Social History Smoking Status: Never smoker Second Hand Exposure: No; Hx Alcohol Use: No Hx Substance Use: No Preferred Language: [place] Communication Ability: Impaired Mechanical Designer Required: No Beliefs That Will Affect Care: None marital status: Current Living Situation: Spouse Feels Safe at Home: Yes Assistive Devices: Wheelchair Physical Exam Physical Exam: In general this is a well-developed well-nourished white male in no acute distress. HEENT exam is negative. Neck reveals normal carotid upstrokes without bruits. No JVD. There is no thyromegaly. Cardiovascular exam reveals an irregularly irregular rhythm with distant heart sounds. No obvious murmurs. No S3. Lungs are clear without rales, rhonchi, or wheezes. Abdomen is soft without bruits. Extremities reveal intact radial artery and posterior tibial pulses bilaterally. There is trace to 1+ pretibial edema. Results & Data ([facility]) Vital Signs (Past 12 Hours) Vital Signs Temp Pulse Pulse Resp BP Pulse Ox 08/03/21 07:00 36.5 C 115 H 23 109/82 100 08/03/21 04:00 81 14 110/74 99 08/03/21 00:15 36.7 C 120 H 22 105/70 97 08/02/21 23:59 140 H Laboratory Results CBC notes hemoglobin 13.8, crit 40.2, white count 12.34, platelet count [id number]. Electrolytes note a sodium of 136, potassium 4.1, chloride 107, bicarb 24, BUN 21, creatinine 0.96, and glucose of 129. Troponin I levels undetectable less than 0.015. BNP is mildly elevated 2030. Diagnostic Findings EKG reveals atrial fibrillation with a rapid ventricular response. 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 Echocardiogram notes severe left ventricular dysfunction with ejection fraction of 20%. There was severe global hypokinesis on my interpretation. Moderate mitral regurgi tation and mild tricuspid regurgitation also noted. PG Care Time/CCT Total # of Minutes Spent Total Time Spent with Patient: Total time spent is greater than 50% in coordination of care (as documented) at patient's floor/unit and/or counseling patient: Coding Level of Care Code 44420 Initial Inpt Care Lvl 3 Diagnoses Atrial fibrillation with rapid ventricular response I48.91 Left ventricular dysfunction I51.9 CAD (coronary artery disease) I25.10 Parkinson disease G20
[2021-08-03] MEDS: DIGOXIN 250 MCG in SYRINGE 9 ML IV SCH ×2 (13:38→17:57)
--- NOTE | 2021-08-03 14:07 | Hospitalist Progress Note ---
Date of Service August 03, 2021 Assessment & Plan (1) Atrial fibrillation with rapid ventricular response: Plan: NEW. Previous EKG on 07/22/21 during prior admission showed NSR. No prior h/o a.fib. He has an associated cardiomyopathy - doubt the a.fib is the cause since the a.fib is so new but can't rule it out completely. Metoprolol increased to 37.5mg BID last pm. Rates still >100. Due to low BPs can't increase further. Dr Lin, his primary preform plate maker, saw pt in consult and advised digoxin load 0.25mg IV q6h x 2 doses, then 0.25mg PO daily starting tomorrow am. Due to low BP cannot add JAXSON or ARB at this time. Hold off on diuretics for now - o2 sats high 90s in RA, and appears relatively compensated. Echo with EF 15-20% - see below. Prior to his lap chanel he was taking coumadin chronically for recurrent DVT. Moving forward we should resume his coumadin. Patient was on enoxaparin 40 mg subcu daily for prophylaxis upon discharge from recent hospitalization. Placed on lovenox 90mg BID at time of admission. Appreciate Dr Lin's consultation. Check K and mag in am. (2) Acute systolic CHF (congestive heart failure): Plan: He has never had a.fib. A.fib is new in the last 10 days. That would likely be too short of a time period to lead to tachy-arrhythmia induced cardiomyopathy. He has known CAD - 60% LAD lesion seen on cath in the mid . That lesion could easily be obstructive leading to severe CAD and resulting cardiomyopathy. Does have bifascicular block as well. Appreciate Dr Lin's consultation. See #1 and #3. (3) Cardiomyopathy: Plan: etiology - ischemic? tachy-arrhythmia induced? due to bifascicular block? other? EF 15-20% on echo. No valvular disease. (4) Altered mental status: Plan: In the setting of advanced parkinson's dementia. Etiology? MRI brain neg acute stroke. No obvious infectious cause at this time (ua wnl, no pneumonia, etc). TSH 05/2021 wnl. B12 level 461 several years ago. B12 today wnl. Ammonia wnl. (5) CAD (coronary artery disease): Plan: 1994 heart catheterization - [facility] - 60% LAD lesion. Full report could not be found in his record. Could he have ischemic cardiomyopathy? Trop neg at admission. Cardiology deferring on cath for now. (6) Choledocholithiasis with acute cholecystitis: Plan: Choledocholithiasis with acute cholecystitis. status post laparoscopic cholecystectomy/status post ERCP with CBD stent placement during prior hospital admission. On empiric Zosyn IV every 8 hours while awaiting blood cultures. CT a/p does not show any discrete source of infection. If blood cx's remain neg then stop zosyn. (7) S/P laparoscopic cholecystectomy: Plan: POD #[address] Antunez also s/p ERCP for choledocholithiasis with stent deployment LFTs stable tolerating diet CT abd/pelvis reviewed - nothing acute at this time (8) Hypertension: Plan: metoprolol (9) Parkinson disease: Plan: Advanced. with PD dementia. Continue carbidopa-levodopa, rasagiline and rivastigmine as previous. Will need PT/OT while here. (10) Dementia: Plan: 2nd PD. supportive care. (11) Constipation: Plan: senna + miralax (12) UTI (urinary tract infection): Plan: Urine cx 07/22/21 with e.coli - pansensitive. had been on IV abx during his recent stay for his cholecystitis. was d/c home on augmentin x 5 days on 07/26 which should have been adequate coverage based on culture results. Plan: extensively updated by phone this evening Admission and Anticipated Discharge Date Admission Date: August 01, 2021 Subjective pt resting comfortably during my visit remains in rapid a.fib, rates >100 BPs satisfactory eating well patient pleasantly confused - could offer very little history Review of Systems Review of Systems: CV - denies cp pulm - denies dyspnea GI - denies pain or nausea Physical Exam Physical Exam: gen - NAD, masked facies neck - mild hepatojugular reflex mouth - MMM heart - tachy, irregularly irregular, s1 s2, no murmur lungs - mild decrease in BS b/l bases, scant crackles b/l bases abd - soft NT ND BS+; dressings intact; 1 suture present abdominal wall - clean ext - trace-1+ edema b/l; pulses 1+ b/l; cool to touch neuro - hyper-rigidity of all 4 limbs, masked facies Results & Data Results & Data ([facility]) Vital Signs (Past 12 Hours) Vital Signs Temp Pulse Pulse Resp BP Pulse Ox 08/03/21 13:38 94 H 08/03/21 13:00 36.4 C L 100 H 24 81/57 L 94 08/03/21 07:00 36.5 C 115 H 23 109/82 100 08/03/21 04:00 81 14 110/74 99 Laboratory Results Laboratory Results - last 24 hr 08/02/21 08/03/21 08/03/21 21:30 05:00 05:00 WBC 12.34 H RBC 4.31 L Hgb 13.8 L Hct 40.2 L MCV 93.3 MCH 32.0 MCHC 34.3 RDW Std Deviation 53.0 H RDW Coeff of Patience 15.4 H Plt Count 277 MPV 10.7 H Immature Gran % (Auto) 0.3 Neut % (Auto) 72.6 Lymph % (Auto) 14.1 Benton % (Auto) 9.3 Eos % (Auto) 3.4 Baso % (Auto) 0.3 Neut # (Auto) 8.95 H Lymph # (Auto) 1.74 Benton # (Auto) 1.15 H Eos # (Auto) 0.42 Baso # (Auto) 0.04 Immature Gran # (Auto) 0.04 H Sodium Potassium Chloride Carbon Dioxide Anion Gap BUN Creatinine Est Cr Clr Drug Dosing Est GFR ( Amer) Est GFR (Non-Af Amer) BUN/Creatinine Ratio Glucose Calcium Ammonia Vitamin B12 874 Nasal Screen MRSA (PCR) Negative 08/03/21 08/03/21 05:00 05:07 WBC RBC Hgb Hct MCV MCH MCHC RDW Std Deviation RDW Coeff of Patience Plt Count MPV Immature Gran % (Auto) Neut % (Auto) Lymph % (Auto) Benton % (Auto) Eos % (Auto) Baso % (Auto) Neut # (Auto) Lymph # (Auto) Benton # (Auto) Eos # (Auto) Baso # (Auto) Immature Gran # (Auto) Sodium 136 Potassium 4.1 Chloride 107 Carbon Dioxide 24 Anion Gap 5.0 BUN 21 H Creatinine 0.96 Est Cr Clr Drug Dosing 69.6 Est GFR ( Amer) 87.4 Est GFR (Non-Af Amer) 75.4 BUN/Creatinine Ratio 22.1 H Glucose 129 H Calcium 9.3 Ammonia < 10.0 L Vitamin B12 Nasal Screen MRSA (PCR) PG Care Time/CCT Total # of Minutes Spent Total Time Spent with Patient: Total time spent is greater than 50% in coordination of care (as documented) at patient's floor/unit and/or counseling patient: Coding Level of Care Code 39845 Subseq Hosp Care Lvl 2 Diagnoses Atrial fibrillation with rapid ventricular response I48.91 Acute systolic CHF (congestive heart failure) I50.21 Cardiomyopathy I42.9 Altered mental status R41.82 CAD (coronary artery disease) I25.10 Choledocholithiasis with acute cholecystitis K80.42 S/P laparoscopic cholecystectomy Z90.49 Hypertension I10 Hypertension type: essential hypertension Parkinson disease G20 Dementia F03.90 Constipation K59.00 UTI (urinary tract infection) N30.00 Hematuria presence: without hematuria Urinary tract infection type: acute cystitis (1) UTI (urinary tract infection) Hematuria presence: without hematuria Urinary tract infection type: acute cystitis Qualified Code(s): N30.00 - Acute cystitis without hematuria (2) Hypertension Hypertension type: essential hypertension Qualified Code(s): I10 - Essential (primary) hypertension
[2021-08-03] MEDS: CALCIUM 600MG + VIT D 400 IU TAB PO SCH (14:25)
--- NOTE | 2021-08-03 14:26 | Electrocardiogram Report ---
Test Reason : Blood Pressure : / mmHG Vent. Rate : 122 BPM Atrial Rate : 144 BPM P-R Int : 000 ms QRS Dur : 142 ms QT Int : 388 ms P-R-T Axes : 000 -49 046 degrees QTc Int : 552 ms Atrial fibrillation with rapid ventricular response with premature ventricular or aberrantly conducte d complexes Right bundle branch block Left anterior fascicular block Bifascicular block Abnormal ECG When compared with ECG of 01-AUG-2021 19:37, No significant change was found Confirmed by Mitch Meyers ([id number]) on 08/03/2021 2:25:50 PM Referred By: REFERRED SELF Confirmed By:Adi Meyers
[2021-08-04] MEDS: PIPERACILLIN/TAZOBACTAM 3.375 GM in DEXTROSE 5% 100 ML IV SCH ×2 (00:53→08:39)
[2021-08-04] MEDS: ENOXAPARIN 100 MG/1ML SYR SQ SCH ×2 (05:11→16:59)
[2021-08-04 06:38] LABS: Basophils # (auto) 0.05 K/uL (0-0.2); Basophils % (auto) 0.5 %; Eosinophils # (auto) 0.74 K/uL (0-0.5); Eosinophils % (auto) 7.8 %; Hematocrit (blood only) 43.3 % (42-52); Hemoglobin 14.6 g/dL (14.0-18.0); Immature Granulocytes # (auto) 0.03 K/uL (0.00-0.02); Immature Granulocytes % (auto) 0.3 %; Lymphocytes # (auto) 1.68 K/uL (1.2-3.4); Lymphocytes % (auto) 17.7 %; Mean Corpuscular Hemoglobin 31.5 pg (25-34); Mean Corpuscular Hgb Conc 33.7 g/dL (32-36); Mean Corpuscular Volume 93.3 fL (80-100); Mean Platelet Volume 10.8 fL (7.4-10.4); Monocytes # (auto) 0.89 K/uL (0.11-0.59); Monocytes % (auto) 9.4 %; Neutrophils % (auto) 64.3 %; Platelet Count 272 K/uL (130-400); RDW Coefficient of Variation 15.5 % (11.5-14.5); RDW Standard Deviation 53.2 fL (36.4-46.3); Red Blood Count 4.64 M/uL (4.7-6.1); White Blood Count 9.49 K/uL (4.8-10.8)
[2021-08-04 07:05] LABS: Calcium 9.2 mg/dl (8.5-10.1); Creatinine Clr Calc Pharmacy 65.2 ml/min; Est GFR (African American) 71.8 ml/min; Est GFR (Non-African American) 61.9 ml/min; Potassium 3.9 mmol/L (3.5-5.1)
[2021-08-04] MEDS: [UNRECOGNIZED DRUG - REMARK] PO SCH (08:40)
[2021-08-04] MEDS: SENNA 8.6 MG TAB PO SCH (08:40)
[2021-08-04] MEDS: TOCOPHERYL, DL-ALPHA 400 UNITS 180 MG CAP PO SCH ×3 (08:40→20:41)
[2021-08-04] MEDS: MEMANTINE HCL 5 MG TAB PO SCH ×2 (08:40→20:41)
[2021-08-04] MEDS: DUTASTERIDE: ORDER AWAITING ACTION SCH ×2 (08:41→15:14)
[2021-08-04] MEDS: RIVASTIGMINE TD SCH (08:42)
[2021-08-04] MEDS: METOPROLOL TARTRATE 50 MG TAB PO SCH ×2 (08:43→20:41)
[2021-08-04] MEDS: POLYETHYLENE (MIRALAX) 17 GM PACK PO SCH ×2 (08:44→20:42)
--- NOTE | 2021-08-04 10:46 | Cardiology Progress Note ---
Date of Service August 04, 2021 Assessment & Plan (1) Atrial fibrillation with rapid ventricular response: Plan: -new diagnosis, asymptomatic. -uncertain duration, but was in sinus rhythm during hospitalization July 22. -agree with metoprolol tartrate, digoxin, and therapeutic Lovenox. -would add another intravenous digoxin 0.25 mg x2 today. -consider restarting Coumadin. (2) Left ventricular dysfunction: Plan: -severe left ventricular dysfunction noted on current echocardiogram. -etiology uncertain. CAD vs rapid atrial fibrillation vs recent acute illness. -favor conservative treatment realizing his significantcomorbidities. -can convert from metoprolol tartrate to metoprolol succinate once is stable doses identified. -hopefully blood pressure will allow addition of an ACEI or an ARB. (3) CAD (coronary artery disease): Plan: -60% LAD stenosis at time of cardiac catheterization in 1994. -would continue conservative medical management. (4) Parkinson disease: Plan: -patient is severely debilitated. -wheelchair bound at home. -has associated dementia. Admission and Anticipated Discharge Date Admission Date: August 01, 2021 Subjective The patient is resting comfortably in bed without complaints of chest pain, dyspnea, or palpitations. Physical Exam Physical Exam: In general this is a well-developed well-nourished white male in no acute distress. HEENT exam is negative. Neck reveals normal carotid upstrokes without bruits. No JVD. There is no thyromegaly. Cardiovascular exam reveals an irregularly irregular rhythm with distant heart sounds. No obvious murmurs. No S3. Lungs are clear without rales, rhonchi, or wheezes. Abdomen is soft without bruits. Extremities reveal intact radial artery and posterior tibial pulses bilaterally. There is trace to 1+ pretibial edema. Results & Data ([facility]) Vital Signs (Past 12 Hours) Vital Signs Temp Pulse Resp BP Pulse Ox 08/04/21 07:00 36.6 C 110 H 18 109/66 92 08/04/21 03:15 36.5 C 103 H 18 117/65 96 08/03/21 22:58 106 H 22 92/52 L 96 PG Care Time/CCT Total # of Minutes Spent Total Time Spent with Patient: Total time spent is greater than 50% in coordination of care (as documented) at patient's floor/unit and/or counseling patient: Coding Level of Care Code 64671 Subseq Hosp Care Lvl 3 Diagnoses Atrial fibrillation with rapid ventricular response I48.91 Left ventricular dysfunction I51.9 CAD (coronary artery disease) I25.10 Parkinson disease G20
[2021-08-04] MEDS: CALCIUM 600MG + VIT D 400 IU TAB PO SCH (12:34)
[2021-08-04] MEDS: [UNRECOGNIZED DRUG - REMARK] PO SCH ×3 (12:35→17:00)
--- NOTE | 2021-08-04 14:44 | Hospitalist Progress Note ---
Date of Service August 04, 2021 Assessment & Plan (1) Atrial fibrillation with rapid ventricular response: Plan: NEW. EKG on 07/22/21 during prior admission showed NSR. No h/o a.fib. He has an associated cardiomyopathy - doubt the a.fib is the cause since the a.fib is so new but can't rule it out completely. Rates still >100. This is despite digoxin load (0.25mg IV x 2 doses) yesterday + metoprolol BID. Increase metoprolol to 50mg BID. Ultimately will need the tartrate to be changed to succinate. Spoke with Dr Lin - plan for another 2 doses of IV digoxin today, followed by 0.25mg po daily tomorrow. Due to low BP cannot add JAXSON or ARB at this time. Hold off on diuretics for now - o2 sats high 90s in RA, and appears relatively compensated. Echo with EF 15-20% - see below. Prior to his lap chanel he was taking coumadin chronically for recurrent DVT. Last AC clinic note - was taking 5mg on //Saturday; 2.5mg on ///Saturday. Since he has been off the coumadin for some time will resume 5mg daily on 08/05/21. Continue bridge with lovenox BID. (2) Acute systolic CHF (congestive heart failure): Plan: NEW, present on admission. Has never had CHF in the past. EF 15-20%. A.fib is new in the last 10 days. That would likely be too short of a time period to lead to tachy-arrhythmia induced cardiomyopathy but can't exclude such. He has known CAD - 60% LAD lesion seen on cath in the mid . That lesion could easily be obstructive leading to severe CAD and resulting cardiomyopathy. Echo with wall motion abnormalities. Does have bifascicular block as well. Appreciate Dr Lin's consultation. See #1 and #3. Initiated on beta jessica. Will ultimately need JAXSON or ARB therapy vs Entresto. (3) Cardiomyopathy: Plan: etiology - ischemic? tachy-arrhythmia induced? due to bifascicular block? other? EF 15-20% on echo. No valvular disease. Appreciate Dr Lin's consultation. (4) Altered mental status: Plan: In the setting of advanced parkinson's dementia. Etiology? MRI brain neg acute stroke. No obvious infectious cause at this time (ua wnl, no pneumonia, etc). TSH 05/2021 wnl. B12 level 461 several years ago. B12 this admission wnl. Ammonia wnl. Patient appears to be at his baseline. (5) CAD (coronary artery disease): Plan: 1994 heart catheterization - [facility] - 60% LAD lesion. Full report could not be found in his record. Could he have ischemic cardiomyopathy? Trop neg at admission. Cardiology deferring on cath for now. Continue aspirin. Check lipids this admission - last check was 03/2020. (6) Choledocholithiasis with acute cholecystitis: Plan: Choledocholithiasis with acute cholecystitis. status post laparoscopic cholecystectomy/status post ERCP with CBD stent placement during prior hospital admission. On empiric Zosyn IV every 8 hours while awaiting blood cultures. CT a/p does not show any discrete source of infection. since blood cx's remain neg x 48 hours will stop zosyn. (7) S/P laparoscopic cholecystectomy: Plan: POD #[address] Antunez also s/p ERCP for choledocholithiasis with stent deployment LFTs stable tolerating diet CT abd/pelvis reviewed - nothing acute at this time (8) Hypertension: Plan: controlled cont metoprolol (9) Parkinson disease: Plan: Advanced. with PD dementia. Continue carbidopa-levodopa, rasagiline and rivastigmine as previous. Will need PT/OT while here. (10) Dementia: Plan: 2nd PD. supportive care. (11) Constipation: Plan: senna + miralax still constipated despite the above -- dulcolax suppository x 1 (12) UTI (urinary tract infection): Plan: Urine cx 07/22/21 with e.coli - pansensitive. had been on IV abx during his recent stay for his cholecystitis. was d/c home on augmentin x 5 days on 07/26 which should have been adequate coverage based on culture results. Plan: extensively updated at bedside today Admission and Anticipated Discharge Date Admission Date: August 01, 2021 Subjective overnight no events remains in a.fib, rates still >100 per he is eating well patient c/o mild lower abdominal discomfort it is vague he did have a very small bm this am per no nausea or vomiting no dyspnea or chest pain happy with his progress Review of Systems Review of Systems: gen - mild weakness; no fevers pulm - no cough/congestion cv - no chest pain; no orthopnea GI - vague abd discomfort, off/on; no vomiting; constipation Physical Exam Physical Exam: gen - NAD, masked facies neck - no JVD today mouth - MMM heart - tachy, irregularly irregular, s1 s2, no murmur lungs - mild decrease in BS b/l bases, minimal crackles b/l bases abd - soft NT ND BS+; dressings intact; 1 suture present abdominal wall - remains clean ext - trace-1+ edema b/l; pulses 1+ b/l; cool to touch neuro - hyper-rigidity of all 4 limbs, masked facies Results & Data Results & Data ([facility]) Vital Signs (Past 12 Hours) Vital Signs Temp Pulse Resp BP Pulse Ox 08/04/21 11:43 36.8 C 96 H 24 110/68 08/04/21 07:00 36.6 C 110 H 18 109/66 92 08/04/21 03:15 36.5 C 103 H 18 117/65 96 Laboratory Results Laboratory Results - last 24 hr 08/04/21 08/04/21 06:02 06:02 WBC 9.49 RBC 4.64 L Hgb 14.6 Hct 43.3 MCV 93.3 MCH 31.5 MCHC 33.7 RDW Std Deviation 53.2 H RDW Coeff of Patience 15.5 H Plt Count 272 MPV 10.8 H Immature Gran % (Auto) 0.3 Neut % (Auto) 64.3 Lymph % (Auto) 17.7 Bertie % (Auto) 9.4 Eos % (Auto) 7.8 Baso % (Auto) 0.5 Neut # (Auto) 6.10 Lymph # (Auto) 1.68 Bertie # (Auto) 0.89 H Eos # (Auto) 0.74 H Baso # (Auto) 0.05 Immature Gran # (Auto) 0.03 H Sodium 141 Potassium 3.9 Chloride 110 H Carbon Dioxide 25 Anion Gap 6.0 BUN 18 Creatinine 1.13 Est Cr Clr Drug Dosing 65.2 Est GFR ( Amer) 71.8 Est GFR (Non-Af Amer) 61.9 BUN/Creatinine Ratio 16.0 Glucose 118 H Calcium 9.2 PG Care Time/CCT Total # of Minutes Spent Total Time Spent with Patient: Total time spent is greater than 50% in coordination of care (as documented) at patient's floor/unit and/or counseling patient: Coding Level of Care Code 35138 Subseq Hosp Care Lvl 2 Diagnoses Atrial fibrillation with rapid ventricular response I48.91 Acute systolic CHF (congestive heart failure) I50.21 Cardiomyopathy I42.9 Altered mental status R41.82 CAD (coronary artery disease) I25.10 Choledocholithiasis with acute cholecystitis K80.42 S/P laparoscopic cholecystectomy Z90.49 Hypertension I10 Hypertension type: essential hypertension Parkinson disease G20 Dementia F03.90 Constipation K59.00 UTI (urinary tract infection) N30.00 Hematuria presence: without hematuria Urinary tract infection type: acute cystitis (1) UTI (urinary tract infection) Hematuria presence: without hematuria Urinary tract infection type: acute cystitis Qualified Code(s): N30.00 - Acute cystitis without hematuria (2) Hypertension Hypertension type: essential hypertension Qualified Code(s): I10 - Essential (primary) hypertension
[2021-08-04] MEDS: DIGOXIN 250 MCG in SYRINGE 9 ML IV SCH ×2 (15:34→22:27)
[2021-08-04] MEDS: ASPIRIN 81 MG ECTAB PO SCH (20:41)
[2021-08-05] MEDS: DUTASTERIDE: ORDER AWAITING ACTION SCH ×3 (01:37→17:38)
[2021-08-05] MEDS: ENOXAPARIN 100 MG/1ML SYR SQ SCH ×2 (06:05→17:39)
[2021-08-05 07:23] LABS: INR 1.3 (0.9-1.1); Prothrombin Time 12.9 Seconds (9.0-12.0)
[2021-08-05 07:57] LABS: BUN Creatinine Ratio 13.9 (10-20); Creatinine Clr Calc Pharmacy 78.2 ml/min; Est GFR (African American) 89.6 ml/min; Est GFR (Non-African American) 77.3 ml/min; Magnesium 2.3 mg/dl (1.8-2.4); Potassium 4.1 mmol/L (3.5-5.1)
[2021-08-05] MEDS: [UNRECOGNIZED DRUG - REMARK] PO SCH ×4 (07:59→17:40)
[2021-08-05] MEDS: ADVANCED PROBIOTIC 1250 MG CAPSULE PO SCH (08:00)
[2021-08-05] MEDS: TOCOPHERYL, DL-ALPHA 400 UNITS 180 MG CAP PO SCH ×3 (08:00→21:40)
[2021-08-05] MEDS ORDERED: bisacodyL 10 MG SUPP PR ONE (08:00)
[2021-08-05] MEDS: METOPROLOL TARTRATE 50 MG TAB PO SCH ×2 (08:01→21:40)
[2021-08-05] MEDS: MEMANTINE HCL 5 MG TAB PO SCH ×2 (08:01→21:40)
[2021-08-05] MEDS: SENNA 8.6 MG TAB PO SCH (08:02)
[2021-08-05] MEDS: [UNRECOGNIZED DRUG - REMARK] PO SCH (08:09)
[2021-08-05] MEDS: RIVASTIGMINE TD SCH (08:10)
[2021-08-05] MEDS: POLYETHYLENE (MIRALAX) 17 GM PACK PO SCH ×2 (08:13→21:39)
--- NOTE | 2021-08-05 09:17 | Hospitalist Progress Note ---
Date of Service August 05, 2021 Assessment & Plan (1) Atrial fibrillation with rapid ventricular response: Plan: NEW. EKG on 07/22/21 during prior admission showed NSR. No h/o a.fib. He has an associated cardiomyopathy - doubt the a.fib is the cause since the a.fib is so new but can't rule it out completely. - Rates still >100. - 08/04 digoxin load (0.25mg IV x 2 doses) + metoprolol BID. - 08/05 Resume dig 0.25mg PO daily - MTP increased to 50 BID tartrate, will eventually need conversion to succinate - Inadequate rate control today, ideally would avoid going up on MTP to allow BP room for JAXSON/ARB/Entresto - Cards consulted - Due to low BP cannot add JAXSON or ARB at this time. - Hold off on diuretics for now - o2 sats high 90s in RA, and appears relatively compensated. - Echo with EF 15-20% - see below. - Prior to his lap chanel he was taking coumadin chronically for recurrent DVT. -Last AC clinic note - was taking 5mg on //Saturday; 2.5mg on ///Saturday. - INR 1.3, warfarin resumed 08/05 - Continue bridge with lovenox BID. (2) Acute systolic CHF (congestive heart failure): Plan: - NEW, present on admission. -Has never had CHF in the past. -EF 15-20%. -A.fib is new in the last 10 days. That would likely be too short of a time period to lead to tachy-arrhythmia induced cardiomyopathy but can't exclude such. - known CAD - 60% LAD lesion seen on cath in the mid . That lesion could easily be obstructive leading to severe CAD and resulting cardiomyopathy. -Echo with wall motion abnormalities. 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 - Cardiology consulted, see above - Beta jessica as above - JAXSON or ARB therapy vs Entresto if/when BP tolerating (3) Cardiomyopathy: Plan: - DDx includes ischemic (most probably), tachyarrythmia induced, bifasicular block induced -EF 15-20% on echo. - No valvular disease. - Cards recommendations as noted. Appreciate Dr Lin's consultation. (4) Altered mental status: Plan: - In the setting of advanced parkinson's dementia. -MRI brain neg acute stroke. -No obvious infectious cause at this time (ua wnl, no pneumonia, etc). -TSH 05/2021 wnl. -B12 level 461 several years ago. B12 this admission wnl. -Ammonia wnl. -Patient appears to be at his baseline. (5) CAD (coronary artery disease): Plan: -1994 heart catheterization - [facility] - 60% LAD lesion. -Full report could not be found in his record. - ?ischemic cardiomyopathy -Trop neg at admission. -Cardiology deferring on cath for now. -Continue aspirin. -Check lipids this admission - last check was 03/2020. (6) Choledocholithiasis with acute cholecystitis: Plan: - Choledocholithiasis with acute cholecystitis. - status post laparoscopic cholecystectomy/status post ERCP with CBD stent placement during prior hospital admission. - Initially on empiric Zosyn - CT a/p does not show any discrete source of infection. - Stopped zosyn [facility] [address] eBC neg x48hrs (7) S/P laparoscopic cholecystectomy: Plan: - POD #[address] Antunez - also s/p ERCP for choledocholithiasis with stent deployment - LFTs stable - tolerating diet - CT abd/pelvis reviewed - nothing acute at this time (8) Hypertension: Plan: controlled cont metoprolol (9) Parkinson disease: Plan: -Advanced. -with PD dementia. -Continue carbidopa-levodopa, rasagiline and rivastigmine as previous. -Continue PT/OT while here. (10) Dementia: Plan: 2nd PD. supportive care. (11) Constipation: Plan: senna + miralax still constipated despite the above -- dulcolax suppository x 1 (12) UTI (urinary tract infection): Plan: - Urine cx 07/22/21 with e.coli - pansensitive. - had been on IV abx during his recent stay for his cholecystitis. - was d/c home on augmentin x 5 days on 07/26 which should have been adequate coverage based on culture results. Plan: Discussed plan w/ at bedside Continue sto require improved rate control Anticipate dc home to and 24 hour care once medically stable for d/c Admission and Anticipated Discharge Date Admission Date: August 01, 2021 Subjective Feels well. Increased head tremor this morning due to getting late meds, reports typically improves quickly after getting meds. Remains in afib with rate <100, BP ranging [id number] to systolic 90s. NO fevers/chills/sweats or other sx overnight. Seen at bedside with , no additional ? or concerns at time of assessment. Review of Systems Review of Systems: All systems reviewed & are unremarkable except as noted in Subjective Physical Exam Physical Exam: General: A&O to name and place. NAD. Cooperative. HEENT: Atraumatic, normocephalic. Masked faces. Rhythim lateral head tremor ~3-5 Hz. Pulm: CTAB A&P. -wheezes, -rales, -rhonchi. Symmetrical chest rise. No increase work of breathing. No respiratory distress. Cardiac: irregularly irregulat, tachycardic, -mrg. Radial pulses intact and symmetrical. Abdominal: Nontender, nondistended, soft. BS present. Ext: Increased tone/rigidity in all extremities. Results & Data Results & Data ([facility]) Vital Signs (Past 12 Hours) Vital Signs Temp Pulse Resp BP Pulse Ox 08/05/21 03:09 36.8 C 08/05/21 03:00 103 H 16 118/74 98 08/05/21 02:00 107 H 23 99 08/05/21 01:00 99 H 24 98 08/05/21 00:00 90 30 H 95 08/04/21 23:46 36.8 C 08/04/21 23:00 101 H 20 116/88 92 08/04/21 22:27 87 08/04/21 22:00 84 25 H 92 PG Care Time/CCT Total # of Minutes Spent Total Time Spent with Patient: Total time spent is greater than 50% in coordination of care (as documented) at patient's floor/unit and/or counseling patient: Coding Level of Care Code 65270 Subseq Hosp Care Lvl 2 Diagnoses Atrial fibrillation with rapid ventricular response I48.91 Acute systolic CHF (congestive heart failure) I50.21 Cardiomyopathy I42.9 Altered mental status R41.82 CAD (coronary artery disease) I25.10 Choledocholithiasis with acute cholecystitis K80.42 S/P laparoscopic cholecystectomy Z90.49 Hypertension I10 Hypertension type: essential hypertension Parkinson disease G20 Dementia F03.90 Constipation K59.00 UTI (urinary tract infection) N30.00 Hematuria presence: without hematuria Urinary tract infection type: acute cystitis (1) Hypertension Hypertension type: essential hypertension Qualified Code(s): I10 - Essential (primary) hypertension (2) UTI (urinary tract infection) Hematuria presence: without hematuria Urinary tract infection type: acute cystitis Qualified Code(s): N30.00 - Acute cystitis without hematuria
[2021-08-05] MEDS: LORazepam 1 MG TAB PO PRN (10:35)
--- NOTE | 2021-08-05 10:48 | Cardiology Progress Note ---
Date of Service August 05, 2021 Assessment & Plan (1) Atrial fibrillation with rapid ventricular response: Plan: -new diagnosis, asymptomatic. -uncertain duration, but was in sinus rhythm during hospitalization July 22. -agree with metoprolol tartrate, digoxin, and therapeutic Lovenox. -consider restarting Coumadin. (2) Left ventricular dysfunction: Plan: -severe left ventricular dysfunction noted on echocardiogram. -etiology uncertain. CAD vs rapid atrial fibrillation vs recent acute illness. -favor conservative treatment realizing his comorbidities. -convert from metoprolol tartrate to metoprolol succinate once a stable dose identified. -hopefully blood pressure will allow addition of an ACEI or an ARB. (3) CAD (coronary artery disease): Plan: -60% LAD stenosis at cardiac catheterization in 1994. -would continue conservative medical care. (4) Parkinson disease: Plan: -severely debilitated. -wheelchair bound at home. -has associated dementia. Admission and Anticipated Discharge Date Admission Date: August 01, 2021 Subjective The patient is resting comfortably in bed without complaints of chest pain, dyspnea, or palpitations. Physical Exam Physical Exam: In general this is a well-developed well-nourished white male in no acute distress. HEENT exam is negative. Neck reveals normal carotid upstrokes without bruits. No JVD. There is no thyromegaly. Cardiovascular exam reveals an irregularly irregular rhythm with distant heart sounds. No obvious murmurs. No S3. Lungs are clear without rales, rhonchi, or wheezes. Abdomen is soft without bruits. Extremities reveal intact radial artery and posterior tibial pulses bilaterally. There is trace to 1+ pretibial edema. 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 PG Care Time/CCT Total # of Minutes Spent Total Time Spent with Patient: Total time spent is greater than 50% in coordination of care (as documented) at patient's floor/unit and/or counseling patient: Coding Level of Care Code 96188 Subseq Hosp Care Lvl 3 Diagnoses Atrial fibrillation with rapid ventricular response I48.91 Left ventricular dysfunction I51.9 CAD (coronary artery disease) I25.10 Parkinson disease G20
[2021-08-05] MEDS: CALCIUM 600MG + VIT D 400 IU TAB PO SCH (12:22)
[2021-08-05] MEDS ORDERED: DUTASTERIDE 0.5MG CAP PO SCH (15:30)
[2021-08-05] MEDS ORDERED: Nursing to Pharmacy Communication SCH (17:00)
[2021-08-05] MEDS: DIGOXIN 0.25 MG TAB PO SCH (17:37)
[2021-08-05] MEDS: WARFARIN SOD 5 MG TAB PO SCH (17:38)
[2021-08-05] MEDS: ASPIRIN 81 MG ECTAB PO SCH (21:40)
[2021-08-05] MEDS: DUTASTERIDE 0.5MG CAP PO SCH (21:41)
[2021-08-06] MEDS: ENOXAPARIN 100 MG/1ML SYR SQ SCH ×2 (06:32→16:39)
[2021-08-06 07:11] LABS: Basophils # (auto) 0.05 K/uL (0-0.2); Basophils % (auto) 0.5 %; Eosinophils # (auto) 0.66 K/uL (0-0.5); Eosinophils % (auto) 7.1 %; Hematocrit (blood only) 42.5 % (42-52); Hemoglobin 13.7 g/dL (14.0-18.0); Immature Granulocytes # (auto) 0.03 K/uL (0.00-0.02); Immature Granulocytes % (auto) 0.3 %; Lymphocytes # (auto) 1.95 K/uL (1.2-3.4); Lymphocytes % (auto) 21.1 %; Mean Corpuscular Hemoglobin 30.4 pg (25-34); Mean Corpuscular Hgb Conc 32.2 g/dL (32-36); Mean Corpuscular Volume 94.2 fL (80-100); Monocytes # (auto) 0.62 K/uL (0.11-0.59); Monocytes % (auto) 6.7 %; Neutrophils # (auto) 5.95 K/uL (1.4-6.5); Neutrophils % (auto) 64.3 %; Platelet Count 324 K/uL (130-400); RDW Coefficient of Variation 15.7 % (11.5-14.5); Red Blood Count 4.51 M/uL (4.7-6.1); White Blood Count 9.26 K/uL (4.8-10.8)
[2021-08-06 07:20] LABS: INR 1.1 (0.9-1.1); Prothrombin Time 11.4 Seconds (9.0-12.0)
[2021-08-06 07:46] LABS: Calcium 9.4 mg/dl (8.5-10.1); Creatinine Clr Calc Pharmacy 73.5 ml/min; Est GFR (African American) 83.2 ml/min; Est GFR (Non-African American) 71.8 ml/min; Potassium 4.5 mmol/L (3.5-5.1)
[2021-08-06] MEDS: POLYETHYLENE (MIRALAX) 17 GM PACK PO SCH ×2 (08:35→21:17)
[2021-08-06] MEDS: SENNA 8.6 MG TAB PO SCH (08:36)
[2021-08-06] MEDS: CALCIUM 600MG + VIT D 400 IU TAB PO SCH (08:37)
[2021-08-06] MEDS: RIVASTIGMINE TD SCH (08:37)
[2021-08-06] MEDS: METOPROLOL TARTRATE 50 MG TAB PO SCH ×2 (08:37→21:17)
[2021-08-06] MEDS: MEMANTINE HCL 5 MG TAB PO SCH ×2 (08:37→21:17)
[2021-08-06] MEDS: TOCOPHERYL, DL-ALPHA 400 UNITS 180 MG CAP PO SCH ×3 (08:37→21:16)
[2021-08-06] MEDS: [UNRECOGNIZED DRUG - REMARK] PO SCH ×4 (08:38→16:39)
[2021-08-06] MEDS: [UNRECOGNIZED DRUG - REMARK] PO SCH (08:39)
[2021-08-06] MEDS: LORazepam 1 MG TAB PO PRN (08:48)
--- NOTE | 2021-08-06 11:28 | Cardiology Progress Note ---
Date of Service August 06, 2021 Assessment & Plan (1) Atrial fibrillation with rapid ventricular response: Plan: -new diagnosis, asymptomatic. -was in sinus rhythm during hospitalization July 22. -agree with metoprolol tartrate, digoxin, and therapeutic Lovenox. -restarted Coumadin yesterday. (2) Left ventricular dysfunction: Plan: -severe left ventricular dysfunction noted on echocardiogram. -etiology CAD vs rapid atrial fibrillation vs recent acute illness. -favor conservative treatment realizing his significant comorbidities. -convert from metoprolol tartrate to metoprolol succinate prior to discharge. -hopefully blood pressure will allow addition of an ACEI or an ARB. (3) CAD (coronary artery disease): Plan: -60% LAD stenosis at cardiac catheterization in 1994. -would continue conservative medical care. (4) Parkinson disease: Plan: -severely debilitated. -wheelchair bound at home. -has associated dementia. Admission and Anticipated Discharge Date Admission Date: August 01, 2021 Subjective The patient is resting comfortably in bed without complaints of chest pain, dyspnea, or palpitations. Physical Exam Physical Exam: In general this is a well-developed well-nourished white male in no acute distress. HEENT exam is negative. Neck reveals normal carotid upstrokes without bruits. No JVD. There is no thyromegaly. Cardiovascular exam reveals an irregularly irregular rhythm with distant heart sounds. No obvious murmurs. No S3. Lungs are clear without rales, rhonchi, or wheezes. Abdomen is soft without bruits. Extremities reveal intact radial artery and posterior tibial pulses bilaterally. There is trace to 1+ pretibial edema. Results & Data ([facility]) Vital Signs (Past 12 Hours) Vital Signs Temp Pulse Pulse Resp BP Pulse Ox Pulse Ox 08/06/21 08:00 36.6 C 82 86 18 153/89 H 95 08/06/21 07:00 96 08/05/21 23:59 37 C 91 H 91 H 16 106/64 100 Diagnostic Findings monitoring tech notes atrial fibrillation with a controlled ventricular response varying between 75 and 100 beats per minute. PG Care Time/CCT Total # of Minutes Spent Total Time Spent with Patient: Total time spent is greater than 50% in coordination of care (as documented) at patient's floor/unit and/or counseling patient: Coding Level of Care Code 43175 Subseq Hosp Care Lvl 3 Diagnoses Atrial fibrillation with rapid ventricular response I48.91 Left ventricular dysfunction I51.9 CAD (coronary artery disease) I25.10 Parkinson disease G20
[2021-08-06] MEDS: WARFARIN SOD 5 MG TAB PO SCH (16:39)
[2021-08-06] MEDS: DIGOXIN 0.25 MG TAB PO SCH (16:39)
--- NOTE | 2021-08-06 17:52 | Hospitalist Progress Note ---
Date of Service August 06, 2021 Assessment & Plan (1) Atrial fibrillation with rapid ventricular response: Plan: NEW. EKG on 07/22/21 during prior admission showed NSR. No h/o a.fib. He has an associated cardiomyopathy - doubt the a.fib is the cause since the a.fib is so new but can't rule it out completely. - Rates periodically greater than 100, average improving Metoprolol 50 twice daily converted to succinate 100 mg every morning. Continue digoxin 0.25 mg p.o. daily. -Rate control improving, not ideal but adequate. Blood pressure still soft with the exception of one measurement, high risk of hypotension. Would not add JAXSON/ARB/Entresto today but ideally would follow and if room add a very low-dose of this when able. -Discussed with cardiology this morning, agree with plan - Hold off on diuretics for now - o2 sats high 90s in RA, and appears relatively compensated. - Echo with EF 15-20% - see below. - Prior to his lap chanel he was taking coumadin chronically for recurrent DVT. -Last AC clinic note - was taking 5mg on //Saturday; 2.5mg on ///Saturday. - INR 1.3, warfarin resumed 08/05 - Continue bridge with lovenox BID. May complete bridge as outpatient if needed. (2) Acute systolic CHF (congestive heart failure): Plan: - NEW, present on admission. -Has never had CHF in the past. -EF 15-20%. -A.fib is new in the last 10 days. That would likely be too short of a time period to lead to tachy-arrhythmia induced cardiomyopathy but can't exclude such. - known CAD - 60% LAD lesion seen on cath in the mid . That lesion could easily be obstructive leading to severe CAD and resulting cardiomyopathy. -Echo with wall motion abnormalities. 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 - Cardiology consulted, see above - Beta jessica as above - JAXSON or ARB therapy vs Entresto if/when BP tolerating (3) Cardiomyopathy: Plan: - DDx includes ischemic (most probably), tachyarrythmia induced, bifasicular block induced -EF 15-20% on echo. - No valvular disease. - Cards recommendations as noted. Appreciate Dr Lin's consultation. (4) Altered mental status: Plan: - In the setting of advanced parkinson's dementia. -MRI brain neg acute stroke. -No obvious infectious cause at this time (ua wnl, no pneumonia, etc). -TSH 05/2021 wnl. -B12 level 461 several years ago. B12 this admission wnl. -Ammonia wnl. -Patient appears to be at his baseline. (5) CAD (coronary artery disease): Plan: -1994 heart catheterization - [facility] - 60% LAD lesion. -Full report could not be found in his record. - ?ischemic cardiomyopathy -Trop neg at admission. -Cardiology deferring on cath for now. -Continue aspirin. -Check lipids this admission - last check was 03/2020. (6) Choledocholithiasis with acute cholecystitis: Plan: - Choledocholithiasis with acute cholecystitis. - status post laparoscopic cholecystectomy/status post ERCP with CBD stent placement during prior hospital admission. - Initially on empiric Zosyn - CT a/p does not show any discrete source of infection. - Stopped zosyn [facility] eBC neg x48hrs (7) S/P laparoscopic cholecystectomy: Plan: - POD #[address] Antunez - also s/p ERCP for choledocholithiasis with stent deployment - LFTs stable - tolerating diet - CT abd/pelvis reviewed - nothing acute at this time (8) Hypertension: Plan: controlled cont metoprolol (9) Parkinson disease: Plan: -Advanced. -with PD dementia. -Continue carbidopa-levodopa, rasagiline and rivastigmine as previous. -Continue PT/OT while here. (10) Dementia: Plan: 2nd PD. supportive care. (11) Constipation: Plan: senna + miralax still constipated despite the above -- dulcolax suppository x 1 (12) UTI (urinary tract infection): Plan: - Urine cx 07/22/21 with e.coli - pansensitive. - had been on IV abx during his recent stay for his cholecystitis. - was d/c home on augmentin x 5 days on 07/26 which should have been adequate coverage based on culture results. Plan: Discussed plan w/ at bedside Rate control improving Anticipate dc home to and 24 hour care once medically stable for d/c Admission and Anticipated Discharge Date Admission Date: August 01, 2021 Subjective Doing well. Eye irritation improved, no eye discharge/purulence. Patient seen at bedside with his , they report he appears to be doing well. Had some periodic heart rate jumps to the 140s overnight, but overall rate has been downtrending and is moving towards reasonable control. Discussed that optimal control is likely limited by his blood pressure, and would not recommend a rhythm control agent especially given it is unclear how long he has been and A. fib 4. Continuing warfarin with Lovenox bridge. Review of Systems Review of Systems: All systems reviewed & are unremarkable except as noted in Subjective Physical Exam Physical Exam: General: A&O to name and place. NAD. Cooperative. HEENT: Atraumatic, normocephalic. No conjunctival injection. Masked faces. Rhythim lateral head tremor ~3-5 Hz. Pulm: CTAB A&P. -wheezes, -rales, -rhonchi. Symmetrical chest rise. No increase work of breathing. No respiratory distress. Cardiac: Irregularly irregular, tachycardic, -mrg. Radial pulses intact and symmetrical. Abdominal: Nontender, nondistended, soft. BS present. Ext: Increased tone/rigidity in all extremities. Results & Data Results & Data ([facility]) Vital Signs (Past 12 Hours) Vital Signs Temp Pulse Pulse Resp BP Pulse Ox Pulse Ox 08/06/21 16:00 94 H 08/06/21 15:00 96 08/06/21 08:00 36.6 C 82 86 18 153/89 H 95 08/06/21 07:00 96 PG Care Time/CCT Total # of Minutes Spent Total Time Spent with Patient: Total time spent is greater than 50% in coordination of care (as documented) at patient's floor/unit and/or counseling patient: Coding Level of Care Code 66997 Subseq Hosp Care Lvl 3 Diagnoses Atrial fibrillation with rapid ventricular response I48.91 Acute systolic CHF (congestive heart failure) I50.21 Cardiomyopathy I42.9 Altered mental status R41.82 CAD (coronary artery disease) I25.10 Choledocholithiasis with acute cholecystitis K80.42 S/P laparoscopic cholecystectomy Z90.49 Hypertension I10 Hypertension type: essential hypertension Parkinson disease G20 Dementia F03.90 Constipation K59.00 UTI (urinary tract infection) N30.00 Hematuria presence: without hematuria Urinary tract infection type: acute cystitis (1) Hypertension Hypertension type: essential hypertension Qualified Code(s): I10 - Essential (primary) hypertension (2) UTI (urinary tract infection) Hematuria presence: without hematuria Urinary tract infection type: acute cystitis Qualified Code(s): N30.00 - Acute cystitis without hematuria
[2021-08-06] MEDS: ASPIRIN 81 MG ECTAB PO SCH (21:16)
[2021-08-06] MEDS: DUTASTERIDE 0.5MG CAP PO SCH (21:17)
[2021-08-07] MEDS: ENOXAPARIN 100 MG/1ML SYR SQ SCH ×2 (06:08→08:11)
[2021-08-07] MEDS: SENNA 8.6 MG TAB PO SCH (08:06)
[2021-08-07] MEDS: POLYETHYLENE (MIRALAX) 17 GM PACK PO SCH (08:06)
[2021-08-07] MEDS: CALCIUM 600MG + VIT D 400 IU TAB PO SCH (08:10)
[2021-08-07] MEDS: TOCOPHERYL, DL-ALPHA 400 UNITS 180 MG CAP PO SCH (08:10)
[2021-08-07] MEDS: ADVANCED PROBIOTIC 1250 MG CAPSULE PO SCH (08:10)
[2021-08-07] MEDS: MEMANTINE HCL 5 MG TAB PO SCH (08:10)
[2021-08-07] MEDS: [UNRECOGNIZED DRUG - REMARK] PO SCH (08:10)
[2021-08-07] MEDS: RIVASTIGMINE TD SCH (08:11)
[2021-08-07] MEDS: [UNRECOGNIZED DRUG - REMARK] PO SCH ×2 (08:13→11:08)
[2021-08-07] MEDS ORDERED: METOPROLOL SUCC 50MG EXT REL TAB PO SCH (09:00)
--- NOTE | 2021-08-07 10:11 | Cardiology Progress Note ---
Date of Service August 07, 2021 Assessment & Plan (1) Atrial fibrillation with rapid ventricular response: Plan: -asymptomatic. -was in sinus rhythm during hospitalization July 22. -agree with metoprolol tartrate, digoxin, and therapeutic Lovenox. -restarted Coumadin on August 05. (2) Left ventricular dysfunction: Plan: -severe left ventricular dysfunction noted on current echocardiogram. -etiology CAD vs rapid atrial fibrillation vs recent acute illness. -favor conservative treatment realizing his significant comorbidities. -converted to metoprolol succinate. -consider an ACEI or an ARB as an outpatient. (3) CAD (coronary artery disease): Plan: -60% LAD stenosis at time of cardiac catheterization in 1994. -would continue conservative medical care. (4) Parkinson disease: Plan: -severely debilitated. -wheelchair bound. -has associated dementia. Admission and Anticipated Discharge Date Admission Date: August 01, 2021 Subjective The patient is resting comfortably in bed without complaints of chest pain, dyspnea, or palpitations. He is anxious for hospital discharge Physical Exam Physical Exam: In general this is a well-developed well-nourished white male in no acute distress. HEENT exam is negative. Neck reveals normal carotid upstrokes without bruits. No JVD. There is no thyromegaly. Cardiovascular exam reveals an irregularly irregular rhythm with distant heart sounds. No obvious murmurs. No S3. Lungs are clear without rales, rhonchi, or wheezes. Abdomen is soft without bruits. Extremities reveal intact radial artery and posterior tibial pulses bilaterally. There is trace to 1+ pretibial edema. 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 PG Care Time/CCT Total # of Minutes Spent Total Time Spent with Patient: Total time spent is greater than 50% in coordination of care (as documented) at patient's floor/unit and/or counseling patient: Coding Level of Care Code 44963 Subseq Hosp Care Lvl 3 Diagnoses Atrial fibrillation with rapid ventricular response I48.91 Left ventricular dysfunction I51.9 CAD (coronary artery disease) I25.10 Parkinson disease G20
--- NOTE | 2021-08-07 12:09 | Discharge Summary ---
Date of Service August 07, 2021 Admission HPI Per Admitting Provider The patient is a 80-year-old male with a past medical history including dementia, long-term anticoagulation use, CAD, hypertension, hypercholesterolemia, DVT, Parkinson's disease, UTI and recently admitted to [facility] from 07/22-07/26/2021, for cholecystectomy and CBD stent placement. Family reports that when the patient went home he had been slowly improving, until about 36 hours ago when he became less communicative with him. Abnormal laboratories: WBC 13.08, BNP 2030, albumin 2.6 COVID-19 testing negative in the ED Chest x-ray/CT angio PE shows pleural effusions EKG shows atrial fibrillation with RVR at rate 138, with bifascicular block. From the ED patient received the following: Normal saline 1 L, Solu-Medrol 25 mg IV, Benadryl 25 mg IV, diltiazem 15 mg IV followed by diltiazem drip which was then discontinued, Lopressor 5 mg IV. Heart rate did decrease to the upper 90s low 100s. Admission Exam Per Admitting Provider The patient is awake, but nonresponsive, well developed and well nourished, normocephalic and atraumatic, lying in bed and in no acute distress. HEENT--PERRL, EOMI, mucous membranes and oropharynx dry. Neck--supple. No JVD. No bruits. Thyroid normal, trachea midline, no adenopathy. Heart--irregularly irregular and tachycardic. No murmurs, rubs or gallops. Lungs--clear bilaterally, no respiratory distress, no accessory muscle use. Abdomen--normal bowel sounds and soft. Nontender. Nondistended, no hernias or masses, no organomegaly. Extremities--no cyanosis or clubbing. No edema. Dermatologic--normal skin turgor, normal color, no abnormal lymph nodes, no rash. Neurologic--cranial nerves II through XII grossly intact. Rheumatologic--limited exam due to mentation Psychiatric--flat affect. Principal Diagnosis A. fib with RVR Discharge Exam General: A&O to name and place. NAD. Cooperative. HEENT: Atraumatic, normocephalic. No conjunctival injection. Masked faces. Rhythim lateral head tremor ~3-5 Hz. Pulm: CTAB A&P. -wheezes, -rales, -rhonchi. Symmetrical chest rise. No increase work of breathing. No respiratory distress. Cardiac: Irregularly irregular, regular rate, -mrg. Radial pulses intact and symmetrical. Abdominal: Nontender, nondistended, soft. BS present. Ext: Increased tone/rigidity in all extremities. Discharge Data Allergies Allergy/AdvReac Type Severity Reaction Status Date / Time iodine Allergy Severe ITCHING Verified 08/01/21 20:17 AND DISCOMFORT Iodinated Contrast Media Allergy Intermediate Rash Verified 08/01/21 20:17 Consultations 08/01/21 22:31 ED Decision to Admit Stat 08/02/21 21:32 Consult Cardiology Routine Ordered Studies 08/01/21 15:46 CT angio chest PE protocol Stat CT head/brain wo con Stat 08/01/21 15:47 CT abd pelvis IV con only Stat 08/02/21 23:11 MR brain wo con Stat Hospital Course (1) Atrial fibrillation with rapid ventricular response: Kaleb is a 80-year-old male who was found to have new A. fib and car diomyopathy on admission and recently underwent a lap cholecystectomy. To do as outpatient: 1. Follow INR results, adjust warfarin as needed to maintain therapeutic INR 2.03.0. Discontinue Lovenox bridge once INR therapeutic. Pt has f/u with Dr. Pimentel 2. Routine follow-up with PCP 3. Routine follow-up with cardiology. Revisit JAXSON/ARB/Entresto addition if blood pressure will tolerate 4. Keep follow-up surgery/GI after cholecystectomy and stent deployment from previous admission 5. Adjustment of rate control medications as needed New atrial fibrillation with RVR Rapid ventricular response with rates greater than 140. Patient was found to have echo with EF of 15 to 20%, cardiology was consulted. Patient was not a good candidate for rhythm conversion Metoprolol and digoxin were added and titrated, patient with adequate rate control and adequate blood pressure on metoprolol 50 tartrate twice daily and following digoxin load Metoprolol converted to succinate 100 mg every morning on discharge, continue digoxin 0.25 mg p.o. 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 Had previously been alternating between 5 mg and 2.5 mg. Lovenox bridge pursued, warfarin resumed Patient had progressed and was clinically stable for discharge, INR levels had not returned to therapeutic. Patient was discharged to continue warfarin 5 mg daily with Lovenox bridge, and to move back to 2.5/5 mg home dosing once in INR therapeutic range with follow-up to anticoagulation clinic this week No signs of bleeding during admission (2) Acute systolic CHF (congestive heart failure): - NEW, present on admission. -Has never had CHF in the past. -EF 15-20%. -A.fib is new in the last 10 days. That would likely be too short of a time period to lead to tachy-arrhythmia induced cardiomyopathy but can't exclude such. - known CAD - 60% LAD lesion seen on cath in the mid . That lesion could easily be obstructive leading to severe CAD and resulting cardiomyopathy. No acute chest pain, discussed with cardiology and conservative medical care was recommended. Catheterization was not recommended. 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 - Cardiology consulted, see above -Recommended addition of JAXSON/ARB versus Entresto, however patient's blood pressures were soft in the low 100s and rate control in the setting of A. fib with RVR was prioritized. While patient tolerated digoxin and metoprolol, his blood pressure remained soft at discharge. JAXSON/ARB/Entresto initiation was deferred with home blood pressure checks and close follow-up to cardiology for reconsideration based on clinical progression (3) Cardiomyopathy: - DDx includes ischemic (most probably), tachyarrythmia induced, bifasicular block induced -EF 15-20% on echo. - No valvular disease. -See above (4) Altered mental status: - In the setting of advanced parkinson's dementia. -MRI brain neg acute stroke. -No obvious infectious cause at this time (ua wnl, no pneumonia, etc). -TSH 05/2021 wnl. -B12 level 461 several years ago. B12 this admission wnl. -Ammonia wnl. -Progressed and returned to baseline prior to discharge (5) CAD (coronary artery disease): -1994 heart catheterization - [facility] - 60% LAD lesion. -Full report could not be found in his record. - ?ischemic cardiomyopathy -Trop neg at admission. Medical management was recommended catheterization was not recommended (6) Choledocholithiasis with acute cholecystitis: - Choledocholithiasis with acute cholecystitis. - status post laparoscopic cholecystectomy/status post ERCP with CBD stent placement during prior hospital admission. - Initially on empiric Zosyn - CT a/p did not show any discrete source of infection. - Stopped zosyn sinc eBC neg x48hrs Remained clinically well and afebrile (7) S/P laparoscopic cholecystectomy: - also s/p ERCP for choledocholithiasis with stent deployment - LFTs stable - tolerating diet - CT abd/pelvis reviewed - nothing acute at this time Continue routine follow-up with surgery (8) Hypertension: controlled cont metoprolol (9) Parkinson disease: -Advanced. -with PD dementia. -Continue carbidopa-levodopa, rasagiline and rivastigmine as previous. -Continue PT/OT while here. (10) Dementia: 2nd PD. supportive care. (11) Constipation: senna + miralax still constipated despite the above -- dulcolax suppository x 1 (12) UTI (urinary tract infection): - Urine cx 07/22/21 with e.coli - pansensitive. - had been on IV abx during his recent stay for his cholecystitis. - was d/c home on augmentin x 5 days on 07/26 which should have been adequate coverage based on culture results. Discharged home with 24-hour care and home health with Total Time Total Time Spent Total Time Spent (In Minutes): Time spent day of discharge 45 minutes including direct patient care, documentation, review of labs and images, and coordination of care Discharge Plan Discharge Items Patient Disposition: Home - Home Health Services Reason For Visit: A-FIB RVR, CONFUSION, DECREASED RESPONSIVENESS Discharge Diagnosis: A. fib with RVR Activity: Resume your previous activity Non-emergency contact: Primary Care Provider and Finishing And Shipping Supervisor Call non-emergency contact if: you have any medication questions and your symptoms worsen Follow-up/Referrals: Medardo Lin MD [Physician] - Adriane Pimentel MD, PhD [Pathologist] - ([facility]. Needs INR followup within 3-4 days) Ney Rodriguez MD [Primary Care Provider] - Diet: Regular Ambulatory Orders: Prothrombin Time INR (Routine) Timeframe: 2 Days Location: Determined by Patient Ordered By: Juancho Pardo Attending Provider Instructions: You were seen in the hospital and had recently had choledocholithiasis with acute cholecystitis, a gallbladder infection due to gallstones with a gallbladder removal (laparoscopic cholecystectomy). You received antibiotics during admission, no further antibiotics were indicated at discharge. You experienced a fast heart rate and an irregular rhythm called Jeana palomo with rapid ventricular response. You have been started on several medications to help control your heart rate in your case was discussed and followed by cardiology. You have had medication changes as below. Your warfarin has been resumed to protect you from blood clots, however levels were not yet normal at time of discharge. You have been prescribed Lovenox to help protect you until your warfarin is therapeutic as noted below. You have been prescribed a heart medication, metoprolol succinate. Please take metoprolol succinate 100 mg by mouth in the morning daily. This medication controls heart rate, but can also lower blood pressure. If you experience low blood pressures at home, or lightheadedness/dizziness, please contact cardiology for adjustments/recommendations. You have been prescribed a medication digoxin to help control heart rate. Please take digoxin 0.25 mg once daily in the afternoon. This medication will help control heart rate. You have been prescribed Lovenox shots, a blood thinner to help retract you from blood clots until your warfarin takes effect. Please take Lovenox 80 mg subcu injection once in the morning and once in the evening until your warfarin levels/INR are within therapeutic range. Please follow-up with Dr. Pimentel for recommendations regarding this medication. Your warfarin has been prescribed/continued at discharge. Please take warfarin 5 mg by mouth daily. Once your INR returns to therapeutic range (INR 2.03.0), you should resume your previous warfarin dosing of alternating between 5 mg and 2.5 mg every other day. An INR order has been provided. Please have the INR/warfarin levels checked, and discuss these results with Dr. Pimentel. A followup appointment is being scheduled for you with cardiology. You should be seen seen within 1 month. You should receive a call to confirm this appointment. If you do not receive a call within 48 hours to confirm this appointment, or need to change this appointment, please call the provider's office at the number above. A followup appointment is being scheduled for you with Dr. Rodriguez. You should be seen seen within 7 to 10 days. You should receive a call to confirm this appointment. If you do not receive a call within 48 hours to confirm this appointment, or need to change this appointment, please call the provider's office at the number above. A followup appointment is being scheduled for you with Dr. Pimentel/Coagulation clinic. You should be seen seen or provided with recommendations within 3 days. You should receive a call to confirm this appointment. If you do not receive a call within 48 hours to confirm this appointment, or need to change this appointment, please call the provider's office at [phone]. If you develop any new or worsening symptoms including fever, chills, sweats, chest pain, chest pressure, difficulty breathing, uncontrolled nausea/vomiting, rash, wheezing, passing out or nearly passing out, bleeding, black/bloody bowel movements, or other new or concerning symptoms please call your primary care physician, brass chaser, or call 911 for re-evaluation in the emergency department if you are very concerned. Pending Studies at Discharge: Yes (INR) Stand-Alone Forms: My [facility] kapturem, Smoking Cessation Medications and DC Order Prescriptions: New metoprolol succinate 50 mg Tablet Extended Release 24 Hr 100 mg PO QAM 30 Days Qty: 60 RF: 0 digoxin 250 mcg (0.25 mg) Tablet 0.25 mg PO DAILY@1600 30 Days Qty: 30 RF: 0 warfarin 5 mg Tablet 5 mg PO DAILY@1600 30 Days Qty: 30 RF: 0 enoxaparin [Lovenox] 80 mg/0.8 mL syringe 80 mg subcut Q12H Qty: 8 RF: 0 Continued rivastigmine 4.6 mg/24 hour patch 24 hour 1 patch transdermal DAILY@1200 RF: 0 ascorbic acid (vitamin C) 1,000 mg Tablet 1 g PO QDL RF: 0 lorazepam [Ativan] 2 mg Tablet 2 mg PO TID PRN (Reason: Anxiety) RF: 0 rasagiline 1 mg Tablet 1 mg PO DAILY RF: 0 coenzyme Q10 400 mg Capsule 400 mg PO TID RF: 0 vitamin E 400 unit capsule 400 unit PO TID RF: 0 memantine 5 mg tablet 5 mg PO BID RF: 0 acetaminophen [Tylenol Extra Strength] 500 mg Tablet 1,000 mg PO Q6H PRN (Reason: Pain) RF: 0 dutasteride [Avodart] 0.5 mg capsule 0.5 mg PO PM RF: 0 tramadol 50 mg Tablet 50 mg PO Q4H PRN (Reason: pain) Qty: 36 RF: 0 ketoconazole 2 % Shampoo 1 ea TOPICAL 3XWK RF: 0 cetirizine [Zyrtec] 10 mg Tablet 10 mg PO DAILY PRN (Reason: Congestion) RF: 0 riboflavin (vitamin B2) 100 mg Tablet 100 mg PO TID RF: 0 clobetasol 0.05 % Cream 1 applic TOPICAL DAILY PRN (Reason: Rash) RF: 0 aspirin 81 mg Tablet,Delayed Release (Dr/Ec) 81 mg PO PM RF: 0 sodium phosphates 19-7 gram/118 mL Enema 118 ml VA PM RF: 0 omeprazole 20 mg Capsule,Delayed Release(Dr/Ec) 20 mg PO DAILY PRN (Reason: Stomach Upset) RF: 0 mupirocin 2 % Ointment 1 applic TOPICAL BID PRN (Reason: OPEN AREAS ON THIGHS) RF: 0 hydrocortisone 0.5 % Ointment 1 applic TOPICAL BID PRN (Reason: ITCHINESS) RF: 0 multivitamin with minerals Tablet 1 tab PO QAM RF: 0 Dry Eye Relief 1-0.2-0.2 % Drops 2 drp OPHTHALMIC (EYE) BID PRN (Reason: Dry Eyes) RF: 0 Aloe [place] Protectant Ointment 43 % Ointment 1 applic TOPICAL BID RF: 0 lidocaine 5 % Ointment 1 applic TOPICAL BID PRN (Reason: Pain) RF: 0 Align 4 mg capsule 4 mg PO Q2D RF: 0 polyethylene glycol 3350 [Miralax] 17 gram/dose powder 17 g PO Q2D RF: 0 calcium carbonate-vitamin D3 [Calcium 600 with Vitamin D3] 600 mg(1,500mg) - 500 unit Capsule 1 cap PO QDL RF: 0 Rytary 23.75-95 mg capsule, extended release 2 cap PO TID RF: 0 Rytary 23.75-95 mg capsule, extended release 1 cap PO HS RF: 0 Discontinued enoxaparin [Lovenox] 40 mg/0.4 mL syringe 40 mg subcut DAILY Qty: 10 RF: 1 Discharge Orders: Discharge Order (Routine); Ordered 08/07/21 Ordered By: Juancho France Admission Data Admit Date/Time: 08/01/21 23:38 Attending Provider: Juancho France Admit Provider: Wyatt Huynh Primary Care Provider: Michael,Ney Other Providers: Wyatt Huynh ; Medardo Lin ; [facility],Referral [facility] Coding Level of Care Code D/C DAY MANAGEMENT >30 MINS Diagnoses Atrial fibrillation with rapid ventricular response I48.91 Acute systolic CHF (congestive heart failure) I50.21 Cardiomyopathy I42.9 Altered mental status R41.82 CAD (coronary artery disease) I25.10 Choledocholithiasis with acute cholecystitis K80.42 S/P laparoscopic cholecystectomy Z90.49 Hypertension I10 Hypertension type: essential hypertension Parkinson disease G20 Dementia F03.90 Constipation K59.00 UTI (urinary tract infection) N30.00 Hematuria presence: without hematuria Urinary tract infection type: acute cystitis
[2021-08-07] MEDS ORDERED: FAMOTIDINE 20 MG in SYRINGE 3 ML IV SCH (12:45)
[2021-08-07] MEDS ORDERED: PANTOprazole 40 MG TAB PO SCH (12:45)
[2021-08-07] MEDS ORDERED: FAMOTIDINE 20 MG in SYRINGE 3 ML IV ONE (12:45)
== END 2021-08-07 16:21 | disposition home health service (06) | DRG 308 ==
LOC: ED 15:28 → SUATTDRO 23:38 → EDINP 23:38 → 1E 08-02 21:03